=== PATIENT | female | born 1940 | race Caucasian/White ===

== ENCOUNTER → 2017-04-25 | Outpatient (CLI) | payer MEDICARE ==
[2017-04-25 10:48] LABS: Basophils # (A) 0.1 k/uL (0-0.2); Basophils % (A) 1 %; CH 30.2; CHCM 32.7; Eosinophils # (A) 0.3 k/uL (0-0.7); Eosinophils % (A) 6 %; HCT 42.4 % (34.0-46.0); HDW 2.52; HGB 13.7 gm/dL (11.4-16.0); Luc # (Auto) 0.14; Luc % (Auto) 2; Lymphocytes # (A) 1.2 k/uL (1.0-4.8); Lymphocytes % (A) 21 %; MCHC 32.4 g/dL (31.0-37.0); MCV 92.6 fL (80.0-100.0); Mean Platelet Volume 7.2; Monocytes # (A) 0.4 k/uL (0-1.0); Monocytes % (A) 6 %; Neutrophils # (A) 3.7 k/uL (1.3-7.7); Neutrophils % (A) 63 %; RBC 4.58 m/uL (3.80-5.40); RDW 13.4 % (11.5-15.5); WBC 5.8 k/uL (3.8-10.6); WBC (Perox) 6.07
[2017-04-25 10:55] LABS: ALT 26 U/L (9-52); AST 35 U/L (14-36); Alkaline Phosphatase 83 U/L (38-126); Anion Gap 11 mmol/L; Blood Urea Nitrogen 20 mg/dL (7-17); Calcium 9.8 mg/dL (8.4-10.2); Carbon Dioxide 29 mmol/L (22-30); Chloride 105 mmol/L (98-107); Cholesterol 179 mg/dL (<200); Creatine Kinase 81 U/L (30-135); Glucose 107 mg/dL (74-99); HDL Cholesterol 61 mg/dL (40-60); Non-African American GFR(MDRD) >60 (>60 ml/min/1.73 sqM); Potassium 4.7 mmol/L (3.5-5.1); Sodium 145 mmol/L (137-145); Total Bilirubin 0.9 mg/dL (0.2-1.3); Triglycerides 177 mg/dL (<150); Uric Acid 6.4 mg/dL (3.7-7.4)
[2017-04-25 11:16] LABS: Appearance,Urine Cloudy (Clear); Bacteria,Urine Many /hpf; Bilirubin,Urine Negative (Negative); Glucose,Urine (UA) Negative (Negative); Ketones,Urine Negative (Negative); Leukocyte Esterase,Urine Large (Negative); Mucus,Urine Rare /hpf; Nitrite,Urine Positive (Negative); PH, Urine 5.5 (5.0-8.0); Particle Count 66143; Protein,Urine Trace (Negative); RBC,Urine 1 /hpf (0-5); Specific Gravity,Urine 1.017 (1.001-1.035); Squamous Epithelial Cell,Urine 5 /hpf (0-4); UA Billing (MACRO vs. MICRO) MICRO; Urobilinogen,Urine <2.0 mg/dL (<2.0); WBC,Urine 20 /hpf (0-5)
[2017-04-25 11:55] LABS: Hemoglobin A1C 5.8 % (4.2-6.1)
== END | disposition home or self-care (01) ==
LOC: LABWHC1 09:41
PROVIDERS: ATTEND Internal Medicine
DX: J44.9 Chronic obstructive pulmonary disease, unspecified (principal); I10 Essential (primary) hypertension; E78.5 Hyperlipidemia, unspecified
CPT/HCPCS: 36415; 80053; 80061; 81001; 82306; 82550; 83036; 84439; 84443; 84550; 85025

== ENCOUNTER 2017-07-31 04:52 | Emergency (ER) | payer MEDICARE ==
[2017-07-31 04:58] VITALS: TEMP 97.7
[2017-07-31] MEDS ORDERED: ALBUTEROL NEBULIZED 2.5 MG/3 ML INHALATION STA (05:22)
[2017-07-31] MEDS ORDERED: NITROGLYCERIN OINT 1 INCH/GM PACKET TOPICAL STA (05:22)
[2017-07-31 05:49] LABS: Basophils # (A) 0.1 k/uL (0-0.2); Basophils % (A) 1 %; CH 31.2; CHCM 34.5; Eosinophils # (A) 0.3 k/uL (0-0.7); Eosinophils % (A) 4 %; HCT 37.2 % (34.0-46.0); HDW 2.51; HGB 12.6 gm/dL (11.4-16.0); Luc # (Auto) 0.15; Luc % (Auto) 2; Lymphocytes # (A) 1.2 k/uL (1.0-4.8); Lymphocytes % (A) 18 %; MCH 30.7 pg (25.0-35.0); MCHC 33.8 g/dL (31.0-37.0); MCV 90.9 fL (80.0-100.0); Mean Platelet Volume 7.8; Monocytes # (A) 0.5 k/uL (0-1.0); Monocytes % (A) 8 %; Neutrophils # (A) 4.5 k/uL (1.3-7.7); Neutrophils % (A) 67 %; RBC 4.09 m/uL (3.80-5.40); RDW 14.5 % (11.5-15.5); WBC 6.8 k/uL (3.8-10.6); WBC (Perox) 7.27
--- NOTE | 2017-07-31 05:51 | ED ---
SOB HPI - General Source: patient, family Mode of arrival: wheelchair Limitations: no limitations - History of Present Illness MD Complaint: shortness of breath Onset/Timin -: week(s) Severity: moderate Consistency: constant Improves With: nothing Worsens With: lying flat, exertion Known History Of: COPD, congestive heart failure Associated Symptoms: orthopnea Treatments Prior to Arrival: bronchodilator - Related Data Home Oxygen Therapy: No <Ismael Hill - Last Filed: 07/31/17 05:47> <Yannick Elizabeth - Last Filed: 08/12/17 16:06> - General Chief Complaint: Shortness of Breath Stated Complaint: ELSI Time Seen by Provider: 07/31/17 05:00 - History of Present Illness Initial Comments: This patient is a 76-year-old woman who presents to be a viral for shortness of breath that she states seems to be getting progressively worse over about one week. She states that she is also having some orthopnea. She states that she did try some albuterol but it is not helping any longer though initially it seemed to. Patient denies change in urination, bowel movements, swelling or leg pain (Ismael Hill) - Related Data Home Medications Medication Instructions Recorded Confirmed Aspirin 324 mg PO DAILY 08/02/14 07/31/17 Lisinopril [Prinivil] 10 mg PO DAILY 08/02/14 07/31/17 Ascorbic Acid [Vitamin C] 1,000 mg PO DAILY@1200 12/02/14 07/31/17 Cholecalciferol [Vitamin D3] 1,000 unit PO DAILY@1200 12/02/14 07/31/17 Cyanocobalamin [Vitamin B-12] 500 mcg PO DAILY@1200 12/02/14 07/31/17 Metoprolol Tartrate [Lopressor] 50 mg PO BID 07/31/17 07/31/17 Multivitamins, Thera [Multivitamin 1 tab PO DAILY 07/31/17 07/31/17 (formulary)] Sertraline [Zoloft] 75 mg PO DAILY 07/31/17 07/31/17 Simvastatin [Zocor] 40 mg PO HS 07/31/17 07/31/17 Allergies Allergy/AdvReac Type Severity Reaction Status Date / Time heparin AdvReac Unknown Verified 07/31/17 08:16 Review of Systems ROS Other: All systems not noted in ROS Statement are negative. Constitutional: Denies: fever, chills Respiratory: Reports: dyspnea. Denies: hemoptysis Cardiovascular: Reports: dyspnea on exertion, orthopnea. Denies: chest pain, palpitations, edema, syncope Gastrointestinal: Denies: abdominal pain, vomiting, diarrhea Genitourinary: Denies: dysuria, frequency, hematuria Musculoskeletal: Denies: back pain Skin: Denies: rash Neurological: Denies: headache, weakness, numbness <Ismael Hill - Last Filed: 07/31/17 05:47> ROS Other: All systems not noted in ROS Statement are negative. <Yannick Elizabeth Emelia - Last Filed: 08/12/17 16:06> ROS Statement: Those systems with pertinent positive or pertinent negative responses have been documented in the HPI. Past Medical History Past Medical History: COPD, Hyperlipidemia, Hypertension, Myocardial Infarction (CO), Osteoarthritis (OA) Additional Past Medical History / Comment(s): hx. rheumatic fever x 3, heart murmur severe aortic stenosis severe mitral regurgitation Last Myocardial Infarction Date:: unknown History of Any Multi-Drug Resistant Organisms: None Reported Past Surgical History: Bladder Surgery, Cholecystectomy, Heart Catheterization, Heart Catheterization With Stent, Hysterectomy Additional Past Surgical History / Comment(s): mitral and aortic valve replacement Past Anesthesia/Blood Transfusion Reactions: No Reported Reaction Date of Last Stent Placement:: 1997 Past Psychological History: No Psychological Hx Reported Smoking Status: Former smoker Past Alcohol Use History: Rare Past Drug Use History: None Reported <Ismael Hill - Last Filed: 07/31/17 05:47> General Exam Limitations: no limitations General appearance: alert, anxious, in distress (Patient is in mild respiratory distress, with mild tachypnea) Head exam: Present: atraumatic, normocephalic Neck exam: Present: normal inspection Respiratory exam: Present: respiratory distress, wheezes. Absent: rales, rhonchi, stridor, accessory muscle use, decreased breath sounds, prolonged expiratory Cardiovascular Exam: Present: regular rate, normal rhythm, systolic murmur GI/Abdominal exam: Present: soft. Absent: distended, tenderness, guarding, rebound Back exam: Present: normal inspection. Absent: CVA tenderness (R), CVA tenderness (L) Neurological exam: Present: alert Skin exam: Present: warm, dry, intact, normal color. Absent: rash <Ismael Hill - Last Filed: 07/31/17 05:47> General appearance: alert, in no apparent distress Head exam: Present: atraumatic, normocephalic, normal inspection Eye exam: Present: normal appearance, PERRL, EOMI. Absent: scleral icterus, conjunctival injection, periorbital swelling ENT exam: Present: normal exam, mucous membranes moist Neck exam: Present: normal inspection. Absent: tenderness, meningismus, lymphadenopathy Respiratory exam: Present: normal lung sounds bilaterally. Absent: respiratory distress, wheezes, rales, rhonchi, stridor Cardiovascular Exam: Present: regular rate, normal rhythm, normal heart sounds. Absent: systolic murmur, diastolic murmur, rubs, gallop, clicks GI/Abdominal exam: Present: soft, normal bowel sounds. Absent: distended, tenderness, guarding, rebound, rigid Extremities exam: Present: normal inspection, full ROM, normal capillary refill. Absent: tenderness, pedal edema, joint swelling, calf tenderness Back exam: Present: normal inspection Neurological exam: Present: alert, oriented X3, CN II-XII intact Psychiatric exam: Present: normal affect, normal mood Skin exam: Present: warm, dry, intact, normal color. Absent: rash <Yannick Elizabeth - Last Filed: 08/12/17 16:06> Medical Decision Making <Ismael Hill - Last Filed: 07/31/17 05:47> - Lab Data Result diagrams: 07/31/17 05:37 07/31/17 05:37 - Radiology Data Radiology results: report reviewed (Chest x-ray CTA chest negative for acute disease), image reviewed <Yannick Elizabeth - Last Filed: 08/12/17 16:06> - Medical Decision Making 76 she had ER for evaluation. Shortness of breath. Patient refusing to stay in the hospital revisited be admitted. Vision signed out AGAINST MEDICAL ADVICE (Yannick Elizabeth) - Lab Data Lab Results 07/31/17 07/31/17 07/31/17 Range/Units 05:37 05:37 05:37 WBC 6.8 (3.8-10.6) k/uL RBC 4.09 (3.80-5.40) m/uL Hgb 12.6 (11.4-16.0) gm/dL Hct 37.2 (34.0-46.0) % MCV 90.9 (80.0-100.0) fL MCH 30.7 (25.0-35.0) pg MCHC 33.8 (31.0-37.0) g/dL RDW 14.5 (11.5-15.5) % Plt Count 181 (150-450) k/uL Neutrophils % 67 % Lymphocytes % 18 % Monocytes % 8 % Eosinophils % 4 % Basophils % 1 % Neutrophils # 4.5 (1.3-7.7) k/uL Lymphocytes # 1.2 (1.0-4.8) k/uL Monocytes # 0.5 (0-1.0) k/uL Eosinophils # 0.3 (0-0.7) k/uL Basophils # 0.1 (0-0.2) k/uL PT (9.0-12.0) sec INR (<1.2) APTT (22.0-30.0) sec D-Dimer (<0.60) mg/L FEU Sodium 142 (137-145) mmol/L Potassium 3.9 (3.5-5.1) mmol/L Chloride 106 (98-107) mmol/L Carbon Dioxide 25 (22-30) mmol/L Anion Gap 11 mmol/L BUN 18 H (7-17) mg/dL Creatinine 0.66 (0.52-1.04) mg/dL Est GFR (MDRD) Af Amer >60 (>60 ml/min/1.73 sqM) Est GFR (MDRD) Non-Af >60 (>60 ml/min/1.73 sqM) Glucose 117 H (74-99) mg/dL Calcium 9.3 (8.4-10.2) mg/dL Total Bilirubin 0.9 (0.2-1.3) mg/dL AST 55 H (14-36) U/L ALT 56 H (9-52) U/L Alkaline Phosphatase 75 (38-126) U/L Total Creatine Kinase 131 (30-135) U/L CK-MB (CK-2) 3.4 H* (0.0-2.4) ng/mL CK-MB (CK-2) Rel Index 2.6 Troponin I 0.048 H* (0.000-0.034) ng/mL NT-Pro-B Natriuret Pep pg/mL Total Protein 7.6 (6.3-8.2) g/dL Albumin 4.5 (3.5-5.0) g/dL 07/31/17 07/31/17 Range/Units 05:37 05:37 WBC (3.8-10.6) k/uL RBC (3.80-5.40) m/uL Hgb (11.4-16.0) gm/dL Hct (34.0-46.0) % MCV (80.0-100.0) fL MCH (25.0-35.0) pg MCHC (31.0-37.0) g/dL RDW (11.5-15.5) % Plt Count (150-450) k/uL Neutrophils % % Lymphocytes % % Monocytes % % Eosinophils % % Basophils % % Neutrophils # (1.3-7.7) k/uL Lymphocytes # (1.0-4.8) k/uL Monocytes # (0-1.0) k/uL Eosinophils # (0-0.7) k/uL Basophils # (0-0.2) k/uL PT 10.8 (9.0-12.0) sec INR 1.1 (<1.2) APTT 24.7 (22.0-30.0) sec D-Dimer 1.84 H (<0.60) mg/L FEU Sodium (137-145) mmol/L Potassium (3.5-5.1) mmol/L Chloride (98-107) mmol/L Carbon Dioxide (22-30) mmol/L Anion Gap mmol/L BUN (7-17) mg/dL Creatinine (0.52-1.04) mg/dL Est GFR (MDRD) Af Amer (>60 ml/min/1.73 sqM) Est GFR (MDRD) Non-Af (>60 ml/min/1.73 sqM) Glucose (74-99) mg/dL Calcium (8.4-10.2) mg/dL Total Bilirubin (0.2-1.3) mg/dL AST (14-36) U/L ALT (9-52) U/L Alkaline Phosphatase (38-126) U/L Total Creatine Kinase (30-135) U/L CK-MB (CK-2) (0.0-2.4) ng/mL CK-MB (CK-2) Rel Index Troponin I (0.000-0.034) ng/mL NT-Pro-B Natriuret Pep 5380 pg/mL Total Protein (6.3-8.2) g/dL Albumin (3.5-5.0) g/dL Disposition <Ismael Hill - Last Filed: 07/31/17 05:47> <Yannick Elizabeth - Last Filed: 08/12/17 16:06> Clinical Impression: COPD (chronic obstructive pulmonary disease), Congestive heart failure Disposition: Left Against Medical Advice Condition: Fair Referrals: Siria Dolan MD [Primary Care Provider] - 1-2 days
[2017-07-31 05:57] LABS: ALT 56 U/L (9-52); AST 55 U/L (14-36); Alkaline Phosphatase 75 U/L (38-126); Anion Gap 11 mmol/L; Blood Urea Nitrogen 18 mg/dL (7-17); Calcium 9.3 mg/dL (8.4-10.2); Carbon Dioxide 25 mmol/L (22-30); Chloride 106 mmol/L (98-107); Glucose 117 mg/dL (74-99); Non-African American GFR(MDRD) >60 (>60 ml/min/1.73 sqM); Potassium 3.9 mmol/L (3.5-5.1); Sodium 142 mmol/L (137-145); Total Bilirubin 0.9 mg/dL (0.2-1.3); Total Protein 7.6 g/dL (6.3-8.2)
--- NOTE | 2017-07-31 06:00 | XR ---
EXAM: XR Chest, 1 View CLINICAL HISTORY: Reason: dyspnea TECHNIQUE: Frontal view of the chest. COMPARISON: 12/16/15 FINDINGS: Lungs: Small amount of diffuse interstitial opacities in both lungs. Pleural space: Unremarkable. No pneumothorax. Heart: Cardiomegaly. Aorta is calcified. Mediastinum: Sternal wires and mediastinal clips are again noted. Bones/joints: Osteopenia.. IMPRESSION: Mild CHF.
[2017-07-31 06:03] LABS: INR 1.1 (<1.2); Partial Thromboplastin Time 24.7 sec (22.0-30.0); Prothrombin Time 10.8 sec (9.0-12.0)
[2017-07-31 06:32] LABS: Creatine Kinase MB 3.4 ng/mL (0.0-2.4); Troponin I 0.048 ng/mL (0.000-0.034)
[2017-07-31 06:35] VITALS: RESP 20
[2017-07-31] MEDS ORDERED: ENOXAPARIN 80 MG/0.8 ML SYRINGE SQ STA (06:38)
[2017-07-31] MEDS ORDERED: RX INFO: IV CONTRAST WAS GIVEN 1 EACH MISC MISCELLANE PRN (06:39)
--- NOTE | 2017-07-31 08:13 | CT ---
EXAMINATION TYPE: CT chest angio for PE DATE OF EXAM: 07/31/2017 COMPARISON: NONE HISTORY: 76-year-old female shortness of breath, dyspnea TECHNIQUE: Contiguous axial scanning of the chest performed with IV Contrast, patient injected with 1 00 mL of Omnipaque 350. Coronal/sagittal MIP reconstructions performed. CT DLP: 499.17 mGycm Automated exposure control for dose reduction was used. FINDINGS: Median sternotomy wires are present. The heart is mildly enlarged without pericardial effusion. Suspe ct a prosthetic aortic valve area Ascending aorta is borderline ectatic at 3.5 cm. There is ectasia of the upper descending thoracic ao rta at 3.1 cm. Mild to moderate dystrophic calcifications throughout the aorta. Satisfactory opacification of the pulmonary arterial system without evidence for pulmonary embolus. No thoracic lymphadenopathy by CT size criteria. There are trace pleural effusions with some mild dependent groundglass in the lungs and septal lines particularly in the upper and greatest within the lower lungs. Underlying mild to moderate centrilobu lar emphysema. Some stringy areas of atelectasis are also present. There is a 5 mm pulmonary nodule in the peripheral left upper lobe which warrants follow-up. Visualized upper abdomen shows a 1.8 cm calcification in the peripheral right hepatic lobe and calcif ied granulomas in the spleen. Bones: Endplate spondylosis lower thoracic spine. IMPRESSION: 1. NO EVIDENCE FOR PULMONARY EMBOLUS. 2. CARDIOMEGALY WITH TRACE EFFUSIONS, MILD DEPENDENT GROUNDGLASS, AND SEPTAL LINES. FINDINGS SUGGEST MILD CHF. 3. A 5 MM PERIPHERAL LEFT UPPER LOBE PULMONARY NODULE. A 12 MONTH FOLLOW-UP CT IS RECOMMENDED TO REAS SESS..
[2017-07-31 08:32] VITALS: BP 166/74; PULSE 77
--- NOTE | 2017-08-05 00:43 | CDI ---
Dear Yannick CABALLERO, DO: Please do addendum Medical Decision Making, Impression, and Disposition. Thank you, Natalio Brown, Coding Compliance Manager. If you have any questions, please contact Research Assistant at [phone]. [facility]
== END 2017-07-31 08:56 | disposition left against medical advice (07) ==
LOC: EC 04:52
DX: J44.9 Chronic obstructive pulmonary disease, unspecified (principal); I50.9 Heart failure, unspecified; E78.5 Hyperlipidemia, unspecified; I11.0 Hypertensive heart disease with heart failure; M19.90 Unspecified osteoarthritis, unspecified site; I25.2 Old myocardial infarction; Z87.891 Personal history of nicotine dependence; Z79.82 Long term (current) use of aspirin; Z79.899 Other long term (current) drug therapy; Z88.8 Allergy status to other drugs, medicaments and biological substances; Z95.2 Presence of prosthetic heart valve; Z86.79 Personal history of other diseases of the circulatory system
CPT/HCPCS: 99285; 36415; 94640; 93005; 85379; 83880; 80053; 82550; 82553; 84484; 85025; 85610; 85730; 71010; 71275; Q9967

== ENCOUNTER 2017-08-14 05:48 | Day surgery (SDC) | payer MEDICARE ==
[2017-08-13 09:35] VITALS: BMI 23.6
[~2017-08-14 05:48] MED LIST: ALPRAZolam 0.25 MG TAB PO PRN; ALPRAZolam 0.5 MG TAB PO PRN; ASPIRIN 325 MG TAB PO STA; ATORVASTATIN 80 MG TAB PO STA; NITROGLYCERIN SL TABS 0.4 MG TAB SUBLINGUAL PRN; SODIUM CHLORIDE 0.9% 1,000 ML in EMPTY BAG 1 BAG IV ONE
[2017-08-14] MEDS ORDERED: ASPIRIN 325 MG TAB PO ONE (06:10)
[2017-08-14 06:48] VITALS: TEMP 97.9
[2017-08-14] MEDS ORDERED: SODIUM CHLORIDE 0.9% 1,000 ML IV ONE (06:53)
[2017-08-14] MEDS ORDERED: BENZOCAINE SPRAY 1 SPRAY CAN MUCOUS MEM ONE (07:11)
[2017-08-14] MEDS ORDERED: fentaNYL (PF) 50 MCG/ML 2 ML AMP IV ONE (07:12)
[2017-08-14] MEDS ORDERED: MIDAZOLAM 2 MG/2 ML VIAL IV ONE (07:12)
[2017-08-14] MEDS ORDERED: LIDOCAINE 2% INJ 20 MG/ML (20 ML MDV) ONE (07:15)
[2017-08-14] MEDS ORDERED: diphenhydrAMINE 50 MG/ML 1 ML VIAL ONE (07:18)
[2017-08-14] MEDS ORDERED: fentaNYL (PF) 50 MCG/ML 2 ML AMP ONE (07:19)
[2017-08-14 07:20] VITALS: PULSE 77
[2017-08-14] MEDS ORDERED: IV FLUID CONTINUATION 800 ML IV ONE (07:51)
[2017-08-14] MEDS ORDERED: LIDOCAINE 2% INJ 20 MG/ML SQ ONE (07:51)
[2017-08-14] MEDS ORDERED: IOHEXOL 350 MG/ML 125ML BOTTLE INJ ONE (08:05)
[2017-08-14] MEDS ORDERED: RX INFO: IV CONTRAST WAS GIVEN 1 EACH MISC MISCELLANE PRN (08:18)
[2017-08-14] MEDS ORDERED: SODIUM CHLORIDE 0.9% 1,000 ML IV SCH (08:30)
--- NOTE | 2017-08-14 08:31 | EST ---
EXERCISE STRESS INDICATION: Evaluation of aortic and mitral valve bioprosthesis. PROCEDURE: After explaining the procedure to the patient, it's risks and complication. Blood pressure, heart rate, O2 saturation was monitored. The throat was sprayed with Cetacaine and she received 2 mg intravenous Versed, 50 mcg intravenous fentanyl, after obtaining moderate conscious sedated state, the probe was introduced into the esophagus without difficulty. Images were obtained. Following that, the probe was removed. There was no immediate complication. FINDINGS: Left atrial size is dilated, spontaneous contrast was noted. Left atrial appendage is normal. The left ventricular systolic function is severely impaired with global hypokinesis with ejection fraction estimated at 20%. The aortic valve is a bioprosthetic valve with normal appearance. Mitral valve is a bioprosthetic valve with normal appearance and function. Tricuspid valve is normal. No pericardial effusion was noted. Descending thoracic aorta revealed moderate atherosclerotic changes. No pericardial effusion was noted. Contrast bubble study revealed no evidence of shunting across the interatrial septum with Valsalva maneuver. Doppler pulse wave and color Doppler obtained and revealed a trace mitral regurgitation with a trace perivalvular regurgitation. The aortic valve appears to be with no regurgitation. Mild tricuspid regurgitation was noted. Estimated right ventricular systolic pressure is 38 mmHg consistent with marked pulmonary hypertension. No shunting was noted across interatrial septum. IMPRESSION: 1. Severely dilated left atrium with spontaneous contrast. 2. Severely impaired left ventricular systolic function with global hypokinesis. 3. Normal appearance of bioprosthetic aortic valve with no regurgitation. 4. Normal appearance of bioprosthetic mitral valve with trace central regurgitation and trace to mild perivalvular regurgitation. 5. Mild tricuspid regurgitation and mild pulmonary hypertension. 6. Moderate atherosclerotic changes of the descending thoracic aorta. 7. No pericardial effusion. 8. No shunting across the interatrial septum. MMODL / IJN: [id number] /
[2017-08-14] MEDS ORDERED: LISINOPRIL 10 MG TAB PO SCH (09:00)
[2017-08-14] MEDS ORDERED: ASPIRIN 81 MG PO SCH (09:00)
[2017-08-14] MEDS ORDERED: SERTRALINE 50 MG TAB PO SCH (09:00)
[2017-08-14] MEDS ORDERED: METOPROLOL TARTRATE 50 MG TAB PO SCH (09:00)
[2017-08-14] MEDS ORDERED: SPIRONOLACTONE 25 MG TAB PO SCH (09:00)
[2017-08-14] MEDS ORDERED: MULTIVITAMINS, THERA 1 EACH TAB PO SCH (09:00)
--- NOTE | 2017-08-14 10:13 | CC ---
CARDIAC CATHETERIZATION REPORT Mrs. Rangel is a 76-year-old female with a known history of coronary artery disease, history of aortic and mitral valve surgery, who recently had evidence of deterioration of her left ventricular systolic function with symptoms of congestive heart failure. In view of that, recommendation made regarding cardiac catheterization. The procedures, risks and complication were discussed with the patient who is in full understanding and agreement. PROCEDURE: Patient was brought to Director Of Quantitative Research in a fasting semi-sedated state after receiving fentanyl and Benadryl and achieving moderate conscious sedated state. Using xylocaine anesthesia and Seldinger technique, a 6-Telugu sheath was introduced in the right femoral artery. Selective right lymphangiography performed using 6-Telugu 4 bend right Vladimir catheter. Multiple views of the right coronary artery including hemiaxial views were obtained. Following that, catheter and sheaths were removed. Hemostasis was obtained with compression of the right groin. There were no immediate complications. Patient is returned to her room in stable condition. FINDINGS: 1. FLUOROSCOPY: There was severe calcification involving the coronary arteries as well as the abdominal aorta and the femoral artery. 2. LEFT MAIN: This is a short-size vessel, calcified, bifurcating into the left circumflex, left anterior descending artery, left main coronary artery is without any obstructive coronary artery disease. 3. LEFT ANTERIOR DESCENDING ARTERY: This is a large-sized vessel reaching toward the apex with a wraparound apex segment giving rise to 2 diagonal branches, the second one is large in caliber. The left anterior descending artery stented segment proximally is patent with no evidence of significant restenosis was 20% to 30% plaque. There is another 30% to 40% plaque at the takeoff of the first diagonal branch. The rest of the vessel has no high-degree stenosis. 4. LEFT CIRCUMFLEX: This is a large dominant vessel bifurcating distally to PDA and PLV. This gives rise to 3 obtuse marginal branches. The first one is the largest in caliber. The left circumflex has mild intimal disease without any evidence of high-grade stenosis. 5. RIGHT CORONARY ARTERY DISEASE: This is a small nondominant vessel giving rise to a conus branch that has an 80% to 90% stenosis proximally. The rest of the vessel has no high-degree stenosis. 6. FEMORAL ANGIOGRAM: Revealed a total occlusion of the right SFA was a heavily calcified vessel. 7. LEFT VENTRICULOGRAM: The left ventriculogram was not performed. CONCLUSION: 1. Calcified coronary arteries. 2. Mild disease involving the left circumflex and the left anterior descending artery. 3. A significant stenosis in the nondominant right conus branch. 4. A totally occluded right SFA. RECOMMENDATION: In view of finding anatomy, I would recommend proceeding with evaluation for Bi V-ICD implantation. Those findings and recommendation were discussed with the patient and her family who are in full understanding and agreement. MMODL / IJN: [id number] /
--- NOTE | 2017-08-14 10:16 | LTR ---
Date: DATE OF SERVICE: 08/14/2017 RE: Kelli Rangel. Dear Dr. Dolan; I had the pleasure to perform cardiac catheterization on Mrs. Rangel at [facility] on August 14, 2017 and a full copy of the procedure note will be forwarded to you. In brief, she was found to have severely calcified coronary arteries with a mild disease in the LAD and the left circumflex and significant stenosis in a small conus branch of the nondominant right coronary artery. She was also found to have an incidental finding of a totally occluded right SFA. In view of her findings, I have recommended proceeding with evaluation for a Bi-V ICD implantation hoping to improve her left ventricular systolic function. I will keep you up to date on her progress and thank you again for allowing me to participate in this patient's care. Please feel free to call for any questions. Sincerely yours, Daljit CARNES / AL: [id number] /
[2017-08-14] MEDS ORDERED: ASCORBIC ACID 500 MG TAB PO SCH (12:00)
[2017-08-14] MEDS ORDERED: CHOLECALCIFEROL 1,000 UNIT TAB PO SCH (12:00)
[2017-08-14 13:19] VITALS: RESP 20
[2017-08-14 17:46] VITALS: BP 132/80
[2017-08-14] MEDS ORDERED: NON-FORMULARY DRUG (Simvastatin 40 MG) PO SCH (21:00)
--- NOTE | 2017-08-15 12:19 | CONS ---
CONSULTATION Referred by Dr. Mccrary for a consultation for evaluation and management of progressive cardiomyopathy despite medical and surgical intervention and worsening heart failure. This is a 76-year-old female, who has known coronary artery disease and has undergone coronary stenting in 2013. She also had valvular heart disease involving both the aortic and mitral valve and in 2014, she underwent atrial valve replacement as well as mitral valve replacement. Both of the tissue valve. She presents with increasing shortness of breath, gradually progressive despite being on appropriate medical therapy. She has known cardiomyopathy which was initially mild between 2011 and 2013 in the range of about 45%. However since then, there has been a progressive decline in her LV systolic function. Ejection fraction is now at about 25%. In 2013, ejection fraction was 50% and the following year in 2014 it was 45%. Then in the year 2016 it was at 30% and now at 25%. Her progressive LV dysfunction corresponds to her progressive heart failure symptoms to the point that she has slowed down considerably and could barely walk 1 in block at slow pace. She gets short of breath when she climbs 1 flight of stairs. She has also had CHF exacerbation and was advised hospitalization in the last few months. Her 12-lead ECG shows sinus rhythm with a first-degree AV block, and then left bundle branch block which is chronic. Her medications have included beta blockers and DOMINGO inhibitors for many years, therefore her LV dysfunction and heart failure has progressed despite being on medical treatment, despite surgical and percutaneous interventions. She denies any loss of consciousness or palpitations. ALLERGIES: HEPARIN. OTHER MEDICAL PROBLEMS: Coronary artery disease, status post coronary stenting in the past, history of aortic valve disease and mitral valve disease, status post replacement of the valves. History of paroxysmal atrial fibrillation and documented in 2013, probably postsurgery and cardiomyopathy. She also has an abdominal aortic aneurysm. REVIEW OF SYSTEMS: No fever, chills, or rigors. No cough or expectoration. No nausea, vomiting, diarrhea, hematuria or dysuria. No strokes, seizures. no skin lesions., no musculoskeletal complaints. PHYSICAL EXAMINATION: Her blood pressure is in the normal range. Heart rate is in the 70s and neck examination is normal. She does not have JVD at this time. She is able to lie flat in bed comfortably. Heart sounds S1is crisp, S2 is crisp and normal, soft systolic murmur audible. ABDOMEN: Soft, nontender. Extremities are warm. There is no hepatic jugular reflux at this time. An S3 gallop is present. IMPRESSION: 1. Progressive cardiomyopathy despite percutaneous, surgical and medical treatment, ejection fraction is 25%. 2. Congestive heart failure class 2 to 3. 3. Recent hospitalization for congestive heart failure. 4. Underlying left bundle branch block with a mildly prolonged CA interval with fine known coronary artery disease. 5. Hypertension. 6. Prostatic valve replacement and suggest in view of her symptoms and progressive heart failure, despite medical treatment and progressive declining LV function and underlying left bundle branch block, a biventricular ICD both for primary prevention of sudden cardiac as well as management of heart failure would be appropriate. This was discussed with Dr. Mccrary. I had a very detailed discussion with the patient regarding the indications for ICD implantation as well as REMITTANCE CLERK. I went over the procedure details, I went over the expectations following that as well as the indications, risks and benefits were also explained. The procedure will be scheduled within the month and is being scheduled now for September 09. MMODL / IJN: [id number] /
== END 2017-08-14 15:00 | disposition home or self-care (01) ==
LOC: CATHCVL 05:48
PROVIDERS: ATTEND Internal Medicine Interventional Cardiology
DX: I42.9 Cardiomyopathy, unspecified (principal); I11.0 Hypertensive heart disease with heart failure; I50.9 Heart failure, unspecified; I48.0 Paroxysmal atrial fibrillation; I70.0 Atherosclerosis of aorta; I70.211 Atherosclerosis of native arteries of extremities with intermittent claudication, right leg; I25.10 Atherosclerotic heart disease of native coronary artery without angina pectoris; I44.0 Atrioventricular block, first degree; I44.7 Left bundle-branch block, unspecified; E78.2 Mixed hyperlipidemia; I65.21 Occlusion and stenosis of right carotid artery; Z79.82 Long term (current) use of aspirin; Z79.899 Other long term (current) drug therapy; Z95.2 Presence of prosthetic heart valve; Z95.5 Presence of coronary angioplasty implant and graft; Z88.8 Allergy status to other drugs, medicaments and biological substances
CPT/HCPCS: 93312; 93320; 93325; 93454; C1769 ×2; C1894; J2001; J2250; J3010; Q9967

== ENCOUNTER → 2017-09-03 | Outpatient (CLI) | payer MEDICARE ==
--- NOTE | 2017-09-03 10:48 | US ---
EXAMINATION TYPE: US abdomen complete DATE OF EXAM: 09/03/2017 COMPARISON: CT abdomen dated 07/22/2013 CLINICAL HISTORY: I71.4 Abdominal Aortic Aneurysm. EXAM MEASUREMENTS: Liver Length: 11.1 cm Gallbladder Wall: Surgically absent cm CBD: 0.9 cm Spleen: 8.9 cm Right Kidney: 10.2 x 4.3 x 4.8 cm Left Kidney: 11.2 x 4.6 x 5.5 cm Pancreas: visualized portions wnl Liver: somewhat heterogeneous echotexture, calc seen lower rt lobe measures 0.9 x 0.7 x 0.7 cm Gallbladder: Surgically absent Evidence for sonographic Membreno's sign: No CBD: measures 0.9 cm , postsurgically dilated. Spleen: granulomas noted Right Kidney: No hydronephrosis or masses seen Left Kidney: No hydronephrosis or masses seen Upper IVC: wnl Abd Aorta: distal AAA measures 3.6 x 3.1 . IMPRESSION: 1. Distal abdominal aortic aneurysm measuring 3.6 x 3.1 cm. This has increased in size from the prior examination of 07/22/2013 where it measured 3.2 cm. 2. Benign splenic and hepatic granulomas.
== END ==
LOC: RADUSWWP 09:36
PROVIDERS: ATTEND Internal Medicine Interventional Cardiology
DX: I71.4 Abdominal aortic aneurysm, without rupture (principal)
CPT/HCPCS: 76700

== ENCOUNTER → 2017-09-26 | Outpatient (CLI) | payer MEDICARE ==
[2017-09-26 14:28] LABS: CH 30.4; CHCM 32.8; HGB 13.1 gm/dL (11.4-16.0); MCH 30.6 pg (25.0-35.0); MCHC 32.8 g/dL (31.0-37.0); MCV 93.3 fL (80.0-100.0); Mean Platelet Volume 7.5; RBC 4.29 m/uL (3.80-5.40); RDW 13.1 % (11.5-15.5); WBC 11.5 k/uL (3.8-10.6)
[2017-09-26 14:41] LABS: Anion Gap 11 mmol/L; Blood Urea Nitrogen 14 mg/dL (7-17); Calcium 9.9 mg/dL (8.4-10.2); Carbon Dioxide 29 mmol/L (22-30); Chloride 104 mmol/L (98-107); Glucose 119 mg/dL (74-99); Non-African American GFR(MDRD) >60 (>60 ml/min/1.73 sqM); Potassium 4.3 mmol/L (3.5-5.1); Sodium 144 mmol/L (137-145)
== END | disposition home or self-care (01) ==
LOC: LABWHC1 14:03
PROVIDERS: ATTEND Internal Medicine Clinical Cardiac Electrophysiology
DX: I42.9 Cardiomyopathy, unspecified (principal)
CPT/HCPCS: 36415; 80048; 85027

== ENCOUNTER 2017-09-30 11:52 | Day surgery (SDC) | payer MEDICARE ==
[2017-09-26 13:12] VITALS: BMI 22.2
[~2017-09-30 11:52] MED LIST changes: -ALPRAZolam 0.25 MG TAB PO PRN; -ALPRAZolam 0.5 MG TAB PO PRN; -ASPIRIN 325 MG TAB PO STA; -ATORVASTATIN 80 MG TAB PO STA; +LACTATED RINGERS 1,000 ML IV SCH; -NITROGLYCERIN SL TABS 0.4 MG TAB SUBLINGUAL PRN; -SODIUM CHLORIDE 0.9% 1,000 ML in EMPTY BAG 1 BAG IV ONE; +ceFAZolin 1,000 MG in SODIUM CHLORIDE 0.9% IRRIGATIO 250 ML IRRIGATION ONE; +ceFAZolin IN SWFI 2 GM/20 ML SYRINGE IVP ONE
[2017-09-30] MEDS: SODIUM CHLORIDE 0.9% 1,000 ML IV SCH (12:17)
[2017-09-30] MEDS ORDERED: fentaNYL (PF) 50 MCG/ML 2 ML AMP ONE (13:02)
[2017-09-30] MEDS ORDERED: MIDAZOLAM 2 MG/2 ML VIAL ONE (13:02)
[2017-09-30] MEDS ORDERED: IOHEXOL 300 MG/ML 50 ML BOTTLE INJ ONE (13:50)
[2017-09-30] MEDS ORDERED: LIDOCAINE 1% INJ 10MG/ML (20 ML MDV) SQ ONE (14:08)
[2017-09-30] MEDS ORDERED: IOHEXOL 350 MG/ML (PER ML) 100ML BTL INJ ONE (16:00)
[2017-09-30] MEDS ORDERED: HYDROcodone/APAP 5-325MG 1 EACH TAB PO PRN (16:24)
[2017-09-30] MEDS ORDERED: ACETAMINOPHEN IV (For NPO) 1,000 MG in EMPTY BAG 1 BAG IVPB ONE (16:24)
--- NOTE | 2017-09-30 16:55 | HP ---
HISTORY AND PHYSICAL CLINICAL INFORMATION: Kelli Rangel is a 76-year-old female with known coronary artery disease and valvular heart disease who has severe LV dysfunction. There has been a progressive decline in LV systolic function. Corresponding to this heart failure symptoms have progressively worsened. She has a wide QRS with left bundle branch block type and first-degree AV block of long-standing. Heart failure status has worsened to the point where she gets very short of breath even when climbing one flight of status slowly. She walks one block very slowly. PAST HISTORY: Coronary artery disease. Coronary artery stenting in 2013, aortic valve disease and mitral valve disease status post aortic valve replacement and mitral valve replacement with tissue valves, congestive heart failure with hospitalization earlier this year. MEDICATIONS: Medications she has been on appropriate medical therapy including DOMINGO inhibitors, beta blockers, and spironolactone statins and aspirin. ALLERGIES: ALLERGIES TO HEPARIN. REVIEW OF SYSTEMS: Currently no fever, chills, or rigors. No cough or expectoration. No nausea, vomiting, diarrhea, no hematuria or dysuria. No strokes or seizures or skin lesions. No musculoskeletal complaints. Past medical history also includes abdominal aortic aneurysm and PVD. SOCIAL HISTORY: No history of smoking at this time. PHYSICAL EXAMINATION: On examination, she is afebrile 97.7 degrees Fahrenheit, and pulse rate in the 80s. Blood pressure 150/65 mmHg. Head and neck examination is normal. There is no hepatic jugular reflux. HEART: Sounds S1, S2 is S1 is crisp S2 is crisp and normal. There is soft systolic murmur. She is able to lie flat in bed. Breath sounds are clear. No rhonchi and no crackles. ABDOMEN: Soft, nontender. Extremities are warm. No edema. She has an S3 gallop. Extremities are warm. No edema. IMPRESSION: 1. Severe cardiomyopathy mostly nonischemic. 2. Known underlying coronary artery disease status post coronary stenting. 3. Valvular heart disease with aortic and mitral valve replacement. 4. Chronic congestive heart failure with acute exacerbation earlier this year a few months back. 5. Progressive decline in her heart failure status. 6. Left bundle branch block with mildly prolonged HI interval and a wide QRS and abdominal aortic aneurysm. 7. She also has a history of paroxysmal atrial fibrillation. SUGGEST: Biventricular ICD implantation for management of heart failure and primary prevention of sudden cardiac . MMODL / IJN: [id number] /
--- NOTE | 2017-09-30 17:01 | PCN ---
PROCEDURE NOTE 76 -year-old female who underwent a Bi-V ICD implantation of [employer]. Patient was brought to the EP lab in a fasting state. Written informed consent was obtained prior to the procedure. The left shoulder area was prepped and draped as per protocol. 1% lidocaine was used for local anesthesia. A 4 cm incision was made parallel to the deltopectoral groove, about 1.5 cm medial to it. The incision was carried down to the level of the pectoralis muscle. A subfascial pocket was made. Hemostasis was assured. The left axillary vein was accessed at 3 separate points under fluoroscopy and via appropriately-sized introducer sheath introducer sheath 3 leads positioned. Next the atrial lead was a [employer] Consert, model #53437P, 52 cm in length and serial number [id number]. The P waves were 0.5-1 mV and pacing impedance 450 ohms, pacing threshold 0.75 V at 0.5 milliseconds. 10 V test negative. ICD leads was positioned in the RV apex. R-waves 12 mV pacing impedance 740 ohms. Pacing threshold 0.5 V at 0.5 milliseconds. 10 V test negative. The LV lead was positioned in the large atrial vein. Pacing impedance 360 ohms, pacing threshold 0.75 V at 0.5 milliseconds. All leads were secured to the underlying pectoralis fascia using 2 nonabsorbable sutures. Pocket was irrigated with antibiotic solution. Leads were connected to the generator ([employer], model number CD 3369-40 Q serial #[id number]). The leads were then placed in subfascial pocket. The wound was closed in 3 layers and dressed per protocol. DFT testing was deferred at this time. RESULTS: Successful dual chamber biventricular ICD for management of heart failure and primary prevention of sudden cardiac . The patient tolerated procedure well without any acute complications. The device was then programmed to DDDR mode, rate 50 to 135 ppm, short AV delay and programming. Multi site pacing was programmed using the LV2 followed by the LV3 and then RV leads. MMODL / IJN: [id number] /
--- NOTE | 2017-09-30 17:04 | LTR ---
DATE OF SERVICE: 09/30/[address] Dolan: I had the pleasure of seeing Kelli Rangel in electrophysiologic evaluation. Kelli underwent biventricular ICD implantation successfully without any complications. She will stay in the hospital overnight and will receive IV antibiotics and will follow up with you and Dr. Mccrary as before. Thank you for entrusting me in the care of your patient. Warm regards, Sincerely, MMALEJA / JOSELINEN: [id number] /
[2017-09-30] MEDS: METOPROLOL TARTRATE 50 MG TAB PO SCH (20:18)
[2017-09-30] MEDS: ceFAZolin IN SWFI 2 GM/20 ML SYRINGE IVP SCH (20:18)
[2017-09-30] MEDS: ALBUTEROL NEBULIZED 2.5 MG/3 ML INHALATION SCH (20:32)
[2017-09-30] MEDS ORDERED: ATORVASTATIN 20 MG TAB PO SCH (21:00)
[2017-09-30] MEDS ORDERED: SERTRALINE 50 MG TAB PO SCH (21:00)
[2017-09-30] MEDS ORDERED: ACETAMINOPHEN TAB 325 MG TAB PO PRN (23:00)
[2017-10-01] MEDS: ceFAZolin IN SWFI 2 GM/20 ML SYRINGE IVP SCH ×3 (01:53→14:17)
[2017-10-01] MEDS: SODIUM CHLORIDE 0.9% 1,000 ML IV SCH (05:35)
[2017-10-01 07:32] VITALS: RESP 16
--- NOTE | 2017-10-01 08:19 | XR ---
EXAMINATION TYPE: XR chest 2V DATE OF EXAM: 10/01/2017 COMPARISON: Prior chest x-ray 07/31/2017 HISTORY: Lead placement check TECHNIQUE: Frontal and lateral views of the chest are obtained. FINDINGS: Intracardiac defibrillator leads are present within the coronary sinus, right and left anil tricles. Generator is present in the left pectoral region. No evident pneumothorax or pleural effusio n. Some improvement in aeration restriction noted. Heart remains enlarged, patient is post median dylon rnotomy. Prominent lung volumes may be indicative of underlying COPD. Large splenic calcifications, l iver calcification noted. IMPRESSION: No evident complication status post pacemaker placement.
--- NOTE | 2017-10-01 08:23 | P.DS ---
Providers Attending physician: Jovanny Valerio Primary care physician: Siria Dolan [facility] Course: Patient is doing well. She has no hematoma no swelling minimal pain at the Bi V ICD site. Vitals are stable afebrile normal respirations. 126/65 mmHg respirations 16-18. She sitting comfortably at the age the bed eating breakfast. Heart sounds are normal breath sounds are clear. Chest x-ray report reviewed Impression Severe cardio myopathy of a progressive nature despite medical treatment Progressive heart failure symptoms Status post aortic and mitral valve replacement CAD status post coronary stenting in 2013 CHF class III Status post biventricular ICD implant and management of heart failure and primary prevention of sudden cardiac Plan Patient will be discharged home on current medications after device interrogation and completion of IV antibiotics Follow-up with Dr. Dr. Mccrary as scheduled follow-up in the device clinic in 5 days Patient Condition at Discharge: Stable Plan - Discharge Summary Discharge Rx Participant: No New Discharge Prescriptions: No Action RX: Aspirin 162 mg PO DAILY RX: Lisinopril [Prinivil] 10 mg PO DAILY Cholecalciferol [Vitamin D3] 1,000 unit PO DAILY@1200 Ascorbic Acid [Vitamin C] 1,000 mg PO DAILY@1200 Multivitamins, Thera [Multivitamin (formulary)] 1 tab PO DAILY Simvastatin [Zocor] 40 mg PO HS Sertraline [Zoloft] 50 mg PO HS Metoprolol Tartrate [Lopressor] 50 mg PO BID Spironolactone [Aldactone] 25 mg PO DAILY ALPRAZolam [Xanax] 0.5 mg PO DAILY PRN PRN Reason: Anxiety RX: Melatonin 10 mg PO HS PRN PRN Reason: Insomnia Nitrofurantoin Monohyd/M-Cryst [Macrobid] 100 mg PO Q12HR RX: Albuterol Inhaler [Ventolin Hfa Inhaler] 2 puff INHALATION BID Discharge Medication List RX: Aspirin 162 mg PO DAILY 08/02/14 [History] RX: Lisinopril [Prinivil] 10 mg PO DAILY 08/02/14 [History] Ascorbic Acid [Vitamin C] 1,000 mg PO DAILY@1200 12/02/14 [History] Cholecalciferol [Vitamin D3] 1,000 unit PO DAILY@1200 12/02/14 [History] Metoprolol Tartrate [Lopressor] 50 mg PO BID 07/31/17 [History] Multivitamins, Thera [Multivitamin (formulary)] 1 tab PO DAILY 07/31/17 [History ] Sertraline [Zoloft] 50 mg PO HS 07/31/17 [History] Simvastatin [Zocor] 40 mg PO HS 07/31/17 [History] Spironolactone [Aldactone] 25 mg PO DAILY 08/13/17 [History] ALPRAZolam [Xanax] 0.5 mg PO DAILY PRN 09/04/17 [History] RX: Melatonin 10 mg PO HS PRN 09/04/17 [History] Nitrofurantoin Monohyd/M-Cryst [Macrobid] 100 mg PO Q12HR 09/26/17 [History] RX: Albuterol Inhaler [Ventolin Hfa Inhaler] 2 puff INHALATION BID 09/26/17 [ History]
[2017-10-01] MEDS: METOPROLOL TARTRATE 50 MG TAB PO SCH (08:24)
[2017-10-01] MEDS ORDERED: SPIRONOLACTONE 25 MG TAB PO SCH (09:00)
[2017-10-01] MEDS ORDERED: LISINOPRIL 10 MG TAB PO SCH (09:00)
[2017-10-01] MEDS ORDERED: ASPIRIN 81 MG PO SCH (09:00)
[2017-10-01] MEDS: ALBUTEROL NEBULIZED 2.5 MG/3 ML INHALATION SCH (09:07)
[2017-10-01 11:31] VITALS: BP 123/48; PULSE 83; TEMP 97.6
== END 2017-10-01 14:40 | disposition home or self-care (01) ==
LOC: CATHEP 11:52 → 3SUR 15:28 → 3OBS 15:44 → CATHEP 10-01 14:40
PROVIDERS: ATTEND Internal Medicine Clinical Cardiac Electrophysiology
DX: I42.8 Other cardiomyopathies (principal); I48.0 Paroxysmal atrial fibrillation; Z00.6 Encounter for examination for normal comparison and control in clinical research program; I25.10 Atherosclerotic heart disease of native coronary artery without angina pectoris; I11.0 Hypertensive heart disease with heart failure; I50.1 Left ventricular failure, unspecified; Z95.2 Presence of prosthetic heart valve; I44.7 Left bundle-branch block, unspecified; Z95.5 Presence of coronary angioplasty implant and graft; I70.211 Atherosclerosis of native arteries of extremities with intermittent claudication, right leg; Z79.82 Long term (current) use of aspirin; I71.4 Abdominal aortic aneurysm, without rupture; Z79.51 Long term (current) use of inhaled steroids; Z79.899 Other long term (current) drug therapy; Z88.8 Allergy status to other drugs, medicaments and biological substances
CPT/HCPCS: 94640 ×2; 33225; 33249; 71020; C1769 ×3; C1892 ×2; C1730; C1898; C1777; C1900; C1882; J2250; Q9967 ×2; J0690 ×3; J2001; J3010

== ENCOUNTER 2017-11-19 10:21 | Emergency (ER) | payer MEDICARE ==
--- NOTE | 2017-11-19 11:24 | ED ---
General Adult HPI - General Source: patient, RN notes reviewed Mode of arrival: wheelchair Limitations: no limitations <Tano Reynolds - Last Filed: 11/19/17 12:53> <Harrison Ashby - Last Filed: 11/19/17 17:57> - General Chief complaint: Extremity Problem,Nontraumatic Stated complaint: Leg swelling/post surgery Time Seen by Provider: 11/19/17 10:54 - History of Present Illness Initial comments: Is a 77-year-old female who presents emergency room today status post more bypass times or days. Patient was met that she is also mild swelling beginning 2 days ago. States still seems some swelling down to the right calf and foot. States is worse when she is up standing on it. States it does improve with elevation. Patient denies any pain. She states that since surgery her pain is much improved. She states she feels much better other than the swelling. She denies any other complaints or symptoms. Patient denies any recent fever, chills , shortness of breath, chest pain, back pain, abdominal pain, nausea or vomiting , headaches or visual changes, or any other complaints. (Tano Reynolds) - Related Data Home Medications Medication Instructions Recorded Confirmed Aspirin 162 mg PO DAILY 08/02/14 11/19/17 Lisinopril [Prinivil] 10 mg PO BID 08/02/14 11/19/17 Ascorbic Acid [Vitamin C] 1,000 mg PO DAILY@1200 12/02/14 11/19/17 Cholecalciferol [Vitamin D3] 1,000 unit PO DAILY@1200 12/02/14 11/19/17 Metoprolol Tartrate [Lopressor] 50 mg PO BID 07/31/17 11/19/17 Multivitamins, Thera [Multivitamin 1 tab PO DAILY 07/31/17 11/19/17 (formulary)] Sertraline [Zoloft] 50 mg PO HS 07/31/17 11/19/17 Simvastatin [Zocor] 40 mg PO HS 07/31/17 11/19/17 Spironolactone [Aldactone] 25 mg PO DAILY 08/13/17 11/19/17 ALPRAZolam [Xanax] 0.25 mg PO DAILY PRN 09/04/17 11/19/17 Melatonin 10 mg PO HS PRN 09/04/17 11/19/17 Albuterol Inhaler [Ventolin Hfa 2 puff INHALATION RT-BID PRN 09/26/17 11/19/17 Inhaler] Acetaminophen [Tylenol Extra 1,000 mg PO Q6H PRN 10/23/17 11/19/17 Strength] Fluticasone/Salmeterol [Advair 1 puff INHALATION RT-BID PRN 11/12/17 11/19/17 250-50 Diskus] Previous Rx's Medication Instructions Recorded Clopidogrel Bisulfate [Plavix] 75 mg PO DAILY #90 tab 11/16/17 HYDROcodone/APAP 5-325MG [[place] 1 - 2 tab PO Q4-6H PRN #20 tab 11/16/17 5-325] Allergies Allergy/AdvReac Type Severity Reaction Status Date / Time heparin AdvReac BLEEDING Verified 11/19/17 11:58 R/T LEAK POST VALVE REPLACEMENT Review of Systems ROS Other: All systems not noted in ROS Statement are negative. <Tano Reynolds - Last Filed: 11/19/17 12:53> ROS Other: All systems not noted in ROS Statement are negative. <Harrison Ashby - Last Filed: 11/19/17 17:57> ROS Statement: Those systems with pertinent positive or pertinent negative responses have been documented in the HPI. Past Medical History Past Medical History: Coronary Artery Disease (CAD), Heart Failure, COPD, Hyperlipidemia, Hypertension, Myocardial Infarction (ID), Osteoarthritis (OA), Vascular Disorder Additional Past Medical History / Comment(s): See Dr Valerio's H&P hx. Rheumatic fever x 3, heart murmur. CMP. AAA. PAD, RT FEMORAL ARTERY BLOCKAGE, NT IN RT TOES OCC W/ DISCOLORATION. Last Myocardial Infarction Date:: unknown History of Any Multi-Drug Resistant Organisms: None Reported Past Surgical History: Bladder Surgery, Cholecystectomy, Heart Catheterization, Heart Catheterization With Stent, Hysterectomy Additional Past Surgical History / Comment(s): Mitral and Aortic valve replacement, PIG & COW VALVE. HEART CATH X 1. EXC CHEYANNE CATARACTS. Past Anesthesia/Blood Transfusion Reactions: No Reported Reaction Additional Past Anesthesia/Blood Transfusion Reaction / Comment(s): NO PROBLEMS WITH PRIOR BLOOD TRANSFUSIONS Date of Last Stent Placement:: 08-14-17 Past Psychological History: Anxiety Smoking Status: Former smoker Past Alcohol Use History: None Reported Past Drug Use History: None Reported - Past Family History Mother Family Medical History: No Reported History Father Family Medical History: No Reported History, Pneumonia (father of pneumonia ) Sister(s) Family Medical History: Congestive Heart Failure (CHF) (rheumatic heart disease) <RodolfoTano - Last Filed: 11/19/17 12:53> General Exam Limitations: no limitations <Tano Reynolds - Last Filed: 11/19/17 12:53> <Harrison Ashby - Last Filed: 11/19/17 17:57> - General Exam Comments Initial Comments: General: The patient is awake and alert, in no distress, and does not appear acutely ill. Eye: Pupils are equal, round and reactive to light, extra-ocular movements are intact. No nystagmus. There is normal conjunctiva bilaterally. No signs of icterus. Ears, nose, mouth and throat: There are moist mucous membranes and no oral lesions. Neck: The neck is supple, there is no tenderness or JVD. Cardiovascular: There is a regular rate and rhythm. No murmur, rub or gallop is appreciated. Respiratory: Lungs are clear to auscultation, respirations are non-labored, breath sounds are equal. No wheezes, stridor, rales, or rhonchi. Musculoskeletal: Normal ROM, no tenderness. Strength 5/5. Sensation intact. Pulses equal bilaterally 2+. Neurological: A&O x 3. CN II-XII intact, There are no obvious motor or sensory deficits. Coordination appears grossly intact. Speech is normal. Skin: Moderate Swelling to the Right Lower Extremity. No Tenderness. No Pitting. Psychiatric: Cooperative, appropriate mood & affect, normal judgment. (Tano Reynolds) Course <ReynoldsTano - Last Filed: 11/19/17 12:53> <Harrison Ashby - Last Filed: 11/19/17 17:57> Vital Signs 11/19/17 11/19/17 11/19/17 10:47 12:22 13:01 Temperature 97.4 F L 97.6 F Pulse Rate 93 91 Respiratory 18 16 Rate Blood Pressure 139/65 145/68 O2 Sat by Pulse 97 97 Oximetry - Reevaluation(s) Reevaluation #1: 11/19/17 17:56 PA supervision: Case was evaluated and imaging was reviewed and discussed. The presentation is consistent with a patent graft no evidence of any obstruction. There is obstruction of the femoral artery as previously noted. This was resulted bypass. (Harrison Ashby) Medical Decision Making <Tano Reynolds - Last Filed: 11/19/17 12:53> <Harrison Ashby - Last Filed: 11/19/17 17:57> - Medical Decision Making Patient's ultrasound has been reviewed with attending physician Dr. Ashby. Shows no evidence of an acute DVT. Does show a femoral blockage. Patient did have a femoral as just performed. Patient's pulses are equal bilaterally. Patient Will Be Discharged Home to Follow-Up with Her Vascular Surgeon. Advised Return If Any Symptoms Increase Worsen. (Tano Reynolds) Disposition Time of Disposition: 12:54 <Tano Reynolds - Last Filed: 11/19/17 12:53> <Harrison Ashby - Last Filed: 11/19/17 17:57> Clinical Impression: Leg swelling Disposition: HOME SELF-CARE Condition: Good Instructions: Leg Edema (ED) Additional Instructions: Please continue to elevate the leg as discussed and follow-up with the vascular surgeon over the nest 1-2 days. Please return to emergency room if any symptoms increase or worsen. Referrals: Siria Dolan MD [Primary Care Provider] - 1-2 days
--- NOTE | 2017-11-19 12:07 | US ---
EXAMINATION TYPE: US venous doppler duplex LE RT DATE OF EXAM: 11/19/2017 11:53 AM COMPARISON: NONE CLINICAL HISTORY: Pain. patient had femoral popiteal grafting done 4 days prior, h/o occluded right f emoral artery SIDE PERFORMED: Right TECHNIQUE: The lower extremity deep venous system is examined utilizing real time linear array sonog jazmine with graded compression, doppler sonography and color-flow sonography. VESSELS IMAGED: External Iliac Vein (EIV) Common Femoral Vein Deep Femoral Vein Greater Saphenous Vein * Femoral Vein Popliteal Vein Small Saphenous Vein * Proximal Calf Veins (* superficial vessels) Right Leg: Limited exam due to bandages covering recent incisions, but proximal calf veins up throug h proximal femoral vein appeared negative for DVT IMPRESSION: Limited exam due to above findings. No DVT as visualized. Right femoral artery appears oc cluded. Femoral graft noted incidentally.
[2017-11-20 23:01] VITALS: BP 145/68; PULSE 91; RESP 16; TEMP 97.6
== END 2017-11-19 13:02 | disposition home or self-care (01) ==
LOC: EC 10:21
DX: M79.89 Other specified soft tissue disorders (principal); I70.201 Unspecified atherosclerosis of native arteries of extremities, right leg; E78.5 Hyperlipidemia, unspecified; I11.0 Hypertensive heart disease with heart failure; I50.9 Heart failure, unspecified; I25.10 Atherosclerotic heart disease of native coronary artery without angina pectoris; F41.9 Anxiety disorder, unspecified; I25.2 Old myocardial infarction; Z87.891 Personal history of nicotine dependence; Z79.82 Long term (current) use of aspirin; Z79.899 Other long term (current) drug therapy; Z88.8 Allergy status to other drugs, medicaments and biological substances; Z98.890 Other specified postprocedural states
CPT/HCPCS: 99283

== ENCOUNTER → 2018-01-31 | Outpatient (CLI) | payer MEDICARE ==
[2018-01-31 10:39] LABS: Basophils # (A) 0.1 k/uL (0-0.2); Basophils % (A) 1 %; Eosinophils # (A) 0.3 k/uL (0-0.7); Eosinophils % (A) 4 %; HCT 42.3 % (34.0-46.0); HGB 14.3 gm/dL (11.4-16.0); Lymphocytes # (A) 1.2 k/uL (1.0-4.8); Lymphocytes % (A) 18 %; MCH 29.9 pg (25.0-35.0); MCHC 33.7 g/dL (31.0-37.0); MCV 88.6 fL (80.0-100.0); Monocytes # (A) 0.4 k/uL (0-1.0); Monocytes % (A) 6 %; Neutrophils # (A) 4.8 k/uL (1.3-7.7); Neutrophils % (A) 69 %; Platelet Count 249 k/uL (150-450); RBC 4.77 m/uL (3.80-5.40); RDW 12.8 % (11.5-15.5)
[2018-01-31 10:49] LABS: Appearance,Urine Cloudy (Clear); Bilirubin,Urine Negative (Negative); Blood,Urine Trace (Negative); Color,Urine Yellow; Glucose,Urine (UA) Negative (Negative); Ketones,Urine Negative (Negative); Leukocyte Esterase,Urine Large (Negative); Mucus,Urine Rare /hpf; Nitrite,Urine Positive (Negative); PH, Urine 5.5 (5.0-8.0); Protein,Urine Trace (Negative); RBC,Urine 4 /hpf (0-5); Specific Gravity,Urine 1.014 (1.001-1.035); Squamous Epithelial Cell,Urine 8 /hpf (0-4); Urobilinogen,Urine <2.0 mg/dL (<2.0); WBC,Urine >182 /hpf (0-5)
[2018-01-31 10:52] LABS: ALT 25 U/L (9-52); AST 34 U/L (14-36); Albumin 4.7 g/dL (3.5-5.0); Alkaline Phosphatase 88 U/L (38-126); Anion Gap 11 mmol/L; Blood Urea Nitrogen 22 mg/dL (7-17); Calcium 9.8 mg/dL (8.4-10.2); Carbon Dioxide 28 mmol/L (22-30); Chloride 105 mmol/L (98-107); Cholesterol 187 mg/dL (<200); Creatine Kinase 68 U/L (30-135); Glucose 117 mg/dL (74-99); HDL Cholesterol 58 mg/dL (40-60); LDL Cholesterol,Calculated 91 mg/dL (0-99); Magnesium 1.9 mg/dL (1.6-2.3); Potassium 4.6 mmol/L (3.5-5.1); Sodium 144 mmol/L (137-145); Total Bilirubin 0.6 mg/dL (0.2-1.3); Total Protein 8.2 g/dL (6.3-8.2); Triglycerides 189 mg/dL (<150); Uric Acid 6.2 mg/dL (3.7-7.4)
[2018-01-31 11:07] LABS: T4, Free (Free Thyroxine) 0.97 ng/dL (0.78-2.19)
== END | disposition home or self-care (01) ==
LOC: LABWHC1 10:16
PROVIDERS: ATTEND Internal Medicine
DX: I10 Essential (primary) hypertension (principal); E78.5 Hyperlipidemia, unspecified; J44.9 Chronic obstructive pulmonary disease, unspecified
CPT/HCPCS: 36415; 80053; 80061; 81001; 82550; 83036; 83735; 84439; 84443; 84550; 85025

== ENCOUNTER → 2018-02-19 | Outpatient (CLI) | payer MEDICARE ==
--- NOTE | 2018-02-19 14:14 | XR ---
EXAMINATION TYPE: XR chest 2V DATE OF EXAM: 02/19/2018 COMPARISON: 10/01/2017 TECHNIQUE: PA and lateral views submitted. HISTORY: Cough FINDINGS: The lungs are clear and there is no pneumothorax, pleural effusion, or focal pneumonia. Cardiac dev ice seen with postoperative change. Atherosclerotic change aorta and cardiomegaly seen. Hyperinflatio n suggests COPD degenerative change of the spine. IMPRESSION: 1. Correlate for COPD and cardiomegaly. Mild central venous congestion not excluded correlate clinica lly..
== END | disposition home or self-care (01) ==
LOC: RADXRMAIN 13:48
PROVIDERS: ATTEND Internal Medicine
DX: R05 Cough (principal)
CPT/HCPCS: 71046

== ENCOUNTER 2018-04-19 06:51 | Emergency (ER) | payer MEDICARE ==
[2018-04-19 06:58] VITALS: RESP 18
[2018-04-19] MEDS ORDERED: HYDROcodone/APAP 5-325MG 1 EACH TAB PO STA (07:48)
--- NOTE | 2018-04-19 08:11 | XR ---
EXAMINATION TYPE: XR chest 2V DATE OF EXAM: 04/19/2018 COMPARISON: 02/19/2018 HISTORY: Shortness of breath TECHNIQUE: Frontal and lateral views of the chest are obtained. FINDINGS: Scattered senescent parenchymal changes noted. [address] No evidence for infiltrate. No lizett dence for atelectasis. Heart size is stable. Mediastinal structures are stable and grossly unremarkable. No evidence for hilar prominence. Degenerative changes dorsal spine. IMPRESSION: 1. No evidence for acute pulmonary disease.
--- NOTE | 2018-04-19 09:16 | ED ---
General Adult HPI - General Chief complaint: ENT Stated complaint: Facial Pain Time Seen by Provider: 04/19/18 07:21 Source: patient, RN notes reviewed, old records reviewed Mode of arrival: ambulatory Limitations: no limitations - History of Present Illness Initial comments: This is this is a 77-year-old female the ER for evaluation. This comes in for evaluation of facial pain. Patient's pain facial pain before, 3 days of facial pain. No source of breath no chest pain. No fevers cough or congestion, patient denies trauma. No history of sore pain, no headache no neurological complaints - Related Data Home Medications Medication Instructions Recorded Confirmed Aspirin 162 mg PO DAILY 08/02/14 11/19/17 Lisinopril [Prinivil] 10 mg PO BID 08/02/14 11/19/17 Ascorbic Acid [Vitamin C] 1,000 mg PO DAILY@1200 12/02/14 11/19/17 Cholecalciferol [Vitamin D3] 1,000 unit PO DAILY@1200 12/02/14 11/19/17 Metoprolol Tartrate [Lopressor] 50 mg PO BID 07/31/17 11/19/17 Multivitamins, Thera [Multivitamin 1 tab PO DAILY 07/31/17 11/19/17 (formulary)] Sertraline [Zoloft] 50 mg PO HS 07/31/17 11/19/17 Simvastatin [Zocor] 40 mg PO HS 07/31/17 11/19/17 Spironolactone [Aldactone] 25 mg PO DAILY 08/13/17 11/19/17 ALPRAZolam [Xanax] 0.25 mg PO DAILY PRN 09/04/17 11/19/17 Melatonin 10 mg PO HS PRN 09/04/17 11/19/17 Albuterol Inhaler [Ventolin Hfa 2 puff INHALATION RT-BID PRN 09/26/17 11/19/17 Inhaler] Acetaminophen [Tylenol Extra 1,000 mg PO Q6H PRN 10/23/17 11/19/17 Strength] Fluticasone/Salmeterol [Advair 1 puff INHALATION RT-BID PRN 11/12/17 11/19/17 250-50 Diskus] Previous Rx's Medication Instructions Recorded Clopidogrel Bisulfate [Plavix] 75 mg PO DAILY #90 tab 11/16/17 HYDROcodone/APAP 5-325MG [[place] 1 - 2 tab PO Q4-6H PRN #20 tab 11/16/17 5-325] Naproxen [Naprosyn] 500 mg PO Q12HR PRN #30 tab 04/19/18 Allergies Allergy/AdvReac Type Severity Reaction Status Date / Time heparin AdvReac BLEEDING Verified 11/19/17 11:58 R/T LEAK POST VALVE REPLACEMENT Review of Systems ROS Statement: Those systems with pertinent positive or pertinent negative responses have been documented in the HPI. ROS Other: All systems not noted in ROS Statement are negative. Past Medical History Past Medical History: Coronary Artery Disease (CAD), Heart Failure, COPD, Hyperlipidemia, Hypertension, Myocardial Infarction (MD), Osteoarthritis (OA), Vascular Disorder Additional Past Medical History / Comment(s): See Dr Valerio's H&P hx. Rheumatic fever x 3, heart murmur. CMP. AAA. PAD, RT FEMORAL ARTERY BLOCKAGE, NT IN RT TOES OCC W/ DISCOLORATION. Last Myocardial Infarction Date:: unknown History of Any Multi-Drug Resistant Organisms: None Reported Past Surgical History: Bladder Surgery, Cholecystectomy, Heart Catheterization, Heart Catheterization With Stent, Hysterectomy, Pacemaker Additional Past Surgical History / Comment(s): Mitral and Aortic valve replacement, PIG & COW VALVE. HEART CATH X 1. EXC CHEYANNE CATARACTS. Past Anesthesia/Blood Transfusion Reactions: No Reported Reaction Additional Past Anesthesia/Blood Transfusion Reaction / Comment(s): NO PROBLEMS WITH PRIOR BLOOD TRANSFUSIONS Date of Last Stent Placement:: 08-14-17 Past Psychological History: Anxiety Smoking Status: Former smoker Past Alcohol Use History: None Reported Past Drug Use History: None Reported - Past Family History Mother Family Medical History: No Reported History Father Family Medical History: No Reported History, Pneumonia (father of pneumonia ) Sister(s) Family Medical History: Congestive Heart Failure (CHF) (rheumatic heart disease) General Exam Limitations: no limitations General appearance: alert, in no apparent distress Head exam: Present: atraumatic, normocephalic, normal inspection Eye exam: Present: normal appearance, PERRL, EOMI. Absent: scleral icterus, conjunctival injection, periorbital swelling ENT exam: Present: normal exam, mucous membranes moist Neck exam: Present: normal inspection. Absent: tenderness, meningismus, lymphadenopathy Respiratory exam: Present: normal lung sounds bilaterally. Absent: respiratory distress, wheezes, rales, rhonchi, stridor Cardiovascular Exam: Present: regular rate, normal rhythm, normal heart sounds. Absent: systolic murmur, diastolic murmur, rubs, gallop, clicks GI/Abdominal exam: Present: soft, normal bowel sounds. Absent: distended, tenderness, guarding, rebound, rigid Extremities exam: Present: normal inspection, full ROM, normal capillary refill. Absent: tenderness, pedal edema, joint swelling, calf tenderness Back exam: Present: normal inspection Neurological exam: Present: alert, oriented X3, CN II-XII intact Psychiatric exam: Present: normal affect, normal mood Skin exam: Present: warm, dry, intact, normal color. Absent: rash Course Vital Signs 04/19/18 04/19/18 06:54 09:40 Temperature 97.6 F 98.0 F Pulse Rate 74 72 Respiratory 18 18 Rate Blood Pressure 167/71 140/82 O2 Sat by Pulse 96 99 Oximetry EKG Findings - EKG Comments: EKG Findings:: EKG shows paced rhythm rate of 73, WI 174, QRS 168, QTC 539 Medical Decision Making - Medical Decision Making 68 female the ER for evaluation, facial pain, trigeminal neuralgia based on distribution. Patient discharged home - Radiology Data Radiology results: report reviewed (Chest x-rays negative), image reviewed Disposition Clinical Impression: Trigeminal neuralgia Disposition: HOME SELF-CARE Condition: Good Instructions: Trigeminal Neuralgia (ED) Prescriptions: Naproxen [Naprosyn] 500 mg PO Q12HR PRN #30 tab PRN Reason: Pain Is patient prescribed a controlled substance at d/c from ED?: No Referrals: Siria Dolan MD [Primary Care Provider] - 1-2 days
[2018-04-19 09:57] VITALS: BP 140/82; PULSE 72; TEMP 98
== END 2018-04-19 09:57 | disposition home or self-care (01) ==
LOC: EC 06:51
DX: G50.0 Trigeminal neuralgia (principal); I25.10 Atherosclerotic heart disease of native coronary artery without angina pectoris; I11.0 Hypertensive heart disease with heart failure; I50.9 Heart failure, unspecified; E78.5 Hyperlipidemia, unspecified; I25.2 Old myocardial infarction; J44.9 Chronic obstructive pulmonary disease, unspecified; F41.9 Anxiety disorder, unspecified; Z87.891 Personal history of nicotine dependence; Z90.49 Acquired absence of other specified parts of digestive tract; Z90.710 Acquired absence of both cervix and uterus; Z95.0 Presence of cardiac pacemaker; Z95.5 Presence of coronary angioplasty implant and graft; Z95.2 Presence of prosthetic heart valve; Z98.890 Other specified postprocedural states; Z79.82 Long term (current) use of aspirin; Z79.899 Other long term (current) drug therapy; Z88.8 Allergy status to other drugs, medicaments and biological substances
CPT/HCPCS: 71046; 93005; 99284

== ENCOUNTER → 2020-03-02 | Outpatient (CLI) | payer MEDICARE, OTHER ==
[2020-03-02 10:39] LABS: African American GFR (CKD) >90 (>60 ml/min/1.73 sqM); Blood Urea Nitrogen 22 mg/dL (7-17); Non-African American GFR(CKD) 83 (>60 ml/min/1.73 sqM)
--- NOTE | 2020-03-03 08:14 | CT ---
EXAMINATION TYPE: CT angio abd aorta w/Runoff DATE OF EXAM: 03/02/2020 COMPARISON: None HISTORY: Nontraumatic ischemic infarction of muscle Lt lower leg CT DLP: 1476 mGycm CONTRAST: CTA thoracic and abdominal aorta with 3-D reconstruction is performed and with IV Contrast, patient i njected with 100 mL of Isovue 370. Contrast CTA of the abdominal aorta with runoff of the lower extremity arterial system was performed from the lung bases through the ankles and feet. 3-D reconstruction imaging obtained at a separate wo rkstation. ABDOMINAL AORTA: 3.2 cm infrarenal abdominal aortic aneurysm noted. Mild mural thrombus. Atheromatous changes noted. Renal arteries, SMA, celiac artery and VISH are patent. Iliac vessels: Common iliac arteries are patent bilaterally. There is mild scattered cystic plaque fo rmation noted bilaterally of the bilateral common iliac arteries with without hemodynamically signifi cant stenosis. Femoral arteries: Right sided femoral-popliteal bypass graft identified. Graft is patent. Multifocal disease noted of the left common femoral artery and superficial femoral artery throughout its course with luminal narrowing of varying from 50% to greater than 75%. Popliteal arteries: Multifocal calcific plaque of bilateral popliteal arteries left greater than righ t. Estimated luminal narrowing on the left is up to 90% this is greatest distally and proximal to the trifurcation. On the right less than 50% stenosis. Below the knee arteries: Peroneal, anterior and posterior tibial arteries demonstrate mild to moderat e calcific disease left greater than right. Limited runoff of the ankles and feet given timing of the contrast bolus. LIVER/GB- No significant abnormality is seen. Large granuloma. PANCREAS- No significant abnormality is seen. SPLEEN- No significant abnormality is seen. Multiple granulomas seen. ADRENALS- No significant abnormality is seen. KIDNEYS/BLADDER- No significant abnormality is seen. BOWEL- No Significant abnormality GENITAL ORGANS: No gross abnormality seen. LYMPH NODES- No greater than 1cm abdominal or pelvic lymph nodes are appreciated. OSSEOUS STRUCTURES- No significant abnormality is seen. OTHER- No significant abnormality is seen. IMPRESSION- 1. Diffuse multifocal disease throughout the left common femoral artery, left superficial femoral art briseida, left popliteal artery and trifurcation with hemodynamically significant stenoses present. 2 right-sided femoropopliteal bypass graft is patent. Multifocal disease within the popliteal artery and trifurcation without hemodynamic limiting stenosis at this time.
== END | disposition home or self-care (01) ==
LOC: RADCTMAIN 09:51
PROVIDERS: ATTEND Surgery
DX: I70.292 Other atherosclerosis of native arteries of extremities, left leg (principal); Z95.828 Presence of other vascular implants and grafts
CPT/HCPCS: 82565; 84520; 75635; Q9967

== ENCOUNTER 2020-03-04 06:24 | Day surgery (SDC) | payer MEDICARE, OTHER ==
[2020-03-03 14:58] VITALS: BMI 23.2
[~2020-03-04 06:24] MED LIST changes: -LACTATED RINGERS 1,000 ML IV SCH; +SODIUM CHLORIDE 0.9% 1,000 ML in EMPTY BAG 1 BAG IV ONE; -ceFAZolin 1,000 MG in SODIUM CHLORIDE 0.9% IRRIGATIO 250 ML IRRIGATION ONE; -ceFAZolin IN SWFI 2 GM/20 ML SYRINGE IVP ONE
[2020-03-04] MEDS ORDERED: ASPIRIN 325 MG TAB PO ONE ×3 (07:00→07:41)
[2020-03-04] MEDS ORDERED: SODIUM CHLORIDE 0.9% 1,000 ML IV ONE (07:05)
[2020-03-04 07:18] VITALS: RESP 16; TEMP 98.2
[2020-03-04] MEDS: LIDOCAINE 1% INJ 10MG/ML (20 ML MDV) SQ ONE ×2 (07:30→08:17)
[2020-03-04] MEDS ORDERED: LIDOCAINE 1% INJ 10MG/ML (20 ML MDV) SQ ONE (07:30)
[2020-03-04] MEDS: fentaNYL (PF) 50 MCG/ML 2 ML AMP IV ONE ×2 (07:30→08:21)
[2020-03-04] MEDS ORDERED: IOPAMIDOL-250 100ML BTL INTRAARTER ONE ×2 (09:00)
[2020-03-04] MEDS ORDERED: PROTAMINE SULFATE 10 MG/ML 5 ML VIAL IV ONE (09:14)
--- NOTE | 2020-03-04 09:45 | IR ---
Fluoroscopy HISTORY: Peripheral vascular disease 29.9 minutes fluoroscopy time supplied to the referring clinician. 656 intraoperative C-arm images d ocument the procedure. See dictated report from vascular surgery.
[2020-03-04] MEDS ORDERED: ACETAMINOPHEN TAB 500 MG TAB PO PRN (09:47)
[2020-03-04] MEDS ORDERED: ALBUTEROL NEBULIZED 2.5 MG/3 ML INHALATION PRN (09:47)
--- NOTE | 2020-03-04 10:20 | P.OP ---
Date of Procedure: 03/04/20 Description of Procedure: Preoperative diagnosis: Left lower extremity critical limb ischemia with new left third toe ulcer [place] classification 5, left common iliac artery severe stenosis with atherosclerotic disease throughout the SFA Postop diagnosis: Same Procedure: 1. Aortogram with bilateral lower extremity runoff. 2. Bilateral common femoral artery ultrasound guided access 3. Crossing of left common iliac artery GENERAL ACCOUNTING CLERK 4. Percutaneous transluminal balloon angioplasty of bilateral common iliac arteries 5. Percutaneous transluminal kissing stents of bilateral common iliac arteries 6. Intraluminal pressure monitoring bilateral femoral arteries. Surgeon: Nadira Anesthesia: Moderate sedation times 90 minutes Estimated blood loss: 10 mL Complications: None Condition: Stable with palpable femoral pulses bilaterally and multiphasic signal DP and PT bilaterally. Good capillary refill Findings: Aorta: Patent with some calcific disease and ectasia/aneurysmal disease measuring about 3.5 cm of the distal aorta Iliacs: Right common iliac artery at the takeoff had some calcific disease with approximately 30% stenosis. Left common iliac artery is occluded for approximately 20 mm. External iliac arteries bilaterally with some calcific disease but without any significant stenosis. Internal iliac arteries are patent. Femorals: Right femoral popliteal bypass is widely patent without any significant stenosis. Left common femoral artery demonstrates 50% stenosis with calcific disease throughout. Profundus femoris bilaterally is patent. SFA on the left demonstrates patency with multiple areas of atherosclerotic disease and stenosis. Popliteal: Bilateral popliteal arteries with some calcific disease but otherwise patent without any significant stenosis. Tibials: Tibioperoneal trunk on the left is patent with three- vessel takeoff noted with some mild calcific disease throughout. Two-vessel runoff to the ankle noted. Operative narrative: After written informed consent was obtained the patient all risks benefits competitions were described the patient is brought to the [facility] and laid in a supine position. The area of the bilateral groins were prepped and draped in the usual sterile fashion. Local anesthesia with moderate sedation was performed with continuous pulse ox monitoring and EKG monitoring. Utilizing ultrasound the right femoral artery was visualized and shown to be patent without any significant plaque. Utilizing a multipurpose needle under ultrasound guidance the artery was accessed. Guidewire was placed followed by a 5-[place]ian sheath. 035 Glidewire was then placed into the aorta followed by pigtail catheter. Angiogram was then obtained of the aorta. Catheter was then placed at the bifurcation and lower extremity runoffs were obtained. There was significant occlusion of the left common iliac artery just after the takeoff and therefore we attempted to cross the lesion from an antegrade fashion without success. Multiple catheters including a rim catheter and Omni Flush catheter were attempted as well as a directional sheath which were unable to cross the lesion. At that time it was determined that we would require kissing stents if we were able to cross the lesion and therefore retrograde access was obtained of the left common femoral artery. Under ultrasound guidance the femoral artery was visualized shown to have some calcification. A multipurpose needle was utilized and access was obtained followed by a guidewire. The lesion was then crossed with an 035 Glidewire and quick cross catheter. Once in the aorta angiogram was obtained demonstrating good intraluminal crossing. The sheaths were then replaced with 7-[place] sheaths and a 6 x 40 mm balloon was utilized for balloon angioplasty of the common iliac arteries bilaterally. Once completed angiogram was obtained demonstrating brisk flow through this area with residual stenosis noted approximately 60-70%. At that time we determined to perform kissing stents with a VBX covered stents. A 7 x 39 stent was placed on the right common iliac artery just at the bifurcation and a 7 x 59 mm stent was placed at the left. These were placed in a kissing fashion. Once completed postdilatation with a 9 x 40 mm balloon was performed on the right. Finally gram was obtained demonstrating good brisk flow through both stents without any residual stenosis. Pressure tubing was then placed and hooked up to the bilateral femoral sheaths which demonstrated systolic blood pressure of 156 on the right and 146 on the left with an aortic pressure of 156. There was only 10 mmHg difference between the sides and there was good pulsatile blood flow noted therefore procedure was completed. All guidewires and catheters were then removed pressure was placed for hemostasis. Hemostasis was assured and the patient had palpable femoral pulses bilaterally with multiphasic signal at the DP and PT bilaterally at the conclusion of the procedure. She was then sent to PACU for recovery. Plan - Discharge Summary Discharge Rx Participant: No New Discharge Prescriptions: No Action RX: Lisinopril [Prinivil] 10 mg PO DAILY RX: Cholecalciferol [Vitamin D3 (25 Mcg = 1000 Iu)] 1,000 unit PO DAILY@1200 RX: Multivitamins, Thera [Multivitamin (formulary)] 1 tab PO DAILY RX: Simvastatin [Zocor] 40 mg PO HS RX: Sertraline [Zoloft] 75 mg PO HS RX: Metoprolol Tartrate [Lopressor] 50 mg PO BID RX: Spironolactone [Aldactone] 25 mg PO DAILY RX: Albuterol Inhaler (Bulk) [Ventolin Hfa Inhaler (Bulk)] 2 puff INHALATION RT-BID PRN PRN Reason: Shortness Of Breath RX: Acetaminophen [Tylenol Extra Strength] 1,000 mg PO Q6H PRN PRN Reason: Pain Augmentin (Unknown Dose) 1 tab PO BID Cyanocobalamin [Vitamin B-12] 500 mcg PO DAILY Ezetimibe [Zetia] 10 mg PO DAILY Rivaroxaban [Xarelto] 20 mg PO DAILY Discharge Medication List RX: Lisinopril [Prinivil] 10 mg PO DAILY 08/02/14 [History] RX: Cholecalciferol [Vitamin D3 (25 Mcg = 1000 Iu)] 1,000 unit PO DAILY@1200 12/02/14 [History] RX: Metoprolol Tartrate [Lopressor] 50 mg PO BID 07/31/17 [History] RX: Multivitamins, Thera [Multivitamin (formulary)] 1 tab PO DAILY 07/31/17 [History] RX: Sertraline [Zoloft] 75 mg PO HS 07/31/17 [History] RX: Simvastatin [Zocor] 40 mg PO HS 07/31/17 [History] RX: Spironolactone [Aldactone] 25 mg PO DAILY 08/13/17 [History] RX: Albuterol Inhaler (Bulk) [Ventolin Hfa Inhaler (Bulk)] 2 puff INHALATION RT- BID PRN 09/26/17 [History] RX: Acetaminophen [Tylenol Extra Strength] 1,000 mg PO Q6H PRN 10/23/17 [History] Augmentin (Unknown Dose) 1 tab PO BID 03/03/20 [History] Cyanocobalamin [Vitamin B-12] 500 mcg PO DAILY 03/03/20 [History] Ezetimibe [Zetia] 10 mg PO DAILY 03/03/20 [History] Rivaroxaban [Xarelto] 20 mg PO DAILY 03/03/20 [History] Follow up Appointment(s)/Referral(s): Ismael Waddell DO [STAFF PHYSICIAN] - 1 Week Patient Instructions/Handouts: Peripheral Vascular Disease (DC), Peripheral Vascular Angioplasty (DC), Procedural Sedation (ED) Activity/Diet/Wound Care/Special Instructions: No heavy bending/pushing/pulling/lifting greater than 5 pounds for 3 days No submersion of right and left groins in pools/hot tubs/bath tubs x3 days No driving x48 hours Encourage fluids Rest today Follow up appointment No changes with medications-additional Plavix 75mg and Aspirin 81mg added
[2020-03-04] MEDS ORDERED: CHOLECALCIFEROL 1,000 UNIT TAB PO SCH (12:00)
[2020-03-04 16:23] VITALS: BP 119/67; PULSE 78
[2020-03-04] MEDS ORDERED: ATORVASTATIN 20 MG TAB PO SCH (21:00)
[2020-03-04] MEDS ORDERED: SERTRALINE 50 MG TAB PO SCH (21:00)
[2020-03-04] MEDS ORDERED: AUGMENTIN PO SCH (21:00)
[2020-03-04] MEDS ORDERED: METOPROLOL TARTRATE 50 MG TAB PO SCH (21:00)
[2020-03-05] MEDS ORDERED: CYANOCOBALAMIN 500 MCG TAB PO SCH (09:00)
[2020-03-05] MEDS ORDERED: MULTIVITAMINS, THERA 1 EACH TAB PO SCH (09:00)
[2020-03-05] MEDS ORDERED: LISINOPRIL 10 MG TAB PO SCH (09:00)
[2020-03-05] MEDS ORDERED: ASPIRIN 81 MG PO SCH (09:00)
[2020-03-05] MEDS ORDERED: CLOPIDOGREL 75 MG TAB PO SCH (09:00)
[2020-03-05] MEDS ORDERED: EZETIMIBE 10 MG TAB PO SCH (09:00)
[2020-03-05] MEDS ORDERED: SPIRONOLACTONE 25 MG TAB PO SCH (09:00)
== END 2020-03-04 16:30 | disposition home or self-care (01) ==
LOC: CATHCVL 06:24
PROVIDERS: ATTEND Surgery
DX: I70.245 Atherosclerosis of native arteries of left leg with ulceration of other part of foot (principal); L97.529 Non-pressure chronic ulcer of other part of left foot with unspecified severity; I70.211 Atherosclerosis of native arteries of extremities with intermittent claudication, right leg; Z98.890 Other specified postprocedural states; I11.0 Hypertensive heart disease with heart failure; I50.9 Heart failure, unspecified; J44.9 Chronic obstructive pulmonary disease, unspecified; E78.00 Pure hypercholesterolemia, unspecified; M06.9 Rheumatoid arthritis, unspecified; Z95.2 Presence of prosthetic heart valve; Z90.49 Acquired absence of other specified parts of digestive tract; Z95.810 Presence of automatic (implantable) cardiac defibrillator; Z80.1 Family history of malignant neoplasm of trachea, bronchus and lung; Z79.82 Long term (current) use of aspirin; Z79.51 Long term (current) use of inhaled steroids; Z79.01 Long term (current) use of anticoagulants; Z79.899 Other long term (current) drug therapy
CPT/HCPCS: 36200; 37221; 75625; 75716; C1769 ×4; C1894 ×3; C1725 ×2; C1887; C1874; J2720; J0690; J2001; J3010; J1644; Q9966

== ENCOUNTER 2020-03-16 11:51 | Emergency (ER) | payer MEDICARE, OTHER ==
[2020-03-16] MEDS ORDERED: MORPHINE SULFATE 4 MG/ML SYRINGE IVP STA (12:52)
[2020-03-16 13:07] LABS: Basophils # (A) 0.1 k/uL (0-0.2); Basophils % (A) 1 %; Eosinophils # (A) 0.3 k/uL (0-0.7); Eosinophils % (A) 4 %; HCT 30.8 % (34.0-46.0); HGB 10.3 gm/dL (11.4-16.0); Hypochromasia Slight; Lymphocytes # (A) 0.8 k/uL (1.0-4.8); Lymphocytes % (A) 11 %; MCH 31.5 pg (25.0-35.0); MCHC 33.3 g/dL (31.0-37.0); MCV 94.5 fL (80.0-100.0); Mean Platelet Volume 7.6; Monocytes # (A) 0.5 k/uL (0-1.0); Monocytes % (A) 6 %; Neutrophils # (A) 5.9 k/uL (1.3-7.7); Neutrophils % (A) 77 %; Platelet Count 277 k/uL (150-450); RBC 3.26 m/uL (3.80-5.40); RDW 14.6 % (11.5-15.5); WBC 7.6 k/uL (3.8-10.6)
[2020-03-16 13:14] LABS: ALT 14 U/L (4-34); AST 29 U/L (14-36); African American GFR (CKD) >90 (>60 ml/min/1.73 sqM); Albumin 4.1 g/dL (3.5-5.0); Alkaline Phosphatase 72 U/L (38-126); Anion Gap 10 mmol/L; Blood Urea Nitrogen 21 mg/dL (7-17); Calcium 9.1 mg/dL (8.4-10.2); Carbon Dioxide 28 mmol/L (22-30); Chloride 104 mmol/L (98-107); Glucose 127 mg/dL (74-99); Non-African American GFR(CKD) 85 (>60 ml/min/1.73 sqM); Potassium 3.4 mmol/L (3.5-5.1); Sodium 142 mmol/L (137-145); Total Bilirubin 0.4 mg/dL (0.2-1.3)
--- NOTE | 2020-03-16 13:21 | ED ---
Extremity Problem HPI - General Chief complaint: Extremity Problem,Nontraumatic Stated complaint: left foot Time Seen by Provider: 03/16/20 12:15 Source: patient Mode of arrival: ambulatory Limitations: no limitations, physical limitation - History of Present Illness Initial comments: 79-year-old female presents today for chief complaint of left foot pain x2 weeks. Patient states that since her re-vascularization surgery on 03/07/2020 for PAD of the iliac arteries. Patient states that she hurt her foot a week ago but tripping curling her toes under. Patient states she has had bruising since injury. Patient admit to a black part of digit #3 that has been present since before re-vascularization. She states that she had that removed by her podiatris t today. Patient states her foot has been red since the re-vascularization surgery and was told this was normal due to reperfusion of the foot by surgeon. Patient denies fever, chills, leg swelling, abdominal pain. She states she has no pain at the site of the authorization. Patient states she wants to go home she doesn't really want to be in the ER. Upon history taking patient surgeon Dr. Becerra is present. Hernan was doing beside dopplers, which were present DP, PT - Related Data Home Medications Medication Instructions Recorded Confirmed Lisinopril [Prinivil] 10 mg PO DAILY 08/02/14 03/04/20 Cholecalciferol [Vitamin D3 (25 1,000 unit PO DAILY@1200 12/02/14 03/04/20 Mcg = 1000 Iu)] Metoprolol Tartrate [Lopressor] 50 mg PO BID 07/31/17 03/04/20 Multivitamins, Thera [Multivitamin 1 tab PO DAILY 07/31/17 03/04/20 (formulary)] Sertraline [Zoloft] 75 mg PO HS 07/31/17 03/04/20 Simvastatin [Zocor] 40 mg PO HS 07/31/17 03/04/20 Spironolactone [Aldactone] 25 mg PO DAILY 08/13/17 03/04/20 Albuterol Inhaler (Mhu) [Ventolin 2 puff INHALATION RT-BID PRN 09/26/17 03/04/20 Hfa Inhaler (Mhu)] Acetaminophen [Tylenol Extra 1,000 mg PO Q6H PRN 10/23/17 03/04/20 Strength] Cyanocobalamin [Vitamin B-12] 500 mcg PO DAILY 03/03/20 03/04/20 Ezetimibe [Zetia] 10 mg PO DAILY 03/03/20 03/04/20 Rivaroxaban [Xarelto] 20 mg PO DAILY 03/03/20 03/03/20 Previous Rx's Medication Instructions Recorded Aspirin 81 mg PO DAILY #90 chewable 03/04/20 Clopidogrel [Plavix] 75 mg PO DAILY #90 tablet 03/04/20 Allergies Allergy/AdvReac Type Severity Reaction Status Date / Time heparin AdvReac BLEEDING Verified 03/16/20 12:13 R/T LEAK POST VALVE REPLACEMENT Review of Systems ROS Statement: Those systems with pertinent positive or pertinent negative responses have been documented in the HPI. ROS Other: All systems not noted in ROS Statement are negative. Past Medical History Past Medical History: Coronary Artery Disease (CAD), Heart Failure, COPD, Hyperlipidemia, Hypertension, Myocardial Infarction (RI), Osteoarthritis (OA), Skin Disorder, Vascular Disorder Additional Past Medical History / Comment(s): Rheumatic fever x 3, heart murmur. CMP. Has Bi-V ICD ([employer]). AAA. PAD. LLE circulation prob, wound foot, w/Discoloration. Last Myocardial Infarction Date:: unknown History of Any Multi-Drug Resistant Organisms: None Reported Past Surgical History: AICD, Bladder Surgery, Cholecystectomy, Heart Catheterization, Heart Catheterization With Stent, Hysterectomy, Pacemaker Additional Past Surgical History / Comment(s): Mitral and Aortic valve replacement, PIG & COW VALVE. EXC [employer]NE CAT[employer]ACTS. Bi-V ICD ([employer]). Rt leg bypass Past Anesthesia/Blood Transfusion Reactions: No Reported Reaction Additional Past Anesthesia/Blood Transfusion Reaction / Comment(s): NO PROBLEMS WITH PRIOR BLOOD TRANSFUSIONS Date of Last Stent Placement:: 08-14-17 Type of Cardiac Device: AICD Device Placement Date:: 09/30/17 Past Psychological History: Anxiety, Depression Smoking Status: Former smoker Past Alcohol Use History: None Reported Past Drug Use History: None Reported - Past Family History Mother Family Medical History: No Reported History Father Family Medical History: No Reported History, Pneumonia Sister(s) Family Medical History: Congestive Heart Failure (CHF) General Exam - General Exam Comments Initial Comments: General: The patient is awake and alert, in no distress Eye: +3 mm pupils are equal, round and reactive to light, extra-ocular movements are intact. No nystagmus. There is normal conjunctiva bilaterally. No signs of icterus. Ears, nose, mouth and throat: There are moist mucous membranes and no oral lesions. Neck: The neck is supple, there is no tenderness or JVD. Cardiovascular: There is a regular rate and rhythm. No murmur, rub or gallop is appreciated. Respiratory: Lungs are clear to auscultation, respirations are non-labored, breath sounds are equal. No wheezes, stridor, rales, or rhonchi. Gastrointestinal: [Soft, non-distended, non-tender abdomen without masses or organomegaly noted. There is no rebound or guarding present. Musculoskeletal: Warm red left foot, patient has a bruising between digits 2-3. Digits 2-3 are bruising, painful to touch, no open lacerations. Painful to touch foot. Normal ROM at the ankle, knees. Strength 5/5. Sensation intact. femoral, popliteal, DP and PT present to doppler. Below popliteal biphasic. Neurological: A&O x 3. CN II-XII intact, There are no obvious motor or sensory deficits. Coordination appears grossly intact. Speech is normal. Skin: Skin is warm and dry and no rashes Psychiatric: Cooperative, appropriate mood & affect, normal judgment. Limitations: no limitations, physical limitation Course Vital Signs 03/16/20 03/16/20 03/16/20 12:03 13:18 13:19 Temperature 98.4 F Pulse Rate 64 76 Respiratory 18 18 Rate Blood Pressure 123/55 108/54 O2 Sat by Pulse 96 96 96 Oximetry 03/16/20 03/16/20 03/16/20 14:00 15:00 16:44 Temperature 98.2 F Pulse Rate 74 73 72 Respiratory 18 16 16 Rate Blood Pressure 115/70 112/48 116/78 O2 Sat by Pulse 96 96 98 Oximetry Medical Decision Making - Medical Decision Making 79-year-old female presenting for left foot pain. Recent injury. Bruising. No signs of open fracture. Patient's redness is thought to be from reperfusion her surgeon who is bedside. Patient denies any changes or increased since surgery or spread up the leg. Patient denies any fever or chills no leukocytosis. Patient has pulses CTA reveals perfusion to the foot this was reviewed with surgeon Dr. Becerra over the phone as he reviewed the CT personally. He feels the old blood on CT (read as maternal peritoneal hemorrhage is from the catheterization no acute bleeding). Pt has no complaints of abdominal/ groin pain. HgB stable. Patient does have point localized tenderness over the second digit consistent with suspected fracture. Patient refused any splinting stating she'll be unable to walk given patient's age I feel it this would be a fall risk patient is to follow-up with orthopedic surgery as well as surgeon on Saturday. Patient discharged appearing well agreeable to f/u with PCP, podiatry, orthopedic surgery and vascular surgery as discussed. Discussed case with Dr. Ashby who is agreeable to this care plan - Lab Data Result diagrams: 03/16/20 12:53 03/16/20 12:53 Lab Results 03/16/20 03/16/20 03/16/20 Range/Units 12:53 12:53 12:53 WBC 7.6 (3.8-10.6) k/uL RBC 3.26 L (3.80-5.40) m/uL Hgb 10.3 L (11.4-16.0) gm/dL Hct 30.8 L (34.0-46.0) % MCV 94.5 (80.0-100.0) fL MCH 31.5 (25.0-35.0) pg MCHC 33.3 (31.0-37.0) g/dL RDW 14.6 (11.5-15.5) % Plt Count 277 (150-450) k/uL Neutrophils % 77 % Lymphocytes % 11 % Monocytes % 6 % Eosinophils % 4 % Basophils % 1 % Neutrophils # 5.9 (1.3-7.7) k/uL Lymphocytes # 0.8 L (1.0-4.8) k/uL Monocytes # 0.5 (0-1.0) k/uL Eosinophils # 0.3 (0-0.7) k/uL Basophils # 0.1 (0-0.2) k/uL Hypochromasia Slight Sodium 142 (137-145) mmol/L Potassium 3.4 L (3.5-5.1) mmol/L Chloride 104 (98-107) mmol/L Carbon Dioxide 28 (22-30) mmol/L Anion Gap 10 mmol/L BUN 21 H (7-17) mg/dL Creatinine 0.62 (0.52-1.04) mg/dL Est GFR (CKD-EPI)AfAm >90 (>60 ml/min/1.73 sqM) Est GFR (CKD-EPI)NonAf 85 (>60 ml/min/1.73 sqM) Glucose 127 H (74-99) mg/dL Plasma Lactic Acid Jian 0.8 (0.7-2.0) mmol/L Calcium 9.1 (8.4-10.2) mg/dL Total Bilirubin 0.4 (0.2-1.3) mg/dL AST 29 (14-36) U/L ALT 14 (4-34) U/L Alkaline Phosphatase 72 (38-126) U/L Total Protein 7.0 (6.3-8.2) g/dL Albumin 4.1 (3.5-5.0) g/dL Coronavirus (PCR) (Not Detectd) 03/16/20 Range/Units 12:53 WBC (3.8-10.6) k/uL RBC (3.80-5.40) m/uL Hgb (11.4-16.0) gm/dL Hct (34.0-46.0) % MCV (80.0-100.0) fL MCH (25.0-35.0) pg MCHC (31.0-37.0) g/dL RDW (11.5-15.5) % Plt Count (150-450) k/uL Neutrophils % % Lymphocytes % % Monocytes % % Eosinophils % % Basophils % % Neutrophils # (1.3-7.7) k/uL Lymphocytes # (1.0-4.8) k/uL Monocytes # (0-1.0) k/uL Eosinophils # (0-0.7) k/uL Basophils # (0-0.2) k/uL Hypochromasia Sodium (137-145) mmol/L Potassium (3.5-5.1) mmol/L Chloride (98-107) mmol/L Carbon Dioxide (22-30) mmol/L Anion Gap mmol/L BUN (7-17) mg/dL Creatinine (0.52-1.04) mg/dL Est GFR (CKD-EPI)AfAm (>60 ml/min/1.73 sqM) Est GFR (CKD-EPI)NonAf (>60 ml/min/1.73 sqM) Glucose (74-99) mg/dL Plasma Lactic Acid Jian (0.7-2.0) mmol/L Calcium (8.4-10.2) mg/dL Total Bilirubin (0.2-1.3) mg/dL AST (14-36) U/L ALT (4-34) U/L Alkaline Phosphatase (38-126) U/L Total Protein (6.3-8.2) g/dL Albumin (3.5-5.0) g/dL Coronavirus (PCR) Not Detected (Not Detectd) Disposition Clinical Impression: Toe fracture, left, PAD (peripheral artery disease), Left foot pain Disposition: HOME SELF-CARE Condition: Good Instructions (If sedation given, give patient instructions): Toe Fracture (ED) Additional Instructions: Please use medication as discussed. Please follow-up with family doctor in the next 2 days, Dr. Becerra on Saturday, call orthoe Please return to emergency room if the symptoms increase or worsen or for any other concerns. Is patient prescribed a controlled substance at d/c from ED?: No Referrals: Siria Dolan MD [Primary Care Provider] - 1-2 days Krystian Sellers DO [Doctor of Osteopathic Medicine] - 1-2 days Time of Disposition: 16:04
--- NOTE | 2020-03-16 14:38 | CT ---
EXAMINATION TYPE: CT angio abd aorta w/Runoff DATE OF EXAM: 03/16/2020 COMPARISON: 03/02/2020 HISTORY: 79-year-old female Ischemic Lt foot TECHNIQUE: Contiguous axial scanning of the abdomen, pelvis, and bilateral lower extremity runoff per formed without and with IV Contrast, patient injected with 100 mL of Isovue 370. Coronal/sagittal rec onstructions performed. 3-D reconstructions generated on a dedicated independent workstation. CT DLP: 2120.1 mGycm Automated exposure control for dose reduction was used. FINDINGS: AICD leads. Heart enlarged without pericardial effusion. Lung bases show no pleural effusion. Stable dystrophic calcification or foreign liver lobe, status post cholecystectomy, and prominent maciel e duct at 1.2 cm along with the 2.9 cm diverticulum of the third portion of the duodenum projecting i nto the pancreatic head region. Adrenal glands and mildly atrophic pancreas show no gross abnormality. Kidneys show cortical thinning suggesting chronic kidney disease. Multiple calcified granulomas in the spleen. No dilated small bowel, free fluid, or free air. No significant stool burden. Sigmoid diverticulosis without pericolonic inflammatory change. No mesenteric or retroperitoneal lymphadenopathy. Bladder urine distended. Uterus surgically absent. No adnexal abnormality. No pelvic lymphadenopathy. VASCULATURE: New heterogeneous density spanning 15.0 cm overlying distal aspect of the right external iliac vessel s tracking proximally to overlie the iliac is in the retroperitoneum also measuring 5.0 cm wide and u p to 3.0 cm AP. Moderate atherosclerotic calcifications throughout the abdominal aorta and moderate to severe within the iliac arteries. Stable 3.1 cm infrarenal AAA. Stable focal severe stenoses at the origin of the celiac axis and splenic artery directly from the ao rta and severe focal stenosis of the proximal SMA. At least moderate stenoses at the origin of the bilateral renal arteries. RIGHT: Moderate to severe segmental atherosclerotic narrowing proximal right common iliac artery. Additional scattered moderate segmental narrowing throughout the remainder of the right iliac vessels . Of note, there is focal enhancement of the upper right external iliac vein. A small fistulous communi cation with the adjacent internal iliac artery is difficult to exclude, refer to axial series [id number]. This finding seems new from the prior exam. Redemonstrated right-sided femoral to popliteal artery bypass graft which remains patent. The profund a femoral artery is patent. Unchanged soft tissue thickening at the proximal anastomosis, probable sc arring. Scattered mild to moderate atherosclerotic narrowing throughout the remaining popliteal artery. Anterior tibial artery is patent. Scattered mild to moderate atherosclerotic narrowing throughout the trifurcation vessels. The vessels become diminutive at the mid leg level and peroneal arteries seen to the level of the ankle. Two-ves france runoff into the foot. LEFT: Focal severe atherosclerotic narrowing proximal left common iliac artery. Moderate atherosclerotic narrowing distal left common femoral artery. Profunda femoral arteries patent. Short segments of severe focal atherosclerotic narrowing proximal superficial femoral artery and mode rate narrowing throughout the remainder of the vessel. Segments of moderate atherosclerotic narrowing throughout the popliteal artery. Trifurcation vessels are patent but becomes diminutive at the midline level with runoff into the foot . Asymmetrically greater degree of soft tissue swelling of the left foot. BONES: Moderate to advanced degenerative disc disease and facet arthropathy throughout the lumbar spine. Gra de 1 anterolisthesis at L3-L4 and L4-L5. IMPRESSION: 1. STABLE 3.1 CM INFRARENAL AAA. SEVERE FOCAL ATHEROSCLEROTIC NARROWING AT THE ORIGIN OF THE CELIAC A XIS, SPLENIC ARTERY, AND SMA. 2. NEW HETEROGENEOUS DENSITY ALONG THE RIGHT RETROPERITONEUM SPANNING 15 CM EXTENDING UP FROM THE DIS JAMISON ASPECT OF THE EXTERNAL ILIAC VESSELS. CORRELATE FOR ANY NEW CATHETER PROCEDURE COMPARED TO 02/16. SOME RETROPERITONEAL HEMORRHAGE IS SUSPECTED. FOLLOW-UP CLINICALLY INDICATED. RIGHT: 3. SOME NEW LOCALIZED ENHANCEMENT WITHIN THE UPPER RIGHT EXTERNAL ILIAC VEIN ON THIS ARTERIAL STUDY. A SMALL AVF WITH THE ADJACENT INTERNAL ILIAC ARTERY IS DIFFICULT TO EXCLUDE. 4. PATENT RIGHT [id number] ARTERY BYPASS. 5. SCATTERED MILD TO MODERATE ATHEROSCLEROTIC NARROWING WITHIN THE POPLITEAL ARTERY AND TRIFURCATION VESSELS. THE VESSELS BECOME DIMINUTIVE AT THE MID LEG BUT SHOW RUNOFF INTO THE FOOT. LEFT: 6. 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 7. SEGMENTS OF MODERATE ATHEROSCLEROTIC NARROWING THROUGHOUT THE POPLITEAL ARTERY. 8. THE TRIFURCATION VESSELS ARE PATENT. The vessels become DIMINUTIVE AT THE MID LEG BUT SHOW RUNOFF INTO THE FOOT.
--- NOTE | 2020-03-16 14:51 | XR ---
EXAMINATION TYPE: XR foot complete LT DATE OF EXAM: 03/16/2020 COMPARISON: NONE HISTORY: 79-year-old female with injury and pain, rule out fracture TECHNIQUE: 3 views FINDINGS: Mild degenerative change first MTP joint. Subtle cortical lucency along the lateral plantar shaft of the second proximal phalanx on the oblique view. The lateral postsurgical posttraumatic deformity of the head of the fifth proximal phalanx. Mild bunion formation. Small plantar calcaneal spur. No sublu xation or dislocation. IMPRESSION: Subtle cortical lucency along the plantar lateral aspect of the second proximal phalangeal shaft on t he oblique view could be projectional. Correlate for any point tenderness here for subtle nondisplace d cortical fracture.
[2020-03-16 15:53] VITALS: RESP 16
[2020-03-16 16:45] VITALS: BP 116/78; PULSE 72; TEMP 98.2
== END 2020-03-16 16:44 | disposition home or self-care (01) ==
LOC: EC 11:51
DX: Z03.818 Encounter for observation for suspected exposure to other biological agents ruled out (principal); S92.912A Unspecified fracture of left toe(s), initial encounter for closed fracture; S90.32XA Contusion of left foot, initial encounter; I73.9 Peripheral vascular disease, unspecified; I25.10 Atherosclerotic heart disease of native coronary artery without angina pectoris; I11.0 Hypertensive heart disease with heart failure; I50.9 Heart failure, unspecified; J44.9 Chronic obstructive pulmonary disease, unspecified; E78.5 Hyperlipidemia, unspecified; I25.2 Old myocardial infarction; F41.9 Anxiety disorder, unspecified; F32.9 Major depressive disorder, single episode, unspecified; Z79.01 Long term (current) use of anticoagulants; Z79.899 Other long term (current) drug therapy; Z79.51 Long term (current) use of inhaled steroids; Z53.29 Procedure and treatment not carried out because of patient's decision for other reasons; Z95.810 Presence of automatic (implantable) cardiac defibrillator; Z95.5 Presence of coronary angioplasty implant and graft; Z87.891 Personal history of nicotine dependence; Z88.8 Allergy status to other drugs, medicaments and biological substances; Z95.4 Presence of other heart-valve replacement; X58.XXXA Exposure to other specified factors, initial encounter
CPT/HCPCS: 36415; 80053; 83605; 85025; 87040; 87635; 73630; 75635; 96374; 99284; J2270; Q9967

== ENCOUNTER 2020-03-17 22:08 | Observation (INO) | payer MEDICARE, OTHER ==
[2020-03-17] MEDS ORDERED: ACETAMINOPHEN TAB 500 MG TAB PO STA (22:35)
--- NOTE | 2020-03-17 22:39 | ED ---
General Adult HPI - General Stated complaint: Fever, SOB Time Seen by Provider: 03/17/20 22:15 Source: patient, RN notes reviewed Limitations: no limitations - History of Present Illness Initial comments: Patient is a pleasant 79-year-old female presenting to the emergency Department with fever. Onset of symptoms was today. Patient has complaints of left foot infection. Patient was seen here yesterday for this and started on Augmentin. Patient states she accidentally cut the skin to low on her left third toe. Patient has had redness and increased pain since that time. Patient does feel slightly short of breath. Patient did have muscle spasms earlier. No back discomfort at this time. - Related Data Home Medications Medication Instructions Recorded Confirmed Lisinopril [Prinivil] 10 mg PO DAILY 08/02/14 03/17/20 Cholecalciferol [Vitamin D3 (25 1,000 unit PO DAILY@1200 12/02/14 03/17/20 Mcg = 1000 Iu)] Metoprolol Tartrate [Lopressor] 50 mg PO BID 07/31/17 03/17/20 Multivitamins, Thera [Multivitamin 1 tab PO DAILY 07/31/17 03/17/20 (formulary)] Sertraline [Zoloft] 75 mg PO HS 07/31/17 03/17/20 Simvastatin [Zocor] 40 mg PO HS 07/31/17 03/17/20 Spironolactone [Aldactone] 25 mg PO DAILY 08/13/17 03/17/20 Acetaminophen [Tylenol Extra 1,000 mg PO Q6H PRN 10/23/17 03/17/20 Strength] Cyanocobalamin [Vitamin B-12] 500 mcg PO DAILY 03/03/20 03/17/20 Ezetimibe [Zetia] 10 mg PO DAILY 03/03/20 03/17/20 Rivaroxaban [Xarelto] 20 mg PO DAILY 03/03/20 03/18/20 Albuterol Sulfate [Ventolin HFA] 2 puff INHALATION RT-BID PRN 03/17/20 03/17/20 Gabapentin [Neurontin] 100 mg PO BID@0900,2100 03/17/20 03/17/20 Gabapentin [Neurontin] 200 mg PO DAILY@1200 03/17/20 03/17/20 Previous Rx's Medication Instructions Recorded Aspirin 81 mg PO DAILY #90 chewable 03/04/20 Cephalexin [Keflex] 500 mg PO Q8HR 10 Days #30 cap 03/19/20 Allergies Allergy/AdvReac Type Severity Reaction Status Date / Time heparin AdvReac BLEEDING Verified 03/18/20 11:45 R/T LEAK POST VALVE REPLACEMENT Review of Systems ROS Statement: Those systems with pertinent positive or pertinent negative responses have been documented in the HPI. ROS Other: All systems not noted in ROS Statement are negative. Constitutional: Reports: fever, chills Eyes: Denies: eye pain ENT: Denies: ear pain Respiratory: Reports: dyspnea. Denies: cough Cardiovascular: Denies: chest pain Endocrine: Reports: fatigue Gastrointestinal: Denies: abdominal pain Genitourinary: Denies: dysuria Musculoskeletal: Denies: back pain Skin: Reports: as per HPI, rash Neurological: Reports: weakness Past Medical History Past Medical History: Coronary Artery Disease (CAD), Heart Failure, COPD, Hyperlipidemia, Hypertension, Myocardial Infarction ([place]), Osteoarthritis (OA), Skin Disorder, Vascular Disorder Additional Past Medical History / Comment(s): Rheumatic fever x 3, heart murmur. CMP. Has Bi-V ICD ([employer]). AAA. PAD. LLE circulation prob, wound foot, w/Discoloration. Last Myocardial Infarction Date:: unknown History of Any Multi-Drug Resistant Organisms: None Reported Past Surgical History: AICD, Bladder Surgery, Cholecystectomy, Heart Catheterization, Heart Catheterization With Stent, Hysterectomy, Pacemaker Additional Past Surgical History / Comment(s): Mitral and Aortic valve replacement, PIG & COW VALVE. EXC CHEYANNE CAT[employer]ACTS. Bi-V ICD ([employer]). Rt leg bypass Past Anesthesia/Blood Transfusion Reactions: No Reported Reaction Additional Past Anesthesia/Blood Transfusion Reaction / Comment(s): NO PROBLEMS WITH PRIOR BLOOD TRANSFUSIONS Date of Last Stent Placement:: 08-14-17 Type of Cardiac Device: AICD Device Placement Date:: 09/30/17 Past Psychological History: Anxiety, Depression Smoking Status: Former smoker Past Alcohol Use History: None Reported Past Drug Use History: None Reported - Past Family History Mother Family Medical History: No Reported History Father Family Medical History: No Reported History, Pneumonia Sister(s) Family Medical History: Congestive Heart Failure (CHF) Daughter(s) Family Medical History: No Reported History (Patient has 2 daughters no majoe m edical issues.) Son(s) Family Medical History: No Reported History (Patient has one son no major medical issues.) General Exam Limitations: no limitations General appearance: alert, in no apparent distress Head exam: Present: normocephalic Eye exam: Present: normal appearance Neck exam: Present: normal inspection Respiratory exam: Present: normal lung sounds bilaterally Cardiovascular Exam: Present: regular rate, normal rhythm GI/Abdominal exam: Present: soft. Absent: tenderness Extremities exam: Present: normal capillary refill, other (Left third toe with stage II/3 ulcer. There is erythema extending up past the ankle. There is tenderness. ) Back exam: Present: normal inspection, full ROM. Absent: tenderness Neurological exam: Present: alert Psychiatric exam: Present: normal affect, normal mood Skin exam: Present: erythema (Left foot) Course Vital Signs 03/17/20 03/18/20 03/18/20 22:33 00:00 02:36 Temperature 101.1 F H 98.7 F 98.2 F Pulse Rate 74 78 77 Respiratory 20 16 18 Rate Blood Pressure 134/53 123/52 135/51 O2 Sat by Pulse 100 96 96 Oximetry EKG Findings - EKG Comments: EKG Findings:: Paced rhythm with a rate of 85. VA 1:30. QRS 170. QT 472. QTC 561. Left axis. Wide-complex QRS. Nonspecific ST-T. Medical Decision Making - Lab Data Result diagrams: 03/19/20 06:55 03/19/20 06:55 Lab Results 03/17/20 03/17/20 03/17/20 Range/Units 22:25 22:25 22:25 WBC 10.4 (3.8-10.6) k/uL RBC 3.27 L (3.80-5.40) m/uL Hgb 10.3 L (11.4-16.0) gm/dL Hct 31.7 L (34.0-46.0) % MCV 97.2 (80.0-100.0) fL MCH 31.5 (25.0-35.0) pg MCHC 32.4 (31.0-37.0) g/dL RDW 14.6 (11.5-15.5) % Plt Count 246 (150-450) k/uL Neutrophils % 92 % Lymphocytes % 4 % Monocytes % 1 % Eosinophils % 2 % Basophils % 0 % Neutrophils # 9.5 H (1.3-7.7) k/uL Lymphocytes # 0.5 L (1.0-4.8) k/uL Monocytes # 0.1 (0-1.0) k/uL Eosinophils # 0.2 (0-0.7) k/uL Basophils # 0.0 (0-0.2) k/uL Hypochromasia Slight PT 14.7 H (9.0-12.0) sec INR 1.5 H (<1.2) APTT 28.6 (22.0-30.0) sec D-Dimer 4.87 H (<0.60) mg/L FEU Sodium 139 (137-145) mmol/L Potassium 4.0 (3.5-5.1) mmol/L Chloride 102 (98-107) mmol/L Carbon Dioxide 32 H (22-30) mmol/L Anion Gap 5 mmol/L BUN 19 H (7-17) mg/dL Creatinine 0.66 (0.52-1.04) mg/dL Est GFR (CKD-EPI)AfAm >90 (>60 ml/min/1.73 sqM) Est GFR (CKD-EPI)NonAf 83 (>60 ml/min/1.73 sqM) Glucose 146 H (74-99) mg/dL Plasma Lactic Acid Jian (0.7-2.0) mmol/L Calcium 9.0 (8.4-10.2) mg/dL Magnesium 1.6 (1.6-2.3) mg/dL Ferritin 40.2 (10.0-291.0) ng/mL Total Bilirubin 0.4 (0.2-1.3) mg/dL AST 32 (14-36) U/L ALT 15 (4-34) U/L Alkaline Phosphatase 85 (38-126) U/L Lactate Dehydrogenase 855 H (313-618) U/L C-Reactive Protein 15.8 H (<10.0) mg/L Total Protein 7.0 (6.3-8.2) g/dL Albumin 4.1 (3.5-5.0) g/dL Procalcitonin (0.02-0.09) ng/mL Urine Color Urine Appearance (Clear) Urine pH (5.0-8.0) Ur Specific [place] (1.001-1.035) Urine Protein (Negative) Urine Glucose (UA) (Negative) Urine Ketones (Negative) Urine Blood (Negative) Urine Nitrite (Negative) Urine Bilirubin (Negative) Urine Urobilinogen (<2.0) mg/dL Ur Leukocyte Esterase (Negative) Urine RBC (0-5) /hpf Urine WBC (0-5) /hpf Ur Squamous Epith Cells (0-4) /hpf Urine Bacteria (None) /hpf Urine Mucus (None) /hpf Urine Yeast (Budding) (None) /hpf Coronavirus (PCR) (Not Detectd) 03/17/20 03/17/20 03/17/20 Range/Units 22:25 22:25 22:25 WBC (3.8-10.6) k/uL RBC (3.80-5.40) m/uL Hgb (11.4-16.0) gm/dL Hct (34.0-46.0) % MCV (80.0-100.0) fL MCH (25.0-35.0) pg MCHC (31.0-37.0) g/dL RDW (11.5-15.5) % Plt Count (150-450) k/uL Neutrophils % % Lymphocytes % % Monocytes % % Eosinophils % % Basophils % % Neutrophils # (1.3-7.7) k/uL Lymphocytes # (1.0-4.8) k/uL Monocytes # (0-1.0) k/uL Eosinophils # (0-0.7) k/uL Basophils # (0-0.2) k/uL Hypochromasia PT (9.0-12.0) sec INR (<1.2) APTT (22.0-30.0) sec D-Dimer (<0.60) mg/L FEU Sodium (137-145) mmol/L Potassium (3.5-5.1) mmol/L Chloride (98-107) mmol/L Carbon Dioxide (22-30) mmol/L Anion Gap mmol/L BUN (7-17) mg/dL Creatinine (0.52-1.04) mg/dL Est GFR (CKD-EPI)AfAm (>60 ml/min/1.73 sqM) Est GFR (CKD-EPI)NonAf (>60 ml/min/1.73 sqM) Glucose (74-99) mg/dL Plasma Lactic Acid Jian 1.4 (0.7-2.0) mmol/L Calcium (8.4-10.2) mg/dL Magnesium (1.6-2.3) mg/dL Ferritin (10.0-291.0) ng/mL Total Bilirubin (0.2-1.3) mg/dL AST (14-36) U/L ALT (4-34) U/L Alkaline Phosphatase (38-126) U/L Lactate Dehydrogenase (313-618) U/L C-Reactive Protein (<10.0) mg/L Total Protein (6.3-8.2) g/dL Albumin (3.5-5.0) g/dL Procalcitonin 0.04 (0.02-0.09) ng/mL Urine Color Urine Appearance (Clear) Urine pH (5.0-8.0) Ur Specific [place] (1.001-1.035) Urine Protein (Negative) Urine Glucose (UA) (Negative) Urine Ketones (Negative) Urine Blood (Negative) Urine Nitrite (Negative) Urine Bilirubin (Negative) Urine Urobilinogen (<2.0) mg/dL Ur Leukocyte Esterase (Negative) Urine RBC (0-5) /hpf Urine WBC (0-5) /hpf Ur Squamous Epith Cells (0-4) /hpf Urine Bacteria (None) /hpf Urine Mucus (None) /hpf Urine Yeast (Budding) (None) /hpf Coronavirus (PCR) Not Detected (Not Detectd) 03/18/20 Range/Units 00:50 WBC (3.8-10.6) k/uL RBC (3.80-5.40) m/uL Hgb (11.4-16.0) gm/dL Hct (34.0-46.0) % MCV (80.0-100.0) fL MCH (25.0-35.0) pg MCHC (31.0-37.0) g/dL RDW (11.5-15.5) % Plt Count (150-450) k/uL Neutrophils % % Lymphocytes % % Monocytes % % Eosinophils % % Basophils % % Neutrophils # (1.3-7.7) k/uL Lymphocytes # (1.0-4.8) k/uL Monocytes # (0-1.0) k/uL Eosinophils # (0-0.7) k/uL Basophils # (0-0.2) k/uL Hypochromasia PT (9.0-12.0) sec INR (<1.2) APTT (22.0-30.0) sec D-Dimer (<0.60) mg/L FEU Sodium (137-145) mmol/L Potassium (3.5-5.1) mmol/L Chloride (98-107) mmol/L Carbon Dioxide (22-30) mmol/L Anion Gap mmol/L BUN (7-17) mg/dL Creatinine (0.52-1.04) mg/dL Est GFR (CKD-EPI)AfAm (>60 ml/min/1.73 sqM) Est GFR (CKD-EPI)NonAf (>60 ml/min/1.73 sqM) Glucose (74-99) mg/dL Plasma Lactic Acid Jian (0.7-2.0) mmol/L Calcium (8.4-10.2) mg/dL Magnesium (1.6-2.3) mg/dL Ferritin (10.0-291.0) ng/mL Total Bilirubin (0.2-1.3) mg/dL AST (14-36) U/L ALT (4-34) U/L Alkaline Phosphatase (38-126) U/L Lactate Dehydrogenase (313-618) U/L C-Reactive Protein (<10.0) mg/L Total Protein (6.3-8.2) g/dL Albumin (3.5-5.0) g/dL Procalcitonin (0.02-0.09) ng/mL Urine Color Yellow Urine Appearance Cloudy H (Clear) Urine pH 6.0 (5.0-8.0) Ur Specific [place] 1.024 (1.001-1.035) Urine Protein Trace H (Negative) Urine Glucose (UA) Negative (Negative) Urine Ketones Negative (Negative) Urine Blood Moderate H (Negative) Urine Nitrite Negative (Negative) Urine Bilirubin Negative (Negative) Urine Urobilinogen 2.0 (<2.0) mg/dL Ur Leukocyte Esterase Large H (Negative) Urine RBC 150 H (0-5) /hpf Urine WBC >182 H (0-5) /hpf Ur Squamous Epith Cells 8 H (0-4) /hpf Urine Bacteria Occasional H (None) /hpf Urine Mucus Occasional H (None) /hpf Urine Yeast (Budding) Many H (None) /hpf Coronavirus (PCR) (Not Detectd) Disposition Clinical Impression: Cellulitis, Urinary tract infection Disposition: ADMITTED IP TO THIS HOSP Condition: Fair Is patient prescribed a controlled substance at d/c from ED?: No
--- NOTE | 2020-03-17 23:15 | XR ---
EXAMINATION TYPE: XR foot complete LT DATE OF EXAM: 03/17/2020 COMPARISON: 03/16/2020 HISTORY: Injury and pain Infection TECHNIQUE: 3 views FINDINGS: Metatarsals appear intact. There is nondisplaced fracture of the proximal phalanx of the se cond toe. The third toe appears intact. IMPRESSION: Second toe fracture as above without change in position compared to exam yesterday. Third toe appears intact. No sign of osteomyelitis.
--- NOTE | 2020-03-17 23:16 | XR ---
EXAMINATION TYPE: XR chest 1V portable DATE OF EXAM: 03/17/2020 COMPARISON: 04/19/2018 HISTORY: Facial pain TECHNIQUE: FINDINGS: Heart is enlarged. There is no heart failure. There is a left axillary pacemaker. There are sternal wires. Costophrenic angles are clear. Bony thorax is intact. IMPRESSION: Cardiomegaly. No active cardiopulmonary disease. No change.
[2020-03-17 23:17] LABS: Basophils % (A) 0 %; Eosinophils # (A) 0.2 k/uL (0-0.7); Eosinophils % (A) 2 %; HCT 31.7 % (34.0-46.0); HGB 10.3 gm/dL (11.4-16.0); Hypochromasia Slight; Lymphocytes # (A) 0.5 k/uL (1.0-4.8); Lymphocytes % (A) 4 %; MCH 31.5 pg (25.0-35.0); MCHC 32.4 g/dL (31.0-37.0); MCV 97.2 fL (80.0-100.0); Mean Platelet Volume 7.7; Monocytes # (A) 0.1 k/uL (0-1.0); Monocytes % (A) 1 %; Neutrophils # (A) 9.5 k/uL (1.3-7.7); Neutrophils % (A) 92 %; Platelet Count 246 k/uL (150-450); RBC 3.27 m/uL (3.80-5.40); RDW 14.6 % (11.5-15.5); WBC 10.4 k/uL (3.8-10.6)
[2020-03-17 23:23] LABS: ALT 15 U/L (4-34); AST 32 U/L (14-36); African American GFR (CKD) >90 (>60 ml/min/1.73 sqM); Albumin 4.1 g/dL (3.5-5.0); Alkaline Phosphatase 85 U/L (38-126); Anion Gap 5 mmol/L; Blood Urea Nitrogen 19 mg/dL (7-17); C Reactive Protein 15.8 mg/L (<10.0); Carbon Dioxide 32 mmol/L (22-30); Chloride 102 mmol/L (98-107); Glucose 146 mg/dL (74-99); LDH 855 U/L (313-618); Magnesium 1.6 mg/dL (1.6-2.3); Non-African American GFR(CKD) 83 (>60 ml/min/1.73 sqM); Sodium 139 mmol/L (137-145); Total Bilirubin 0.4 mg/dL (0.2-1.3)
[2020-03-17 23:29] LABS: INR 1.5 (<1.2); Partial Thromboplastin Time 28.6 sec (22.0-30.0); Prothrombin Time 14.7 sec (9.0-12.0)
[2020-03-17 23:32] LABS: D-Dimer 4.87 mg/L FEU (<0.60)
[2020-03-18] MEDS ORDERED: VANCOMYCIN IV PER PHARMACY 1 EACH MISC MISCELLANE PRN (01:05)
[2020-03-18 01:11] LABS: Appearance,Urine Cloudy (Clear); Bacteria,Urine Occasional /hpf; Bilirubin,Urine Negative (Negative); Blood,Urine Moderate (Negative); Budding Yeast,Urine Many /hpf; Color,Urine Yellow; Glucose,Urine (UA) Negative (Negative); Ketones,Urine Negative (Negative); Leukocyte Esterase,Urine Large (Negative); Mucus,Urine Occasional /hpf; Nitrite,Urine Negative (Negative); Protein,Urine Trace (Negative); RBC,Urine 150 /hpf (0-5); Specific Gravity,Urine 1.024 (1.001-1.035); Squamous Epithelial Cell,Urine 8 /hpf (0-4); WBC,Urine >182 /hpf (0-5)
[2020-03-18] MEDS ORDERED: NALOXONE 0.4 MG/ML 1 ML VIAL IV PRN (01:51)
[2020-03-18] MEDS ORDERED: MORPHINE SULFATE 4 MG/ML SYRINGE IV PRN (01:51)
[2020-03-18] MEDS ORDERED: HYDROcodone/APAP 5-325MG 1 EACH TAB PO PRN (01:51)
[2020-03-18] MEDS ORDERED: ALBUTEROL NEBULIZED 2.5 MG/3 ML INHALATION PRN (01:57)
[2020-03-18] MEDS ORDERED: VANCOMYCIN 1,000 MG in SODIUM CHLORIDE 0.9% 250 ML IVPB ONE (02:00)
--- NOTE | 2020-03-18 02:50 | CT ---
EXAMINATION TYPE: CT chest angio for PE DATE OF EXAM: 03/18/2020 COMPARISON: 07/31/2017 HISTORY: SOB CT DLP: 303.7 mGycm Automated exposure control for dose reduction was used. CONTRAST: Performed with IV Contrast, patient injected with 70 mL of Isovue 370. There are 3-D post processed images. There is diffuse pulmonary emphysema. There is mild reticular interstitial density in the upper lobes consistent with scarring. Heart is enlarged. There is no pericardial effusion. There are no hilar ma sses. There is no mediastinal adenopathy. Thoracic aorta is atheromatous. There is dense coronary artery calcification. There is normal contrast opacification of the pulmonary arteries. There are no filling defects. Thoracic aorta shows no sign of aneurysm or dissection. Ther e is spurring in the thoracic spine. There is no compression fracture. There is 2 cm dense calcification in the lateral right lobe of the liver consistent with a granuloma. There are numerous calcified splenic granulomata. IMPRESSION: No evidence of pulmonary embolism. Mild emphysema and interstitial fibrotic changes. There is clearin g of the pulmonary interstitial edema compared to old exam. Heart appears smaller than old exam.
[2020-03-18] MEDS: SODIUM CHLORIDE 0.9% 1,000 ML IV SCH ×2 (04:15→23:03)
--- NOTE | 2020-03-18 06:22 | P.GSCN ---
<Ismael Waddell - Last Filed: 03/18/20 06:14> History of Present Illness Consult date: 03/18/20 Reason for Consult: left foot pain History of present illness: 79 year old female who is well known to me with recent visit to the ER secondary to left foot pain located at the top of her foot adjacent to her second toe. She states having increased redness and pain since bumping her foot several days ago. She did recently undergo left iliac artery stenting for a [employer]. Since that time she states her foot has felt better until recently. Her previous pain at her 3rd toe ulcer has improved since her surgery but her 2nd toe had been hurting and a bruise formed with pain on the dorsum of her foot. She had a CTA which demonstrated patent stent and flow to her foot but diagnosed with a toe fracture. She was stable from a vascular standpoint and instructed to follow up in the office for JENNY's. She presents back to the ER yesterday with complaints of fevers and foot pain. Review of Systems All systems: negative (what is mentioned in the HPI or PMH) Past Medical History Past Medical History: Coronary Artery Disease (CAD), Heart Failure, COPD, Hyperlipidemia, Hypertension, Myocardial Infarction (OH), Osteoarthritis (OA), Skin Disorder, Vascular Disorder Additional Past Medical History / Comment(s): Rheumatic fever x 3, heart murmur. CMP. Has Bi-V ICD ([employer]). AAA. PAD. LLE circulation prob, wound foot, w/Discoloration. Last Myocardial Infarction Date:: unknown History of Any Multi-Drug Resistant Organisms: None Reported Past Surgical History: AICD, Bladder Surgery, Cholecystectomy, Heart Catheterization, Heart Catheterization With Stent, Hysterectomy, Pacemaker Additional Past Surgical History / Comment(s): Mitral and Aortic valve repla cement, PIG & COW VALVE. EXC CHEYANNE CATARACTS. Bi-V ICD ([employer] [facility]). Rt leg bypass Past Anesthesia/Blood Transfusion Reactions: No Reported Reaction Additional Past Anesthesia/Blood Transfusion Reaction / Comm: NO PROBLEMS WITH PRIOR BLOOD TRANSFUSIONS Date of Last Stent Placement:: 08-14-17 Type of Cardiac Device: AICD Device Placement Date:: 09/30/17 Past Psychological History: Anxiety, Depression Smoking Status: Former smoker Past Alcohol Use History: None Reported Additional Past Alcohol Use History / Comment(s): Started smoking age 16, off/on, 1 pack/3 days until 2012 Past Drug Use History: None Reported - Past Family History Mother Family Medical History: No Reported History Father Family Medical History: No Reported History, Pneumonia Sister(s) Family Medical History: Congestive Heart Failure (CHF) Medications and Allergies Home Medications Medication Instructions Recorded Confirmed Type Lisinopril [Prinivil] 10 mg PO DAILY 08/02/14 03/17/20 History Cholecalciferol [Vitamin D3 (25 1,000 unit PO DAILY@1200 12/02/14 03/17/20 History Mcg = 1000 Iu)] Metoprolol Tartrate [Lopressor] 50 mg PO BID 07/31/17 03/17/20 History Multivitamins, Thera [Multivitamin 1 tab PO DAILY 07/31/17 03/17/20 History (formulary)] Sertraline [Zoloft] 75 mg PO HS 07/31/17 03/17/20 History Simvastatin [Zocor] 40 mg PO HS 07/31/17 03/17/20 History Spironolactone [Aldactone] 25 mg PO DAILY 08/13/17 03/17/20 History Acetaminophen [Tylenol Extra 1,000 mg PO Q6H PRN 10/23/17 03/17/20 History Strength] Cyanocobalamin [Vitamin B-12] 500 mcg PO DAILY 03/03/20 03/17/20 History Ezetimibe [Zetia] 10 mg PO DAILY 03/03/20 03/17/20 History Rivaroxaban [Xarelto] 20 mg PO DAILY 03/03/20 03/17/20 History Aspirin 81 mg PO DAILY #90 chewable 03/04/20 03/17/20 Rx Albuterol Sulfate [Ventolin HFA] 2 puff INHALATION RT-BID PRN 03/17/20 03/17/20 History Gabapentin [Neurontin] 100 mg PO BID@0900,2100 03/17/20 03/17/20 History Gabapentin [Neurontin] 200 mg PO DAILY@1200 03/17/20 03/17/20 History Allergies Allergy/AdvReac Type Severity Reaction Status Date / Time heparin AdvReac BLEEDING Verified 03/17/20 22:38 R/T LEAK POST VALVE REPLACEMENT Surgical - Exam Vital Signs Temp Pulse Resp BP Pulse Ox 101.1 F H 74 20 134/53 100 03/17/20 22:33 03/17/20 22:33 03/17/20 22:33 03/17/20 22:33 03/17/20 22:33 left foot with echymosis around the dorsum of the foot and 2nd toe. Tenderness to palpation at the 2nd toe and adjacent areas. +edema, with some dependent rubor. 3rd toe ulcer with eschar removed, good granulation tissue. +DP and PT multiphasic signal bilaterally. Palpable femoral pulses bilaterally. Some echmosis noted in bilateral groin area without evidence of hematoma. +Popliteal artery doppler signal bilaterally. - General well developed, well nourished, no distress - Eyes PERRL, normal ocular movement - ENT normal pinna - Neck no masses - Respiratory normal expansion, normal respiratory effort - Cardiovascular Rhythm: regular - Abdomen Abdomen: soft, non tender - Integumentary no growths - Neurologic no normal sensation - Psychiatric oriented to time, oriented to person, oriented to place, speech is normal Results - Labs 03/17/20 22:25 03/17/20 22:25 Abnormal Lab Results - Last 24 Hours (Table) 03/17/20 03/17/20 03/17/20 Range/Units 22:25 22:25 22:25 RBC 3.27 L (3.80-5.40) m/uL Hgb 10.3 L (11.4-16.0) gm/dL Hct 31.7 L (34.0-46.0) % Neutrophils # 9.5 H (1.3-7.7) k/uL Lymphocytes # 0.5 L (1.0-4.8) k/uL PT 14.7 H (9.0-12.0) sec INR 1.5 H (<1.2) D-Dimer 4.87 H (<0.60) mg/L FEU Carbon Dioxide 32 H (22-30) mmol/L BUN 19 H (7-17) mg/dL Glucose 146 H (74-99) mg/dL Lactate Dehydrogenase 855 H (313-618) U/L C-Reactive Protein 15.8 H (<10.0) mg/L Urine Appearance (Clear) Urine Protein (Negative) Urine Blood (Negative) Ur Leukocyte Esterase (Negative) Urine RBC (0-5) /hpf Urine WBC (0-5) /hpf Ur Squamous Epith Cells (0-4) /hpf Urine Bacteria (None) /hpf Urine Mucus (None) /hpf Urine Yeast (Budding) (None) /hpf 03/18/20 Range/Units 00:50 RBC (3.80-5.40) m/uL Hgb (11.4-16.0) gm/dL Hct (34.0-46.0) % Neutrophils # (1.3-7.7) k/uL Lymphocytes # (1.0-4.8) k/uL PT (9.0-12.0) sec INR (<1.2) D-Dimer (<0.60) mg/L FEU Carbon Dioxide (22-30) mmol/L BUN (7-17) mg/dL Glucose (74-99) mg/dL Lactate Dehydrogenase (313-618) U/L C-Reactive Protein (<10.0) mg/L Urine Appearance Cloudy H (Clear) Urine Protein Trace H (Negative) Urine Blood Moderate H (Negative) Ur Leukocyte Esterase Large H (Negative) Urine RBC 150 H (0-5) /hpf Urine WBC >182 H (0-5) /hpf Ur Squamous Epith Cells 8 H (0-4) /hpf Urine Bacteria Occasional H (None) /hpf Urine Mucus Occasional H (None) /hpf Urine Yeast (Budding) Many H (None) /hpf Diabetes panel 03/17/20 Range/Units 22:25 Sodium 139 (137-145) mmol/L Potassium 4.0 (3.5-5.1) mmol/L Chloride 102 (98-107) mmol/L Carbon Dioxide 32 H (22-30) mmol/L BUN 19 H (7-17) mg/dL Creatinine 0.66 (0.52-1.04) mg/dL Glucose 146 H (74-99) mg/dL Calcium 9.0 (8.4-10.2) mg/dL AST 32 (14-36) U/L ALT 15 (4-34) U/L Alkaline Phosphatase 85 (38-126) U/L Total Protein 7.0 (6.3-8.2) g/dL Albumin 4.1 (3.5-5.0) g/dL Calcium panel 03/17/20 Range/Units 22:25 Calcium 9.0 (8.4-10.2) mg/dL Albumin 4.1 (3.5-5.0) g/dL Pituitary panel 03/17/20 Range/Units 22:25 Sodium 139 (137-145) mmol/L Potassium 4.0 (3.5-5.1) mmol/L Chloride 102 (98-107) mmol/L Carbon Dioxide 32 H (22-30) mmol/L BUN 19 H (7-17) mg/dL Creatinine 0.66 (0.52-1.04) mg/dL Glucose 146 H (74-99) mg/dL Calcium 9.0 (8.4-10.2) mg/dL Adrenal panel 03/17/20 Range/Units 22:25 Sodium 139 (137-145) mmol/L Potassium 4.0 (3.5-5.1) mmol/L Chloride 102 (98-107) mmol/L Carbon Dioxide 32 H (22-30) mmol/L BUN 19 H (7-17) mg/dL Creatinine 0.66 (0.52-1.04) mg/dL Glucose 146 H (74-99) mg/dL Calcium 9.0 (8.4-10.2) mg/dL Total Bilirubin 0.4 (0.2-1.3) mg/dL AST 32 (14-36) U/L ALT 15 (4-34) U/L Alkaline Phosphatase 85 (38-126) U/L Total Protein 7.0 (6.3-8.2) g/dL Albumin 4.1 (3.5-5.0) g/dL Assessment and Plan Assessment: 1. Acute left foot and toe pain with 2nd toe fracture 2. Left lower extremity chronic toe ulcer with recent history of left lower extremity revascularization 3. Recent left iliac artery stenting 4. Severe PAD Grabiel 5 - toe ulcer <Kristen Clay - Last Filed: 03/18/20 09:21> History of Present Illness History of present illness: Patient was seen and examined again by myself today. After further discussion and evaluation she did injure her left foot walking without her protective shoe. She states overall her whole leg feels better than previously. She states she has had fevers and feeling weak, this along with the foot pain caused her to come in to the hospital. She denies any fevers, chills, nausea or vomiting at this time Surgical - Exam Vital Signs Temp Pulse Resp BP Pulse Ox 101.1 F H 74 20 134/53 100 03/17/20 22:33 03/17/20 22:33 03/17/20 22:33 03/17/20 22:33 03/17/20 22:33 Exam is the same, decreased edema. Third toe ulceration improved from previously. DP and PT mono to biphasic signals, palpable femoral pulses bilaterally. Results - Labs 03/17/20 22:25 03/17/20 22:25 Abnormal Lab Results - Last 24 Hours (Table) 03/17/20 03/17/20 03/17/20 Range/Units 22:25 22:25 22:25 RBC 3.27 L (3.80-5.40) m/uL Hgb 10.3 L (11.4-16.0) gm/dL Hct 31.7 L (34.0-46.0) % Neutrophils # 9.5 H (1.3-7.7) k/uL Lymphocytes # 0.5 L (1.0-4.8) k/uL PT 14.7 H (9.0-12.0) sec INR 1.5 H (<1.2) D-Dimer 4.87 H (<0.60) mg/L FEU Carbon Dioxide 32 H (22-30) mmol/L BUN 19 H (7-17) mg/dL Glucose 146 H (74-99) mg/dL Lactate Dehydrogenase 855 H (313-618) U/L C-Reactive Protein 15.8 H (<10.0) mg/L Urine Appearance (Clear) Urine Protein (Negative) Urine Blood (Negative) Ur Leukocyte Esterase (Negative) Urine RBC (0-5) /hpf Urine WBC (0-5) /hpf Ur Squamous Epith Cells (0-4) /hpf Urine Bacteria (None) /hpf Urine Mucus (None) /hpf Urine Yeast (Budding) (None) /hpf 03/18/20 Range/Units 00:50 RBC (3.80-5.40) m/uL Hgb (11.4-16.0) gm/dL Hct (34.0-46.0) % Neutrophils # (1.3-7.7) k/uL Lymphocytes # (1.0-4.8) k/uL PT (9.0-12.0) sec INR (<1.2) D-Dimer (<0.60) mg/L FEU Carbon Dioxide (22-30) mmol/L BUN (7-17) mg/dL Glucose (74-99) mg/dL Lactate Dehydrogenase (313-618) U/L C-Reactive Protein (<10.0) mg/L Urine Appearance Cloudy H (Clear) Urine Protein Trace H (Negative) Urine Blood Moderate H (Negative) Ur Leukocyte Esterase Large H (Negative) Urine RBC 150 H (0-5) /hpf Urine WBC >182 H (0-5) /hpf Ur Squamous Epith Cells 8 H (0-4) /hpf Urine Bacteria Occasional H (None) /hpf Urine Mucus Occasional H (None) /hpf Urine Yeast (Budding) Many H (None) /hpf Diabetes panel 03/17/20 Range/Units 22:25 Sodium 139 (137-145) mmol/L Potassium 4.0 (3.5-5.1) mmol/L Chloride 102 (98-107) mmol/L Carbon Dioxide 32 H (22-30) mmol/L BUN 19 H (7-17) mg/dL Creatinine 0.66 (0.52-1.04) mg/dL Glucose 146 H (74-99) mg/dL Calcium 9.0 (8.4-10.2) mg/dL AST 32 (14-36) U/L ALT 15 (4-34) U/L Alkaline Phosphatase 85 (38-126) U/L Total Protein 7.0 (6.3-8.2) g/dL Albumin 4.1 (3.5-5.0) g/dL Calcium panel 03/17/20 Range/Units 22:25 Calcium 9.0 (8.4-10.2) mg/dL Albumin 4.1 (3.5-5.0) g/dL Pituitary panel 03/17/20 Range/Units 22:25 Sodium 139 (137-145) mmol/L Potassium 4.0 (3.5-5.1) mmol/L Chloride 102 (98-107) mmol/L Carbon Dioxide 32 H (22-30) mmol/L BUN 19 H (7-17) mg/dL Creatinine 0.66 (0.52-1.04) mg/dL Glucose 146 H (74-99) mg/dL Calcium 9.0 (8.4-10.2) mg/dL Adrenal panel 04/30/20 Range/Units 22:25 Sodium 139 (137-145) mmol/L Potassium 4.0 (3.5-5.1) mmol/L Chloride 102 (98-107) mmol/L Carbon Dioxide 32 H (22-30) mmol/L BUN 19 H (7-17) mg/dL Creatinine 0.66 (0.52-1.04) mg/dL Glucose 146 H (74-99) mg/dL Calcium 9.0 (8.4-10.2) mg/dL Total Bilirubin 0.4 (0.2-1.3) mg/dL AST 32 (14-36) U/L ALT 15 (4-34) U/L Alkaline Phosphatase 85 (38-126) U/L Total Protein 7.0 (6.3-8.2) g/dL Albumin 4.1 (3.5-5.0) g/dL Assessment and Plan Assessment: Significant urinary tract infection Plan: At this point I do not believe there is an overwhelming infection of the foot, it is more likely due to traumatic injury and hematoma. I believe her fatigue and malaise is more likely a cause of the urinary tract infection. Continue offloading and hard bottom shoe for ambulation. Continue previous home medications as ordered. Given there is an open wound on the foot, would be okay with clindamycin orally on discharge, but again I do believe the majority of the erythema is from traumatic injury. We will plan on further intervention and revascularization as an outpatient. No planned surgical intervention at this time. May be discharge from vascular surgery standpoint when stable per medicine
[2020-03-18] MEDS: ASPIRIN 81 MG PO SCH (07:43)
[2020-03-18] MEDS: PIPERACILLIN-TAZOBACTAM 3.375 GM in SODIUM CHLORIDE 0.9% 100 ML IVPB SCH ×3 (07:43→23:03)
[2020-03-18] MEDS: EZETIMIBE 10 MG TAB PO SCH (07:44)
[2020-03-18] MEDS: LISINOPRIL 10 MG TAB PO SCH (07:44)
[2020-03-18] MEDS: METOPROLOL TARTRATE 50 MG TAB PO SCH ×2 (07:44→21:17)
[2020-03-18] MEDS: RIVAROXABAN 20 MG TAB PO SCH (07:44)
[2020-03-18] MEDS: FAMOTIDINE 20 MG TAB PO SCH ×2 (07:44→21:17)
[2020-03-18] MEDS: GABAPENTIN 100 MG CAP PO SCH ×3 (07:44→21:17)
[2020-03-18] MEDS: CYANOCOBALAMIN 500 MCG TAB PO SCH (07:44)
[2020-03-18] MEDS: SPIRONOLACTONE 25 MG TAB PO SCH (07:44)
[2020-03-18] MEDS: MULTIVITAMINS, THERA 1 EACH TAB PO SCH (07:44)
[2020-03-18] MEDS: CHOLECALCIFEROL 1,000 UNIT TAB PO SCH (07:44)
--- NOTE | 2020-03-18 09:19 | US ---
EXAMINATION TYPE: US venous doppler duplex LE DATE OF EXAM: 03/18/2020 7:47 AM COMPARISON: US 11/19/2017 CLINICAL HISTORY: R/O DVT. Foot pain, bilateral greater saph stripped SIDE PERFORMED: Bilateral TECHNIQUE: The lower extremity deep venous system is examined utilizing real time linear array sonog jazmine with graded compression, doppler sonography and color-flow sonography. VESSELS IMAGED: External Iliac Vein (EIV) Common Femoral Vein Deep Femoral Vein Greater Saphenous Vein * Femoral Vein Popliteal Vein Small Saphenous Vein * Proximal Calf Veins (* superficial vessels) Grayscale, color doppler, spectral doppler imaging performed of the deep veins of the lower extremiti es. There is normal flow, compressibility, vascular waveforms. Right Leg: Negative for DVT Left Leg: Negative for DVT IMPRESSION: No sonographic evidence of deep venous thrombosis within either the bilateral visualized lower extremities.
--- NOTE | 2020-03-18 11:21 | P.HPIM ---
History of Present Illness H&P Date: 03/18/20 Chief Complaint: Left foot pain This is an 79-year-old female one of my patient with a previous medical history significant for CAD post-PCI in 2013, history of severe aortic valve stenosis and mitral regurgitation post the porcine mitral valve replacement and the bovine trifecta aortic valve replacement back in 2013 that was done by Dr. Herrera here at [facility], history of progressive cardiomyopathy requiring AICD implantation that was done back [place] [address] Valerio, hypertension and hypertensive cardiovascular disease, hyperlipidemia, COPD, osteoarthritis, significant PAD history was recently seen by Dr. 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 on 03/04/2020, patient presented to the emergency department at [facility] on March 16 2020 for pain in the left foot on the left second toe after she stubbed her foot several days ago at that point she was complaining of ulcer in the left third toe that gotten better since she has the angioplasty, she developed to have an eschar on the left third toe, patient underwent a CT angiography that showed patent stenting but she was found to have a broken left second toe patient was discharged home was supposed to follow-up with vascular surgery as an outpatient in the office however patient presented to the emergency department yesterday because initially of left foot pain and left second and third toe pain, patient was seen in consultation by vascular surgery she was also was found to have significant swelling to the left foot with erythema suggestive of possible cellulitis, but likely PAD Rubor, she was admitted to the hospital for evaluation by vascular surgery she was started on IV anabiotic as well patient also was complaining of increased shortness of breath without evidence of any acute infectious etiology, she was admitted to the hospital for further evaluation and treatment. Review of Systems Constitutional: Reports chronic pain, Denies anorexia, Denies fatigue, Denies lethargy, Denies weakness Eyes: denies blurred vision, denies bulging eye, denies decreased vision, denies diplopia Ears: deny: decreased hearing Ears, nose, mouth and throat: Denies dysphagia, Denies neck lump, Denies sore throat Cardiovascular: Reports decreased exercise tolerance, Reports dyspnea on exertion, Reports shortness of breath, Denies chest pain, Denies lightheadedness, Denies rapid heart beat, Denies syncope Respiratory: Reports dyspnea, Denies congestion, Denies cough with sputum, Denies home oxygen, Denies sleep apnea, Denies snoring, Denies wheezing Gastrointestinal: Denies belching, Denies heartburn, Denies melena, Denies nausea, Denies vomiting Genitourinary: Denies dysuria, Denies nocturia Menstruation: Reports postmenopausal Musculoskeletal: Reports fractures, Reports gait dysfunction Musculoskeletal: left: foot pain, foot swelling, absent: ankle pain, ankle stiffness, ankle swelling, elbow pain, elbow stiffness, elbow swelling, foot stiffness, hand pain, hand stiffness, hand swelling, hip pain, hip stiffness, hip swelling, knee pain, knee stiffness, knee swelling, shoulder pain, shoulder stiffness, shoulder swelling, wrist pain, wrist stiffness, wrist swelling Integumentary: Denies pruritus, Denies rash Neurological: Denies numbness, Denies weakness Psychiatric: Reports anxiety, Reports depression, Denies sadness/tearfulness, Denies sleep disturbances, Denies suicidal ideation Endocrine: Denies fatigue, Denies weight change Past Medical History Past Medical History: Atrial Fibrillation, Coronary Artery Disease (CAD), Heart Failure, COPD, Hyperlipidemia, Hypertension, Myocardial Infarction ([place]), Osteoarthritis (OA), Skin Disorder, Vascular Disorder Additional Past Medical History / Comment(s): Rheumatic fever x 3, heart murmur. CMP. Has Bi-V ICD ([employer]). AAA. PAD. LLE circulation prob, wound foot, w/Discoloration. Last Myocardial Infarction Date:: unknown History of Any Multi-Drug Resistant Organisms: None Reported Past Surgical History: AICD, Bladder Surgery, Cholecystectomy, Heart Catheterization, Heart Catheterization With Stent, Hysterectomy, Pacemaker Additional Past Surgical History / Comment(s): Mitral and Aortic valve replacement, PIG & COW VALVE. EXC CHEYANNE CAT[employer]S. Bi-V ICD ([employer]). Rt leg bypass Past Anesthesia/Blood Transfusion Reactions: No Reported Reaction Additional Past Anesthesia/Blood Transfusion Reaction / Comment(s): NO PROBLEMS WITH PRIOR BLOOD TRANSFUSIONS Date of Last Stent Placement:: 08-14-17 Type of Cardiac Device: AICD Device Placement Date:: 09/30/17 Past Psychological History: Anxiety, Depression Smoking Status: Former smoker (used to moke 1/2 a pack a day and she quit 2103.) Past Alcohol Use History: None Reported Additional Past Alcohol Use History / Comment(s): Started smoking age 16, off/on, 1 pack/3 days until 2012 Past Drug Use History: None Reported - Past Family History Mother Family Medical History: No Reported History (Mother at rg age of 49 from MVA.) Father Family Medical History: No Reported History, Pneumonia (Father at the age of 83 from pneumonia.) Sister(s) Family Medical History: Cancer (Patient had 4 sisters, one fromMVA, one from Esophageal cancer and one has CHF.), Congestive Heart Failure (CHF) Daughter(s) Family Medical History: No Reported History (Patient has 2 daughters no majoe medical issues.) Son(s) Family Medical History: No Reported History (Patient has one son no major medical issues.) Medications and Allergies Home Medications Medication Instructions Recorded Confirmed Type Lisinopril [Prinivil] 10 mg PO DAILY 08/02/14 03/17/20 History Cholecalciferol [Vitamin D3 (25 1,000 unit PO DAILY@1200 12/02/14 03/17/20 History Mcg = 1000 Iu)] Metoprolol Tartrate [Lopressor] 50 mg PO BID 07/31/17 03/17/20 History Multivitamins, Thera [Multivitamin 1 tab PO DAILY 07/31/17 03/17/20 History (formulary)] Sertraline [Zoloft] 75 mg PO HS 07/31/17 03/17/20 History Simvastatin [Zocor] 40 mg PO HS 07/31/17 03/17/20 History Spironolactone [Aldactone] 25 mg PO DAILY 08/13/17 03/17/20 History Acetaminophen [Tylenol Extra 1,000 mg PO Q6H PRN 10/23/17 03/17/20 History Strength] Cyanocobalamin [Vitamin B-12] 500 mcg PO DAILY 03/03/20 03/17/20 History Ezetimibe [Zetia] 10 mg PO DAILY 03/03/20 03/17/20 History Rivaroxaban [Xarelto] 20 mg PO DAILY 03/03/20 03/17/20 History Aspirin 81 mg PO DAILY #90 chewable 03/04/20 03/17/20 Rx Albuterol Sulfate [Ventolin HFA] 2 puff INHALATION RT-BID PRN 03/17/20 03/17/20 History Gabapentin [Neurontin] 100 mg PO BID@0900,2100 03/17/20 03/17/20 History Gabapentin [Neurontin] 200 mg PO DAILY@1200 03/17/20 03/17/20 History Allergies Allergy/AdvReac Type Severity Reaction Status Date / Time heparin AdvReac BLEEDING Verified 03/17/20 22:38 R/T LEAK POST VALVE REPLACEMENT Physical Exam Vitals: Vital Signs Temp Pulse Pulse Resp BP BP Pulse Ox 03/18/20 07:00 97.9 F 79 19 167/64 99 03/18/20 03:54 98 03/18/20 03:50 92 L 03/18/20 03:41 98.2 F 74 18 129/57 100 03/18/20 02:36 98.2 F 77 18 135/51 96 03/18/20 00:00 98.7 F 78 16 123/52 96 03/17/20 22:33 101.1 F H 74 20 134/53 100 Intake and Output 03/17/20 03/18/20 03/18/20 22:59 06:59 14:59 Intake Total 10 260 Balance 10 260 Intake: IV 10 10 Invasive Line 1 10 10 Intake, IV Titration 250 Amount Vancomycin 1,000 mg In 250 Sodium Chloride 0.9% 250 ml @ 125 mls/hr IVPB ONCE ONE Rx#:[id number] Other: # Voids 0 Weight 66.678 kg 66.678 kg HEENT: Head is atraumatic, normocephalic, pupils were equal round reactive to light and accommodations, extraocular muscle movement were intact. Neck: Supple, no JVP, no lymphadenopathy. Chest: Decreased breath sound at the bases, few rhonchi, no expiratory wheezes, no chest wall tenderness, no intercostal retractions . Heart: First heart sound is depressed, second heart sound is normal, there is systolic ejection murmur 2/6 located in the left sternal border, there is an AICD in place. Abdomen: Soft, nontender, nondistended, positive bowel sounds . Extremities: Left foot with bruising to the left second toe and an eschar that was removed to the left third toe dorsalis pedis were +1 bilaterally. Neurologic exoneration: Patient is awake alert and oriented 3, cranial nerves III-12 appear grossly intact, muscle power 4 out of 5 in upper and lower extremity is bilaterally. Results CBC & Chem 7: 03/17/20 22:25 03/17/20 22:25 Labs: Abnormal Lab Results - Last 24 Hours (Table) 03/17/20 03/17/20 03/17/20 Range/Units 22:25 22:25 22:25 RBC 3.27 L (3.80-5.40) m/uL Hgb 10.3 L (11.4-16.0) gm/dL Hct 31.7 L (34.0-46.0) % Neutrophils # 9.5 H (1.3-7.7) k/uL Lymphocytes # 0.5 L (1.0-4.8) k/uL PT 14.7 H (9.0-12.0) sec INR 1.5 H (<1.2) D-Dimer 4.87 H (<0.60) mg/L FEU Carbon Dioxide 32 H (22-30) mmol/L BUN 19 H (7-17) mg/dL Glucose 146 H (74-99) mg/dL Lactate Dehydrogenase 855 H (313-618) U/L C-Reactive Protein 15.8 H (<10.0) mg/L Urine Appearance (Clear) Urine Protein (Negative) Urine Blood (Negative) Ur Leukocyte Esterase (Negative) Urine RBC (0-5) /hpf Urine WBC (0-5) /hpf Ur Squamous Epith Cells (0-4) /hpf Urine Bacteria (None) /hpf Urine Mucus (None) /hpf Urine Yeast (Budding) (None) /hpf 03/18/20 Range/Units 00:50 RBC (3.80-5.40) m/uL Hgb (11.4-16.0) gm/dL Hct (34.0-46.0) % Neutrophils # (1.3-7.7) k/uL Lymphocytes # (1.0-4.8) k/uL PT (9.0-12.0) sec INR (<1.2) D-Dimer (<0.60) mg/L FEU Carbon Dioxide (22-30) mmol/L BUN (7-17) mg/dL Glucose (74-99) mg/dL Lactate Dehydrogenase (313-618) U/L C-Reactive Protein (<10.0) mg/L Urine Appearance Cloudy H (Clear) Urine Protein Trace H (Negative) Urine Blood Moderate H (Negative) Ur Leukocyte Esterase Large H (Negative) Urine RBC 150 H (0-5) /hpf Urine WBC >182 H (0-5) /hpf Ur Squamous Epith Cells 8 H (0-4) /hpf Urine Bacteria Occasional H (None) /hpf Urine Mucus Occasional H (None) /hpf Urine Yeast (Budding) Many H (None) /hpf Thrombosis Risk Factor Assmnt - DVT/VTE Prophylaxis DVT/VTE Prophylaxis: Pharmacologic Prophylaxis ordered, Mechanical Prophylaxis ordered - Choose All That Apply Any of the Below Risk Factors Present?: Yes Other Risk Factors: Yes Each Risk Factor Represents 3 Points: Age 75 years or older Thrombosis Risk Factor Assessment Total Risk Factor Score: 3 Thrombosis Risk Factor Assessment Level: Moderate Risk Assessment and Plan Assessment: Assessment and plan: 1. Left foot and left second toe pain secondary to fracture of the left second toe. Continue patient on current pain management. 2. Left foot cellulitis. Continue patient on IV antibiotic in the form of vancomycin and Zosyn, blood cultures were obtained, we'll monitor the patient very closely. 3. 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 Vascular surgery consultation appreciated, patient was seen and evaluated the patient did have a recent CTA of the lower extremity that showed patent stenting without evidence of any acute blockages. 4. History of the nonischemic cardiopathy post AICD importation. Continue p atient on metoprolol 50 mg orally twice every day, lisinopril 10 mg orally once every day, continue spironolactone 12.5 mg orally once every day. 5. Hypertension and hypertensive cardiovascular disease. Continue patient on lisinopril 10 mg orally once every day and metoprolol 50 mg orally twice every day. 6. Hyperlipidemia. Continue patient on simvastatin 40 mg at bedtime along with Zetia 10 mg orally once every day. 7. History of aortic valve stenosis with regurgitation and mitral regurgitation post mitral valve repair with porcine valve and aortic valve repair with bovine trifecta valve back in 2013. 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 Please avoid heparin products. 9. Paroxysmal atrial fibrillation. Continue metoprolol 50 g orally twice every day and Xarelto at 20 mg orally once every day. 10. History of CAD post-PCI in 2013. Continue aspirin 81 mg once every day, metoprolol 50 mg orally twice every day, simvastatin 40 mg at bedtime. 11. Osteoarthritis. Continue patient on Tylenol as needed. 12. Depression. Continue Zoloft 75 minute gram of bedtime. 13. DVT prophylaxis. Continue with the Xarelto 20 mg orally once every day. 14. GI prophylaxis. Pepcid 20 mg orally once every day. 15. Anemia. Monitor the patient hemoglobin. 16. Admit to inpatient. Estimate a length of stay 2 midnights. 17. Patient is full code.
[2020-03-18 11:45] LABS: Ferritin 40.2 ng/mL (10.0-291.0)
[2020-03-18] MEDS: VANCOMYCIN 1,250 MG in SODIUM CHLORIDE 0.9% 250 ML IVPB SCH (17:13)
[2020-03-18] MEDS ORDERED: VANCOMYCIN 1,000 MG in SODIUM CHLORIDE 0.9% 250 ML IVPB SCH (18:00)
[2020-03-18] MEDS ORDERED: ATORVASTATIN 20 MG TAB PO SCH (21:00)
[2020-03-18] MEDS ORDERED: SERTRALINE 25 MG TAB PO SCH (21:00)
[2020-03-19 07:14] VITALS: BP 131/60; PULSE 76; RESP 16; TEMP 98.4
[2020-03-19 07:16] LABS: Basophils # (A) 0.1 k/uL (0-0.2); Basophils % (A) 1 %; Eosinophils # (A) 0.7 k/uL (0-0.7); Eosinophils % (A) 10 %; HCT 30.6 % (34.0-46.0); HGB 9.5 gm/dL (11.4-16.0); Hypochromasia Moderate; Lymphocytes # (A) 0.8 k/uL (1.0-4.8); Lymphocytes % (A) 12 %; MCH 30.6 pg (25.0-35.0); MCHC 31.2 g/dL (31.0-37.0); MCV 98.2 fL (80.0-100.0); Mean Platelet Volume 8.7; Monocytes # (A) 0.5 k/uL (0-1.0); Monocytes % (A) 7 %; Neutrophils # (A) 4.5 k/uL (1.3-7.7); Neutrophils % (A) 67 %; Platelet Count 211 k/uL (150-450); RBC 3.11 m/uL (3.80-5.40); RDW 14.7 % (11.5-15.5); WBC 6.7 k/uL (3.8-10.6)
[2020-03-19 07:29] LABS: Albumin 3.4 g/dL (3.5-5.0); Glucose 108 mg/dL (74-99); Total Protein 6.2 g/dL (6.3-8.2)
[2020-03-19 07:30] LABS: ALT 13 U/L (4-34); AST 27 U/L (14-36); African American GFR (CKD) >90 (>60 ml/min/1.73 sqM); Alkaline Phosphatase 64 U/L (38-126); Blood Urea Nitrogen 14 mg/dL (7-17); Calcium 8.7 mg/dL (8.4-10.2); Carbon Dioxide 31 mmol/L (22-30); Non-African American GFR(CKD) 86 (>60 ml/min/1.73 sqM); Sodium 141 mmol/L (137-145); Total Bilirubin 0.5 mg/dL (0.2-1.3)
[2020-03-19] MEDS: PIPERACILLIN-TAZOBACTAM 3.375 GM in SODIUM CHLORIDE 0.9% 100 ML IVPB SCH (07:49)
[2020-03-19] MEDS: EZETIMIBE 10 MG TAB PO SCH (07:50)
[2020-03-19] MEDS: SPIRONOLACTONE 25 MG TAB PO SCH (07:50)
[2020-03-19] MEDS: METOPROLOL TARTRATE 50 MG TAB PO SCH (07:51)
[2020-03-19] MEDS: ASPIRIN 81 MG PO SCH (07:51)
[2020-03-19] MEDS: GABAPENTIN 100 MG CAP PO SCH ×2 (07:51→11:27)
[2020-03-19] MEDS: FAMOTIDINE 20 MG TAB PO SCH (07:51)
[2020-03-19] MEDS: MULTIVITAMINS, THERA 1 EACH TAB PO SCH (07:51)
[2020-03-19] MEDS: CYANOCOBALAMIN 500 MCG TAB PO SCH (07:51)
[2020-03-19] MEDS: LISINOPRIL 10 MG TAB PO SCH (07:51)
[2020-03-19] MEDS: RIVAROXABAN 20 MG TAB PO SCH (07:51)
[2020-03-19 07:52] LABS: Anion Gap 5 mmol/L; Chloride 105 mmol/L (98-107)
[2020-03-19] MEDS: VANCOMYCIN 1,250 MG in SODIUM CHLORIDE 0.9% 250 ML IVPB SCH (10:39)
--- NOTE | 2020-03-19 10:57 | P.DS ---
Providers Date of admission: 03/18/20 01:52 Expected date of discharge: 03/19/20 Attending physician: Siria Dolan Consults: 03/18/20 01:56 Consult Physician Routine Consulting Provider: Ismael Waddell Consult Reason/Comments: your patient Do you want consulting provider notified?: Yes Primary care physician: Siria Dolan [facility] Course: This is an 79-year-old female one of my patient with a previous medical history significant for CAD post-PCI in 2013, history of severe aortic valve stenosis and mitral regurgitation post the porcine mitral valve replacement and the bovine trifecta aortic valve replacement back in 2013 that was done by Dr. Herrera here at [facility], history of progressive cardiomyopathy requiring AICD implantation that was done back [place] [address] Valerio, hypertension and hypertensive cardiovascular disease, hyperlipidemia, COPD, osteoarthritis, significant PAD history was recently seen by Dr. 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 03/04/2020, patient presented to the emergency department at [facility] on March 16 2020 for pain in the left foot on the left second toe after she stubbed her foot several days ago at that point she was complaining of ulcer in the left third toe that gotten better since she has the angioplasty, she developed to have an eschar on the left third toe, patient underwent a CT angiography that showed patent stenting but she was found to have a broken left second toe patient was discharged home was supposed to follow-up with vascular surgery as an outpatient in the office however patient presented to the emergency department yesterday because initially of left foot pain and left second and third toe pain, patient was seen in consultation by vascular surgery she was also was found to have significant swelling to the left foot with erythema suggestive of possible cellulitis, but likely PAD Rubor, she was admitted to the hospital for evaluation by vascular surgery she was started on IV anabiotic as well patient also was complaining of increased shortness of breath without evidence of any acute infectious etiology, she was admitted to the hospital for further evaluation and treatment. discharge diagnoses: 1. Left foot and left second toe pain secondary to fracture of the left second toe. 2. Left foot cellulitis. 3. 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 4. History of the nonischemic cardiomyopathy post AICD implantation. . 5. Hypertension and hypertensive cardiovascular disease. 6. Hyperlipidemia. 7. History of aortic valve stenosis with regurgitation and mitral regurgitation post AVR and MVR. 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 9. Paroxysmal atrial fibrillation. 10. History of CAD post-PCI in 2013. 11. Osteoarthritis. 12. Depression. 13. Chronic pain. Patient Condition at Discharge: Fair Plan - Discharge Summary Discharge Rx Participant: Yes New Discharge Prescriptions: New Cephalexin [Keflex] 500 mg PO Q8HR 10 Days #30 cap Continue Lisinopril [Prinivil] 10 mg PO DAILY Cholecalciferol [Vitamin D3 (25 Mcg = 1000 Iu)] 1,000 unit PO DAILY@1200 Multivitamins, Thera [Multivitamin (formulary)] 1 tab PO DAILY Simvastatin [Zocor] 40 mg PO HS Sertraline [Zoloft] 75 mg PO HS Metoprolol Tartrate [Lopressor] 50 mg PO BID Spironolactone [Aldactone] 25 mg PO DAILY Acetaminophen [Tylenol Extra Strength] 1,000 mg PO Q6H PRN PRN Reason: Pain Cyanocobalamin [Vitamin B-12] 500 mcg PO DAILY Ezetimibe [Zetia] 10 mg PO DAILY Rivaroxaban [Xarelto] 20 mg PO DAILY Aspirin 81 mg PO DAILY #90 chewable Albuterol Sulfate [Ventolin HFA] 2 puff INHALATION RT-BID PRN PRN Reason: Shortness Of Breath Gabapentin [Neurontin] 200 mg PO DAILY@1200 Gabapentin [Neurontin] 100 mg PO BID@0900,2100 Discharge Medication List Lisinopril [Prinivil] 10 mg PO DAILY 08/02/14 [History] Cholecalciferol [Vitamin D3 (25 Mcg = 1000 Iu)] 1,000 unit PO DAILY@1200 12/02/14 [History] Metoprolol Tartrate [Lopressor] 50 mg PO BID 07/31/17 [History] Multivitamins, Thera [Multivitamin (formulary)] 1 tab PO DAILY 07/31/17 [History] Sertraline [Zoloft] 75 mg PO HS 07/31/17 [History] Simvastatin [Zocor] 40 mg PO HS 07/31/17 [History] Spironolactone [Aldactone] 25 mg PO DAILY 08/13/17 [History] Acetaminophen [Tylenol Extra Strength] 1,000 mg PO Q6H PRN 10/23/17 [History] Cyanocobalamin [Vitamin B-12] 500 mcg PO DAILY 03/03/20 [History] Ezetimibe [Zetia] 10 mg PO DAILY 03/03/20 [History] Rivaroxaban [Xarelto] 20 mg PO DAILY 03/03/20 [History] Aspirin 81 mg PO DAILY #90 chewable 03/04/20 [Rx] Albuterol Sulfate [Ventolin HFA] 2 puff INHALATION RT-BID PRN 03/17/20 [History] Gabapentin [Neurontin] 100 mg PO BID@0900,2100 03/17/20 [History] Gabapentin [Neurontin] 200 mg PO DAILY@1200 03/17/20 [History] Cephalexin [Keflex] 500 mg PO Q8HR 10 Days #30 cap 03/19/20 [Rx] Follow up Appointment(s)/Referral(s): Siria Dolan MD [Primary Care Provider] - 1 Week Patient Instructions/Handouts: Cellulitis (DC) Discharge Disposition: HOME SELF-CARE
[2020-03-19] MEDS: CHOLECALCIFEROL 1,000 UNIT TAB PO SCH (11:27)
== END 2020-03-19 13:13 | disposition home or self-care (01) ==
LOC: EC 22:08 → 4SSUR 03-18 01:52
PROVIDERS: ADMIT Internal Medicine; ATTEND Internal Medicine
DX: S92.502A Displaced unspecified fracture of left lesser toe(s), initial encounter for closed fracture (principal); L03.116 Cellulitis of left lower limb; L97.509 Non-pressure chronic ulcer of other part of unspecified foot with unspecified severity; I73.9 Peripheral vascular disease, unspecified; Z95.828 Presence of other vascular implants and grafts; Z20.828 Contact with and (suspected) exposure to other viral communicable diseases; I42.8 Other cardiomyopathies; I11.0 Hypertensive heart disease with heart failure; I50.9 Heart failure, unspecified; I48.0 Paroxysmal atrial fibrillation; J44.9 Chronic obstructive pulmonary disease, unspecified; I25.10 Atherosclerotic heart disease of native coronary artery without angina pectoris; M19.90 Unspecified osteoarthritis, unspecified site; G89.29 Other chronic pain; F32.9 Major depressive disorder, single episode, unspecified; D64.9 Anemia, unspecified; E78.5 Hyperlipidemia, unspecified; F41.9 Anxiety disorder, unspecified; N39.0 Urinary tract infection, site not specified; M47.9 Spondylosis, unspecified; R53.1 Weakness; M62.838 Other muscle spasm; Z79.899 Other long term (current) drug therapy; Z79.01 Long term (current) use of anticoagulants; Z79.82 Long term (current) use of aspirin; Z88.8 Allergy status to other drugs, medicaments and biological substances; Z95.3 Presence of xenogenic heart valve; Z95.810 Presence of automatic (implantable) cardiac defibrillator; Z95.5 Presence of coronary angioplasty implant and graft; I25.2 Old myocardial infarction; Z90.49 Acquired absence of other specified parts of digestive tract; Z90.710 Acquired absence of both cervix and uterus; Z98.42 Cataract extraction status, left eye; Z98.41 Cataract extraction status, right eye; Z86.2 Personal history of diseases of the blood and blood-forming organs and certain disorders involving the immune mechanism; Z87.891 Personal history of nicotine dependence; Z82.49 Family history of ischemic heart disease and other diseases of the circulatory system; Z82.5 Family history of asthma and other chronic lower respiratory diseases; Z80.0 Family history of malignant neoplasm of digestive organs
CPT/HCPCS: 99285 ×2; 96365; 96366 ×2; 96368; 96375; 36415; 93005; 97161; 97165; 85379; 80053 ×2; 82728; 83605; 83615; 83735; 85025 ×2; 85610; 85730; 86140; 81001; 87040; 87086; 87077; 87186; 84145; 87635; 73630; 71045; 93970; 71275; G0378 ×2; J2543 ×2; J3370; J2270; Q9967

== ENCOUNTER → 2020-09-08 | Outpatient (CLI) | payer MEDICARE, OTHER ==
--- NOTE | 2020-09-08 13:31 | US ---
EXAMINATION TYPE: US kidneys/renal and bladder DATE OF EXAM: 09/08/2020 COMPARISON: CTA aorta March 16, 2020. CLINICAL HISTORY: R31.9 Hematuria. Frequent UTI. Hematuria. No pain at this time EXAM MEASUREMENTS: Right Kidney: 10.6 X 4.9 X 4.4 cm Left Kidney: 10.2 x 4.6 x 4.8 cm Right Kidney: Medial anechoic lesion at hilum, dilated renal pelvis vs mild hydronephrosis. Left Kidney: Medial upper pole echogenic focus with shadow- 0.4 x 0.8 cm Bladder: distended, anechoic Bilateral Jets seen Incidental findings: Echogenic focus in right lobe of liver with shadow= 0.8 cm. Multiple echogen ic foci with shadow seen in spleen. New mild right-sided hydronephrosis suspected. Distal right ureter jet however is seen. Scattered calcifications throughout the liver and spleen consistent with product of old granulomatous disease. Linear calcification upper pole left kidney corresponds to recent CT. Increased in size fr om older studies. No left-sided hydronephrosis. IMPRESSION: Elongated 8 x 2 mm obstructing calculus upper pole left kidney. Mild right-sided hydronep hrosis present, distal right ureter jet noted. Consider vesicoureteral reflux.
== END | disposition home or self-care (01) ==
LOC: RADUSWWP 12:51
PROVIDERS: ATTEND Family Medicine
DX: N13.2 Hydronephrosis with renal and ureteral calculous obstruction (principal)
CPT/HCPCS: 76770

== ENCOUNTER 2020-09-20 07:59 | Day surgery (SDC) | payer MEDICARE, OTHER ==
[2020-09-16 13:05] VITALS: BMI 22.2
[~2020-09-20 07:59] MED LIST changes: +LACTATED RINGERS 1,000 ML IV SCH; -SODIUM CHLORIDE 0.9% 1,000 ML in EMPTY BAG 1 BAG IV ONE
[2020-09-20 08:37] VITALS: TEMP 974.4
[2020-09-20] MEDS ORDERED: LIDOCAINE 1% INJ 10MG/ML (20 ML MDV) ONE (08:37)
[2020-09-20] MEDS ORDERED: PROPOFOL 10 MG/ML 20 ML VIAL IV ONE (08:37)
--- NOTE | 2020-09-20 08:56 | P.PCN ---
Date of Procedure: 09/20/20 Description of Procedure: BRIEF HISTORY: Patient is a 79-year-old female presenting for outpatient EGD for evaluation of epigastric pain. The patient reports symptoms of diarrhea and epigastric pain over the past few weeks. Diarrhea has resolved but she continues to have mild epigastric pain which she also feels is improving.. PROCEDURE PERFORMED: Esophagogastroduodenoscopy with biopsy. PREOPERATIVE DIAGNOSIS: Epigastric abdominal pain. ESTIMATED BLOOD LOSS: Minimal. IV sedation per anesthesia. PROCEDURE: After informed consent was obtained, the patient was brought into the endoscopy unit. IV sedation was administered by Anesthesia under continuous monitoring. In itially the Olympus GIF-190 video endoscope was inserted into the mouth. Esophagus intubated without any difficulty. It was gradually advanced into the stomach and duodenum and carefully examined. The bulb and the second part of the duodenum appeared normal, with biopsies taken to rule out celiac sprue. The scope at this time was withdrawn to the stomach, adequately insufflated with air, and upon careful examination, mucosa of the antrum, body, cardia and the fundus appeared normal except for moderate scattered erythema and superficial erosions in antrum and body suggestive of moderate gastritis. There was also appeared to be fistula formation from the antrum into the duodenal bulb likely from prior peptic ulcer disease . The scope was then withdrawn into the esophagus. The GE junction was located at 39 cm from the incisors And biopsied . The esophagus appeared normal. There were no erosions or ulcerations seen and the patient tolerated the procedure well. IMPRESSION: 1. Moderate gastritis. 2. Healed gastroduodenal fistula. 3. Biopsies taken of the antrum and body, duodenum and GE junction. RECOMMENDATIONS: The findings of this examination were discussed with the patient okay to resume diet. Okay to resume medications. Await pathology from biopsies. Patient will be given a 8 week treatment of omeprazole daily for treatment of gastritis.
[2020-09-20 09:13] VITALS: BP 124/84; RESP 20
[2020-09-20 09:42] VITALS: PULSE 68
== END 2020-09-20 09:50 | disposition home or self-care (01) ==
LOC: ORWHC2ENDO 07:59
PROVIDERS: ATTEND Internal Medicine
DX: K20.90 Esophagitis, unspecified without bleeding (principal); K29.50 Unspecified chronic gastritis without bleeding; I25.2 Old myocardial infarction; I25.10 Atherosclerotic heart disease of native coronary artery without angina pectoris; I11.0 Hypertensive heart disease with heart failure; I50.9 Heart failure, unspecified; I49.9 Cardiac arrhythmia, unspecified; E78.5 Hyperlipidemia, unspecified; J44.9 Chronic obstructive pulmonary disease, unspecified; Z87.19 Personal history of other diseases of the digestive system; Z87.891 Personal history of nicotine dependence; Z79.899 Other long term (current) drug therapy; Z79.01 Long term (current) use of anticoagulants; Z95.810 Presence of automatic (implantable) cardiac defibrillator; Z90.49 Acquired absence of other specified parts of digestive tract; Z98.890 Other specified postprocedural states; Z90.710 Acquired absence of both cervix and uterus; Z98.41 Cataract extraction status, right eye; Z98.42 Cataract extraction status, left eye; Z95.2 Presence of prosthetic heart valve; Z97.2 Presence of dental prosthetic device (complete) (partial); Z95.9 Presence of cardiac and vascular implant and graft, unspecified
CPT/HCPCS: 88305; 43239; J2001; J2704

== ENCOUNTER → 2020-10-12 | Outpatient (CLI) | payer MEDICARE, OTHER ==
--- NOTE | 2020-10-12 18:04 | XR ---
EXAMINATION TYPE: XR KUB DATE OF EXAM: 10/12/2020 4:06 PM CLINICAL HISTORY: Flank pain and hematuria. History of kidney stone. TECHNIQUE: Supine images of the abdomen and pelvis were obtained COMPARISON: KUB 12/02/2014. CTA abdominal aorta with runoff 03/16/2020. FINDINGS: Hepatic and splenic calcified granulomas redemonstrated. Right upper quadrant surgical clip s. Calcified vascular atherosclerotic disease and by iliac stent graft. Linear calcification overlyin g the left renal upper pole measuring 4 mm likely represents one of the renal calculi seen on 03/16/20 CTA comparison. Pelvic phleboliths. Nonspecific bowel gas pattern. Lung bases are clear. Cardiomeg mich. Degenerative changes of the spine. IMPRESSION: 1. 4 mm calcification over the left kidney likely represents renal calculus. 2. Calcified hepatic and splenic granulomas redemonstrated. 3. Nonspecific bowel gas pattern.
== END | disposition home or self-care (01) ==
LOC: RAD 15:46
PROVIDERS: ATTEND Urology
DX: N28.89 Other specified disorders of kidney and ureter (principal); K76.89 Other specified diseases of liver; D73.89 Other diseases of spleen
CPT/HCPCS: 74018

== ENCOUNTER → 2020-10-20 | Outpatient (CLI) | payer MEDICARE, OTHER ==
--- NOTE | 2020-10-21 08:38 | CT ---
EXAMINATION TYPE: CT abdomen pelvis wo con DATE OF EXAM: 10/20/2020 COMPARISON: 03/16/2020 INDICATION: Flank pain and hematuria. DLP: 267.2 mGycm, Automated exposure control for dose reduction was used. CONTRAST: 0 mL of Isovue 300. Study performed without Oral Contrast TECHNIQUE: Axial images were obtained from above the diaphragm to the pubic rami in the axial plane a t 5 mm thick sections. Reconstructed images are reviewed on the computer in the coronal plane. FINDINGS: Limited CT sections are obtained the lung bases. There is a 0.4 cm nodule within the posterior later al right lung base. The 0.4 cm nodules in the posterior lateral left lung base. Moderate-sized hiatal hernia is present. CT ABDOMEN: Liver: There is a calcified granuloma within the right lobe liver. Spleen: Multiple calcified granuloma are present within the spleen Pancreas: Normal Adrenal glands: The adrenal glands are normal. Gallbladder: Surgically absent Kidneys: No masses are evident. No hydronephrosis is present. No cysts are present. There is a shabbir ear renal calcification measuring 0.3 cm transverse within the upper pole left kidney. Aorta: Vascular calcification is within the aorta. There is fusiform prominence mid abdominal aorta measuring 3.2 cm in AP dimension. Inferior vena cava: Normal. CT PELVIS: Postsurgical vascular changes are within the inguinal regions. Loops of bowel within the abdomen and pelvis are normal. This study is without oral contrast limi ting bowel evaluation. Diverticular changes are within the sigmoid colon. Appendix: Not identified. No dilated tubular structure inflammatory changes evident. Urinary bladder: Normal. Genitourinary structures: Uterus and ovaries are not identified. Osseous structures: No suspicious lytic or sclerotic lesions. Sacroiliac degenerative changes are pre sent. Facet degenerative changes are within the lumbar spine. IMPRESSIONS: 1. Left renal calcification without obstruction 2. Multiple calcified granuloma. 3. Cardiomegaly. 4. Hiatal hernia. 5. Diverticulosis without acute diverticulitis. #6 fusiform prominence mid abdominal aorta present pr eviously.
== END | disposition home or self-care (01) ==
LOC: RADCTMAIN 17:11
PROVIDERS: ATTEND Urology
DX: K57.30 Diverticulosis of large intestine without perforation or abscess without bleeding (principal); D73.89 Other diseases of spleen
CPT/HCPCS: 74176

== ENCOUNTER 2021-02-26 01:06 | Inpatient (IN) | payer MEDICARE, OTHER ==
--- NOTE | 2021-02-26 02:46 | ED ---
SOB HPI - General Chief Complaint: Shortness of Breath Stated Complaint: ELSI Time Seen by Provider: 02/26/21 02:40 Source: patient, family Mode of arrival: wheelchair Limitations: no limitations - History of Present Illness Initial Comments: This patient is an 80-year-old woman with history of COPD who states that starting in the afternoon felt like her COPD was flaring up. She tried breathing treatment at home but was not having significant improvement. She had not noted fever or chills. She has some cough and had not noted a change. No sputum. No chest pain. No leg pain or swelling. No change in urination or bowel movements Complaint: shortness of breath -: hour(s) Improves With: nothing Worsens With: nothing Known History Of: COPD Associated Symptoms: denies other symptoms Treatments Prior to Arrival: none - Related Data Home Oxygen Therapy: No Home Medications Medication Instructions Recorded Confirmed Lisinopril [Prinivil] 10 mg PO QAM 08/02/14 09/20/20 Cholecalciferol [Vitamin D3 (25 1,000 unit PO DAILY@1200 12/02/14 09/20/20 Mcg = 1000 Iu)] Metoprolol Tartrate [Lopressor] 50 mg PO BID 07/31/17 09/20/20 Sertraline [Zoloft] 75 mg PO HS 07/31/17 09/20/20 Simvastatin [Zocor] 40 mg PO HS 07/31/17 09/20/20 Spironolactone [Aldactone] 25 mg PO DAILY 08/13/17 09/20/20 Acetaminophen [Tylenol Extra 1,000 mg PO Q6H PRN 10/23/17 09/20/20 Strength] Cyanocobalamin [Vitamin B-12] 500 mcg PO DAILY 03/03/20 09/20/20 Rivaroxaban [Xarelto] 20 mg PO DAILY 03/03/20 09/20/20 Albuterol Sulfate [Ventolin HFA] 2 puff INHALATION RT-BID PRN 03/17/20 09/20/20 Gabapentin [Neurontin] 200 mg PO DAILY 03/17/20 09/20/20 Allergies Allergy/AdvReac Type Severity Reaction Status Date / Time No Known Allergies Allergy Verified 02/26/21 01:47 Review of Systems ROS Statement: Those systems with pertinent positive or pertinent negative responses have been documented in the HPI. ROS Other: All systems not noted in ROS Statement are negative. Constitutional: Denies: fever, chills Respiratory: Reports: cough, dyspnea. Denies: wheezes, hemoptysis Cardiovascular: Denies: chest pain, palpitations, orthopnea, edema Gastrointestinal: Denies: abdominal pain, nausea, vomiting Genitourinary: Denies: dysuria, hematuria Musculoskeletal: Denies: back pain Skin: Denies: rash Neurological: Denies: headache, weakness, numbness Past Medical History Past Medical History: Coronary Artery Disease (CAD), Heart Failure, COPD, Hyperlipidemia, Hypertension, Myocardial Infarction ([place]), Osteoarthritis (OA), Skin Disorder, Vascular Disorder Additional Past Medical History / Comment(s): Rheumatic fever X3, heart murmur, AAA, PAD. Last Myocardial Infarction Date:: unknown History of Any Multi-Drug Resistant Organisms: None Reported Past Surgical History: AICD, Bladder Surgery, Cholecystectomy, Heart Catheterization, Heart Catheterization With Stent, Hysterectomy, Pacemaker Additional Past Surgical History / Comment(s): Mitral and Aortic valve replacement, PIG & COW VALVE, BILATERAL CATARACTS, Bi-Ventricular ICD (ST NEENA), bilateral leg femoral bypass. Past Anesthesia/Blood Transfusion Reactions: No Reported Reaction Additional Past Anesthesia/Blood Transfusion Reaction / Comment(s): NO PROBLEMS WITH PRIOR BLOOD TRANSFUSIONS. Date of Last Stent Placement:: 08-14-17 Type of Cardiac Device: AICD Device Placement Date:: 09/30/17 Past Psychological History: Anxiety, Depression Smoking Status: Former smoker Past Alcohol Use History: None Reported Past Drug Use History: None Reported - Past Family History Mother Family Medical History: No Reported History Father Family Medical History: No Reported History, Pneumonia Sister(s) Family Medical History: Congestive Heart Failure (CHF) Daughter(s) Family Medical History: No Reported History Son(s) Family Medical History: No Reported History General Exam Limitations: no limitations General appearance: alert, in no apparent distress Head exam: Present: atraumatic, normocephalic Eye exam: Present: normal appearance. Absent: scleral icterus, conjunctival in jection Neck exam: Present: normal inspection Respiratory exam: Present: wheezes, rales (Left base). Absent: respiratory distress, rhonchi, stridor, accessory muscle use, decreased breath sounds Cardiovascular Exam: Present: regular rate, normal rhythm, systolic murmur (Grade 3/6 systolic ejection murmur). Absent: diastolic murmur, rubs, gallop GI/Abdominal exam: Present: soft. Absent: distended, tenderness, guarding, rebound, rigid, mass Extremities exam: Present: normal inspection, normal capillary refill. Absent: pedal edema, calf tenderness Back exam: Present: normal inspection. Absent: CVA tenderness (R), CVA tenderness (L) Neurological exam: Present: alert Skin exam: Present: warm, dry, intact, normal color. Absent: rash Course Vital Signs 02/26/21 02/26/21 02/26/21 01:44 02:05 05:17 Temperature 98.8 F Pulse Rate 60 73 Respiratory 22 22 18 Rate Blood Pressure 128/58 156/61 O2 Sat by Pulse 94 L 98 Oximetry Medical Decision Making - Lab Data Result diagrams: 02/26/21 03:07 02/26/21 03:07 Lab Results 02/26/21 02/26/21 02/26/21 Range/Units 03:07 03:07 03:07 WBC 6.9 (3.8-10.6) k/uL RBC 3.23 L (3.80-5.40) m/uL Hgb 7.4 L (11.4-16.0) gm/dL Hct 25.3 L (34.0-46.0) % MCV 78.5 L (80.0-100.0) fL MCH 23.0 L (25.0-35.0) pg MCHC 29.3 L (31.0-37.0) g/dL RDW 17.3 H (11.5-15.5) % Plt Count 181 (150-450) k/uL MPV 8.3 Neutrophils % 72 % Lymphocytes % 15 % Monocytes % 9 % Eosinophils % 2 % Basophils % 1 % Neutrophils # 5.0 (1.3-7.7) k/uL Lymphocytes # 1.0 (1.0-4.8) k/uL Monocytes # 0.6 (0-1.0) k/uL Eosinophils # 0.1 (0-0.7) k/uL Basophils # 0.1 (0-0.2) k/uL Hypochromasia Marked Poikilocytosis Moderate Anisocytosis Slight Microcytosis Slight PT 18.3 H (9.0-12.0) sec INR 1.9 H (<1.2) APTT 31.6 H (22.0-30.0) sec D-Dimer 1.81 H (<0.60) mg/L FEU Sodium 136 L (137-145) mmol/L Potassium 4.4 (3.5-5.1) mmol/L Chloride 102 (98-107) mmol/L Carbon Dioxide 26 (22-30) mmol/L Anion Gap 8 mmol/L BUN 24 H (7-17) mg/dL Creatinine 0.71 (0.52-1.04) mg/dL Est GFR (CKD-EPI)AfAm >90 (>60 ml/min/1.73 sqM) Est GFR (CKD-EPI)NonAf 80 (>60 ml/min/1.73 sqM) Glucose 110 H (74-99) mg/dL Plasma Lactic Acid Jian (0.7-2.0) mmol/L Calcium 9.3 (8.4-10.2) mg/dL Total Bilirubin 0.6 (0.2-1.3) mg/dL AST 89 H (14-36) U/L ALT 47 H (4-34) U/L Alkaline Phosphatase 69 (38-126) U/L Troponin I (0.000-0.034) ng/mL NT-Pro-B Natriuret Pep pg/mL Total Protein 6.7 (6.3-8.2) g/dL Albumin 4.0 (3.5-5.0) g/dL Coronavirus (PCR) (Not Detectd) 02/26/21 02/26/21 02/26/21 Range/Units 03:07 03:07 03:07 WBC (3.8-10.6) k/uL RBC (3.80-5.40) m/uL Hgb (11.4-16.0) gm/dL Hct (34.0-46.0) % MCV (80.0-100.0) fL MCH (25.0-35.0) pg MCHC (31.0-37.0) g/dL RDW (11.5-15.5) % Plt Count (150-450) k/uL MPV Neutrophils % % Lymphocytes % % Monocytes % % Eosinophils % % Basophils % % Neutrophils # (1.3-7.7) k/uL Lymphocytes # (1.0-4.8) k/uL Monocytes # (0-1.0) k/uL Eosinophils # (0-0.7) k/uL Basophils # (0-0.2) k/uL Hypochromasia Poikilocytosis Anisocytosis Microcytosis PT (9.0-12.0) sec INR (<1.2) APTT (22.0-30.0) sec D-Dimer (<0.60) mg/L FEU Sodium (137-145) mmol/L Potassium (3.5-5.1) mmol/L Chloride (98-107) mmol/L Carbon Dioxide (22-30) mmol/L Anion Gap mmol/L BUN (7-17) mg/dL Creatinine (0.52-1.04) mg/dL Est GFR (CKD-EPI)AfAm (>60 ml/min/1.73 sqM) Est GFR (CKD-EPI)NonAf (>60 ml/min/1.73 sqM) Glucose (74-99) mg/dL Plasma Lactic Acid Jian 0.8 (0.7-2.0) mmol/L Calcium (8.4-10.2) mg/dL Total Bilirubin (0.2-1.3) mg/dL AST (14-36) U/L ALT (4-34) U/L Alkaline Phosphatase (38-126) U/L Troponin I 0.019 (0.000-0.034) ng/mL NT-Pro-B Natriuret Pep 2750 pg/mL Total Protein (6.3-8.2) g/dL Albumin (3.5-5.0) g/dL Coronavirus (PCR) (Not Detectd) 02/26/21 Range/Units 03:09 WBC (3.8-10.6) k/uL RBC (3.80-5.40) m/uL Hgb (11.4-16.0) gm/dL Hct (34.0-46.0) % MCV (80.0-100.0) fL MCH (25.0-35.0) pg MCHC (31.0-37.0) g/dL RDW (11.5-15.5) % Plt Count (150-450) k/uL MPV Neutrophils % % Lymphocytes % % Monocytes % % Eosinophils % % Basophils % % Neutrophils # (1.3-7.7) k/uL Lymphocytes # (1.0-4.8) k/uL Monocytes # (0-1.0) k/uL Eosinophils # (0-0.7) k/uL Basophils # (0-0.2) k/uL Hypochromasia Poikilocytosis Anisocytosis Microcytosis PT (9.0-12.0) sec INR (<1.2) APTT (22.0-30.0) sec D-Dimer (<0.60) mg/L FEU Sodium (137-145) mmol/L Potassium (3.5-5.1) mmol/L Chloride (98-107) mmol/L Carbon Dioxide (22-30) mmol/L Anion Gap mmol/L BUN (7-17) mg/dL Creatinine (0.52-1.04) mg/dL Est GFR (CKD-EPI)AfAm (>60 ml/min/1.73 sqM) Est GFR (CKD-EPI)NonAf (>60 ml/min/1.73 sqM) Glucose (74-99) mg/dL Plasma Lactic Acid Jian (0.7-2.0) mmol/L Calcium (8.4-10.2) mg/dL Total Bilirubin (0.2-1.3) mg/dL AST (14-36) U/L ALT (4-34) U/L Alkaline Phosphatase (38-126) U/L Troponin I (0.000-0.034) ng/mL NT-Pro-B Natriuret Pep pg/mL Total Protein (6.3-8.2) g/dL Albumin (3.5-5.0) g/dL Coronavirus (PCR) Not Detected (Not Detectd) Disposition Clinical Impression: Dyspnea, CHF (congestive heart failure), COPD (chronic obstructive pulmonary disease), Anemia Disposition: ADMITTED IP TO THIS HOSP Condition: Fair Referrals: Roxie Shaw MD [Primary Care Provider] - 1-2 days
--- NOTE | 2021-02-26 03:16 | XR ---
EXAM: XR Chest, 2 Views CLINICAL HISTORY: difficulty breathing TECHNIQUE: Frontal and lateral views of the chest. COMPARISON: March 17, 2020. FINDINGS: Lungs: Mild pulmonary edema and interstitial edema in the lung bases. Pleural space: Small left pleural effusion. Heart: Cardiomegaly. Mediastinum: Unremarkable. Bones/joints: Previous sternotomy. Tubes, lines and devices: Implanted cardiac pacer. IMPRESSION: Evidence of mild CHF.
[2021-02-26 03:26] LABS: Anisocytosis Slight; Basophils # (A) 0.1 k/uL (0-0.2); Basophils % (A) 1 %; Eosinophils # (A) 0.1 k/uL (0-0.7); Eosinophils % (A) 2 %; HCT 25.3 % (34.0-46.0); HGB 7.4 gm/dL (11.4-16.0); Hypochromasia Marked; Lymphocytes % (A) 15 %; MCHC 29.3 g/dL (31.0-37.0); MCV 78.5 fL (80.0-100.0); Mean Platelet Volume 8.3; Microcytosis Slight; Monocytes # (A) 0.6 k/uL (0-1.0); Monocytes % (A) 9 %; Neutrophils % (A) 72 %; Platelet Count 181 k/uL (150-450); Poikilocytosis Moderate; RBC 3.23 m/uL (3.80-5.40); RDW 17.3 % (11.5-15.5); WBC 6.9 k/uL (3.8-10.6)
[2021-02-26 03:39] LABS: ALT 47 U/L (4-34); AST 89 U/L (14-36); African American GFR (CKD) >90 (>60 ml/min/1.73 sqM); Alkaline Phosphatase 69 U/L (38-126); Anion Gap 8 mmol/L; Blood Urea Nitrogen 24 mg/dL (7-17); Calcium 9.3 mg/dL (8.4-10.2); Carbon Dioxide 26 mmol/L (22-30); Chloride 102 mmol/L (98-107); Glucose 110 mg/dL (74-99); Non-African American GFR(CKD) 80 (>60 ml/min/1.73 sqM); Potassium 4.4 mmol/L (3.5-5.1); Sodium 136 mmol/L (137-145); Total Bilirubin 0.6 mg/dL (0.2-1.3); Total Protein 6.7 g/dL (6.3-8.2)
[2021-02-26 03:51] LABS: INR 1.9 (<1.2); Partial Thromboplastin Time 31.6 sec (22.0-30.0); Prothrombin Time 18.3 sec (9.0-12.0)
[2021-02-26 03:59] LABS: D-Dimer 1.81 mg/L FEU (<0.60)
--- NOTE | 2021-02-26 04:45 | CT ---
EXAM: CT Angiography Chest With Intravenous Contrast CLINICAL HISTORY: ITS.REASON CT Reason: possible PE TECHNIQUE: Axial computed tomographic angiography images of the chest with intravenous contrast. CTDI is 14.47 mGy and DLP is 272.6 mGy-cm. This CT exam was performed using one or more of the following dose reduction techniques: automated exposure control, adjustment of the mA and/or kV according to patient size, and/or use of iterative reconstruction technique. MIP reconstructed images were created and reviewed. COMPARISON: Chest x-ray to 02/26/2021. 03/18/2020. FINDINGS: Pulmonary arteries: No central pulmonary embolism is detected. No peripheral pulmonary emboli, although the evaluation of the peripheral branch of the pulmonary arteries is somewhat limited. Aorta: Atherosclerotic disease of the thoracic aorta. No thoracic aortic aneurysm. Lungs: COPD. No mass. Pleural space: Small to moderate bilateral pleural effusions per No pneumothorax. Heart: Cardiomegaly. Clinical correlation is advised to assess for congestive heart failure. No significant pericardial effusion. No evidence of RV dysfunction. Thyroid: 1 cm coarsely calcified nodule within the left lobe of the thyroid gland. Bones/joints: Moderate to severe degenerative disc disease of the thoracic spine and kyphoscoliosis. No acute fracture. No dislocation. Soft tissues: Unremarkable. Lymph nodes: Unremarkable. No enlarged lymph nodes. Liver: Fatty infiltration of the liver. Tubes, lines and devices: Pacemaker overlies left upper chest. IMPRESSION: 1. No central or peripheral pulmonary emboli. 2. Cardiomegaly and bilateral pleural effusions raising concern for possible congestive heart failure. 3. COPD. 4. Atherosclerotic disease of the thoracic aorta. 5. Fatty infiltration of the liver.
[2021-02-26] MEDS ORDERED: NITROGLYCERIN OINT 1 INCH/GM PACKET TOPICAL STA (06:09)
[2021-02-26] MEDS ORDERED: FUROSEMIDE 10 MG/ML 4 ML VIAL IV STA (06:09)
[2021-02-26] MEDS ORDERED: ALBUTEROL HFA INHALER INHALATION PRN (11:08)
[2021-02-26] MEDS: ACETAMINOPHEN TAB 325 MG TAB PO PRN (11:45)
[2021-02-26] MEDS: ALPRAZolam 0.25 MG TAB PO PRN (11:45)
--- NOTE | 2021-02-26 14:02 | P.HPIM ---
History of Present Illness This is a pleasant 80 years old female with past medical history of coronary artery disease, and valvular heart disease status post aortic and mitral valve replacement in 2015, atrial fibrillation on Xarelto and follow-up with Dr. Melany vizcaino., Peripheral vascular disease status post bilateral femoral bypass surgery as one was [address] marquez. And chronic UTI and follow-up with Dr. Menon. Hypertension, hyperlipidemia, history of arthritis Presents with progressive dyspnea over 2 weeks, worse over the last 2 days asha ecially with exertion with no chest pain or coughing. She has some diarrhea and black stool, her diarrhea stopped yesterday, no abdominal pain or vomiting. No fever. No overt urinary symptoms Blood pressure 109/63, rest of vital signs stable and patient is afebrile CBC showing low hemoglobin of 7.4, it was 11.6 on 08/2020. INR is 1.9, d-dimer is elevated at 1.8 CTA of the chest showing no PE, bilateral pleural effusion concerning for congestive heart failure BMP and creatinine are unremarkable. Liver enzymes slightly elevated, bilirubin is normal. Troponin 0.019 is negative. ProBNP is 2750, coronavirus not detected EKG paced rhythm at 66 with QTC 538 And emergency room she got 1 dose of Lasix and 1 unit of blood transfusion is ordered Review of Systems CONSTITUTIONAL: No fever, no malaise, no fatigue. HEENT: No recent visual problems or hearing problems. Denied any sore throat. CARDIOVASCULAR: no palpitations, no syncope. PULMONARY: No chest wall tenderness, no hemoptysis. GASTROINTESTINAL: No diarrhea, no nausea, no vomiting, no abdominal pain. Normoactive bowel sounds. NEUROLOGICAL: No headaches, no weakness, no numbness. HEMATOLOGICAL: Denies any bleeding or petechiae. GENITOURINARY: Denies any burning micturition, frequency, or urgency. MUSCULOSKELETAL/RHEUMATOLOGICAL: Denies any joint pain, swelling, or any muscle pain. ENDOCRINE: Denies any polyuria or polydipsia. Past Medical History Past Medical History: Coronary Artery Disease (CAD), Heart Failure, COPD, Hyperlipidemia, Hypertension, Myocardial Infarction ([place]), Osteoarthritis (OA), Skin Disorder, Vascular Disorder Additional Past Medical History / Comment(s): Rheumatic fever X3, heart murmur, AAA, PAD. Last Myocardial Infarction Date:: unknown History of Any Multi-Drug Resistant Organisms: None Reported Past Surgical History: AICD, Bladder Surgery, Cholecystectomy, Heart Catheterization, Heart Catheterization With Stent, Hysterectomy, Pacemaker Additional Past Surgical History / Comment(s): Mitral and Aortic valve replacement, PIG & COW VALVE, BILATERAL CATARACTS, Bi-Ventricular ICD (ST NEENA), bilateral leg femoral bypass. Past Anesthesia/Blood Transfusion Reactions: No Reported Reaction Additional Past Anesthesia/Blood Transfusion Reaction / Comment(s): NO PROBLEMS WITH PRIOR BLOOD TRANSFUSIONS. Date of Last Stent Placement:: 08-14-17 Type of Cardiac Device: AICD Device Placement Date:: 09/30/17 Past Psychological History: Anxiety, Depression Smoking Status: Former smoker Past Alcohol Use History: None Reported Additional Past Alcohol Use History / Comment(s): Started smoking age 16, off/on, 1 pack/3 days until 2012. Past Drug Use History: None Reported - Past Family History Mother Family Medical History: No Reported History Father Family Medical History: No Reported History, Pneumonia Sister(s) Family Medical History: Congestive Heart Failure (CHF) Daughter(s) Family Medical History: No Reported History Son(s) Family Medical History: No Reported History Medications and Allergies Home Medications Medication Instructions Recorded Confirmed Type Lisinopril [Prinivil] 10 mg PO DAILY 08/02/14 02/26/21 History Metoprolol Tartrate [Lopressor] 50 mg PO BID 07/31/17 02/26/21 History Sertraline [Zoloft] 75 mg PO HS 07/31/17 02/26/21 History Simvastatin [Zocor] 40 mg PO HS 07/31/17 02/26/21 History Spironolactone [Aldactone] 25 mg PO DAILY 08/13/17 02/26/21 History Cyanocobalamin [Vitamin B-12] 500 mcg PO DAILY 03/03/20 02/26/21 History Albuterol Sulfate [Ventolin HFA] 2 puff INHALATION RT-QID PRN 03/17/20 02/26/21 History Gabapentin [Neurontin] 100 mg PO BID 03/17/20 02/26/21 History ALPRAZolam [Xanax] 0.25 mg PO DAILY PRN 02/26/21 02/26/21 History Albuterol Nebulized [Ventolin 2.5 mg INHALATION RT-Q6H PRN 02/26/21 02/26/21 History Nebulized] Amoxicillin 500 mg PO Q8H 02/26/21 02/26/21 History Ascorbic Acid [Vitamin C] 1,000 mg PO DAILY 02/26/21 02/26/21 History Cranberry Fruit Extract [Cranberry] 500 mg PO DAILY 02/26/21 02/26/21 History Ezetimibe [Zetia] 10 mg PO HS 02/26/21 02/26/21 History Fluticasone Propion/Salmeterol 1 puff INHALATION RT-BID 02/26/21 02/26/21 History [Wixela 250-50 Inhub] Megared 500mg 500 mg PO DAILY 02/26/21 02/26/21 History Methenamine Hippurate [Hiprex] 1 gm PO DIRECTED 02/26/21 02/26/21 History Multivitamins, Thera [Multivitamin 1 tab PO DAILY 02/26/21 02/26/21 History (formulary)] Omeprazole [PriLOSEC] 20 mg PO DAILY 02/26/21 02/26/21 History Prevagen 1 cap PO DAILY 02/26/21 02/26/21 History Rivaroxaban [Xarelto] 15 mg PO HS 02/26/21 02/26/21 History Allergies Allergy/AdvReac Type Severity Reaction Status Date / Time No Known Allergies Allergy Verified 02/26/21 08:35 Physical Exam Vitals: Vital Signs Temp Pulse Pulse Resp BP BP Pulse Ox 02/26/21 12:47 97.9 F 64 17 146/57 97 02/26/21 08:43 98.3 F 79 16 109/63 98 02/26/21 07:21 70 17 154/67 97 02/26/21 05:17 73 18 156/61 98 02/26/21 02:05 22 02/26/21 01:44 98.8 F 60 22 128/58 94 L Intake and Output 02/25/21 02/26/21 02/26/21 22:59 06:59 14:59 Other: Voiding Method Toilet Weight 63.957 kg 62.9 kg GENERAL: The patient is alert and oriented x3, not in any acute distress. Well developed, well nourished. HEENT: Pupils are round and equally reacting to light. EOMI. No scleral icterus. No conjunctival pallor. Normocephalic, atraumatic. No pharyngeal erythema. No thyromegaly. CARDIOVASCULAR: S1 and S2 present. No murmurs, rubs, or gallops. PULMONARY: Chest is clear to auscultation, no wheezing or crackles. ABDOMEN: Soft, nontender, nondistended, normoactive bowel sounds. No palpable organomegaly. MUSCULOSKELETAL: No joint swelling or deformity. EXTREMITIES: No cyanosis, clubbing, or pedal edema. NEUROLOGICAL: Gross neurological examination did not reveal any focal deficits. SKIN: No rashes. No petechiae Results CBC & Chem 7: 02/26/21 03:07 02/26/21 03:07 Labs: Abnormal Lab Results - Last 24 Hours (Table) 02/26/21 02/26/21 02/26/21 Range/Units 03:07 03:07 03:07 RBC 3.23 L (3.80-5.40) m/uL Hgb 7.4 L (11.4-16.0) gm/dL Hct 25.3 L (34.0-46.0) % MCV 78.5 L (80.0-100.0) fL MCH 23.0 L (25.0-35.0) pg MCHC 29.3 L (31.0-37.0) g/dL RDW 17.3 H (11.5-15.5) % PT 18.3 H (9.0-12.0) sec INR 1.9 H (<1.2) APTT 31.6 H (22.0-30.0) sec D-Dimer 1.81 H (<0.60) mg/L FEU Sodium 136 L (137-145) mmol/L BUN 24 H (7-17) mg/dL Glucose 110 H (74-99) mg/dL AST 89 H (14-36) U/L ALT 47 H (4-34) U/L Crossmatch 02/26/21 Range/Units 10:24 RBC (3.80-5.40) m/uL Hgb (11.4-16.0) gm/dL Hct (34.0-46.0) % MCV (80.0-100.0) fL MCH (25.0-35.0) pg MCHC (31.0-37.0) g/dL RDW (11.5-15.5) % PT (9.0-12.0) sec INR (<1.2) APTT (22.0-30.0) sec D-Dimer (<0.60) mg/L FEU Sodium (137-145) mmol/L BUN (7-17) mg/dL Glucose (74-99) mg/dL AST (14-36) U/L ALT (4-34) U/L Crossmatch See Detail Thrombosis Risk Factor Assmnt - Choose All That Apply Each Factor Represents 1 point: Abnormal pulmonary function (COPD), Heart failure (<1month), Medical pt on bed rest Each Risk Factor Represents 2 Points: Patient confined to bed Each Risk Factor Represents 3 Points: Age 75 years or older Other congenital or acquired thrombophilia - If yes, enter type in comment: No Thrombosis Risk Factor Assessment Total Risk Factor Score: 8 Thrombosis Risk Factor Assessment Level: High Risk Assessment and Plan Assessment: Possible acute CHF with bilateral pleural effusion., unknown ejection fraction Black tarry stool, rule out acute GI bleed Elevated d-dimer with no evidence of pulmonary embolism history of coronary artery disease, and valvular heart disease status post aortic and mitral valve replacement in 2014 atrial fibrillation on Xarelto, which is on hold now History of Peripheral vascular disease status post bilateral femoral bypass surgery as one was [address] marquez. chronic UTI and follow-up with Dr. Menon Hypertension hyperlipidemia Osteoarthritis Plan: This is a pleasant 80 years old female who presents more CHF and possible acute GI bleed. Continue with Lasix, check echocardiogram. Cardiology consult. Check occult blood in the stool, GI consult. Monitor blood transfusion is already ordered we might need for 1 extra dose of Lasix Hold Xarelto, continue with Protonix twice a day also check Doppler of the lower extremities in view of elevated d-dimer Labs and medication were reviewed.. Continue same treatment. Continue with symptomatic treatment. Resume home medication. Monitor lytes and vitals. DVT and GI prophylaxis. Further recommendations depends on the clinical course of the patient DVT prophylaxino anticoagulation in the view of GI bleed GI Prophylaxis: Ppi PT/OT: Pending Prognosis is guarded
[2021-02-26] MEDS: PANTOPRAZOLE 40 MG/10 ML VIAL IVP SCH ×2 (15:21→20:34)
[2021-02-26] MEDS: GABAPENTIN 100 MG CAP PO SCH ×2 (15:27→22:41)
[2021-02-26] MEDS: FUROSEMIDE 10 MG/ML 4 ML VIAL IV SCH (16:06)
[2021-02-26 17:01] LABS: Appearance,Urine Cloudy (Clear); Bacteria,Urine Rare /hpf; Bilirubin,Urine Negative (Negative); Blood,Urine Negative (Negative); Color,Urine Light Yellow; Glucose,Urine (UA) Negative (Negative); Ketones,Urine Negative (Negative); Leukocyte Esterase,Urine Large (Negative); Mucus,Urine Rare /hpf; Nitrite,Urine Negative (Negative); PH, Urine 5.5 (5.0-8.0); Protein,Urine Negative (Negative); RBC,Urine 2 /hpf (0-5); Specific Gravity,Urine 1.017 (1.001-1.035); Squamous Epithelial Cell,Urine 7 /hpf (0-4); Urobilinogen,Urine <2.0 mg/dL (<2.0); WBC,Urine 7 /hpf (0-5)
[2021-02-26] MEDS ORDERED: FUROSEMIDE 10 MG/ML 4 ML VIAL IV ONE (18:00)
--- NOTE | 2021-02-26 19:22 | US ---
EXAMINATION TYPE: US venous doppler duplex LE DATE OF EXAM: 02/26/2021 2:34 PM COMPARISON: US dated 03/18/2020. CT 10/20/2020. CLINICAL HISTORY: Rule out DVT. SIDE PERFORMED: Bilateral TECHNIQUE: The lower extremity deep venous system is examined utilizing real time linear array sonog jazmine with graded compression, doppler sonography and color-flow sonography. VESSELS IMAGED: Common Femoral Vein Deep Femoral Vein Greater Saphenous Vein * Femoral Vein Popliteal Vein Small Saphenous Vein * Proximal Calf Veins (* superficial vessels) In the left groin there is an anechoic structure that does not compress and measures 2.9 x 1.4 x 1.9 cm, correlates to CT finding and appears stable. Patient has extensive vascular history with right fe moral bypass graft. Patient is on Xeralto. Right Leg: Positive for DVT Left Leg: Negative for DVT IMPRESSION: No evidence of bilateral lower extremity DVT. Stable incidental cystlike structure in the left inguinal canal, may represent postsurgical change.
[2021-02-26] MEDS: SERTRALINE 50 MG TAB PO SCH (20:34)
[2021-02-26] MEDS: EZETIMIBE 10 MG TAB PO SCH (20:35)
[2021-02-26] MEDS ORDERED: FUROSEMIDE 10 MG/ML 4 ML VIAL IV SCH (21:00)
[2021-02-26] MEDS ORDERED: GABAPENTIN 100 MG CAP PO SCH (21:00)
[2021-02-27] MEDS: PANTOPRAZOLE 40 MG/10 ML VIAL IVP SCH ×2 (07:49→23:15)
[2021-02-27] MEDS: FUROSEMIDE 10 MG/ML 4 ML VIAL IV SCH ×2 (07:49→16:44)
[2021-02-27] MEDS: CYANOCOBALAMIN 500 MCG TAB PO SCH (07:49)
[2021-02-27] MEDS: GABAPENTIN 100 MG CAP PO SCH ×2 (07:49→23:15)
[2021-02-27] MEDS: ASCORBIC ACID 500 MG TAB PO SCH (07:55)
[2021-02-27] MEDS: ACETAMINOPHEN TAB 325 MG TAB PO PRN (07:57)
[2021-02-27 09:12] LABS: Anisocytosis Slight; HCT 31.6 % (34.0-46.0); Hypochromasia Marked; MCH 23.9 pg (25.0-35.0); MCHC 29.7 g/dL (31.0-37.0); MCV 80.6 fL (80.0-100.0); Mean Platelet Volume 7.3; Microcytosis Slight; Platelet Count 212 k/uL (150-450); Poikilocytosis Moderate; RBC 3.92 m/uL (3.80-5.40); RDW 17.5 % (11.5-15.5); Reticulocyte % 2.8 % (0.5-2.0); WBC 8.3 k/uL (3.8-10.6)
--- NOTE | 2021-02-27 10:03 | CONS ---
CONSULTATION CHIEF COMPLAINT: Shortness of breath. Kelli is an 80-year-old lady with history of COPD, valvular heart disease, status post mitral and aortic valve replacement, coronary artery disease, status post angioplasty, cardiomyopathy status post biventricular BiV AICD, and peripheral arterial disease, comes to hospital complaining of shortness of breath. She states that she has mild to moderate intensity shortness of breath that comes on with very minimal activity and is relieved with rest. She is admitted to hospital with a diagnosis of acute exacerbation of chronic systolic heart failure. She also has COPD exacerbation. Cardiology has been consulted for the same. At the time of my evaluation this morning, she appears comfortable at rest. She states that her shortness of breath had improved. She is being treated with nebulizers and diuretics. An EKG shows paced rhythm. Venous Doppler study shows was negative for DVT. The chest x-ray showed mild congestive heart failure. CT scan of the chest was negative for pulmonary embolism showed cardiomegaly with bilateral small pleural effusions. Her INR is 1.9. BNP is elevated at 2750. She is anemic and coronavirus test is negative. PAST MEDICAL HISTORY: Significant for cardiomyopathy with congestive heart failure, coronary artery disease status post angioplasty, multivalvular heart disease, COPD. ALLERGIES: There are no known drug allergies. MEDICATIONS: Medications at home include Xanax, nebulizers, Zetia, Zocor, Zoloft, Xarelto, Lopressor, Neurontin, Aldactone, Prinivil, multivitamins, and vitamin C. ALLERGIES: There are no known drug allergies. FAMILY HISTORY: Negative for premature coronary artery disease. SOCIAL HISTORY: Negative for smoking, EtOH abuse, or drug abuse. REVIEW OF SYSTEMS: HEENT is unremarkable. CARDIAC: As described above. RESPIRATORY: As described above. GI: Negative. GENITOURINARY: Negative. ALLERGY/IMMUNOLOGY: Negative. SKIN: Negative. MUSCULOSKELETAL: Significant for arthritis. PSYCHOSOCIAL: Negative. ENDOCRINE: Negative. DERM: Negative. CONSTITUTIONAL: Negative. ONCOLOGICAL: Negative. WET ROOM SUPERVISOR: Negative. Rest of the system review is not relevant. PHYSICAL EXAMINATION: Patient is comfortable at rest. Afebrile. Heart rate is 64 beats per minute. Blood pressure is 146/80. Respiratory rate is 16. O2 saturation is 97% on 2 L. There is jugular venous distention. Chest exam reveals diminished air entry without significant crackles or rhonchi. Heart exam reveals first and second heart sounds. Systolic murmur at the apex. Abdomen is soft. Examination of extremities reveals mild bilateral ankle edema. LABS: Labs show that the INR is 1.9, potassium is 4.4 creatinine is 0.7. BNP is elevated. Troponin is negative. ASSESSMENT: 1. Acute exacerbation of chronic systolic heart failure. 2. History of mitral and aortic valve replacement. 3. Chronic obstructive pulmonary disease exacerbation. PLAN: I will treat the patient with intravenous diuretics, beta blockers, DOMINGO inhibitors, obtain a 2D echo to document her LV function and to assess the valves. Continue the nebulizers and decide on further course of action based on how she responds to therapy. MMODL / IJN: [id number] /
[2021-02-27 10:31] LABS: INR 1.1 (<1.2); Prothrombin Time 11.6 sec (9.0-12.0)
[2021-02-27 11:32] LABS: HGB 9.4 gm/dL (11.4-16.0)
[2021-02-27] MEDS: ALBUTEROL NEBULIZED 2.5 MG/3 ML INHALATION PRN ×2 (11:37→19:13)
--- NOTE | 2021-02-27 12:55 | ECHOF ---
Referral Reason:chf exacerbation MEASUREMENTS -------- HEIGHT: 168.9 cm WEIGHT: 62.6 kg BP: 146/80 RVIDd: 3.5 cm (< 3.3) IVSd: 1.4 cm (0.6 - 1.1) LVIDd: 4.8 cm (3.9 - 5.3) LVPWd: 1.4 cm (0.6 - 1.1) IVSs: 1.8 cm LVIDs: 3.9 cm LVPWs: 1.9 cm LA Diam: 5.8 cm (2.7 - 3.8) LAESV Index (A-L): 58.11 ml/m Ao Diam: 3.3 cm (2.0 - 3.7) AV maxP.60 mmHg AV meanP.64 mmHg RAP: 5.00 mmHg RVSP: 40.30 mmHg FINDINGS -------- Atrial fibrillation. This was a technically adequate study. The left ventricular size is normal. There is moderate concentric left ventricular hypertrophy. O verall left ventricular systolic function is severely impaired with, an EF between 25 - 30 %. Basal inferior LV wall motion is hypokinetic. Basal inferoseptal LV wall motion is dyskinetic. Mid in ferior LV wall motion is hypokinetic. Mid inferoseptal LV wall motion is dyskinetic. Apical infe rior LV wall motion is hypokinetic. Apical septum LV wall motion is hypokinetic. The right ventricle is mildly enlarged. LA is severely dilated >40 ml/m2 The right atrium is normal in size. Interatrial and interventricular septum intact. Peak/mean gradient across the Aortic Valve is 24.60mmHg / 11.64mmHg. Normally functioning bioprosth etic valve. The mitral valve leaflets are mildly thickened. Mild mitral annular calcification present. Mild m itral regurgitation is present. The peak and mean MV gradients are 15.04mmHg 4.72mmHg as measured by doppler. There is mild regurgitation of the bioprosthetic mitral valve. Mild tricuspid regurgitation present. There is mild pulmonary hypertension. The right ventricular systolic pressure, as measured by Doppler, is 40.30mmHg. Trace/mild (physiologic) pulmonic regurgitation. The aortic root size is normal. Normal inferior vena cava with normal inspiratory collapse consistent with estimated right atrial pre ssure of 5 mmHg. There is no pericardial effusion. CONCLUSIONS -------- 1. The left ventricular size is normal. 2. There is moderate concentric left ventricular hypertrophy. 3. Overall left ventricular systolic function is severely impaired with, an EF between 25 - 30 %. 4. Basal inferior LV wall motion is hypokinetic. 5. Basal inferoseptal LV wall motion is dyskinetic. 6. Mid inferior LV wall motion is hypokinetic. 7. Mid inferoseptal LV wall motion is dyskinetic. 8. Apical inferior LV wall motion is hypokinetic. 9. Apical septum LV wall motion is hypokinetic. 10. The right ventricle is mildly enlarged. 11. LA is severely dilated >40 ml/m2 12. Peak/mean gradient across the Aortic Valve is 24.60mmHg / 11.64mmHg. 13. Normally functioning bioprosthetic valve. 14. The mitral valve leaflets are mildly thickened. 15. Mild mitral annular calcification present. 16. Mild mitral regurgitation is present. 17. The peak and mean MV gradients are 15.04mmHg 4.72mmHg as measured by doppler. 18. There is mild regurgitation of the bioprosthetic mitral valve. 19. Mild tricuspid regurgitation present. 20. There is mild pulmonary hypertension. 21. The right ventricular systolic pressure, as measured by Doppler, is 40.30mmHg. 22. Trace/mild (physiologic) pulmonic regurgitation. 23. Normal inferior vena cava with normal inspiratory collapse consistent with estimated right atrial pressure of 5 mmHg. 24. There is no pericardial effusion. CALL CENTER REPRESENTATIVE: Hoda Cardona RDCS
[2021-02-27 13:36] LABS: ALT 88 U/L (4-34); AST 132 U/L (14-36); African American GFR (CKD) 77 (>60 ml/min/1.73 sqM); Albumin 4.4 g/dL (3.5-5.0); Albumin/Globulin Ratio 1.5; Alkaline Phosphatase 81 U/L (38-126); Anion Gap 8 mmol/L; Blood Urea Nitrogen 23 mg/dL (7-17); Calcium 9.5 mg/dL (8.4-10.2); Carbon Dioxide 36 mmol/L (22-30); Chloride 94 mmol/L (98-107); Glucose 168 mg/dL (74-99); Non-African American GFR(CKD) 67 (>60 ml/min/1.73 sqM); Potassium 3.4 mmol/L (3.5-5.1); Sodium 138 mmol/L (137-145); Total Bilirubin 0.9 mg/dL (0.2-1.3); Total Protein 7.4 g/dL (6.3-8.2)
[2021-02-27 14:11] VITALS: BMI 21.5
[2021-02-27 15:45] LABS: % Iron Saturation 4.57 (12.00-45.00); Ferritin 6.5 ng/mL (10.0-291.0); Folate, Serum >24.0 ng/mL; Iron 21 ug/dL (50-170); Total Iron Binding Capacity 460 ug/dL (228-460)
--- NOTE | 2021-02-27 15:52 | P.CONS ---
History of Present Illness - Reason for Consult Consult date: 02/27/21 Anemia Requesting physician: Maxime E Sheet - Chief Complaint Shortness of breath - History of Present Illness This is a pleasant 80-year-old white female with past medical history of hypertension, hyperlipidemia, chronic UTI, coronary artery disease with heart valve replacement, atrial fibrillation on Xarelto, congestive heart failure, and peripheral vascular disease presented to the hospital with progressive shortness of breath and dyspnea over the last several days. The patient also reports she had 2 episodes of black stool. She denies any nausea, vomiting, or abdominal pain. As part of her workup in the emergency department she had a CT a of the chest showing no pulmonary embolism, however she was found to have bilateral pleural effusion concerning for congestive heart failure and evidence of fatty liver. She had venous ultrasound of bilateral lower extremities, which was positive for DVT of the right lower extremity. The patient has a history of an upper endoscopy in September 2020 that showed moderate gastritis, with a healed gastrodudenal fistula, and reported colonoscopy greater than 5 years ago which she states was normal. On presentation her hemoglobin was 7.4, and is status post 1 unit of PRBC. Today's hemoglobin was 9.4. She's had mild elevation of her transaminases, total bilirubin 0.9, AST 132, ALT 88, alkaline phosphatase 81. Review of Systems Constitutional: Denies poor appetite Ears, nose, mouth and throat: Denies headache, Denies sore throat Cardiovascular: Reports dyspnea on exertion, Reports shortness of breath Respiratory: Reports dyspnea Gastrointestinal: Denies abdominal pain, Denies BRBPR, Denies change in bowel habits, Denies coffee ground emesis, Denies hematemesis, Denies hematochezia, Denies loss of appetite, Denies nausea, Denies vomiting Genitourinary: Denies dysuria, Denies hematuria Musculoskeletal: Denies myalgias Integumentary: Denies pruritus, Denies rash Neurological: Denies numbness, Denies weakness Psychiatric: Denies anxiety, Denies depression Endocrine: Denies fatigue, Denies weight change Past Medical History Past Medical History: Coronary Artery Disease (CAD), Heart Failure, COPD, Hyperlipidemia, Hypertension, Myocardial Infarction (DE), Osteoarthritis (OA), Skin Disorder, Vascular Disorder Additional Past Medical History / Comment(s): Rheumatic fever X3, heart murmur, AAA, PAD. Last Myocardial Infarction Date:: unknown History of Any Multi-Drug Resistant Organisms: None Reported Past Surgical History: AICD, Bladder Surgery, Cholecystectomy, Heart Ca theterization, Heart Catheterization With Stent, Hysterectomy, Pacemaker Additional Past Surgical History / Comment(s): Mitral and Aortic valve replacement, PIG & COW VALVE, BILATERAL CATARACTS, Bi-Ventricular ICD (ST NEENA), bilateral leg femoral bypass. Past Anesthesia/Blood Transfusion Reactions: No Reported Reaction Additional Past Anesthesia/Blood Transfusion Reaction / Comm: NO PROBLEMS WITH PRIOR BLOOD TRANSFUSIONS. Date of Last Stent Placement:: 08-14-17 Type of Cardiac Device: AICD Device Placement Date:: 09/30/17 Past Psychological History: Anxiety, Depression Smoking Status: Former smoker Past Alcohol Use History: None Reported Additional Past Alcohol Use History / Comment(s): Started smoking age 16, off/on, 1 pack/3 days until 2012. Past Drug Use History: None Reported - Past Family History Mother Family Medical History: No Reported History Father Family Medical History: No Reported History, Pneumonia Sister(s) Family Medical History: Congestive Heart Failure (CHF) Daughter(s) Family Medical History: No Reported History Son(s) Family Medical History: No Reported History Medications and Allergies Home Medications Medication Instructions Recorded Confirmed Type Lisinopril [Prinivil] 10 mg PO DAILY 08/02/14 02/26/21 History Metoprolol Tartrate [Lopressor] 50 mg PO BID 07/31/17 02/26/21 History Sertraline [Zoloft] 75 mg PO HS 07/31/17 02/26/21 History Simvastatin [Zocor] 40 mg PO HS 07/31/17 02/26/21 History Spironolactone [Aldactone] 25 mg PO DAILY 08/13/17 02/26/21 History Cyanocobalamin [Vitamin B-12] 500 mcg PO DAILY 03/03/20 02/26/21 History Albuterol Sulfate [Ventolin HFA] 2 puff INHALATION RT-QID PRN 03/17/20 02/26/21 History Gabapentin [Neurontin] 100 mg PO BID 03/17/20 02/26/21 History ALPRAZolam [Xanax] 0.25 mg PO DAILY PRN 02/26/21 02/26/21 History Albuterol Nebulized [Ventolin 2.5 mg INHALATION RT-Q6H PRN 02/26/21 02/26/21 Hi story Nebulized] Amoxicillin 500 mg PO Q8H 02/26/21 02/26/21 History Ascorbic Acid [Vitamin C] 1,000 mg PO DAILY 02/26/21 02/26/21 History Cranberry Fruit Extract [Cranberry] 500 mg PO DAILY 02/26/21 02/26/21 History Ezetimibe [Zetia] 10 mg PO HS 02/26/21 02/26/21 History Fluticasone Propion/Salmeterol 1 puff INHALATION RT-BID 02/26/21 02/26/21 History [Wixela 250-50 Inhub] Megared 500mg 500 mg PO DAILY 02/26/21 02/26/21 History Methenamine Hippurate [Hiprex] 1 gm PO DIRECTED 02/26/21 02/26/21 History Multivitamins, Thera [Multivitamin 1 tab PO DAILY 02/26/21 02/26/21 History (formulary)] Omeprazole [PriLOSEC] 20 mg PO DAILY 02/26/21 02/26/21 History Prevagen 1 cap PO DAILY 02/26/21 02/26/21 History Rivaroxaban [Xarelto] 20 mg PO HS 02/27/21 02/27/21 History Allergies Allergy/AdvReac Type Severity Reaction Status Date / Time No Known Allergies Allergy Verified 02/26/21 08:35 Physical Exam Vitals: Vital Signs Temp Pulse Pulse Resp BP BP Pulse Ox 02/27/21 12:16 97.8 F 113 H 15 105/55 92 L 02/27/21 11:50 88 02/27/21 11:39 86 02/27/21 07:22 96 02/27/21 05:00 98.0 F 64 16 146/80 97 02/26/21 21:00 98.3 F 62 16 168/56 95 02/26/21 16:04 98.2 F 56 L 20 153/87 98 02/26/21 16:03 98.2 F 56 L 20 153/87 98 Intake and Output 02/27/21 02/27/21 02/27/21 06:59 14:59 22:59 Other: Voiding Method Toilet Weight 61.4 kg General appearance: The patient is alert, oriented, appears in no acute distress. HET: Head is normocephalic and atraumatic. Sclera anicteric. Neck: Supple without lymphadenopathy. Trachea midline. Heart: S1 S2. Systolic murmur. Regular rate and rhythm. Lungs: No crackles or wheezes are heard. Abdomen: Soft, nontender, nondistended with bowel sounds. No guarding or rigidity. Extremities: Normal skin color and turgor. Pedal edema. Neurological: No focal deficits. Strength and sensation are grossly intact. Results CBC & Chem 7: 02/27/21 08:37 02/27/21 12:55 Labs: Abnormal Lab Results - Last 24 Hours (Table) 02/26/21 02/26/21 02/27/21 Range/Units 10:24 Unknown 08:37 Hgb 9.4 L D (11.4-16.0) gm/dL Hct 31.6 L (34.0-46.0) % MCH 23.9 L (25.0-35.0) pg MCHC 29.7 L (31.0-37.0) g/dL RDW 17.5 H (11.5-15.5) % Retic Count 2.8 H (0.5-2.0) % Potassium (3.5-5.1) mmol/L Chloride (98-107) mmol/L Carbon Dioxide (22-30) mmol/L BUN (7-17) mg/dL Glucose (74-99) mg/dL AST (14-36) U/L ALT (4-34) U/L Urine Appearance Cloudy H (Clear) Ur Leukocyte Esterase Large H (Negative) Urine WBC 7 H (0-5) /hpf Ur Squamous Epith Cells 7 H (0-4) /hpf Urine Bacteria Rare H (None) /hpf Urine Mucus Rare H (None) /hpf Crossmatch See Detail 02/27/21 Range/Units 12:55 Hgb (11.4-16.0) gm/dL Hct (34.0-46.0) % MCH (25.0-35.0) pg MCHC (31.0-37.0) g/dL RDW (11.5-15.5) % Retic Count (0.5-2.0) % Potassium 3.4 L (3.5-5.1) mmol/L Chloride 94 L (98-107) mmol/L Carbon Dioxide 36 H (22-30) mmol/L BUN 23 H (7-17) mg/dL Glucose 168 H (74-99) mg/dL AST 132 H (14-36) U/L ALT 88 H (4-34) U/L Urine Appearance (Clear) Ur Leukocyte Esterase (Negative) Urine WBC (0-5) /hpf Ur Squamous Epith Cells (0-4) /hpf Urine Bacteria (None) /hpf Urine Mucus (None) /hpf Crossmatch CT scan - chest: report reviewed (No central or peripheral pulmonary emboli. Cardiomegaly and bilateral pleural effusions raising concern for possible congestive heart failure. COPD. Arthrosclerotic disease of the thoracic aorta. Fatty infiltration of the liver) Venous US: report reviewed (Right leg positive for DVT.) Assessment and Plan (1) GI bleed Narrative/Plan: This is a pleasant 80-year-old white female with past medical history of hypertension, hyperlipidemia, chronic UTI, coronary artery disease with heart valve replacement, atrial fibrillation on Xarelto, congestive heart failure, and peripheral vascular disease presented to the hospital with progressive shortness of breath and dyspnea over the last several days. The patient also reports she had 2 episodes of black stool. She denies any nausea, vomiting, or abdominal pain. As part of her workup in the emergency department she had a CT a of the chest showing no pulmonary embolism, however does have bilateral pleural effusion concerning for congestive heart failure and evidence of fatty liver disease. She had venous ultrasound of bilateral lower extremities, which was positive for DVT of the right lower extremity. The patient has a history of an upper endoscopy in September 2020 that showed moderate gastritis, with a healed gastrodudenal fistula, and reported colonoscopy greater than 5 years ago which she states was normal. On presentation her hemoglobin was 7.4, and is status post 1 unit of PRBC. Today's hemoglobin was 9.4. She's had mild elevation of her transaminases, total bilirubin 0.9, AST 132, ALT 88, alkaline phosphatase 81. With drop in hemoglobin need to rule out source of GI bleed, will proceed with an upper and lower endoscopy tomorrow. Patient is agreeable to plan of care. Current Visit: No Status: Acute Code(s): K92.2 - GASTROINTESTINAL HEMORRHAGE, UNSPECIFIED SNOMED Code(s): 75064785 (2) Anemia Current Visit: Yes Status: Acute Code(s): D64.9 - ANEMIA, UNSPECIFIED SNOMED Code(s): 781085228 (3) Afib Narrative/Plan: On Xarelto currently on hold, cardiology following Current Visit: No Status: Acute Code(s): I48.91 - UNSPECIFIED ATRIAL FIBRILLATION SNOMED Code(s): 98199413 Plan: 1. Continue symptomatic and supportive care 2. Clear liquid diet, nothing by mouth after midnight 3. Bowel prep this evening 4. CBC, CMP in morning 5. Patient scheduled for upper and lower endoscopy tomorrow, procedure including risks discussed with patient. Patient willing to proceed. 6. Continue to hold anticoagulation for now Thank you for this consultation, we will continue to follow. Dr. Silva Barnett I agree with the dictator's note, documented as a scribe by Park Pat.
[2021-02-27] MEDS ORDERED: PEG 3350-NA SULF,BICARB,CL/KCL 4,000 ML BOTTLE PO ONE (17:00)
--- NOTE | 2021-02-27 19:01 | P.CONS ---
History of Present Illness - Reason for Consult Consult date: 02/27/21 DVT, Anemia Requesting physician: Maxime E Angela - Chief Complaint Profound weakness, black stool - History of Present Illness Pt has extensive cardiac Hx, on xarelto s/p procedures and AICD. She had diarrhea late last week, followed by at least 3 black stool. She was pr ogressively getting weaker, noted SOB at rest. She was brought to the ER, Hgb 7.4-baseline 10 range. She received a unit of blood, xarelto held, GI and Cardiology consulted. As part of work up for presenting symptoms she had CTA-no PE, doppler of BLE was done-report reviewed, no DVT. Pt is in chair, no acute c/o on a 10 point ROS, feels better then on admit. Review of Systems 10 point review of systems is negative except as stated in HPI Past Medical History Past Medical History: Coronary Artery Disease (CAD), Heart Failure, COPD, Hyperlipidemia, Hypertension, Myocardial Infarction (MD), Osteoarthritis (OA), Skin Disorder, Vascular Disorder Additional Past Medical History / Comment(s): Rheumatic fever X3, heart murmur, AAA, PAD. Last Myocardial Infarction Date:: unknown History of Any Multi-Drug Resistant Organisms: None Reported Past Surgical History: AICD, Bladder Surgery, Cholecystectomy, Heart Catheterization, Heart Catheterization With Stent, Hysterectomy, Pacemaker Additional Past Surgical History / Comment(s): Mitral and Aortic valve replacement, PIG & COW VALVE, BILATERAL CATARACTS, Bi-Ventricular ICD ([facility]), bilateral leg femoral bypass. Past Anesthesia/Blood Transfusion Reactions: No Reported Reaction Additional Past Anesthesia/Blood Transfusion Reaction / Comm: NO PROBLEMS WITH PRIOR BLOOD TRANSFUSIONS. Date of Last Stent Placement:: 08-14-17 Type of Cardiac Device: AICD Device Placement Date:: 09/30/17 Past Psychological History: Anxiety, Depression Smoking Status: Former smoker Past Alcohol Use History: None Reported Additional Past Alcohol Use History / Comment(s): Started smoking age 16, off/on, 1 pack/3 days until 2012. Past Drug Use History: None Reported - Past Family History Mother Family Medical History: No Reported History Father Family Medical History: No Reported History, Pneumonia Sister(s) Family Medical History: Congestive Heart Failure (CHF) Daughter(s) Family Medical History: No Reported History Son(s) Family Medical History: No Reported History Medications and Allergies Home Medications Medication Instructions Recorded Confirmed Type Lisinopril [Prinivil] 10 mg PO DAILY 08/02/14 02/26/21 History Metoprolol Tartrate [Lopressor] 50 mg PO BID 07/31/17 02/26/21 History Sertraline [Zoloft] 75 mg PO HS 07/31/17 02/26/21 History Simvastatin [Zocor] 40 mg PO HS 07/31/17 02/26/21 History Spironolactone [Aldactone] 25 mg PO DAILY 08/13/17 02/26/21 History Cyanocobalamin [Vitamin B-12] 500 mcg PO DAILY 03/03/20 02/26/21 History Albuterol Sulfate [Ventolin HFA] 2 puff INHALATION RT-QID PRN 03/17/20 02/26/21 History Gabapentin [Neurontin] 100 mg PO BID 03/17/20 02/26/21 History ALPRAZolam [Xanax] 0.25 mg PO DAILY PRN 02/26/21 02/26/21 History Albuterol Nebulized [Ventolin 2.5 mg INHALATION RT-Q6H PRN 02/26/21 02/26/21 History Nebulized] Amoxicillin 500 mg PO Q8H 02/26/21 02/26/21 History Ascorbic Acid [Vitamin C] 1,000 mg PO DAILY 02/26/21 02/26/21 History Cranberry Fruit Extract [Cranberry] 500 mg PO DAILY 02/26/21 02/26/21 History Ezetimibe [Zetia] 10 mg PO HS 02/26/21 02/26/21 History Fluticasone Propion/Salmeterol 1 puff INHALATION RT-BID 02/26/21 02/26/21 History [Wixela 250-50 Inhub] Megared 500mg 500 mg PO DAILY 02/26/21 02/26/21 History Methenamine Hippurate [Hiprex] 1 gm PO DIRECTED 02/26/21 02/26/21 History Multivitamins, Thera [Multivitamin 1 tab PO DAILY 02/26/21 02/26/21 History (formulary)] Omeprazole [PriLOSEC] 20 mg PO DAILY 02/26/21 02/26/21 History Prevagen 1 cap PO DAILY 02/26/21 02/26/21 History Rivaroxaban [Xarelto] 20 mg PO HS 02/27/21 02/27/21 History Allergies Allergy/AdvReac Type Severity Reaction Status Date / Time No Known Allergies Allergy Verified 02/26/21 08:35 Physical Exam Vitals: Vital Signs Temp Pulse Pulse Resp BP BP Pulse Ox 02/27/21 11:39 86 02/27/21 07:22 96 02/27/21 05:00 98.0 F 64 16 146/80 97 02/26/21 21:00 98.3 F 62 16 168/56 95 02/26/21 16:04 98.2 F 56 L 20 153/87 98 02/26/21 16:03 98.2 F 56 L 20 153/87 98 02/26/21 14:40 98.2 F 61 20 129/77 98 02/26/21 14:30 98.5 F 50 L 20 134/77 98 02/26/21 14:10 98.2 F 62 20 129/58 97 02/26/21 14:00 98.5 F 49 L 20 122/47 02/26/21 12:47 97.9 F 64 17 146/57 97 Intake and Output 02/26/21 02/27/21 02/27/21 22:59 06:59 14:59 Intake Total 1325 Balance 1325 Intake: Oral 700 Blood Product 625 Rc As-1 Unit 310 [id number] Other: Voiding Method Toilet Toilet # Voids 7 Weight 61.4 kg - Constitutional General appearance: cooperative, no acute distress, thin - EENT Eyes: anicteric sclerae, EOMI ENT: hearing grossly normal, normal oropharynx - Neck Neck: no lymphadenopathy - Respiratory Respiratory: bilateral: diminished - Cardiovascular Rhythm: irregularly irregular Heart sounds: normal: S1, S2 Abnormal Heart Sounds: systolic murmur leg Peripheral Edema: bilateral: Trace - Gastrointestinal General gastrointestinal: no absent bowel sounds, no decreased bowel sounds, no distended, no hepatomegaly, no hyperactive bowel sounds, normal bowel sounds, no organomegaly, no rigid, no scaphoid, soft, no splenomegaly, no tenderness, no umbilical hernia, no ventral hernia - Integumentary Integumentary: pale - Neurologic Neurologic: CNII-XII intact - Musculoskeletal Musculoskeletal: generalized weakness, strength equal bilaterally - Psychiatric Psychiatric: A&O x's 3, appropriate affect, intact judgment & insight Results CBC & Chem 7: 02/27/21 08:37 02/27/21 12:55 Labs: Abnormal Lab Results - Last 24 Hours (Table) 02/26/21 02/26/21 02/27/21 Range/Units 10:24 Unknown 08:37 Hgb 9.4 L D (11.4-16.0) gm/dL Hct 31.6 L (34.0-46.0) % MCH 23.9 L (25.0-35.0) pg MCHC 29.7 L (31.0-37.0) g/dL RDW 17.5 H (11.5-15.5) % Retic Count 2.8 H (0.5-2.0) % Urine Appearance Cloudy H (Clear) Ur Leukocyte Esterase Large H (Negative) Urine WBC 7 H (0-5) /hpf Ur Squamous Epith Cells 7 H (0-4) /hpf Urine Bacteria Rare H (None) /hpf Urine Mucus Rare H (None) /hpf Crossmatch See Detail CT scan - chest: report reviewed Venous US: report reviewed Assessment and Plan (1) Anemia Narrative/Plan: Suspect 2/2 GI blood loss, exacerbated by anticoagulation based on history. GI consulted for evaluation, anticoagulation held Iron studies ordered Transfuse to keep Hgb>7 unless pt is symptomatic Current Visit: Yes Status: Acute Priority: High Code(s): D64.9 - ANEMIA, UNSPECIFIED SNOMED Code(s): 407607694 (2) Afib Current Visit: No Status: Acute Code(s): I48.91 - UNSPECIFIED ATRIAL FIBRILLATION SNOMED Code(s): 05251092 (3) GI bleed Current Visit: No Status: Acute Code(s): K92.2 - GASTROINTESTINAL HEMORRHAGE, UNSPECIFIED SNOMED Code(s): 89328588 (4) Urinary tract infection Narrative/Plan: D/W IM [employer]. Pt was on amoxicillin TID coming into the hospital and her urine is still showing signs of infection. They will address and get pt back on abx. Current Visit: Yes Status: Chronic Priority: High Code(s): N39.0 - URINARY TRACT INFECTION, SITE NOT SPECIFIED SNOMED Code(s): 23789194 Plan: Doctor attests: I performed a history and physical examination of this patient, developed impression and plan of care. Discussed with dictator. I agree with dictators note, documented as a scribe.
[2021-02-27] MEDS: SERTRALINE 50 MG TAB PO SCH (23:13)
[2021-02-27] MEDS: METOPROLOL TARTRATE 50 MG TAB PO SCH (23:14)
[2021-02-27] MEDS: EZETIMIBE 10 MG TAB PO SCH (23:14)
[2021-02-27] MEDS: ATORVASTATIN 20 MG TAB PO SCH (23:15)
--- NOTE | 2021-02-28 00:21 | P.PN ---
Subjective 02/27/2021 Patient feels much better today and her dyspnea is significantly improved, she can walk to the restroom with less difficulty and minimal exertional dyspnea. She denies chest pain, no overt UTI symptoms but she has feeling some pressure with her urine and she fell and it on and off for 2 weeks. Urinalysis is suspicious for UTI and patient was started on ceftriaxone empirically pending urine culture. Patient denies any leg pain, there was suspicion for DVT in the legs but report was wrong from radiologist She is saturating 92% on room air and afebrile Labs from today showing improved hemoglobin to 9.4 after 1 unit of blood transf usion, INR is back to 1.1 today. Potassium 3.4, creatinine is normal. Liver enzymes only mildly elevated. Iron studies are suspicious for iron deficiency anemia. Her vitamin B12 and folate are normal. Echocardiogram showing ejection fraction of 25-30% with moderate LVH and wall hypokinesia. Patient Access Coordinator diagnosed her with acute systolic CHF GI team are planning for EGD/colonoscopy tomorrow. Initial report for lower extremity Doppler was positive for DVT however the report states between right and left legs so on contacted the radiologist again checked resolved patient had no DVT in any leg. Hematology team were already consulted and they agreed to see the patient anyway Postoperative still remains on hold, she is on Lasix 40 mg twice daily, ceftriaxone for UTI and Protonix twice a day Objective - Vital Signs Vital signs: Vital Signs Temp 97.8 F 02/27/21 12:16 Pulse 113 H 02/27/21 12:16 Resp 15 02/27/21 12:16 BP 105/55 02/27/21 12:16 Pulse Ox 92 L 02/27/21 12:16 Intake & Output 02/26/21 02/27/21 02/27/21 18:59 06:59 18:59 Intake Total 1325 Balance 1325 Weight 62.9 kg 61.4 kg Intake: Oral 700 Blood Product 625 Rc As-1 Unit 310 [id number] Other: Voiding Method Toilet Toilet Toilet # Voids 7 - Exam GENERAL: The patient is alert and oriented x3, not in any acute distress. Well developed, well nourished. HEENT: Pupils are round and equally reacting to light. EOMI. No scleral icterus. No conjunctival pallor. Normocephalic, atraumatic. No pharyngeal erythema. No thyromegaly. CARDIOVASCULAR: S1 and S2 present. No murmurs, rubs, or gallops. PULMONARY: Chest is clear to auscultation, no wheezing or crackles. ABDOMEN: Soft, nontender, nondistended, normoactive bowel sounds. No palpable organomegaly. MUSCULOSKELETAL: No joint swelling or deformity. EXTREMITIES: No cyanosis, clubbing, or pedal edema. NEUROLOGICAL: Gross neurological examination did not reveal any focal deficits. SKIN: No rashes. no petechiae. - Labs CBC & Chem 7: 02/27/21 08:37 02/27/21 12:55 Labs: Abnormal Lab Results - Last 24 Hours (Table) 02/26/21 02/26/21 02/27/21 Range/Units 10:24 Unknown 08:37 Hgb 9.4 L D (11.4-16.0) gm/dL Hct 31.6 L (34.0-46.0) % MCH 23.9 L (25.0-35.0) pg MCHC 29.7 L (31.0-37.0) g/dL RDW 17.5 H (11.5-15.5) % Retic Count 2.8 H (0.5-2.0) % Potassium (3.5-5.1) mmol/L Chloride (98-107) mmol/L Carbon Dioxide (22-30) mmol/L BUN (7-17) mg/dL Glucose (74-99) mg/dL AST (14-36) U/L ALT (4-34) U/L Urine Appearance Cloudy H (Clear) Ur Leukocyte Esterase Large H (Negative) Urine WBC 7 H (0-5) /hpf Ur Squamous Epith Cells 7 H (0-4) /hpf Urine Bacteria Rare H (None) /hpf Urine Mucus Rare H (None) /hpf Crossmatch See Detail 02/27/21 Range/Units 12:55 Hgb (11.4-16.0) gm/dL Hct (34.0-46.0) % MCH (25.0-35.0) pg MCHC (31.0-37.0) g/dL RDW (11.5-15.5) % Retic Count (0.5-2.0) % Potassium 3.4 L (3.5-5.1) mmol/L Chloride 94 L (98-107) mmol/L Carbon Dioxide 36 H (22-30) mmol/L BUN 23 H (7-17) mg/dL Glucose 168 H (74-99) mg/dL AST 132 H (14-36) U/L ALT 88 H (4-34) U/L Urine Appearance (Clear) Ur Leukocyte Esterase (Negative) Urine WBC (0-5) /hpf Ur Squamous Epith Cells (0-4) /hpf Urine Bacteria (None) /hpf Urine Mucus (None) /hpf Crossmatch Assessment and Plan Assessment: acute on chronic systolic CHF with bilateral pleural effusion., ejection fraction 25-30% Black tarry stool, rule out acute GI bleed with EGD/colonoscopy is scheduled during this hospital stay Elevated d-dimer with no evidence of pulmonary embolism or DVT. Acute urinary tract infection history of coronary artery disease, and valvular heart disease status post aortic and mitral valve replacement in 2014 atrial fibrillation on Xarelto, which is on hold now History of Peripheral vascular disease status post bilateral femoral bypass surgery as one was [address] marquez. chronic UTI and follow-up with Dr. Menon Hypertension hyperlipidemia Osteoarthritis Plan: This is a pleasant 80 years old female who presents more CHF and possible acute GI bleed. Continue with IV Lasix, continue with metoprolol, lisinopril and Aldactone Cardiology consult. GI team are planning for EGD/colonoscopy tomorrow Hold Xarelto, continue with Protonix twice a day . Labs and medication were reviewed.. Continue same treatment. Continue with symptomatic treatment. Resume home medication. Monitor lytes and vitals. DVT and GI prophylaxis. Further recommendations depends on the clinical course of the patient DVT prophylaxino anticoagulation in the view of GI bleed GI Prophylaxis: Ppi PT/OT: Pending Prognosis is guarded
[2021-02-28 06:52] LABS: Anisocytosis Slight; Basophils # (A) 0.1 k/uL (0-0.2); Basophils % (A) 1 %; Eosinophils # (A) 0.5 k/uL (0-0.7); Eosinophils % (A) 5 %; HCT 30.9 % (34.0-46.0); Hypochromasia Marked; Lymphocytes # (A) 1.2 k/uL (1.0-4.8); Lymphocytes % (A) 12 %; MCH 25.3 pg (25.0-35.0); MCHC 32.4 g/dL (31.0-37.0); MCV 78.1 fL (80.0-100.0); Mean Platelet Volume 8.4; Microcytosis Slight; Monocytes # (A) 0.7 k/uL (0-1.0); Monocytes % (A) 7 %; Neutrophils # (A) 7.4 k/uL (1.3-7.7); Neutrophils % (A) 74 %; Platelet Count 198 k/uL (150-450); Poikilocytosis Moderate; RBC 3.96 m/uL (3.80-5.40); RDW 17.7 % (11.5-15.5); WBC 9.9 k/uL (3.8-10.6)
[2021-02-28] MEDS: GABAPENTIN 100 MG CAP PO SCH ×2 (08:20→20:18)
[2021-02-28] MEDS: METOPROLOL TARTRATE 50 MG TAB PO SCH ×2 (08:20→20:18)
[2021-02-28] MEDS: PANTOPRAZOLE 40 MG/10 ML VIAL IVP SCH ×2 (08:20→21:38)
[2021-02-28] MEDS: SPIRONOLACTONE 25 MG TAB PO SCH (08:20)
[2021-02-28] MEDS: lisinopriL 10 MG TAB PO SCH (08:20)
[2021-02-28] MEDS: FUROSEMIDE 10 MG/ML 4 ML VIAL IV SCH (08:20)
[2021-02-28] MEDS: CYANOCOBALAMIN 500 MCG TAB PO SCH (08:26)
[2021-02-28] MEDS: ASCORBIC ACID 500 MG TAB PO SCH (08:26)
[2021-02-28 09:43] LABS: Prothrombin Time 10.9 sec (9.9-11.9)
[2021-02-28] MEDS ORDERED: Potassium Replacement Protocol 1 EACH MISC MISCELLANE PRN (09:46)
[2021-02-28] MEDS: POTASSIUM CHLORIDE 10 MEQ in WATER FOR INJECTION 1 100ML.BAG IVPB SCH ×3 (09:57→11:33)
[2021-02-28] MEDS: POTASSIUM CHLORIDE ER 20 MEQ TAB.ER PO SCH ×2 (11:35→14:06)
--- NOTE | 2021-02-28 11:58 | P.PN ---
Subjective This is a pleasant 80-year-old female past medical history significant for valvular heart disease status post mitral and aortic valve replacement, coronary artery disease, COPD, ischemic cardiomyopathy status post by G AICD and peripheral vascular disease. She follows in the office with Dr. Mccrary. She is seen and examined sitting up in bed in no acute distress. She states her breathing has improved since admission. She is status post transfusion of packed red blood cells. She denies symptoms of chest pain, dizziness or palpita tions. She is scheduled to undergo an EGD colonoscopy today. Xarelto continues to be on hold. Blood pressure 136/56 heart rate 54 afebrile maintaining oxygen saturation on nasal cannula. Laboratory data reviewed, WBC 9.9, hemoglobin 10 and platelets 198. CMP is pending. GENERAL: Well-appearing, well-nourished and in no acute distress. NECK: Supple without JVD or thyromegaly. LUNGS: Breath sounds clear to auscultation bilaterally. Respiration equal and unlabored. No wheezes, rales or rhonchi. Diminished bilaterally. HEART: Regular rate and rhythm with systolic ejection murmur at the base, no rubs or gallops. S1 and S2 heard. EXTREMITIES: Normal range of motion, no edema. No clubbing or cyanosis. Peripheral pulses intact. ASSESSMENT Acute on chronic systolic heart failure Valvular heart disease s/p mitral and aortic valve replacement COPD Dyslipidemia Hypertension Ischemic cardiomyopathy s/p AICD Paroxysmal atrial fibrillation on xarelto PLAN Transition to oral diuretics. Proceed with EGD/colonoscopy and hold xarelto pending their findings. Nurse Practitioner note has been reviewed, I agree with a documented findings and plan of care. Patient was seen and examined. Objective - Vital Signs Vital signs: Vital Signs Temp 97.4 F L 02/28/21 04:35 Pulse 54 L 02/28/21 04:35 Resp 16 02/28/21 04:35 BP 136/56 02/28/21 04:35 Pulse Ox 97 02/28/21 04:35 Intake & Output 02/27/21 02/28/21 02/28/21 18:59 06:59 18:59 Weight 61.4 kg Other: Voiding Method Toilet Toilet Toilet # Voids 2 # Bowel Movements 1 - Labs CBC & Chem 7: 02/28/21 06:16 02/27/21 12:55 Labs: Abnormal Lab Results - Last 24 Hours (Table) 02/27/21 02/27/21 02/27/21 Range/Units 08:37 08:37 12:55 Hgb 9.4 L D (11.4-16.0) gm/dL Hct 31.6 L (34.0-46.0) % MCV (80.0-100.0) fL MCH 23.9 L (25.0-35.0) pg MCHC 29.7 L (31.0-37.0) g/dL RDW 17.5 H (11.5-15.5) % Retic Count 2.8 H (0.5-2.0) % Potassium 3.4 L (3.5-5.1) mmol/L Chloride 94 L (98-107) mmol/L Carbon Dioxide 36 H (22-30) mmol/L BUN 23 H (7-17) mg/dL Glucose 168 H (74-99) mg/dL Iron 21 L (50-170) ug/dL % Saturation 4.57 L (12.00-45.00) Ferritin 6.5 L (10.0-291.0) ng/mL AST 132 H (14-36) U/L ALT 88 H (4-34) U/L 02/28/21 Range/Units 06:16 Hgb 10.0 L (11.4-16.0) gm/dL Hct 30.9 L (34.0-46.0) % MCV 78.1 L (80.0-100.0) fL MCH (25.0-35.0) pg MCHC (31.0-37.0) g/dL RDW 17.7 H (11.5-15.5) % Retic Count (0.5-2.0) % Potassium (3.5-5.1) mmol/L Chloride (98-107) mmol/L Carbon Dioxide (22-30) mmol/L BUN (7-17) mg/dL Glucose (74-99) mg/dL Iron (50-170) ug/dL % Saturation (12.00-45.00) Ferritin (10.0-291.0) ng/mL AST (14-36) U/L ALT (4-34) U/L Microbiology - Last 24 Hours (Table) 02/27/21 17:35 Urine Culture - Preliminary Urine,Voided
[2021-02-28] MEDS ORDERED: PROPOFOL 10 MG/ML 20 ML VIAL IV ONE (12:39)
[2021-02-28] MEDS ORDERED: IV FLUID CONTINUATION 350 ML IV ONE (12:39)
[2021-02-28] MEDS ORDERED: LIDOCAINE 1% INJ 10MG/ML (20 ML MDV) ONE (12:39)
--- NOTE | 2021-02-28 13:07 | P.PCN ---
Date of Procedure: 02/28/21 Procedure(s) Performed: Brief history: Patient is a pleasant 81-year-old white female admitted hospital with severe manic anemia and hemoglobin of 7.2 and iron indices consistent with iron deficiency anemia. She scheduled for an upper endoscopy as well as colonoscopy to evaluate further.. She has history of A. fib and is on Xarelto and the last dose was 2 days ago Procedure performed: Esophagogastroduodenoscopy with biopsy Colonoscopy with snare polypectomy Preoperative diagnosis: iron deficiency anemia. Anesthesia: MAC Procedure: After informed consent was obtained from the patient was brought into the endoscopy unit and IV sedation was administered by anesthesia under continuous monitoring. Initially upper endoscopy was done. The Olympus GF 160 video endoscope was inserted inserted into the mouth and esophagus intubated without any difficulty and was gradually advanced into the stomach and duodenum and carefully examined. The bulb and second part of the duodenum appeared normal. The scope was then withdrawn into the stomach adequately insufflated with air and upon careful examination the antrum and body, cardia and fundus appeared normal. The scope was then withdrawn into the esophagus. The GE junction was located at 40 cm to the incisors. It appeared regular with no erythema erosions or ulcerations. Rest of the esophagus appeared normal. Patient tolerated the procedure well. At this time the patient continued to remain sedation. Initial digital rectal examination was normal. Olympus CF 160 video colonoscope was then inserted into the rectum and gradually advanced to the cecum without any difficulty. Careful examination was performed as the scope was gradually being withdrawn. The prep was excellent. The cecum, appeared normal. Ascending colon there was a 5 limited polyp that was removed by snare polypectomy. In the descending colon there were 2 polyps measuring 1 cm in size both of which were removed by snare polypectomy. Scattered left-sided diverticulosis seen. The rectosigmoid colon there was a 1 cm polyp removed by snare polypectomy. The rectum appeared normal. Retroflexion was performed in the rectum and no lesions were noted. Patient tolerated the procedure well. Impression: 1.Upper endoscopy revealed antral erosive gastritis 2.[Colonoscopy revealed: a) 5 mm ascending colon polyp status post polypectomy b) 1 cm Descending Colon Polyp Status Post Polypectomy c) 1 cm rectosigmoid polyp status post polypectomy d) scattered sigmoid diverticulosis Recommendations: Findings of this examination were discussed with the patient. She was advised to follow with the biopsy results. She will continue with Protonix 40 mg daily. Anticoagulation can be resumed tomorrow..
--- NOTE | 2021-02-28 13:54 | P.PN ---
Subjective Progress Note Date: 02/28/21 Principal diagnosis: iron deficient anemia In follow-up today patient is awaiting endoscopy procedures. Receiving potassium supplementation that is causing a lot of pain through the peripheral IV. Her hemoglobin is stable today, her breathing is stable, improved from admit. She is not in any other pain otherwise. Objective - Vital Signs Vital signs: Vital Signs Temp 98.2 F 02/28/21 13:26 Pulse 63 02/28/21 13:26 Resp 18 02/28/21 13:26 BP 126/59 02/28/21 13:26 Pulse Ox 96 02/28/21 13:26 Intake & Output 02/27/21 02/28/21 02/28/21 18:59 06:59 18:59 Intake Total 300 Balance 300 Weight 61.4 kg Intake: IV 300 Other: Voiding Method Toilet Toilet Toilet # Voids 2 # Bowel Movements 1 - Constitutional General appearance: Present: cooperative, no acute distress, thin - EENT Eyes: Present: anicteric sclerae, EOMI ENT: Present: hearing grossly normal - Respiratory Respiratory: bilateral: CTA, diminished - Cardiovascular Heart sounds: normal: S1, S2 - Peripheral edema leg Peripheral Edema: bilateral: None - Gastrointestinal General gastrointestinal: Present: soft - Neurologic Neurologic: Present: CNII-XII intact - Musculoskeletal Musculoskeletal: Present: strength equal bilaterally - Psychiatric Psychiatric: Present: A&O x's 3, appropriate affect, intact judgment & insight - Labs CBC & Chem 7: 02/28/21 06:16 02/27/21 12:55 Labs: Abnormal Lab Results - Last 24 Hours (Table) 02/27/21 02/28/21 Range/Units 08:37 06:16 Hgb 10.0 L (11.4-16.0) gm/dL Hct 30.9 L (34.0-46.0) % MCV 78.1 L (80.0-100.0) fL RDW 17.7 H (11.5-15.5) % Iron 21 L (50-170) ug/dL % Saturation 4.57 L (12.00-45.00) Ferritin 6.5 L (10.0-291.0) ng/mL Microbiology - Last 24 Hours (Table) 02/27/21 17:35 Urine Culture - Preliminary Urine,Voided Assessment and Plan (1) Anemia Narrative/Plan: Suspect 2/2 GI blood loss, exacerbated by anticoagulation based on history. GI consulted for evaluation of iron deficient anemia. Anticoagulation held for suspicions for bleeding. Cardiology consulted Iron studies positive for iron deficiency Transfuse to keep Hgb>7 unless pt is symptomatic Current Visit: Yes Status: Acute Priority: High Code(s): D64.9 - ANEMIA, UNSPECIFIED SNOMED Code(s): 665863250 (2) Afib Narrative/Plan: Exacerbated by anemia. Cardiology consulted. Patient is on anticoagulation for the same as well as cardiac device. We will await their anticoagulation recommendations based on EGD/colonoscopy findings Current Visit: Yes Status: Acute Priority: High Code(s): I48.91 - UNSPECIFIED ATRIAL FIBRILLATION SNOMED Code(s): 37698490 (3) GI bleed Narrative/Plan: Scheduled for EGD and colonoscopy today, pending findings Current Visit: Yes Status: Acute Priority: High Code(s): K92.2 - GASTROINTESTINAL HEMORRHAGE, UNSPECIFIED SNOMED Code(s): 87934925 (4) Urinary tract infection Narrative/Plan: has patient on antibiotics. Current Visit: Yes Status: Chronic Priority: High Code(s): N39.0 - URINARY TRACT INFECTION, SITE NOT SPECIFIED SNOMED Code(s): 05066352
[2021-02-28 14:00] LABS: Albumin 4.9 g/dL (3.80-4.90); Albumin/Globulin Ratio 1.88 (1.60-3.17); Anion Gap 12.7 mmol/L (4.00-12.00); BUN/Creat Ratio 25.56 Ratio (12.00-20.00); Carbon Dioxide 33.3 mmol/L (21.6-31.8); Globulin 2.6 g/dL (1.6-3.3); Non-African American GFR(CKD) 59.5 (60.0-200.0); Potassium 3.7 mmol/L (3.5-5.5); Total Bilirubin 0.9 mg/dL (0.3-1.2); Total Protein 7.5 g/dL (6.2-8.2)
[2021-02-28] MEDS ORDERED: POTASSIUM CHLORIDE ER 20 MEQ TAB.ER PO SCH (17:00)
[2021-02-28] MEDS: EZETIMIBE 10 MG TAB PO SCH (20:18)
[2021-02-28] MEDS: SERTRALINE 50 MG TAB PO SCH (20:18)
[2021-02-28] MEDS: ATORVASTATIN 20 MG TAB PO SCH (20:18)
[2021-03-01 07:11] LABS: Anisocytosis Slight; Basophils # (A) 0.1 k/uL (0-0.2); Basophils % (A) 1 %; Eosinophils # (A) 0.5 k/uL (0-0.7); Eosinophils % (A) 7 %; HCT 28.5 % (34.0-46.0); Hypochromasia Marked; Lymphocytes # (A) 0.9 k/uL (1.0-4.8); Lymphocytes % (A) 12 %; MCH 24.8 pg (25.0-35.0); MCHC 31.6 g/dL (31.0-37.0); MCV 78.5 fL (80.0-100.0); Microcytosis Slight; Monocytes # (A) 0.5 k/uL (0-1.0); Monocytes % (A) 7 %; Neutrophils # (A) 5.5 k/uL (1.3-7.7); Neutrophils % (A) 71 %; Platelet Count 175 k/uL (150-450); Poikilocytosis Moderate; RBC 3.63 m/uL (3.80-5.40); RDW 17.8 % (11.5-15.5); WBC 7.7 k/uL (3.8-10.6)
[2021-03-01] MEDS: PANTOPRAZOLE 40 MG/10 ML VIAL IVP SCH ×2 (08:16→20:53)
[2021-03-01] MEDS: SPIRONOLACTONE 25 MG TAB PO SCH (08:17)
[2021-03-01] MEDS: CYANOCOBALAMIN 500 MCG TAB PO SCH (08:17)
[2021-03-01] MEDS: ASCORBIC ACID 500 MG TAB PO SCH (08:17)
[2021-03-01] MEDS: FUROSEMIDE 40 MG TAB PO SCH (08:17)
[2021-03-01] MEDS: GABAPENTIN 100 MG CAP PO SCH ×2 (08:18→20:18)
[2021-03-01] MEDS: METOPROLOL TARTRATE 50 MG TAB PO SCH ×2 (08:19→20:18)
[2021-03-01] MEDS: ALBUTEROL NEBULIZED 2.5 MG/3 ML INHALATION PRN ×2 (11:51→20:06)
--- NOTE | 2021-03-01 12:01 | P.PN ---
Subjective Progress Note Date: 03/01/21 HISTORY OF PRESENT ILLNESS: This is a pleasant 80-year-old female past medical history significant for valvular heart disease status post mitral and aortic valve replacement, coronary artery disease, COPD, ischemic cardiomyopathy status post AICD and peripheral vascular disease. She follows in the office with Dr. Mccrary. Patient underwent EGD and colonoscopy yesterday revealing gastritis, colon polyps, and sigmoid diverticulosis. Per Dr. Thomas procedure note, patient can be resumed on anticoagulation today. The patient currently denies shortness of breath. She denies chest pain or pressure. PHYSICAL EXAM: VITAL SIGNS: Reviewed. GENERAL: Well-developed in no acute distress. NECK: Supple. No JVD or thyromegaly LUNGS: Respirations even and unlabored. Lungs essentially clear to auscultation bilaterally. HEART: Regular rate and rhythm. S1 and S2 heard. Systolic murmur noted. EXTREMITIES: Normal range of motion. No clubbing or cyanosis. Peripheral pulses intact. No lower extremity edema ASSESSMENT: Acute on chronic systolic heart failure Valvular heart disease s/p mitral and aortic valve replacement COPD Dyslipidemia Hypertension Ischemic cardiomyopathy s/p AICD Paroxysmal atrial fibrillation on xarelto PLAN: Continue current cardiac medications Resume Xarelto this evening Patient is stable from a cardiac perspective We will sign off Please reconsult consult if needed. Nurse practitioner note has been reviewed by physician. Signing provider agrees with the documented findings, assessment, and plan of care. Objective - Vital Signs Vital signs: Vital Signs Temp 98.6 F 03/01/21 05:05 Pulse 64 03/01/21 11:52 Resp 16 03/01/21 05:05 BP 109/61 03/01/21 05:05 Pulse Ox 96 03/01/21 11:52 Intake & Output 02/28/21 03/01/21 03/01/21 18:59 06:59 18:59 Intake Total 300 Balance 300 Weight 62 kg Intake: IV 300 Other: Voiding Method Toilet Toilet # Voids 2 3 - Labs CBC & Chem 7: 03/01/21 06:44 02/28/21 15:29 Labs: Abnormal Lab Results - Last 24 Hours (Table) 02/28/21 03/01/21 Range/Units 06:16 06:44 RBC 3.63 L (3.80-5.40) m/uL Hgb 9.0 L (11.4-16.0) gm/dL Hct 28.5 L (34.0-46.0) % MCV 78.5 L (80.0-100.0) fL MCH 24.8 L (25.0-35.0) pg RDW 17.8 H (11.5-15.5) % Lymphocytes # 0.9 L (1.0-4.8) k/uL Carbon Dioxide 33.3 H (21.6-31.8) mmol/L Anion Gap 12.70 H (4.00-12.00) mmol/L Est GFR (CKD-EPI)NonAf 59.5 L (60.0-200.0) BUN/Creatinine Ratio 25.56 H (12.00-20.00) Ratio Glucose 125 H (70-110) mg/dL AST 85 H (13-35) U/L ALT 79 H (8-44) U/L Microbiology - Last 24 Hours (Table) 02/27/21 17:35 Urine Culture - Final Urine,Voided
[2021-03-01 12:33] LABS: Anion Gap 6.4 mmol/L (4.00-12.00); BUN/Creat Ratio 26.67 Ratio (12.00-20.00); Calcium 9.5 mg/dL (8.7-10.3); Carbon Dioxide 34.6 mmol/L (21.6-31.8); Non-African American GFR(CKD) 59.5 (60.0-200.0); Potassium 4.6 mmol/L (3.5-5.5)
--- NOTE | 2021-03-01 14:12 | P.PN ---
Subjective Progress Note Date: 03/01/21 Principal diagnosis: Anemia This is a pleasant 80-year-old white female with a history of coronary artery disease and atrial fibrillation who was currently on Xarelto. Who presented to the hospital with progressive shortness of breath and dyspnea over the last several days. While in the hospital she had a CT of the chest showing no pulmonary embolism, however did find bilateral pleural effusion and evidence of fatty liver. She had a recent upper endoscopy in September 2020 that showed moderate gastritis with a healed gastroduodenal abdominal fistula and reported colonoscopy greater than 5 years ago. On presentation she had a hemoglobin of 7.4 and is status post 1 unit PRBC transfusion. Yesterday she underwent an upper and lower endoscopy. Upper endoscopy revealed antral erosive gastritis, colonoscopy revealed 3 polyps status post polypectomy and scattered sigmoid diverticulosis. No active bleeding was noted. Today the patient states she had a bowel movement which was brown in color, no abdominal pain, nausea, or vomiting. Objective - Vital Signs Vital signs: Vital Signs Temp 97.8 F 03/01/21 12:02 Pulse 64 03/01/21 12:04 Resp 17 03/01/21 12:02 BP 130/58 03/01/21 12:02 Pulse Ox 100 03/01/21 12:02 Intake & Output 02/28/21 03/01/21 03/01/21 18:59 06:59 18:59 Intake Total 300 Balance 300 Weight 62 kg Intake: IV 300 Other: Voiding Method Toilet Toilet # Voids 2 3 - Exam General appearance: The patient is alert, oriented, appears in no acute distress. HET: Head is normocephalic and atraumatic. Conjunctiva pink. Sclera anicteric. Neck: Supple without lymphadenopathy. Abdomen: Soft, nontender, nondistended with bowel sounds. No guarding or rigidity. Extremities: Normal skin color and turgor. No pedal edema Skin: No rashes, no jaundice Neurological: No focal deficits. Alert and oriented 3. - Labs CBC & Chem 7: 03/01/21 06:44 03/01/21 06:44 Labs: Abnormal Lab Results - Last 24 Hours (Table) 02/28/21 03/01/21 Range/Units 06:16 06:44 RBC 3.63 L (3.80-5.40) m/uL Hgb 9.0 L (11.4-16.0) gm/dL Hct 28.5 L (34.0-46.0) % MCV 78.5 L (80.0-100.0) fL MCH 24.8 L (25.0-35.0) pg RDW 17.8 H (11.5-15.5) % Lymphocytes # 0.9 L (1.0-4.8) k/uL Carbon Dioxide 33.3 H (21.6-31.8) mmol/L Anion Gap 12.70 H (4.00-12.00) mmol/L Est GFR (CKD-EPI)NonAf 59.5 L (60.0-200.0) BUN/Creatinine Ratio 25.56 H (12.00-20.00) Ratio Glucose 125 H (70-110) mg/dL AST 85 H (13-35) U/L ALT 79 H (8-44) U/L Microbiology - Last 24 Hours (Table) 02/27/21 17:35 Urine Culture - Final Urine,Voided Assessment and Plan (1) GI bleed Narrative/Plan: This is a pleasant 80-year-old white female with past medical history of hypert ension, hyperlipidemia, chronic UTI, coronary artery disease with heart valve replacement, atrial fibrillation on Xarelto, congestive heart failure, and peripheral vascular disease presented to the hospital with progressive shortness of breath and dyspnea over the last several days. The patient also reports she had 2 episodes of black stool. She denies any nausea, vomiting, or abdominal pain. As part of her workup in the emergency department she had a CT a of the chest showing no pulmonary embolism, however does have bilateral pleural effusion concerning for congestive heart failure and evidence of fatty liver disease. She had venous ultrasound of bilateral lower extremities, which was p ositive for DVT of the right lower extremity. The patient has a history of an upper endoscopy in September 2020 that showed moderate gastritis, with a healed gastrodudenal fistula, and reported colonoscopy greater than 5 years ago which she states was normal. On presentation her hemoglobin was 7.4, and is status post 1 unit of PRBC. She is status post upper endoscopy and colonoscopy. Upper endoscopy revealed antral erosive gastritis, colonoscopy revealed 3 polyps status post polypectomy and scattered sigmoid diverticulosis. Current Visit: Yes Status: Acute Priority: High Code(s): K92.2 - GASTROINTESTINAL HEMORRHAGE, UNSPECIFIED SNOMED Code(s): 46735163 (2) Anemia Current Visit: Yes Status: Acute Priority: High Code(s): D64.9 - ANEMIA, UNSPECIFIED SNOMED Code(s): 053844597 (3) Afib Narrative/Plan: She may resume her Xarelto Current Visit: Yes Status: Acute Priority: High Code(s): I48.91 - UNSPECIFIED ATRIAL FIBRILLATION SNOMED Code(s): 62173741 Plan: 1. Continue symptomatic and supportive care 2. Diet as tolerated 3. Repeat CBC 4. Continue Protonix 40 mg daily 5. Patient instructed to follow-up for biopsy results 6. May resume Xarelto Thank you for this consultation, the patient may be discharged from a gastroenterology standpoint Dr. Silva Barnett I agree with the dictator's note, documented as a scribe by [employer].
[2021-03-01] MEDS: lisinopriL 10 MG TAB PO SCH (15:21)
--- NOTE | 2021-03-01 15:58 | P.PN ---
Subjective Progress Note Date: 03/01/21 Principal diagnosis: iron deficient anemia In follow-up today patient is able to ambulate independently, she states that her breathing is much more comfortable, she is currently denying any recent bleeding, no pain to report. Objective - Vital Signs Vital signs: Vital Signs Temp 98.3 F 03/01/21 14:55 Pulse 72 03/01/21 15:00 Resp 20 03/01/21 15:00 BP 118/54 03/01/21 14:55 Pulse Ox 94 L 03/01/21 14:55 Intake & Output 02/28/21 03/01/21 03/01/21 18:59 06:59 18:59 Intake Total 300 Balance 300 Weight 62 kg Intake: IV 300 Other: Voiding Method Toilet Toilet # Voids 2 3 - Constitutional General appearance: Present: cooperative, no acute distress, thin - EENT Eyes: Present: anicteric sclerae, EOMI ENT: Present: normal oropharynx - Respiratory Respiratory: bilateral: diminished - Cardiovascular Heart sounds: normal: S1, S2 - Peripheral edema leg Peripheral Edema: bilateral: None - Gastrointestinal General gastrointestinal: Present: normal bowel sounds, soft - Neurologic Neurologic: Present: CNII-XII intact - Musculoskeletal Musculoskeletal: Present: strength equal bilaterally - Psychiatric Psychiatric: Present: A&O x's 3, appropriate affect, intact judgment & insight - Labs CBC & Chem 7: 03/01/21 06:44 03/01/21 06:44 Labs: Abnormal Lab Results - Last 24 Hours (Table) 03/01/21 03/01/21 Range/Units 06:44 06:44 RBC 3.63 L (3.80-5.40) m/uL Hgb 9.0 L (11.4-16.0) gm/dL Hct 28.5 L (34.0-46.0) % MCV 78.5 L (80.0-100.0) fL MCH 24.8 L (25.0-35.0) pg RDW 17.8 H (11.5-15.5) % Lymphocytes # 0.9 L (1.0-4.8) k/uL Carbon Dioxide 34.6 H (21.6-31.8) mmol/L Est GFR (CKD-EPI)NonAf 59.5 L (60.0-200.0) BUN/Creatinine Ratio 26.67 H (12.00-20.00) Ratio Glucose 124 H (70-110) mg/dL Microbiology - Last 24 Hours (Table) 02/27/21 17:35 Urine Culture - Final Urine,Voided Assessment and Plan (1) Anemia Narrative/Plan: Suspect 2/2 GI blood loss, exacerbated by anticoagulation based on history. Upper and lower GI performed. Gastroenterologists having patient resume anticoagulation tonight. Biopsy reports returned late today, negative for any malignancy, mostly hyperplastic polyps. Patient's hemoglobin is stable after one unit of transfused blood for hemoglobin of 7.4. She will resume her xarelto tonight. CBC in the a.m. and if stable, okay from a hematology standpoint to be discharged. Patient will follow-up in the health services director office for CBC at least weekly for the next few weeks. Also, she has iron deficiency, we will provide her with parenteral iron. Current Visit: Yes Status: Acute Priority: High Code(s): D64.9 - ANEMIA, UNSPECIFIED SNOMED Code(s): 894123167 (2) Afib Narrative/Plan: Exacerbated by anemia. Cardiology has seen pt. Pt on anticoagulation for the same as well as cardiac device. Based on EGD/colonoscopy findings GI ok with pt resuming anticoagulation for now with close monitoring. Cardiology will follow patient closely as well Current Visit: Yes Status: Acute Priority: High Code(s): I48.91 - UNSPECIFIED ATRIAL FIBRILLATION SNOMED Code(s): 07221215 (3) GI bleed Current Visit: Yes Status: Acute Priority: High Code(s): K92.2 - GAS TROINTESTINAL HEMORRHAGE, UNSPECIFIED SNOMED Code(s): 78554360 (4) Urinary tract infection Narrative/Plan: IM has patient on antibiotics. Patient has had prolonged UTI. Would anticipate a course of antibiotics on discharge. Current Visit: Yes Status: Chronic Priority: High Code(s): N39.0 - URINARY TRACT INFECTION, SITE NOT SPECIFIED SNOMED Code(s): 07504333
[2021-03-01] MEDS ORDERED: RIVAROXABAN 20 MG TAB PO SCH (17:30)
[2021-03-01] MEDS: SERTRALINE 50 MG TAB PO SCH (20:19)
[2021-03-01] MEDS: ATORVASTATIN 20 MG TAB PO SCH (20:19)
[2021-03-01] MEDS: EZETIMIBE 10 MG TAB PO SCH (20:45)
--- NOTE | 2021-03-01 23:04 | P.PN ---
Subjective Progress Note Date: 02/28/21 This is a pleasant 80-year-old female past medical history significant for valvular heart disease status post mitral and aortic valve replacement, coronary artery disease, COPD, ischemic cardiomyopathy status post by G AICD and peripheral vascular disease Admitted due to worsening shortness of breath anemia 7.2 hemoglobin.. 02/27/2021 Patient feels much better today and her dyspnea is significantly improved, she can walk to the restroom with less difficulty and minimal exertional dyspnea. She denies chest pain, no overt UTI symptoms but she has feeling some pressure with her urine and she fell and it on and off for 2 weeks. Urinalysis is suspicious for UTI and patient was started on ceftriaxone empirically pending urine culture. Patient denies any leg pain, there was suspicion for DVT in the legs but report was wrong from radiologist She is saturating 92% on room air and afebrile Labs from today showing improved hemoglobin to 9.4 after 1 unit of blood transfusion, INR is back to 1.1 today. Potassium 3.4, creatinine is normal. Liver enzymes only mildly elevated. Iron studies are suspicious for iron deficiency anemia. Her vitamin B12 and folate are normal. Echocardiogram showing ejection fraction of 25-30% with moderate LVH and wall hypokinesia. 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 Initial report for lower extremity Doppler was positive for DVT however the report states between right and left legs so on contacted the radiologist again checked resolved patient had no DVT in any leg. Hematology team were already consulted and they agreed to see the patient anyway Postoperative still remains on hold, she is on Lasix 40 mg twice daily, ceftriaxone for UTI and Protonix twice a day 02/28/2021 Patient is sitting on the bed comfortably. Shortness of breath is much improved. IV Lasix has been changed to by mouth. Patient is status post blood transfusion and denied any further episodes of dark stools. Continued on Protonix. No complaints of chest pain or shortness of breath. No dizziness or lightheadedness. Patient is being scheduled for EGD today. Xarelto is on hold. Laboratory data showed WBC 9.9 hemoglobin 10.0 and platelets 198 BUN 23 and creatinine 0.9 AST and ALT trending down to 85 and 79 Cardiology and GI is on board. Current medications reviewed. Objective - Vital Signs Vital signs: Vital Signs Temp 98.2 F 02/28/21 13:26 Pulse 63 02/28/21 15:39 Resp 18 02/28/21 15:39 BP 135/63 02/28/21 15:07 Pulse Ox 98 02/28/21 15:07 Intake & Output 02/27/21 02/28/21 02/28/21 18:59 06:59 18:59 Intake Total 300 Balance 300 Weight 61.4 kg Intake: IV 300 Other: Voiding Method Toilet Toilet Toilet # Voids 2 # Bowel Movements 1 - Exam - Exam GENERAL: The patient is alert and oriented x3, not in any acute distress. Well developed, well nourished. HEENT: Pupils are round and equally reacting to light. EOMI. No scleral icterus. No conjunctival pallor. Normocephalic, atraumatic. No pharyngeal erythema. No thyromegaly. CARDIOVASCULAR: S1 and S2 present. No murmurs, rubs, or gallops. PULMONARY: Chest is clear to auscultation, no wheezing or crackles. ABDOMEN: Soft, nontender, nondistended, normoactive bowel sounds. No palpable organomegaly. MUSCULOSKELETAL: No joint swelling or deformity. EXTREMITIES: No cyanosis, clubbing, or pedal edema. NEUROLOGICAL: Gross neurological examination did not reveal any focal deficits. SKIN: No rashes. no petechiae. - Labs CBC & Chem 7: 03/01/21 06:44 03/01/21 06:44 Labs: Abnormal Lab Results - Last 24 Hours (Table) 02/28/21 02/28/21 Range/Units 06:16 06:16 Hgb 10.0 L (11.4-16.0) gm/dL Hct 30.9 L (34.0-46.0) % MCV 78.1 L (80.0-100.0) fL RDW 17.7 H (11.5-15.5) % Carbon Dioxide 33.3 H (21.6-31.8) mmol/L Anion Gap 12.70 H (4.00-12.00) mmol/L Est GFR (CKD-EPI)NonAf 59.5 L (60.0-200.0) BUN/Creatinine Ratio 25.56 H (12.00-20.00) Ratio Glucose 125 H (70-110) mg/dL AST 85 H (13-35) U/L ALT 79 H (8-44) U/L Microbiology - Last 24 Hours (Table) 02/27/21 17:35 Urine Culture - Preliminary Urine,Voided Assessment and Plan Assessment: acute on chronic systolic CHF with bilateral pleural effusion., ejection fraction 25-30% Black tarry stool, rule out acute GI bleed with EGD/colonoscopy is scheduled today Elevated d-dimer with no evidence of pulmonary embolism or DVT. Acute urinary tract infection history of coronary artery disease, and valvular heart disease status post aortic and mitral valve replacement in 2014 atrial fibrillation on Xarelto, which is on hold now History of Peripheral vascular disease status post bilateral femoral bypass surgery as one was [address] marquez. chronic UTI and follow-up with Dr. Menon Hypertension hyperlipidemia Osteoarthritis Plan: This is a pleasant 80 years old female who presents more CHF and possible acute GI bleed. Continue with IV Lasix, continue with metoprolol, lisinopril and Aldactone Cardiology consult. GI team are planning for EGD/colonoscopy today. Hold Xarelto, continue with Protonix twice a day . Labs and medication were reviewed.. Continue same treatment. Continue with symptomatic treatment. Resume home medication. Monitor lytes and vitals. DVT and GI prophylaxis. Further recommendations depends on the clinical course of the patient DVT prophylaxino anticoagulation in the view of GI bleed GI Prophylaxis: Ppi PT/OT: Pending Prognosis is guarded Time with Patient: Greater than 30
--- NOTE | 2021-03-01 23:09 | P.PN ---
Subjective Progress Note Date: 03/01/21 Principal diagnosis: Acute CHF exacerbation Acute GI bleed This is a pleasant 80-year-old female past medical history significant for valvular heart disease status post mitral and aortic valve replacement, coronary artery disease, COPD, ischemic cardiomyopathy status post by G AICD and peripheral vascular disease Admitted due to worsening shortness of breath anemia 7.2 hemoglobin.. 02/27/2021 Patient feels much better today and her dyspnea is significantly improved, she can walk to the restroom with less difficulty and minimal exertional dyspnea. She denies chest pain, no overt UTI symptoms but she has feeling some pressure with her urine and she fell and it on and off for 2 weeks. Urinalysis is suspicious for UTI and patient was started on ceftriaxone empirically pending urine culture. Patient denies any leg pain, there was suspicion for DVT in the legs but report was wrong from radiologist She is saturating 92% on room air and afebrile Labs from today showing improved hemoglobin to 9.4 after 1 unit of blood transfusion, INR is back to 1.1 today. Potassium 3.4, creatinine is normal. Liver enzymes only mildly elevated. Iron studies are suspicious for iron deficiency anemia. Her vitamin B12 and folate are normal. Echocardiogram showing ejection fraction of 25-30% with moderate LVH and wall hypokinesia. 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 Initial report for lower extremity Doppler was positive for DVT however the report states between right and left legs so on contacted the radiologist again checked resolved patient had no DVT in any leg. Hematology team were already c onsulted and they agreed to see the patient anyway Postoperative still remains on hold, she is on Lasix 40 mg twice daily, ceftriaxone for UTI and Protonix twice a day 02/28/2021 Patient is sitting on the bed comfortably. Shortness of breath is much improved. IV Lasix has been changed to by mouth. Patient is status post blood transfusion and denied any further episodes of dark stools. Continued on Protonix. No complaints of chest pain or shortness of breath. No dizziness or lightheadedness. Patient is being scheduled for EGD today. Xarelto is on hold. Laboratory data showed WBC 9.9 hemoglobin 10.0 and platelets 198 BUN 23 and creatinine 0.9 AST and ALT trending down to 85 and 79 Cardiology and GI is on board. 03/01/2021 Patient is currently able to ambulate without much shortness of breath. Hemoglobin is 9.0 today. Patient underwent EGD and colonoscopy yesterday showed antral erosion gastritis, 5 mm ascending colon polyp status post polypectomy, 1 cm descending colon polyp and 1 cm rectosigmoid polyp status post polypectomy and scattered sigmoid diverticulosis. Patient will be continued on Protonix 40 mg daily Otherwise patient breathing status is improving. Continued on oral Lasix now. Patient was also started back on Xarelto today and follow-up hemoglobin tomorrow. Cardiology and GI is on board. Anticipate discharge in the next 24 hours. Current medications reviewed. Objective - Vital Signs Vital signs: Vital Signs Temp 98.8 F 03/01/21 19:58 Pulse 71 03/01/21 20:10 Resp 18 03/01/21 19:58 BP 146/45 03/01/21 19:58 Pulse Ox 93 L 03/01/21 19:58 Intake & Output 03/01/21 03/01/21 03/02/21 06:59 18:59 06:59 Intake Total 50 Balance 50 Weight 62 kg Intake: Intake, IV Titration 50 Amount cefTRIAXone 1 gm In 50 Sodium Chloride 0.9% 50 ml @ 100 mls/hr IVPB Q24HR [facility] Rx#:[id number] Other: Voiding Method Toilet Toilet # Voids 3 - Exam - Exam GENERAL: The patient is alert and oriented x3, not in any acute distress. Well developed, well nourished. HEENT: Pupils are round and equally reacting to light. EOMI. No scleral icterus. No conjunctival pallor. Normocephalic, atraumatic. No pharyngeal erythema. No th yromegaly. CARDIOVASCULAR: S1 and S2 present. No murmurs, rubs, or gallops. PULMONARY: Chest is clear to auscultation, no wheezing or crackles. ABDOMEN: Soft, nontender, nondistended, normoactive bowel sounds. No palpable organomegaly. MUSCULOSKELETAL: No joint swelling or deformity. EXTREMITIES: No cyanosis, clubbing, or pedal edema. NEUROLOGICAL: Gross neurological examination did not reveal any focal deficits. SKIN: No rashes. no petechiae. - Labs CBC & Chem 7: 03/01/21 06:44 03/01/21 06:44 Labs: Abnormal Lab Results - Last 24 Hours (Table) 03/01/21 03/01/21 Range/Units 06:44 06:44 RBC 3.63 L (3.80-5.40) m/uL Hgb 9.0 L (11.4-16.0) gm/dL Hct 28.5 L (34.0-46.0) % MCV 78.5 L (80.0-100.0) fL MCH 24.8 L (25.0-35.0) pg RDW 17.8 H (11.5-15.5) % Lymphocytes # 0.9 L (1.0-4.8) k/uL Carbon Dioxide 34.6 H (21.6-31.8) mmol/L Est GFR (CKD-EPI)NonAf 59.5 L (60.0-200.0) BUN/Creatinine Ratio 26.67 H (12.00-20.00) Ratio Glucose 124 H (70-110) mg/dL Microbiology - Last 24 Hours (Table) 02/27/21 17:35 Urine Culture - Final Urine,Voided Assessment and Plan Assessment: acute on chronic systolic CHF with bilateral pleural effusion., ejection fraction 25-30% acute GI bleed with black tarry stolls. Acute blood loss anemia. sp EGD/colonoscopy on 02/28/21 Elevated d-dimer with no evidence of pulmonary embolism or DVT. Acute urinary tract infection history of coronary artery disease, and valvular heart disease status post aortic and mitral valve replacement in 2014 atrial fibrillation on Xarelto, which is on hold now History of Peripheral vascular disease status post bilateral femoral bypass surgery as one was [address] marquez. chronic UTI and follow-up with Dr. Menon Hypertension hyperlipidemia Osteoarthritis Plan: This is a pleasant 80 years old female who presents more CHF and possible acute GI bleed. Continue with IV Lasix, continue with metoprolol, lisinopril and Aldactone Cardiology consult. s/p EGD/colonoscopy. report above. strated back on Xarelto, continue with Protonix daily . Continue with ceftriaxone for urinary tract infection. Urine culture showed no growth. Labs and medication were reviewed. Continue with symptomatic treatment. Resume home medication. Monitor lytes and vitals. DVT and GI prophylaxis. Further recommendations depends on the clinical course of the patient DVT prophylaxino anticoagulation GI Prophylaxis: Ppi PT/OT: Pending Prognosis is guarded Time with Patient: Greater than 30
[2021-03-02] MEDS: ACETAMINOPHEN TAB 325 MG TAB PO PRN (01:06)
[2021-03-02] MEDS: ALPRAZolam 0.25 MG TAB PO PRN (01:08)
[2021-03-02 06:53] LABS: Anisocytosis Slight; Basophils # (A) 0.1 k/uL (0-0.2); Basophils % (A) 1 %; Eosinophils # (A) 0.5 k/uL (0-0.7); Eosinophils % (A) 5 %; HCT 27.5 % (34.0-46.0); Hypochromasia Marked; Lymphocytes # (A) 1.4 k/uL (1.0-4.8); Lymphocytes % (A) 14 %; MCHC 32.8 g/dL (31.0-37.0); MCV 79.3 fL (80.0-100.0); Mean Platelet Volume 7.8; Microcytosis Slight; Monocytes % (A) 11 %; Neutrophils # (A) 6.6 k/uL (1.3-7.7); Neutrophils % (A) 66 %; Platelet Count 181 k/uL (150-450); Poikilocytosis Moderate; RBC 3.47 m/uL (3.80-5.40); WBC 9.9 k/uL (3.8-10.6)
[2021-03-02] MEDS ORDERED: PANTOPRAZOLE 40 MG TABLET PO SCH (07:30)
[2021-03-02] MEDS: FUROSEMIDE 40 MG TAB PO SCH (08:28)
[2021-03-02] MEDS: GABAPENTIN 100 MG CAP PO SCH (08:28)
[2021-03-02] MEDS: lisinopriL 10 MG TAB PO SCH (08:28)
[2021-03-02] MEDS: ASCORBIC ACID 500 MG TAB PO SCH (08:28)
[2021-03-02] MEDS: CYANOCOBALAMIN 500 MCG TAB PO SCH (08:28)
[2021-03-02] MEDS: METOPROLOL TARTRATE 50 MG TAB PO SCH (08:28)
[2021-03-02] MEDS: SPIRONOLACTONE 25 MG TAB PO SCH (08:29)
[2021-03-02 10:01] LABS: Albumin 4.3 g/dL (3.80-4.90); Albumin/Globulin Ratio 2.15 (1.60-3.17); Anion Gap 8.4 mmol/L (4.00-12.00); BUN/Creat Ratio 27.78 Ratio (12.00-20.00); Calcium 9.3 mg/dL (8.7-10.3); Carbon Dioxide 33.6 mmol/L (21.6-31.8); Non-African American GFR(CKD) 59.5 (60.0-200.0); Potassium 4.2 mmol/L (3.5-5.5); Total Bilirubin 0.4 mg/dL (0.2-1.2); Total Protein 6.3 g/dL (6.2-8.2)
--- NOTE | 2021-03-02 11:43 | P.PN ---
Subjective Progress Note Date: 03/02/21 Principal diagnosis: iron deficient anemia In follow-up today patient is doing well, she resumes Xarelto last night, hemoglobin is stable today. She does not report any bleeding. Her breathing is comfortable, she is no longer on oxygen. Objective - Vital Signs Vital signs: Vital Signs Temp 98.0 F 03/02/21 04:47 Pulse 66 03/02/21 04:47 Resp 16 03/02/21 04:47 BP 157/67 03/02/21 04:47 Pulse Ox 96 03/02/21 09:06 Intake & Output 03/01/21 03/02/21 03/02/21 18:59 06:59 18:59 Intake Total 50 Balance 50 Weight 63 kg Intake: Intake, IV Titration 50 Amount cefTRIAXone 1 gm In 50 Sodium Chloride 0.9% 50 ml @ 100 mls/hr IVPB Q24HR [facility] Rx#:[id number] Other: Voiding Method Toilet # Voids 1 - Constitutional General appearance: Present: cooperative, no acute distress, thin - EENT Eyes: Present: anicteric sclerae, EOMI ENT: Present: hearing grossly normal - Integumentary Integumentary: Present: pale - Neurologic Neurologic: Present: CNII-XII intact - Musculoskeletal Musculoskeletal: Present: strength equal bilaterally - Psychiatric Psychiatric: Present: A&O x's 3, appropriate affect, intact judgment & insight - Labs CBC & Chem 7: 03/02/21 06:01 03/02/21 06:01 Labs: Abnormal Lab Results - Last 24 Hours (Table) 03/01/21 03/02/21 03/02/21 Range/Units 06:44 06:01 06:01 RBC 3.47 L (3.80-5.40) m/uL Hgb 9.0 L (11.4-16.0) gm/dL Hct 27.5 L (34.0-46.0) % MCV 79.3 L (80.0-100.0) fL RDW 18.0 H (11.5-15.5) % Carbon Dioxide 34.6 H 33.6 H (21.6-31.8) mmol/L Est GFR (CKD-EPI)NonAf 59.5 L 59.5 L (60.0-200.0) BUN/Creatinine Ratio 26.67 H 27.78 H (12.00-20.00) Ratio Glucose 124 H 112 H (70-110) mg/dL AST 37 H (13-35) U/L Assessment and Plan (1) Anemia Narrative/Plan: Suspect 2/2 GI blood loss, exacerbated by anticoagulation based on history. Upper and lower GI performed. Pathology negative for any malignancy. Patient's hemoglobin is stable after one unit of transfused blood for hemoglobin of 7.4. She resumed her Xarelto last night. CBC stable at 9. Okay from a Hematology standpoint to be discharged. Patient has follow-up scheduled for CBC and parenteral iron. Current Visit: Yes Status: Acute Priority: High Code(s): D64.9 - ANEMIA, UNSPECIFIED SNOMED Code(s): 249170963 (2) Afib Narrative/Plan: Exacerbated by anemia. Cardiology has seen pt. Pt on anticoagulation for the same as well as cardiac device. Based on EGD/colonoscopy findings GI ok with pt resuming anticoagulation for now with close monitoring. Cardiology will follow patient closely as well Current Visit: Yes Status: Acute Priority: High Code(s): I48.91 - UNSPECIFIED ATRIAL FIBRILLATION SNOMED Code(s): 90317758 (3) GI bleed Narrative/Plan: Close monitoring of Hgb and education of what to watch for Current Visit: Yes Status: Acute Priority: High Code(s): K92.2 - GASTROINTESTINAL HEMORRHAGE, UNSPECIFIED SNOMED Code(s): 50332937 (4) Urinary tract infection Narrative/Plan: IM has patient on antibiotics. Patient has had prolonged UTI. Anticipate a course of antibiotics on discharge. Current Visit: Yes Status: Chronic Priority: High Code(s): N39.0 - URINARY TRACT INFECTION, SITE NOT SPECIFIED SNOMED Code(s): 21463243 Plan: Doctor attests: I performed a history and physical examination of this patient, developed impression and plan of care. Discussed with dictator. I agree with dictators note, documented as a scribe.
[2021-03-02 11:46] VITALS: BP 124/54; PULSE 67; RESP 18; TEMP 98.1
--- NOTE | 2021-03-02 14:49 | P.DS ---
Providers Date of admission: 02/26/21 06:52 Expected date of discharge: 03/02/21 Attending physician: Maxime Miller MD Consults: 02/26/21 13:32 Consult Physician Urgent Consulting Provider: Sulema Barnett Consult Reason/Comments: possible bi bleed Do you want consulting provider notified?: Yes 02/27/21 08:44 Consult Physician Urgent Consulting Provider: Abhijit Rosas Consult Reason/Comments: right DVT Do you want consulting provider notified?: Yes Primary care physician: Roxie Shaw Hospital Course: Final diagnosis acute on chronic systolic CHF with bilateral pleural effusion., ejection fraction 25-30% acute GI bleed with black tarry stools. Acute blood loss anemia. sp EGD/colonoscopy on 02/28/21 Elevated d-dimer with no evidence of pulmonary embolism or DVT. Acute urinary tract infection history of coronary artery disease, and valvular heart disease status post aortic and mitral valve replacement in 2014 atrial fibrillation on Xarelto History of Peripheral vascular disease status post bilateral femoral bypass surgery as one was [address] marquez. chronic UTI and follow-up with Dr. Jensen Hypertension hyperlipidemia Osteoarthritis Discharge disposition Patient is being discharged in a stable condition with guarded prognosis to home. Patient will follow-up with Dr. Roxie Shaw in the outpatient setting upon discharge. Patient also to follow-up with GI Dr. Barnett along with Dr. Mccrary cardiology as discussed and scheduled. A will continue on daily Protonix and was resumed on her Xarelto. Patient will also continue with a short course of oral antibiotics in the form of Ceftin 500 mg twice daily for the next 4 days to complete the course. Total time taken is greater than 35 minutes. Hospital course Acute CHF exacerbation Acute GI bleed This is a pleasant 80-year-old female past medical history significant for valvular heart disease status post mitral and aortic valve replacement, coronary artery disease, COPD, ischemic cardiomyopathy status post by G AICD and peripheral vascular disease Admitted due to worsening shortness of breath anemia 7.2 hemoglobin.. 02/27/2021 Patient feels much better today and her dyspnea is significantly improved, she can walk to the restroom with less difficulty and minimal exertional dyspnea. She denies chest pain, no overt UTI symptoms but she has feeling some pressure w ith her urine and she fell and it on and off for 2 weeks. Urinalysis is suspicious for UTI and patient was started on ceftriaxone empirically pending urine culture. Patient denies any leg pain, there was suspicion for DVT in the legs but report was wrong from radiologist She is saturating 92% on room air and afebrile Labs from today showing improved hemoglobin to 9.4 after 1 unit of blood transfu marce, INR is back to 1.1 today. Potassium 3.4, creatinine is normal. Liver enzymes only mildly elevated. Iron studies are suspicious for iron deficiency anemia. Her vitamin B12 and folate are normal. Echocardiogram showing ejection fraction of 25-30% with moderate LVH and wall hypokinesia. Popcorn Attendant diagnosed her with acute systolic CHF GI team are planning for EGD/colonoscopy tomorrow. Initial report for lower extremity Doppler was positive for DVT however the report states between right and left legs so on contacted the radiologist again checked resolved patient had no DVT in any leg. Hematology team were already consulted and they agreed to see the patient anyway Postoperative still remains on hold, she is on Lasix 40 mg twice daily, ceftriaxone for UTI and Protonix twice a day 02/28/2021 Patient is sitting on the bed comfortably. Shortness of breath is much improved. IV Lasix has been changed to by mouth. Patient is status post blood transfusion and denied any further episodes of dark stools. Continued on Protonix. No complaints of chest pain or shortness of breath. No dizziness or lightheadedness. Patient is being scheduled for EGD today. Xarelto is on hold. Laboratory data showed WBC 9.9 hemoglobin 10.0 and platelets 198 BUN 23 and creatinine 0.9 AST and ALT trending down to 85 and 79 Cardiology and GI is on board. 03/01/2021 Patient is currently able to ambulate without much shortness of breath. Hemoglobin is 9.0 today. Patient underwent EGD and colonoscopy yesterday showed antral erosion gastritis, 5 mm ascending colon polyp status post polypectomy, 1 cm descending colon polyp and 1 cm rectosigmoid polyp status post polypectomy and scattered sigmoid diverticulosis. Patient will be continued on Protonix 40 mg daily Otherwise patient breathing status is improving. Continued on oral Lasix now. Patient was also started back on Xarelto today and follow-up hemoglobin tomorrow. Cardiology and GI is on board. Anticipate discharge in the next 24 hours. 03/02/2021 Patient is seen and evaluated in follow-up this morning no acute overnight issues. No active bleeding noted. Hemoglobin is stable at 9.0 again today. Patient was being followed by GI along with cardiology and will be following up in the outpatient setting for biopsy results. Was resumed on Xarelto and will be following up with hematology/oncology in the outpatient setting as well. Repeat labs in a few days to monitor hemoglobin. Patient states she feels well is tolerating diet and is anticipating going home. Currently no reports of chest pain, shortness of breath, or palpitations. Patient is afebrile. No reports of nausea or vomiting and patient is tolerating diet. Patient will be discharged home today. On exam vital signs are stable. Temp is 98.1F, pulse is 67, respirations are 18, blood pressure is 124/54, oxygen saturation is 96% on room air. Cardio S1, S2 are muffled. Respiratory system shows diminished breath sounds at the bases with no wheezing or rhonchi noted. Abdomen is soft and nontender. Nervous system shows no focal deficits. Please refer to medication reconciliation sheet for a list of medications. Patient Condition at Discharge: Fair Plan - Discharge Summary Discharge Rx Participant: No New Discharge Prescriptions: New Furosemide [Lasix] 40 mg PO DAILY 30 Days #30 tab Pantoprazole [Protonix] 40 mg PO AC-BRKFST 30 Days #30 tablet. Cefuroxime Axetil [Ceftin] 500 mg PO BID 4 Days #8 tab Acetaminophen Tab [Tylenol] 650 mg PO Q6HR PRN tab PRN Reason: Fever And/ Or Pain Continue Lisinopril [Prinivil] 10 mg PO DAILY Simvastatin [Zocor] 40 mg PO HS Sertraline [Zoloft] 75 mg PO HS Metoprolol Tartrate [Lopressor] 50 mg PO BID Spironolactone [Aldactone] 25 mg PO DAILY Cyanocobalamin [Vitamin B-12] 500 mcg PO DAILY Albuterol Sulfate [Ventolin HFA] 2 puff INHALATION RT-QID PRN PRN Reason: Shortness Of Breath Gabapentin [Neurontin] 100 mg PO BID Fluticasone Propion/Salmeterol [Wixela 250-50 Inhub] 1 puff INHALATION RT-BID Prevagen 1 cap PO DAILY Ezetimibe [Zetia] 10 mg PO HS Multivitamins, Thera [Multivitamin (formulary)] 1 tab PO DAILY Cranberry Fruit Extract [Cranberry] 500 mg PO DAILY Ascorbic Acid [Vitamin C] 1,000 mg PO DAILY Methenamine Hippurate [Hiprex] 1 gm PO DIRECTED Albuterol Nebulized [Ventolin Nebulized] 2.5 mg INHALATION RT-Q6H PRN PRN Reason: Shortness Of Breath ALPRAZolam [Xanax] 0.25 mg PO DAILY PRN PRN Reason: Anxiety Megared 500mg 500 mg PO DAILY Rivaroxaban [Xarelto] 20 mg PO HS Discontinued Omeprazole [PriLOSEC] 20 mg PO DAILY Amoxicillin 500 mg PO Q8H Discharge Medication List Lisinopril [Prinivil] 10 mg PO DAILY 08/02/14 [History] Metoprolol Tartrate [Lopressor] 50 mg PO BID 07/31/17 [History] Sertraline [Zoloft] 75 mg PO HS 07/31/17 [History] Simvastatin [Zocor] 40 mg PO HS 07/31/17 [History] Spironolactone [Aldactone] 25 mg PO DAILY 08/13/17 [History] Cyanocobalamin [Vitamin B-12] 500 mcg PO DAILY 03/03/20 [History] Albuterol Sulfate [Ventolin HFA] 2 puff INHALATION RT-QID PRN 03/17/20 [History] Gabapentin [Neurontin] 100 mg PO BID 03/17/20 [History] ALPRAZolam [Xanax] 0.25 mg PO DAILY PRN 02/26/21 [History] Albuterol Nebulized [Ventolin Nebulized] 2.5 mg INHALATION RT-Q6H PRN 02/26/21 [History] Ascorbic Acid [Vitamin C] 1,000 mg PO DAILY 02/26/21 [History] Cranberry Fruit Extract [Cranberry] 500 mg PO DAILY 02/26/21 [History] Ezetimibe [Zetia] 10 mg PO HS 02/26/21 [History] Fluticasone Propion/Salmeterol [Wixela 250-50 Inhub] 1 puff INHALATION RT-BID 02/26/21 [History] Megared 500mg 500 mg PO DAILY 02/26/21 [History] Methenamine Hippurate [Hiprex] 1 gm PO DIRECTED 02/26/21 [History] Multivitamins, Thera [Multivitamin (formulary)] 1 tab PO DAILY 02/26/21 [History] Prevagen 1 cap PO DAILY 02/26/21 [History] Rivaroxaban [Xarelto] 20 mg PO HS 02/27/21 [History] Acetaminophen Tab [Tylenol] 650 mg PO Q6HR PRN tab 03/02/21 [Rx] Cefuroxime Axetil [Ceftin] 500 mg PO BID 4 Days #8 tab 03/02/21 [Rx] Furosemide [Lasix] 40 mg PO DAILY 30 Days #30 tab 03/02/21 [Rx] Pantoprazole [Protonix] 40 mg PO AC-BRKFST 30 Days #30 tablet. 03/02/21 [Rx] Follow up Appointment(s)/Referral(s): Daljit Mccrary MD [STAFF PHYSICIAN] - 03/13/21 3:45 pm Roxie Shaw MD [Primary Care Provider] - 03/07/21 2:00 pm Sulema Barnett MD [STAFF PHYSICIAN] - 03/09/21 8:30 am Patient Instructions/Handouts: Cefuroxime (By mouth), Furosemide (By mouth), Pantoprazole (By mouth) Activity/Diet/Wound Care/Special Instructions: Activity Limited until follow-up Follow-up with GI in the outpatient setting for biopsy results Continue with Protonix daily Continue with antibiotics for the next 4 days to complete the course Follow-up with hematology outpatient as discussed and scheduled Follow-up cardiology outpatient Repeat labs as discussed with hematology Discharge Disposition: HOME SELF-CARE
== END 2021-03-02 13:30 | disposition home or self-care (01) | DRG 291 ==
LOC: EC 01:06 → 5NMEDONC 06:52
PROVIDERS: ADMIT Internal Medicine; ATTEND Internal Medicine
PROC: 30233N1 Transfusion of Nonautologous Red Blood Cells into Peripheral Vein, Percutaneous Approach (ICD-10-PCS; 2021-02-26)
PROC: 0DB98ZX Excision of Duodenum, Via Natural or Artificial Opening Endoscopic, Diagnostic (ICD-10-PCS; principal; 2021-02-28 08:40)
PROC: 0DB78ZX Excision of Stomach, Pylorus, Via Natural or Artificial Opening Endoscopic, Diagnostic (ICD-10-PCS; principal; 2021-02-28 08:40)
PROC: 0DJ08ZZ Inspection of Upper Intestinal Tract, Via Natural or Artificial Opening Endoscopic (ICD-10-PCS; principal; 2021-02-28 08:40)
PROC: 0DBN8ZZ Excision of Sigmoid Colon, Via Natural or Artificial Opening Endoscopic (ICD-10-PCS; principal; 2021-02-28 08:40)
PROC: 0DBM8ZZ Excision of Descending Colon, Via Natural or Artificial Opening Endoscopic (ICD-10-PCS; principal; 2021-02-28 08:40)
PROC: 0DBK8ZZ Excision of Ascending Colon, Via Natural or Artificial Opening Endoscopic (ICD-10-PCS; principal; 2021-02-28 08:40)
DX: I50.23 Acute on chronic systolic (congestive) heart failure (principal); K29.61 Other gastritis with bleeding; K57.31 Diverticulosis of large intestine without perforation or abscess with bleeding; J44.1 Chronic obstructive pulmonary disease with (acute) exacerbation; D62 Acute posthemorrhagic anemia; K92.2 Gastrointestinal hemorrhage, unspecified; N39.0 Urinary tract infection, site not specified; D68.32 Hemorrhagic disorder due to extrinsic circulating anticoagulants; I11.0 Hypertensive heart disease with heart failure; Z20.822 Contact with and (suspected) exposure to COVID-19; M19.90 Unspecified osteoarthritis, unspecified site; I73.9 Peripheral vascular disease, unspecified; F41.9 Anxiety disorder, unspecified; F32.9 Major depressive disorder, single episode, unspecified; I48.0 Paroxysmal atrial fibrillation; K63.5 Polyp of colon; K62.1 Rectal polyp; K76.0 Fatty (change of) liver, not elsewhere classified; I25.5 Ischemic cardiomyopathy; T45.515A Adverse effect of anticoagulants, initial encounter; I25.10 Atherosclerotic heart disease of native coronary artery without angina pectoris; E78.5 Hyperlipidemia, unspecified; I25.2 Old myocardial infarction; Z95.810 Presence of automatic (implantable) cardiac defibrillator; Z90.49 Acquired absence of other specified parts of digestive tract; Z95.5 Presence of coronary angioplasty implant and graft; Z98.42 Cataract extraction status, left eye; Z98.41 Cataract extraction status, right eye; Z95.820 Peripheral vascular angioplasty status with implants and grafts; Z90.710 Acquired absence of both cervix and uterus; Z95.2 Presence of prosthetic heart valve; Z87.891 Personal history of nicotine dependence; Z98.890 Other specified postprocedural states; Z86.79 Personal history of other diseases of the circulatory system; Z79.01 Long term (current) use of anticoagulants; Z79.899 Other long term (current) drug therapy; Z82.49 Family history of ischemic heart disease and other diseases of the circulatory system; Z83.6 Family history of other diseases of the respiratory system; Z79.51 Long term (current) use of inhaled steroids; Z86.718 Personal history of other venous thrombosis and embolism; Z87.440 Personal history of urinary (tract) infections
CPT/HCPCS: 36415; 43239; 45385; 71046; 71275; 80048; 80053; 81001; 82607; 82728; 82746; 83540; 83550; 83605; 83880; 84132; 84484; 85025; 85027; 85045; 85379; 85610; 85730; 86850; 86900; 86901; 86920; 87086; 87635; 88305; 93005; 93306; 93970; 94640; 94760; 99285

== ENCOUNTER 2021-03-19 11:58 | Emergency (ER) | payer MEDICARE, OTHER ==
[2021-03-19] MEDS ORDERED: MORPHINE SULFATE 4 MG/ML SYRINGE IVP STA (12:28)
[2021-03-19] MEDS ORDERED: SODIUM CHLORIDE 0.9% 1,000 ML IV STA (12:29)
--- NOTE | 2021-03-19 12:32 | ED ---
General Adult HPI - General Chief complaint: Extremity Injury, Upper Stated complaint: Fall, Shoulder Injury Source: patient, RN notes reviewed Mode of arrival: wheelchair Limitations: no limitations - History of Present Illness Initial comments: Patient is an 80-year-old female that presents to the emergency department complaining of right shoulder right ribs and right hip pain with some minimal right elbow pain. She notes that she fell on Saturday after twisting her ankle an d falling on her right side patient also pain is a 9 out of 10 currently. She notes that she is having difficulty moving her right arm secondary to pain that she has a lift with her left arm. She was in no apparent distress or pain while sitting in bed during the exam and interview. She denied any numbness tingling chest pendulous breath headache nausea vomiting diarrhea constipation confusion. - Related Data Home Medications Medication Instructions Recorded Confirmed Lisinopril [Prinivil] 10 mg PO DAILY 08/02/14 02/26/21 Metoprolol Tartrate [Lopressor] 50 mg PO BID 07/31/17 02/26/21 Sertraline [Zoloft] 75 mg PO HS 07/31/17 02/26/21 Simvastatin [Zocor] 40 mg PO HS 07/31/17 02/26/21 Spironolactone [Aldactone] 25 mg PO DAILY 08/13/17 02/26/21 Cyanocobalamin [Vitamin B-12] 500 mcg PO DAILY 03/03/20 02/26/21 Albuterol Sulfate [Ventolin HFA] 2 puff INHALATION RT-QID PRN 03/17/20 02/26/21 Gabapentin [Neurontin] 100 mg PO BID 03/17/20 02/26/21 ALPRAZolam [Xanax] 0.25 mg PO DAILY PRN 02/26/21 02/26/21 Albuterol Nebulized [Ventolin 2.5 mg INHALATION RT-Q6H PRN 02/26/21 02/26/21 Nebulized] Ascorbic Acid [Vitamin C] 1,000 mg PO DAILY 02/26/21 02/26/21 Cranberry Fruit Extract [Cranberry] 500 mg PO DAILY 02/26/21 02/26/21 Ezetimibe [Zetia] 10 mg PO HS 02/26/21 02/26/21 Fluticasone Propion/Salmeterol 1 puff INHALATION RT-BID 02/26/21 02/26/21 [Wixela 250-50 Inhub] Megared 500mg 500 mg PO DAILY 02/26/21 02/26/21 Methenamine Hippurate [Hiprex] 1 gm PO DIRECTED 02/26/21 02/26/21 Multivitamins, Thera [Multivitamin 1 tab PO DAILY 02/26/21 02/26/21 (formulary)] Prevagen 1 cap PO DAILY 02/26/21 02/26/21 Rivaroxaban [Xarelto] 20 mg PO HS 02/27/21 02/27/21 Previous Rx's Medication Instructions Recorded Acetaminophen Tab [Tylenol] 650 mg PO Q6HR PRN tab 03/02/21 Cefuroxime Axetil [Ceftin] 500 mg PO BID 4 Days #8 tab 03/02/21 Furosemide [Lasix] 40 mg PO DAILY 30 Days #30 tab 03/02/21 Pantoprazole [Protonix] 40 mg PO AC-BRKFST 30 Days #30 03/02/21 tablet. Allergies Allergy/AdvReac Type Severity Reaction Status Date / Time No Known Allergies Allergy Verified 03/19/21 12:10 Review of Systems ROS Statement: Those systems with pertinent positive or pertinent negative responses have been documented in the HPI. ROS Other: All systems not noted in ROS Statement are negative. Past Medical History Past Medical History: Coronary Artery Disease (CAD), Heart Failure, COPD, Hyperlipidemia, Hypertension, Myocardial Infarction (IN), Osteoarthritis (OA), Skin Disorder, Vascular Disorder Additional Past Medical History / Comment(s): Rheumatic fever X3, heart murmur, AAA, PAD. Last Myocardial Infarction Date:: unknown History of Any Multi-Drug Resistant Organisms: None Reported Past Surgical History: AICD, Bladder Surgery, Cholecystectomy, Heart Catheterization, Heart Catheterization With Stent, Hysterectomy, Pacemaker Additional Past Surgical History / Comment(s): Mitral and Aortic valve replacement, PIG & COW VALVE, BILATERAL CATARACTS, Bi-Ventricular ICD (ST NEENA), bilateral leg femoral bypass. Past Anesthesia/Blood Transfusion Reactions: No Reported Reaction Additional Past Anesthesia/Blood Transfusion Reaction / Comment(s): NO PROBLEMS WITH PRIOR BLOOD TRANSFUSIONS. Date of Last Stent Placement:: 08-14-17 Type of Cardiac Device: AICD Device Placement Date:: 09/30/17 Past Psychological History: Anxiety, Depression Smoking Status: Former smoker Past Alcohol Use History: None Reported Past Drug Use History: None Reported - Past Family History Mother Family Medical History: No Reported History Father Family Medical History: No Reported History, Pneumonia Sister(s) Family Medical History: Congestive Heart Failure (CHF) Daughter(s) Family Medical History: No Reported History Son(s) Family Medical History: No Reported History General Exam Limitations: no limitations General appearance: alert, in no apparent distress Head exam: Present: atraumatic, normocephalic, normal inspection Eye exam: Present: normal appearance, PERRL, EOMI. Absent: scleral icterus, conjunctival injection, periorbital swelling Neck exam: Present: normal inspection. Absent: tenderness, meningismus, lymphadenopathy Respiratory exam: Present: normal lung sounds bilaterally. Absent: respiratory distress, wheezes, rales, rhonchi, stridor Cardiovascular Exam: Present: regular rate, normal rhythm, normal heart sounds. Absent: systolic murmur, diastolic murmur, rubs, gallop, clicks GI/Abdominal exam: Present: soft, normal bowel sounds. Absent: distended, tenderness, guarding, rebound, rigid Extremities exam: Present: normal inspection, normal capillary refill. Absent: full ROM (Decreased range of motion right arm secondary to pain.), tenderness, pedal edema, joint swelling, calf tenderness Neurological exam: Present: alert, oriented X3, CN II-XII intact Psychiatric exam: Present: normal affect, normal mood Skin exam: Present: warm, dry, intact, normal color. Absent: rash Course Vital Signs 03/19/21 03/19/21 12:08 13:20 Temperature 99.1 F Pulse Rate 53 L 72 Respiratory 18 20 Rate Blood Pressure 161/70 134/79 O2 Sat by Pulse 95 99 Oximetry Medical Decision Making - Medical Decision Making 80-year-old female status post fall on Saturday complaining of right shoulder elbow rib and hip pain. Per patient's request basic labs were ordered. 1 L normal saline, 4 mg of morphine, x-rays of the right shoulder elbow ribs and hip ordered. X-rays show possible hairline fracture of posterior seventh right rib, rest of x-rays negative for acute fractures or dislocations. Case discussed with Dr. Montoya, patient can discharge home with follow-up to primary care. - Lab Data Result diagrams: 03/19/21 12:40 03/19/21 12:40 Lab Results 03/19/21 03/19/21 Range/Units 12:40 12:40 WBC 10.0 (3.8-10.6) k/uL RBC 3.85 (3.80-5.40) m/uL Hgb 10.1 L (11.4-16.0) gm/dL Hct 31.0 L (34.0-46.0) % MCV 80.5 (80.0-100.0) fL MCH 26.3 (25.0-35.0) pg MCHC 32.6 (31.0-37.0) g/dL RDW 22.5 H (11.5-15.5) % Plt Count 174 (150-450) k/uL MPV 7.7 Neutrophils % 81 % Lymphocytes % 8 % Monocytes % 7 % Eosinophils % 3 % Basophils % 0 % Neutrophils # 8.1 H (1.3-7.7) k/uL Lymphocytes # 0.8 L (1.0-4.8) k/uL Monocytes # 0.7 (0-1.0) k/uL Eosinophils # 0.3 (0-0.7) k/uL Basophils # 0.0 (0-0.2) k/uL Hypochromasia Moderate Poikilocytosis Slight Anisocytosis Moderate Microcytosis Slight Sodium 138 (137-145) mmol/L Potassium 3.4 L (3.5-5.1) mmol/L Chloride 100 (98-107) mmol/L Carbon Dioxide 28 (22-30) mmol/L Anion Gap 10 mmol/L BUN 21 H (7-17) mg/dL Creatinine 0.67 (0.52-1.04) mg/dL Est GFR (CKD-EPI)AfAm >90 (>60 ml/min/1.73 sqM) Est GFR (CKD-EPI)NonAf 82 (>60 ml/min/1.73 sqM) Glucose 168 H (74-99) mg/dL Calcium 9.4 (8.4-10.2) mg/dL Total Bilirubin 0.7 (0.2-1.3) mg/dL AST 37 H (14-36) U/L ALT 16 (4-34) U/L Alkaline Phosphatase 64 (38-126) U/L Total Protein 7.3 (6.3-8.2) g/dL Albumin 4.3 (3.5-5.0) g/dL - Radiology Data Radiology results: report reviewed, image reviewed X-ray of the right ribs: Correlate for point tenderness for hairline fracture posterior lateral right seventh rib. Multiple upper quadrant calcifications could be on the basis a granuloma or possibly granuloma [place] with renal stone pr evious cholecystectomy changes noted. Right shoulder x-ray: No acute process. Right hip x-ray: No evidence of acute fracture or dislocation. Right elbow x-ray: No acute fracture dislocation. If symptoms persist follow-up study in 7-10 days could be obtained. Disposition Clinical Impression: Right rib fracture Disposition: HOME SELF-CARE Condition: Stable Instructions (If sedation given, give patient instructions): Rib Fracture (ED) Additional Instructions: Please return to the Emergency Department if symptoms worsen or any other concerns. Follow-up with primary care in 3-5 days. If symptoms persist for 7-10 days please return for follow-up x-rays. Can take [id number] pain medication for symptom control. Is patient prescribed a controlled substance at d/c from ED?: No Referrals: Roxie Shaw MD [Primary Care Provider] - 1-2 days Time of Disposition: 13:26
[2021-03-19 12:50] LABS: Anisocytosis Moderate; Basophils % (A) 0 %; Eosinophils # (A) 0.3 k/uL (0-0.7); Eosinophils % (A) 3 %; HGB 10.1 gm/dL (11.4-16.0); Hypochromasia Moderate; Lymphocytes # (A) 0.8 k/uL (1.0-4.8); Lymphocytes % (A) 8 %; MCH 26.3 pg (25.0-35.0); MCHC 32.6 g/dL (31.0-37.0); MCV 80.5 fL (80.0-100.0); Mean Platelet Volume 7.7; Microcytosis Slight; Monocytes # (A) 0.7 k/uL (0-1.0); Monocytes % (A) 7 %; Neutrophils # (A) 8.1 k/uL (1.3-7.7); Neutrophils % (A) 81 %; Platelet Count 174 k/uL (150-450); Poikilocytosis Slight; RBC 3.85 m/uL (3.80-5.40); RDW 22.5 % (11.5-15.5)
[2021-03-19 13:09] LABS: ALT 16 U/L (4-34); AST 37 U/L (14-36); African American GFR (CKD) >90 (>60 ml/min/1.73 sqM); Albumin 4.3 g/dL (3.5-5.0); Alkaline Phosphatase 64 U/L (38-126); Blood Urea Nitrogen 21 mg/dL (7-17); Calcium 9.4 mg/dL (8.4-10.2); Carbon Dioxide 28 mmol/L (22-30); Glucose 168 mg/dL (74-99); Non-African American GFR(CKD) 82 (>60 ml/min/1.73 sqM); Potassium 3.4 mmol/L (3.5-5.1); Sodium 138 mmol/L (137-145); Total Bilirubin 0.7 mg/dL (0.2-1.3); Total Protein 7.3 g/dL (6.3-8.2)
--- NOTE | 2021-03-19 13:18 | XR ---
EXAMINATION TYPE: XR elbow limited RT DATE OF EXAM: 03/19/2021 COMPARISON: NONE HISTORY: Pain FINDINGS: Two views of the elbow demonstrate no pathologic joint effusion. The osseous structures are intact. There is no acute fracture or dislocation. IMPRESSION: 1. No acute fracture or dislocation. If symptoms persist follow-up study in 7 to 10 days could be ob tained.
--- NOTE | 2021-03-19 13:19 | XR ---
EXAMINATION TYPE: XR Hip Complete RT DATE OF EXAM: 03/19/2021 COMPARISON: NONE HISTORY: Pain TECHNIQUE: 2 views submitted FINDINGS: There is no evidence of erosive change or acute fracture. Vascular calcification noted. IMPRESSION: 1. No evidence of acute fracture or dislocation.
--- NOTE | 2021-03-19 13:20 | XR ---
EXAMINATION TYPE: XR shoulder limited RT DATE OF EXAM: 03/19/2021 COMPARISON: NONE HISTORY: Pain TECHNIQUE: Two views are submitted. FINDINGS: The osseous structures are intact. There is no acute fracture or dislocation. AC joint arthropathy n oted.. Diffuse osteopenia. IMPRESSION: 1. No acute process.
[2021-03-19 13:21] LABS: Anion Gap 10 mmol/L; Chloride 100 mmol/L (98-107)
--- NOTE | 2021-03-19 13:22 | XR ---
EXAMINATION TYPE: XR ribs RT DATE OF EXAM: 03/19/2021 COMPARISON: NONE HISTORY: Pain TECHNIQUE: 4 views submitted FINDINGS: Cardiac device and postsurgical changes are noted. Largest calcification right upper quadra nt may be related to granuloma. Hypertrophic and degenerative changes of the spine. Diffuse osteopeni a noted and there is arthropathy of the shoulder. There is a slight deformity of the posterior latera l right seventh rib. Remaining osseous structures appear to be intact. IMPRESSION: 1. Correlate for point tenderness for hairline fracture posterior lateral right seventh rib. 2. Multiple upper quadrant calcifications could be on the basis of granuloma or possibly granuloma wi th renal stone. Previous cholecystectomy changes noted.
[2021-03-19 14:18] VITALS: BP 124/62; PULSE 68; RESP 16; TEMP 98
== END 2021-03-19 13:45 | disposition home or self-care (01) ==
LOC: EC 11:58
DX: S22.31XA Fracture of one rib, right side, initial encounter for closed fracture (principal); E78.5 Hyperlipidemia, unspecified; I25.10 Atherosclerotic heart disease of native coronary artery without angina pectoris; I25.2 Old myocardial infarction; I11.0 Hypertensive heart disease with heart failure; J44.9 Chronic obstructive pulmonary disease, unspecified; M19.90 Unspecified osteoarthritis, unspecified site; F41.9 Anxiety disorder, unspecified; F32.9 Major depressive disorder, single episode, unspecified; Z95.0 Presence of cardiac pacemaker; Z87.891 Personal history of nicotine dependence; Z95.2 Presence of prosthetic heart valve; X50.1XXA Overexertion from prolonged static or awkward postures, initial encounter; W19.XXXA Unspecified fall, initial encounter
CPT/HCPCS: 80053; 85025; 73502; 71100; 73020; 73070; 99284; 96374; 96361; J2270

== ENCOUNTER 2021-03-30 08:14 | Inpatient (IN) | payer MEDICARE, OTHER ==
--- NOTE | 2021-03-30 08:54 | ED ---
General Adult HPI - General Source: patient, family, RN notes reviewed Mode of arrival: ambulatory Limitations: no limitations <Krystian Sorensen - Last Filed: 03/30/21 10:16> <Mariana Chen - Last Filed: 04/08/21 17:18> - General Chief complaint: Shortness of Breath Stated complaint: SOB Time Seen by Provider: 03/30/21 08:29 - History of Present Illness Initial comments: This an 80-year-old female presents emergency Department chief complaint of shortness of breath. Patient's been having increasing shortness breath recently. Patient does have underlying COPD, CHF and anemia. Patient's had recent hospitalization secondary to anemia she did receive blood transfusion, iron transfusion had a hemoglobin is high as 10 but last hemoglobin drop back down. Patient denies any rectal bleeding, hematuria. She states on her hospitalization she had colonoscopy no signs of bleeding. Patient denies any major complaints of cough or cold like symptoms. Patient does have a history of clots in which she takes Xarelto for. She has not missed any doses. Patient's been battling chronic urinary tract infection, fungal infection which she is on ampicillin, Diflucan. (Krystian Sorensen) - Related Data Home Medications Medication Instructions Recorded Confirmed Lisinopril [Prinivil] 10 mg PO DAILY 08/02/14 03/30/21 Metoprolol Tartrate [Lopressor] 50 mg PO BID 07/31/17 03/30/21 Sertraline [Zoloft] 75 mg PO HS 07/31/17 03/30/21 Simvastatin [Zocor] 40 mg PO HS 07/31/17 03/30/21 Spironolactone [Aldactone] 25 mg PO DAILY 08/13/17 03/30/21 Cyanocobalamin [Vitamin B-12] 500 mcg PO DAILY 03/03/20 03/30/21 Albuterol Sulfate [Ventolin HFA] 2 puff INHALATION RT-QID PRN 03/17/20 03/30/21 Gabapentin [Neurontin] 100 mg PO BID 03/17/20 03/30/21 ALPRAZolam [Xanax] 0.25 mg PO DAILY PRN 02/26/21 03/30/21 Albuterol Nebulized [Ventolin 2.5 mg INHALATION RT-Q6H PRN 02/26/21 03/30/21 Nebulized] Ascorbic Acid [Vitamin C] 1,000 mg PO DAILY 02/26/21 03/30/21 Cranberry Fruit Extract [Cranberry] 500 mg PO DAILY 02/26/21 03/30/21 Ezetimibe [Zetia] 10 mg PO HS 02/26/21 03/30/21 Fluticasone Propion/Salmeterol 1 puff INHALATION RT-BID 02/26/21 03/30/21 [Wixela 250-50 Inhub] Megared 500mg 500 mg PO DAILY 02/26/21 03/30/21 Methenamine Hippurate [Hiprex] 1 gm PO BID 02/26/21 03/30/21 Multivitamins, Thera [Multivitamin 1 tab PO DAILY 02/26/21 03/30/21 (formulary)] Prevagen 1 cap PO DAILY 02/26/21 03/30/21 Rivaroxaban [Xarelto] 20 mg PO HS 02/27/21 03/30/21 Ampicillin Trihydrate 500 mg PO QID 03/30/21 03/30/21 Fluconazole [Diflucan] 150 mg PO DAILY 03/30/21 03/30/21 Previous Rx's Medication Instructions Recorded Acetaminophen Tab [Tylenol] 650 mg PO Q6HR PRN tab 03/02/21 Pantoprazole [Protonix] 40 mg PO AC-[id number] 30 Days #30 03/02/21 tablet. Furosemide [Lasix] 40 mg PO DAILY 30 Days #30 tab 03/31/21 Allergies Allergy/AdvReac Type Severity Reaction Status Date / Time No Known Allergies Allergy Verified 03/30/21 10:35 Review of Systems ROS Other: All systems not noted in ROS Statement are negative. <Krystian Sorensen - Last Filed: 03/30/21 10:16> ROS Other: All systems not noted in ROS Statement are negative. <Mariana Chen - Last Filed: 04/08/21 17:18> ROS Statement: Those systems with pertinent positive or pertinent negative responses have been documented in the HPI. Past Medical History Past Medical History: Coronary Artery Disease (CAD), Heart Failure, COPD, Hyperlipidemia, Hypertension, Myocardial Infarction ([place]), Osteoarthritis (OA), Skin Disorder, Vascular Disorder Additional Past Medical History / Comment(s): Rheumatic fever X3, heart murmur, AAA, PAD. Last Myocardial Infarction Date:: unknown History of Any Multi-Drug Resistant Organisms: None Reported Past Surgical History: AICD, Bladder Surgery, Cholecystectomy, Heart Catheterization, Heart Catheterization With Stent, Hysterectomy, Pacemaker Additional Past Surgical History / Comment(s): Mitral and Aortic valve replacement, PIG & COW VALVE, BILATERAL CATARACTS, Bi-Ventricular ICD (ST [facility]), bilateral leg femoral bypass. Past Anesthesia/Blood Transfusion Reactions: No Reported Reaction Additional Past Anesthesia/Blood Transfusion Reaction / Comment(s): NO PROBLEMS WITH PRIOR BLOOD TRANSFUSIONS. Date of Last Stent Placement:: 08-14-17 Type of Cardiac Device: AICD Device Placement Date:: 09/30/17 Past Psychological History: Anxiety, Depression Smoking Status: Former smoker Past Alcohol Use History: None Reported Past Drug Use History: None Reported - Past Family History Mother Family Medical History: No Reported History Father Family Medical History: No Reported History, Pneumonia Sister(s) Family Medical History: Congestive Heart Failure (CHF) Daughter(s) Family Medical History: No Reported History Son(s) Family Medical History: No Reported History <Krystian Sorensen M - Last Filed: 03/30/21 10:16> General Exam Limitations: no limitations General appearance: alert, in no apparent distress Head exam: Present: atraumatic, normocephalic, normal inspection Neck exam: Present: normal inspection, full ROM. Absent: tenderness, meningismus, lymphadenopathy Respiratory exam: Present: normal lung sounds bilaterally. Absent: respiratory distress, wheezes, rales, rhonchi, stridor Cardiovascular Exam: Present: regular rate, normal rhythm, normal heart sounds. Absent: systolic murmur, diastolic murmur, rubs, gallop, clicks GI/Abdominal exam: Present: soft, normal bowel sounds. Absent: distended, tenderness, guarding, rebound, rigid Back exam: Absent: CVA tenderness (R), CVA tenderness (L) Neurological exam: Present: alert Skin exam: Present: warm, dry, intact, normal color. Absent: rash <Krystian Sorensen M - Last Filed: 03/30/21 10:16> Course Vital Signs 03/30/21 03/30/21 03/30/21 08:20 10:00 12:28 Temperature 97.8 F 98.0 F Pulse Rate 77 72 81 Respiratory 18 18 18 Rate Blood Pressure 164/84 173/79 O2 Sat by Pulse 96 96 96 Oximetry Medical Decision Making - Lab Data Result diagrams: 03/30/21 08:50 03/30/21 08:50 <Krystian Sorensen - Last Filed: 03/30/21 10:16> - Lab Data Result diagrams: 04/01/21 07:46 04/01/21 07:46 <Mariana Chen - Last Filed: 04/08/21 17:18> - Medical Decision Making 80-year-old female presented for shortness of breath. Patient found have elevated BNP, chest x-ray shows pleural effusion patient has mild CHF exacerbation, troponin is minimally elevated no complaints of chest pain currently. Patient case discussed with admitting physician. Patient will be given diuresis, patient is currently anticoagulated with cardiology evaluation (Krystian Sorensen) I was available for consultation in the emergency department. The history and physical exam were done by the midlevel provider. I was consulted for this patients care. I reviewed the case with the midlevel provider and based on their presentation of the patient, I agree with the assessment, medical decision making and plan of care as documented. Chart was dictated using [employer] dictation software. Attempts were made to correct any dictation errors however some typographical errors may persist. Patient was seen during a national state of emergency due to the Covid-19 pandemic. (Mariana Chen) - Lab Data Lab Results 03/30/21 03/30/21 03/30/21 Range/Units 08:50 08:50 08:50 WBC 14.4 H (3.8-10.6) k/uL RBC 4.03 (3.80-5.40) m/uL Hgb 10.5 L (11.4-16.0) gm/dL Hct 34.0 (34.0-46.0) % MCV 84.3 (80.0-100.0) fL MCH 26.2 (25.0-35.0) pg MCHC 31.0 (31.0-37.0) g/dL RDW 24.4 H (11.5-15.5) % Plt Count 292 (150-450) k/uL MPV 7.1 Neutrophils % 91 % Lymphocytes % 4 % Monocytes % 4 % Eosinophils % 0 % Basophils % 0 % Neutrophils # 13.1 H (1.3-7.7) k/uL Lymphocytes # 0.6 L (1.0-4.8) k/uL Monocytes # 0.6 (0-1.0) k/uL Eosinophils # 0.0 (0-0.7) k/uL Basophils # 0.0 (0-0.2) k/uL Hypochromasia Moderate Poikilocytosis Slight Anisocytosis Marked Microcytosis Slight PT 11.0 (9.0-12.0) sec INR 1.0 (<1.2) APTT 23.9 (22.0-30.0) sec Sodium 141 (137-145) mmol/L Potassium 3.7 (3.5-5.1) mmol/L Chloride 104 (98-107) mmol/L Carbon Dioxide 27 (22-30) mmol/L Anion Gap 10 mmol/L BUN 31 H (7-17) mg/dL Creatinine 0.68 (0.52-1.04) mg/dL Est GFR (CKD-EPI)AfAm >90 (>60 ml/min/1.73 sqM) Est GFR (CKD-EPI)NonAf 82 (>60 ml/min/1.73 sqM) Glucose 134 H (74-99) mg/dL Plasma Lactic Acid Jian (0.7-2.0) mmol/L Calcium 9.5 (8.4-10.2) mg/dL Magnesium 1.9 (1.6-2.3) mg/dL Total Bilirubin 0.6 (0.2-1.3) mg/dL AST 37 H (14-36) U/L ALT 23 (4-34) U/L Alkaline Phosphatase 64 (38-126) U/L Troponin I (0.000-0.034) ng/mL NT-Pro-B Natriuret Pep pg/mL Total Protein 7.7 (6.3-8.2) g/dL Albumin 4.5 (3.5-5.0) g/dL Coronavirus (PCR) (Not Detectd) 03/30/21 03/30/21 03/30/21 Range/Units 08:50 08:50 08:50 WBC (3.8-10.6) k/uL RBC (3.80-5.40) m/uL Hgb (11.4-16.0) gm/dL Hct (34.0-46.0) % MCV (80.0-100.0) fL MCH (25.0-35.0) pg MCHC (31.0-37.0) g/dL RDW (11.5-15.5) % Plt Count (150-450) k/uL MPV Neutrophils % % Lymphocytes % % Monocytes % % Eosinophils % % Basophils % % Neutrophils # (1.3-7.7) k/uL Lymphocytes # (1.0-4.8) k/uL Monocytes # (0-1.0) k/uL Eosinophils # (0-0.7) k/uL Basophils # (0-0.2) k/uL Hypochromasia Poikilocytosis Anisocytosis Microcytosis PT (9.0-12.0) sec INR (<1.2) APTT (22.0-30.0) sec Sodium (137-145) mmol/L Potassium (3.5-5.1) mmol/L Chloride (98-107) mmol/L Carbon Dioxide (22-30) mmol/L Anion Gap mmol/L BUN (7-17) mg/dL Creatinine (0.52-1.04) mg/dL Est GFR (CKD-EPI)AfAm (>60 ml/min/1.73 sqM) Est GFR (CKD-EPI)NonAf (>60 ml/min/1.73 sqM) Glucose (74-99) mg/dL Plasma Lactic Acid Jian 1.2 (0.7-2.0) mmol/L Calcium (8.4-10.2) mg/dL Magnesium (1.6-2.3) mg/dL Total Bilirubin (0.2-1.3) mg/dL AST (14-36) U/L ALT (4-34) U/L Alkaline Phosphatase (38-126) U/L Troponin I 0.064 H* (0.000-0.034) ng/mL NT-Pro-B Natriuret Pep 4610 pg/mL Total Protein (6.3-8.2) g/dL Albumin (3.5-5.0) g/dL Coronavirus (PCR) (Not Detectd) 03/30/21 Range/Units 10:43 WBC (3.8-10.6) k/uL RBC (3.80-5.40) m/uL Hgb (11.4-16.0) gm/dL Hct (34.0-46.0) % MCV (80.0-100.0) fL MCH (25.0-35.0) pg MCHC (31.0-37.0) g/dL RDW (11.5-15.5) % Plt Count (150-450) k/uL MPV Neutrophils % % Lymphocytes % % Monocytes % % Eosinophils % % Basophils % % Neutrophils # (1.3-7.7) k/uL Lymphocytes # (1.0-4.8) k/uL Monocytes # (0-1.0) k/uL Eosinophils # (0-0.7) k/uL Basophils # (0-0.2) k/uL Hypochromasia Poikilocytosis Anisocytosis Microcytosis PT (9.0-12.0) sec INR (<1.2) APTT (22.0-30.0) sec Sodium (137-145) mmol/L Potassium (3.5-5.1) mmol/L Chloride (98-107) mmol/L Carbon Dioxide (22-30) mmol/L Anion Gap mmol/L BUN (7-17) mg/dL Creatinine (0.52-1.04) mg/dL Est GFR (CKD-EPI)AfAm (>60 ml/min/1.73 sqM) Est GFR (CKD-EPI)NonAf (>60 ml/min/1.73 sqM) Glucose (74-99) mg/dL Plasma Lactic Acid Jian (0.7-2.0) mmol/L Calcium (8.4-10.2) mg/dL Magnesium (1.6-2.3) mg/dL Total Bilirubin (0.2-1.3) mg/dL AST (14-36) U/L ALT (4-34) U/L Alkaline Phosphatase (38-126) U/L Troponin I (0.000-0.034) ng/mL NT-Pro-B Natriuret Pep pg/mL Total Protein (6.3-8.2) g/dL Albumin (3.5-5.0) g/dL Coronavirus (PCR) Not Detected (Not Detectd) Critical Care Time Critical Care Time: Yes Total Critical Care Time: 35 <Krystian Sorensen - Last Filed: 03/30/21 10:16> Disposition <Krystian Sorensen - Last Filed: 03/30/21 10:16> <Mariana Chen - Last Filed: 04/08/21 17:18> Clinical Impression: CHF exacerbation, Atrial flutter, Pleural effusion, Elevated troponin Disposition: ADMITTED IP TO THIS HOSP Condition: Fair
[2021-03-30 09:08] LABS: Anisocytosis Marked; Basophils % (A) 0 %; Eosinophils % (A) 0 %; HGB 10.5 gm/dL (11.4-16.0); Hypochromasia Moderate; Lymphocytes # (A) 0.6 k/uL (1.0-4.8); Lymphocytes % (A) 4 %; MCH 26.2 pg (25.0-35.0); MCV 84.3 fL (80.0-100.0); Mean Platelet Volume 7.1; Microcytosis Slight; Monocytes # (A) 0.6 k/uL (0-1.0); Monocytes % (A) 4 %; Neutrophils # (A) 13.1 k/uL (1.3-7.7); Neutrophils % (A) 91 %; Platelet Count 292 k/uL (150-450); Poikilocytosis Slight; RBC 4.03 m/uL (3.80-5.40); RDW 24.4 % (11.5-15.5); WBC 14.4 k/uL (3.8-10.6)
[2021-03-30 09:16] LABS: ALT 23 U/L (4-34); AST 37 U/L (14-36); African American GFR (CKD) >90 (>60 ml/min/1.73 sqM); Albumin 4.5 g/dL (3.5-5.0); Alkaline Phosphatase 64 U/L (38-126); Anion Gap 10 mmol/L; Blood Urea Nitrogen 31 mg/dL (7-17); Calcium 9.5 mg/dL (8.4-10.2); Carbon Dioxide 27 mmol/L (22-30); Chloride 104 mmol/L (98-107); Glucose 134 mg/dL (74-99); Magnesium 1.9 mg/dL (1.6-2.3); Non-African American GFR(CKD) 82 (>60 ml/min/1.73 sqM); Potassium 3.7 mmol/L (3.5-5.1); Sodium 141 mmol/L (137-145); Total Bilirubin 0.6 mg/dL (0.2-1.3); Total Protein 7.7 g/dL (6.3-8.2)
--- NOTE | 2021-03-30 09:27 | XR ---
EXAMINATION TYPE: XR chest 2V DATE OF EXAM: 03/30/2021 COMPARISON: 02/26/2021 HISTORY: Shortness of breath TECHNIQUE: Frontal and lateral views of the chest are obtained. FINDINGS: Scattered senescent parenchymal changes noted. Hyperinflation compatible with COPD. Continued cardiomegaly with pulmonary venous congestion and interstitial Rigo B line scattered smal l effusions noted. Heart size is stable. Mediastinal structures are stable and grossly unremarkable. No evidence for hilar prominence. Degenerative changes dorsal spine. IMPRESSION: 1. Continued cardiomegaly with pulmonary venous congestion and interstitial Rigo B line scattered s mall effusions noted.
[2021-03-30 09:35] LABS: Partial Thromboplastin Time 23.9 sec (22.0-30.0)
[2021-03-30] MEDS ORDERED: FUROSEMIDE 10 MG/ML 4 ML VIAL IV STA (10:20)
[2021-03-30 14:39] VITALS: BMI 22.4
--- NOTE | 2021-03-30 15:08 | HP ---
HISTORY AND PHYSICAL DATE OF SERVICE: 03/30/2021 CHIEF COMPLAINT: Shortness of breath. HISTORY OF PRESENT ILLNESS: This 80-year-old woman with a past medical history of multiple medical problems including CAD, CHF, COPD, hypertension, hyperlipidemia, myocardial infarction, being followed by Dr. Sahw in the outpatient setting has complaint of shortness of breath for the past several days. The patient getting shortness of breath even walking about a few steps according to her. The patient had recent hospitalizations secondary to anemia and had blood transfusion and the patient had colonoscopy and there was no evidence of bleeding during the recent hospitalization. The patient ejection fraction about 20 to 30%. There is no history of fever, rigors, chills at this time. PAST MEDICAL HISTORY: History of CAD, CHF, COPD, hypertension, hyperlipidemia. MEDICATIONS: Medications prior to admission include home medications are: Lasix,Tylenol Xanax, Zoloft, Zetia, Ventolin, Aldactone, Zocor, Xarelto, Protonix, multivitamins, Lopressor, [place] red, Prinivil, Neurontin, Diflucan, vitamin B12, cranberry, vitamin C, ampicillin. ALLERGIES: None. FAMILY HISTORY: No history of heart disease or strokes in the family. SOCIAL HISTORY: Previous history of smoking. No history of current smoking or alcohol. REVIEW OF SYSTEMS: ENT: Diminished vision. Diminished hearing. CARDIOVASCULAR as mentioned earlier. RESPIRATORY: As mentioned earlier. GI: As mentioned earlier. : No dysuria. NERVOUS SYSTEM: No numbness, weakness. ALLERGY/IMMUNOLOGY: No asthma or hayfever. MUSCULOSKELETAL as mentioned earlier. HEMATOLOGY/ONCOLOGY: As mentioned earlier. ENDOCRINE: As mentioned earlier. CONSTITUTIONAL: As mentioned earlier. DERMATOLOGY negative. RHEUMATOLOGY: Negative. PSYCHIATRY as mentioned earlier. PHYSICAL EXAMINATION: Alert and oriented times three. Pulse 81. Blood pressure 173/79. Respiration 18. Temperature normal. Pulse ox 97% on room air. HEENT: Conjunctivae pale. Oral mucosa moist. NECK is jugular venous distention at the root of the neck about 10 cm. CARDIOVASCULAR system: S1, S2, ejection systolic murmur. RESPIRATIONS: Breath sounds diminished in the bases. A few scattered rhonchi and crackles. ABDOMEN: Soft, nontender. No mass palpable. LEGS: No edema. No swelling. NERVOUS SYSTEM: Higher functions as mentioned earlier. Moves all four limbs. No focal motor or sensory deficits. LYMPHATICS: No lymph nodes palpable in the neck, axillae or groin. SKIN: No ulcer, no rash and no bleeding. JOINTS: No active deforming arthropathy. LABS: WBC 14.1, hemoglobin 10.5, glucose 134. Troponin 0.064 and 0.068. COVID-19 is negative. The previous hemoglobin during hospitalization about 10.1. Chest x- ray, PA view, personally reviewed by me showed evidence of CHF and pacemaker. ASSESSMENT: 1. Congestive heart failure, acute exacerbation acute on chronic systolic dysfunction, ejection fraction 20-25%. 2. History of recent gastrointestinal bleed and chronic blood-loss anemia. 3. History of coronary artery disease/stent. 4. History of chronic obstructive pulmonary disease. 5. Troponin 0 point was 0.064 for indeterminate significance. 6. Hypertension. 7. Hyperlipidemia. 8. Myocardial infarction. 9. History of degenerative joint disease. 10.History of rheumatic fever x3. 11.History of abdominal aortic aneurysm. 12.History of peripheral vascular disease. 13.History of automated implantable cardioverter defibrillator. 14.History of cholecystectomy. 15.History of hysterectomy. 16.History of mitral and aortic valve replacement with pig and cow valve. 17.Bilateral cataracts. 18.Anxiety, depression. 19.History of nicotine dependence. 20.FULL CODE. RECOMMENDATIONS AND DISCUSSION: This 80-year-old woman who presented with multiple complex medical issues, we will monitor the patient closely, continue the current medications, management and symptomatic treatment. We will initiate Lasix IV 40 mg twice daily. Continue the rest of medications. Resume the home medications. Monitor hemoglobin closely. I would also recommend Cardiology consultation. We will continue to monitor. See orders for details. Medication reconciliation will be done. Prognosis guarded because of multiple complex medical issues. The exact etiology of the recent GI bleed is unknown at this time. The patient's shortness of breath is possibly multifactorial. A copy of dictation being forward to Dr. Shaw, who is the primary physician. MMODL / IJN: [id number] / ANITA
[2021-03-30] MEDS: GABAPENTIN 100 MG CAP PO SCH (20:18)
[2021-03-30] MEDS: RIVAROXABAN 20 MG TAB PO SCH (20:18)
[2021-03-30] MEDS: ATORVASTATIN 20 MG TAB PO SCH (20:18)
[2021-03-30] MEDS: METOPROLOL TARTRATE 50 MG TAB PO SCH (20:18)
[2021-03-30] MEDS: FUROSEMIDE 10 MG/ML 4 ML VIAL IV SCH (20:18)
[2021-03-31] MEDS: FUROSEMIDE 10 MG/ML 4 ML VIAL IV SCH (08:06)
[2021-03-31] MEDS: GABAPENTIN 100 MG CAP PO SCH ×2 (08:07→20:34)
[2021-03-31] MEDS: lisinopriL 10 MG TAB PO SCH (08:07)
[2021-03-31] MEDS: METOPROLOL TARTRATE 50 MG TAB PO SCH ×2 (08:07→20:34)
[2021-03-31] MEDS: SPIRONOLACTONE 25 MG TAB PO SCH (11:04)
--- NOTE | 2021-03-31 11:48 | P.CRDCN ---
History of Present Illness History of present illness: HISTORY OF PRESENTING ILLNESS This is a pleasant 80-year-old female past medical history significant for paroxysmal atrial fibrillation (on Xarelto), COPD, valvular heart disease status post mitral and aortic valve replacement in 2013, dyslipidemia, hypertension, coronary artery disease status post angioplasty, non-ischemic cardiomyopathy status post biventricular BiV AICD, and peripheral artery disease. She follows in the office with Dr. Mccrary. We have been asked to see in consultation for congestive heart failure. Patient presents to the emergency department with complaints of worsening dyspnea on exertion and symptoms of orthopnea. Requiring her to sleep in the chair. Her symptoms started Saturday and continued to worsen. On arrival to emergency department. Patient received 2 doses of 40mg IV Lasix. Patient seen and examined at bedside. She feels much better this morning , breathing has improved, her orthopnea symptoms have improved. Current home cardiac medications include Lasix 20mg daily, Zetia 10mg nightly, spironolactone 25mg daily, simvastatin 40mg nightly, Xarelto 20mg nightly, metoprolol tartrate 50mg BID, lisinopril 10mg daily Patient was recently admitted on 02/26/2021, with anemia and worsening shortness of breath. Hgb was 7.4, Patient received 1 unit PRBC transfusion. Her Xarelto was held. She underwent upper and lower endoscopy with GI, which revealed antral erosive gastritis, colonoscopy revealed 3 polyps status post polypectomy and scattered sigmoid diverticulosis. No active bleeding noted. Her Xarelto was restarted. She was also diagnosed with acute congestive heart failure with EF 25-30%. She was diuresied with IV lasix, transitioned to PO Lasix. Patient was stabilized and discharged home. She also presented to the hospital on 03/19/21 s/p mechanical fall x-rays revealed possible hairline fracture of the posterior seventh rib, other xrays negative. Patient was discharged home to follow up with primary care. DIAGNOSTICS Most Recent Echocardiogram 02/27/2021- EF 25-30%, global hypokinesis, LA is severely enlarged, peak/mean gradient across the AV is 24.6mmH/11.6mmH, normal functioning biosprosethetic valve, mild mitral regurgitation present, peak/mean gradient 15mmHg/4.72mmHg, mild tricuspid regurgitation, mild pulmonary hypertension. Most recent cardiac catheterization 2017- mild disease in LAD and LCX, significant stenosis in the nondomoinant right conus branch, occluded right SFA EKG reveals atrial fibrillation HR 72 Telemetry tracings indicate atrial fibrillation heart rate 70s to 80s Chest xray Hyperinflation compatible with COPD, cardiomegaly with pulmonary venous congestion and scattered small effusions noted. Laboratory reviewed, troponin 0.063, BNP 4610 (previous 2,750 in 02/2021), Covid-19 negative WBC 14.4, hemoglobin 12.5, platelets 292, sodium 141, po tassium 3.7, serum creatinine 0.68, BUN 31, magnesium 1.9 serum creatinine REVIEW OF SYSTEMS At the time of my exam: CONSTITUTIONAL: Denies fever or chills. CARDIOVASCULAR: +shortness of breath, +orthopnea. Denies chest pain or palpitations. RESPIRATORY: Denies cough. GASTROINTESTINAL: Denies abdominal pain, diarrhea, constipation, nausea or vomiting. MUSCULOSKELETAL: Denies myalgias. NEUROLOGIC: Denies numbness, tingling, headacbe or weakness. ENDOCRINE: Denies fatigue, weight change, polydipsia or polyurina. GENITOURINARY: Denies burning, hematuria or urgency with micturation. HEMATOLOGIC: Denies history of anemia or bleeding. PHYSICAL EXAMINATION Blood pressure 139/79 heart rate 82 afebrile and maintaining oxygen saturation 95% on room air CONSTITUTIONAL: No apparent distress. HEENT: Head is normocephalic. Pupils are equal, round. Sclerae anicteric. Mucous membranes of the mouth are moist. No JVD. No carotid bruit. CHEST EXAMINATION: Lungs are clear/ diminished bases bilaterally to auscultation. No chest wall tenderness is noted on palpation or with deep breathing. HEART EXAMINATION: Irregular rate and rhythm. S1, S2 heard. S3 gallop noted. No murmurs ABDOMEN: Soft, nontender. Positive bowel sounds. EXTREMITIES: 2+ peripheral pulses, no lower extremity edema and no calf tenderness. NEUROLOGIC EXAMINATION: Patient is awake, alert and oriented x3. ASSESSMENT Acute on chronic systolic heart failure with reduced EF Paroxysmal atrial fibrillation (on Xarelto) -[id number] score 6 COPD Valvular heart disease status post mitral aortic valve replacement in 2013 Dyslipidemia Hypertension Coronary artery disease status post previous angioplasty Non-ischemic cardiomyopathy status post biventricular BiV AICD PLAN -Patient symptoms significantly improved after 2 doses of 40mg IV Lasix. -We will give her a total of 40mg IV Lasix today, next dose scheduled for 1500. -If patient's symptoms continue to improve. Ok to discharge from cardiology perspective, and patient can be discharged home with follow up with Dr. Mccrary -Increase patient's home Lasix dose to 40mg Daily, prescription was sent to [facility] per patient request. -Continue home cardiac medications Nurse Practitioner note has been reviewed, I agree with a documented findings and plan of care. Patient was seen and examined. Past Medical History Past Medical History: Coronary Artery Disease (CAD), Heart Failure, COPD, Hyperlipidemia, Hypertension, Myocardial Infarction (SC), Osteoarthritis (OA), Skin Disorder, Vascular Disorder Additional Past Medical History / Comment(s): Rheumatic fever X3, heart murmur, AAA, PAD. Last Myocardial Infarction Date:: unknown History of Any Multi-Drug Resistant Organisms: None Reported Past Surgical History: AICD, Bladder Surgery, Cholecystectomy, Heart Catheterization, Heart Catheterization With Stent, Hysterectomy, Pacemaker Additional Past Surgical History / Comment(s): Mitral and Aortic valve replacement, PIG & COW VALVE, BILATERAL CATARACTS, Bi-Ventricular ICD ([facility]), bilateral leg femoral bypass. Past Anesthesia/Blood Transfusion Reactions: No Reported Reaction Additional Past Anesthesia/Blood Transfusion Reaction / Comment(s): NO PROBLEMS WITH PRIOR BLOOD TRANSFUSIONS. Date of Last Stent Placement:: 08-14-17 Type of Cardiac Device: AICD Device Placement Date:: 09/30/17 Smoking Status: Former smoker - Past Family History Mother Family Medical History: No Reported History Father Family Medical History: No Reported History, Pneumonia Sister(s) Family Medical History: Congestive Heart Failure (CHF) Daughter(s) Family Medical History: No Reported History Son(s) Family Medical History: No Reported History Medications and Allergies Home Medications Medication Instructions Recorded Confirmed Type Lisinopril [Prinivil] 10 mg PO DAILY 08/02/14 03/30/21 History Metoprolol Tartrate [Lopressor] 50 mg PO BID 07/31/17 03/30/21 History Sertraline [Zoloft] 75 mg PO HS 07/31/17 03/30/21 History Simvastatin [Zocor] 40 mg PO HS 07/31/17 03/30/21 History Spironolactone [Aldactone] 25 mg PO DAILY 08/13/17 03/30/21 History Cyanocobalamin [Vitamin B-12] 500 mcg PO DAILY 03/03/20 03/30/21 History Albuterol Sulfate [Ventolin HFA] 2 puff INHALATION RT-QID PRN 03/17/20 03/30/21 History Gabapentin [Neurontin] 100 mg PO BID 03/17/20 03/30/21 History ALPRAZolam [Xanax] 0.25 mg PO DAILY PRN 02/26/21 03/30/21 History Albuterol Nebulized [Ventolin 2.5 mg INHALATION RT-Q6H PRN 02/26/21 03/30/21 History Nebulized] Ascorbic Acid [Vitamin C] 1,000 mg PO DAILY 02/26/21 03/30/21 History Cranberry Fruit Extract [Cranberry] 500 mg PO DAILY 02/26/21 03/30/21 History Ezetimibe [Zetia] 10 mg PO HS 02/26/21 03/30/21 History Fluticasone Propion/Salmeterol 1 puff INHALATION RT-BID 02/26/21 03/30/21 History [Wixela 250-50 Inhub] Megared 500mg 500 mg PO DAILY 02/26/21 03/30/21 History Methenamine Hippurate [Hiprex] 1 gm PO BID 02/26/21 03/30/21 History Multivitamins, Thera [Multivitamin 1 tab PO DAILY 02/26/21 03/30/21 History (formulary)] Prevagen 1 cap PO DAILY 02/26/21 03/30/21 History Rivaroxaban [Xarelto] 20 mg PO HS 02/27/21 03/30/21 History Acetaminophen Tab [Tylenol] 650 mg PO Q6HR PRN tab 03/02/21 03/30/21 Rx Pantoprazole [Protonix] 40 mg PO AC-[id number] 30 Days #30 03/02/21 03/30/21 Rx tablet. Ampicillin Trihydrate 500 mg PO QID 03/30/21 03/30/21 History Fluconazole [Diflucan] 150 mg PO DAILY 03/30/21 03/30/21 History Furosemide [Lasix] 40 mg PO DAILY 30 Days #30 tab 03/31/21 Rx Allergies Allergy/AdvReac Type Severity Reaction Status Date / Time No Known Allergies Allergy Verified 03/30/21 10:35 Physical Exam Vitals: Vital Signs Temp Pulse Pulse Resp BP BP Pulse Ox 03/30/21 13:38 70 16 03/30/21 13:04 70 16 175/71 95 03/30/21 12:28 98.0 F 81 18 96 03/30/21 10:00 72 18 173/79 96 03/30/21 08:20 97.8 F 77 18 164/84 96 Intake and Output 03/29/21 03/30/21 03/30/21 22:59 06:59 14:59 Intake Total 240 Balance 240 Intake: Oral 240 Other: Voiding Method Toilet Weight 63.049 kg Results 03/30/21 08:50 03/30/21 08:50 Cardiac Enzymes 03/30/21 03/30/21 03/30/21 Range/Units 08:50 08:50 12:01 AST 37 H (14-36) U/L Troponin I 0.064 H* 0.068 H* (0.000-0.034) ng/mL Coagulation 03/30/21 Range/Units 08:50 PT 11.0 (9.0-12.0) sec APTT 23.9 (22.0-30.0) sec CBC 03/30/21 Range/Units 08:50 WBC 14.4 H (3.8-10.6) k/uL RBC 4.03 (3.80-5.40) m/uL Hgb 10.5 L (11.4-16.0) gm/dL Hct 34.0 (34.0-46.0) % Plt Count 292 (150-450) k/uL Comprehensive Metabolic Panel 03/30/21 Range/Units 08:50 Sodium 141 (137-145) mmol/L Potassium 3.7 (3.5-5.1) mmol/L Chloride 104 (98-107) mmol/L Carbon Dioxide 27 (22-30) mmol/L BUN 31 H (7-17) mg/dL Creatinine 0.68 (0.52-1.04) mg/dL Glucose 134 H (74-99) mg/dL Calcium 9.5 (8.4-10.2) mg/dL AST 37 H (14-36) U/L ALT 23 (4-34) U/L Alkaline Phosphatase 64 (38-126) U/L Total Protein 7.7 (6.3-8.2) g/dL Albumin 4.5 (3.5-5.0) g/dL Current Medications Generic Name Dose Route Start Last Admin Trade Name Freq PRN Reason Stop Dose Admin Atorvastatin Calcium 20 mg 03/30/21 21:00 Atorvastatin 20 Mg Tab PO HS ROBERT Furosemide 40 mg 03/30/21 21:00 Furosemide 10 Mg/Ml 4 Ml Vial IV Q12H ROBERT Gabapentin 100 mg 03/30/21 21:00 Gabapentin 100 Mg Cap PO BID ROBERT Lisinopril 10 mg 03/31/21 09:00 Lisinopril 10 Mg Tab PO DAILY ROBERT Metoprolol Tartrate 50 mg 03/30/21 21:00 Metoprolol Tartrate 50 Mg Tab PO BID [facility] Rivaroxaban 20 mg 03/30/21 21:00 Rivaroxaban 20 Mg Tab PO HS [facility] Intake and Output 03/29/21 03/30/21 03/30/21 22:59 06:59 14:59 Intake Total 240 Balance 240 Intake: Oral 240 Other: Voiding Method Toilet Weight 63.049 kg Patient Weight 03/31/21 06:59 Weight 63.049 kg 03/30/21 08:50 03/30/21 08:50
[2021-03-31 12:28] LABS: Calcium 10.2 mg/dL (8.4-10.2); Potassium 3.7 mmol/L (3.5-5.1)
[2021-03-31 12:37] LABS: Anisocytosis Moderate; Basophils % (A) 0 %; Eosinophils # (A) 0.1 k/uL (0-0.7); Eosinophils % (A) 1 %; HCT 38.5 % (34.0-46.0); HGB 12.1 gm/dL (11.4-16.0); Hypochromasia Moderate; Lymphocytes # (A) 0.8 k/uL (1.0-4.8); Lymphocytes % (A) 7 %; MCH 26.6 pg (25.0-35.0); MCHC 31.4 g/dL (31.0-37.0); MCV 84.8 fL (80.0-100.0); Mean Platelet Volume 6.8; Microcytosis Slight; Monocytes # (A) 0.7 k/uL (0-1.0); Monocytes % (A) 7 %; Neutrophils # (A) 9.3 k/uL (1.3-7.7); Neutrophils % (A) 84 %; Platelet Count 349 k/uL (150-450); Poikilocytosis Slight; RBC 4.55 m/uL (3.80-5.40); RDW 23.9 % (11.5-15.5); WBC 11.1 k/uL (3.8-10.6)
[2021-03-31] MEDS ORDERED: FUROSEMIDE 10 MG/ML 4 ML VIAL IV ONE (15:00)
[2021-03-31] MEDS ORDERED: ALPRAZolam 0.25 MG TAB PO PRN (17:57)
--- NOTE | 2021-03-31 18:40 | XR ---
EXAMINATION TYPE: XR chest 1V portable DATE OF EXAM: 03/31/2021 COMPARISON: 03/30/2021 HISTORY: Short of breath TECHNIQUE: FINDINGS: Heart is enlarged. There is left axillary pacemaker. There is no gross heart failure. There are sternal wires. There are chest leads. There is slight blunting of the right costophrenic angle. IMPRESSION: Small right pleural effusion. Congestive heart failure is mostly cleared compared to exam earlier today.
[2021-03-31] MEDS ORDERED: ACETAMINOPHEN TAB 325 MG TAB PO PRN (20:30)
[2021-03-31] MEDS: ATORVASTATIN 20 MG TAB PO SCH (20:34)
[2021-03-31] MEDS: RIVAROXABAN 20 MG TAB PO SCH (20:34)
--- NOTE | 2021-03-31 20:43 | PN ---
PROGRESS NOTE DATE OF SERVICE: 03/31/2021 This 80-year-old woman with a past medical history of multiple medical problems was admitted with CHF, acute exacerbation, ejection fraction about 20% to 25%. The patient is on IV diuretics. Patient is feeling slightly better at this time. The patient is being closely monitored. Multiple consultants are following the patient closely. Troponins are indeterminate. COVID-19 is negative. Past medical history reviewed. REVIEW OF SYSTEMS: CARDIOVASCULAR SYSTEM: No angina, palpitations. RESPIRATORY SYSTEM: As mentioned earlier. GI: As mentioned earlier. : No dysuria or retention. NERVOUS SYSTEM: No numbness, weakness. CURRENT MEDICATIONS: Reviewed. They include Lipitor, Zetia, Lasix 40, Neurontin, Zestril, Lopressor, Xarelto, aldactone. PHYSICAL EXAMINATION: Patient is alert, oriented x3. Pulse 74, blood pressure 140/60, respirations 16, temperature 98 degrees, pulse ox 96% on room air. HEENT: Conjunctivae normal. NECK: No jugular venous distention. CARDIOVASCULAR SYSTEM: S1, S2 muffled. RESPIRATORY SYSTEM: Breath sounds diminished at the bases. A few scattered rhonchi. ABDOMEN: Soft, non-tender. LEGS: No edema. No swelling. NERVOUS SYSTEM: No focal deficit. LABS: WBC 11.1, hemoglobin 12.1. Other labs are noted. ASSESSMENT: 1. Congestive heart failure, acute exacerbation, with acute on chronic systolic dysfunction, ejection fraction 20% to 25%. 2. History of recent gastrointestinal bleed and chronic blood-loss anemia. 3. History of coronary artery disease, stent. 4. History of chronic obstructive pulmonary disease. 5. Troponin 0.064, of indeterminate significance. 6. Hypertension. 7. Hyperlipidemia. 8. History of myocardial infarction. 9. History of degenerative joint disease. 10.History of rheumatic fever x3. 11.History of abdominal aortic aneurysm. 12.History of peripheral vascular disease. 13.History of automated implantable cardioverter defibrillator. 14.History of cholecystectomy. 15.History of hysterectomy. 16.History of mitral and aortic valve replacement with pig and cow valves. 17.History of bilateral cataracts. 18.History of anxiety, depression. 19.History of nicotine dependence. 20.FULL CODE. RECOMMENDATIONS AND DISCUSSION: I recommend to continue current medications, continue with the monitoring, symptomatic treatment. Continue with the Lasix. Continue the rest of the medication. I would recommend UA with micro as well as repeat hemoglobin. Continue with the Lasix. Repeat chest x-ray. Guarded prognosis because of multiple complex medical issues. Further recommendations to follow. MMODL / IJN: [id number] /
[2021-03-31] MEDS ORDERED: EZETIMIBE 10 MG TAB PO SCH (21:00)
[2021-03-31 21:25] VITALS: RESP 18
[2021-03-31 21:26] LABS: Appearance,Urine Clear (Clear); Bilirubin,Urine Negative (Negative); Blood,Urine Negative (Negative); Color,Urine Light Yellow; Glucose,Urine (UA) Negative (Negative); Hyaline Casts,Urine 4 /lpf (0-2); Ketones,Urine Negative (Negative); Leukocyte Esterase,Urine Trace (Negative); Mucus,Urine Rare /hpf; Nitrite,Urine Negative (Negative); PH, Urine 5.5 (5.0-8.0); Protein,Urine Negative (Negative); RBC,Urine 1 /hpf (0-5); Squamous Epithelial Cell,Urine <1 /hpf (0-4); Urobilinogen,Urine <2.0 mg/dL (<2.0); WBC,Urine 2 /hpf (0-5)
[2021-04-01 08:02] LABS: Anisocytosis Moderate; Basophils % (A) 1 %; Eosinophils # (A) 0.3 k/uL (0-0.7); Eosinophils % (A) 4 %; HCT 40.8 % (34.0-46.0); HGB 12.5 gm/dL (11.4-16.0); Hypochromasia Moderate; Lymphocytes % (A) 12 %; MCH 26.3 pg (25.0-35.0); MCHC 30.6 g/dL (31.0-37.0); MCV 85.8 fL (80.0-100.0); Mean Platelet Volume 7.2; Microcytosis Slight; Monocytes # (A) 0.6 k/uL (0-1.0); Monocytes % (A) 8 %; Neutrophils # (A) 6.4 k/uL (1.3-7.7); Neutrophils % (A) 76 %; Platelet Count 323 k/uL (150-450); Poikilocytosis Slight; RBC 4.76 m/uL (3.80-5.40); RDW 23.5 % (11.5-15.5); WBC 8.5 k/uL (3.8-10.6)
[2021-04-01 08:13] LABS: Calcium 9.7 mg/dL (8.4-10.2); Potassium 3.7 mmol/L (3.5-5.1)
[2021-04-01] MEDS ORDERED: FUROSEMIDE 40 MG TAB PO SCH (09:00)
[2021-04-01] MEDS: METOPROLOL TARTRATE 50 MG TAB PO SCH (09:14)
[2021-04-01] MEDS: GABAPENTIN 100 MG CAP PO SCH (09:14)
[2021-04-01] MEDS: SPIRONOLACTONE 25 MG TAB PO SCH (09:15)
[2021-04-01] MEDS: lisinopriL 10 MG TAB PO SCH (09:15)
--- NOTE | 2021-04-01 11:28 | P.PN ---
Subjective HISTORY OF PRESENTING ILLNESS This is a pleasant 80-year-old female past medical history significant for paroxysmal atrial fibrillation (on Xarelto), COPD, valvular heart disease status post mitral and aortic valve replacement in 2013, dyslipidemia, hypertension, coronary artery disease status post angioplasty, non-ischemic cardiomyopathy status post biventricular BiV AICD, and peripheral artery disease. She follows in the office with Dr. Mccrary. We have been asked to see in consultation for congestive heart failure. Patient presents to the emergency department with complaints of worsening dyspnea on exertion and symptoms of orthopnea. Requiring her to sleep in the chair. Her symptoms started Saturday and continued to worsen. On arrival to emergency department. Patient received 2 doses of 40mg IV Lasix. Patient seen and examined at bedside. She feels much better this morning , breathing has improved, her orthopnea symptoms have improved. 04/01 Patient states she feels much better and close the back to normal. She has been walking the halls without any further dyspnea. She denies any chest pain or pressure. She was transitioned over to oral diuretics. At the time of my exam: CONSTITUTIONAL: Denies fever or chills. CARDIOVASCULAR: +shortness of breath, +orthopnea. Denies chest pain or palpitations. RESPIRATORY: Denies cough. GASTROINTESTINAL: Denies abdominal pain, diarrhea, constipation, nausea or vomiting. MUSCULOSKELETAL: Denies myalgias. NEUROLOGIC: Denies numbness, tingling, headacbe or weakness. ENDOCRINE: Denies fatigue, weight change, polydipsia or polyurina. GENITOURINARY: Denies burning, hematuria or urgency with micturation. HEMATOLOGIC: Denies history of anemia or bleeding. PHYSICAL EXAMINATION Vital signs reviewed CONSTITUTIONAL: No apparent distress. HEENT: Head is normocephalic. Pupils are equal, round. Sclerae anicteric. Mucous membranes of the mouth are moist. No JVD. No carotid bruit. CHEST EXAMINATION: Lungs are clear/ diminished bases bilaterally to auscultation. No chest wall tenderness is noted on palpation or with deep breathing. HEART EXAMINATION: Irregular rate and rhythm. S1, S2 heard. S3 gallop noted. No murmurs ABDOMEN: Soft, nontender. Positive bowel sounds. EXTREMITIES: 2+ peripheral pulses, no lower extremity edema and no calf tenderness. NEUROLOGIC EXAMINATION: Patient is awake, alert and oriented x3. ASSESSMENT Acute on chronic systolic heart failure with reduced EF Paroxysmal atrial fibrillation (on Xarelto) -[id number] score 6 COPD Valvular heart disease status post mitral aortic valve replacement in 2014 Dyslipidemia Hypertension Coronary artery disease status post previous angioplasty Non-ischemic cardiomyopathy status post biventricular BiV AICD PLAN Patient appears euvolemic currently and back to baseline. Continue with heart failure regimen as prescribed. Increase home Lasix dose to 40 mg oral daily. Patient stable for discharge home from a cardiology standpoint. F/u in 1 week. Objective - Vital Signs Vital signs: Vital Signs Temp 98.1 F 04/01/21 08:10 Pulse 69 04/01/21 08:10 Resp 18 04/01/21 08:10 BP 146/67 04/01/21 08:10 Pulse Ox 97 04/01/21 08:10 Intake & Output 03/31/21 04/01/21 04/01/21 18:59 06:59 18:59 Intake Total 240 240 240 Balance 240 240 240 Weight 61.3 kg Intake: Oral 240 240 240 Other: Voiding Method Toilet Toilet # Voids 2 2 # Bowel Movements 0 - Labs CBC & Chem 7: 04/01/21 07:46 04/01/21 07:46 Labs: Abnormal Lab Results - Last 24 Hours (Table) 03/31/21 03/31/21 03/31/21 Range/Units 11:53 11:53 20:41 WBC 11.1 H (3.8-10.6) k/uL MCHC (31.0-37.0) g/dL RDW 23.9 H (11.5-15.5) % Neutrophils # 9.3 H (1.3-7.7) k/uL Lymphocytes # 0.8 L (1.0-4.8) k/uL Chloride 93 L (98-107) mmol/L Carbon Dioxide 40 H (22-30) mmol/L BUN 32 H (7-17) mg/dL Glucose 137 H (74-99) mg/dL Ur Leukocyte Esterase Trace H (Negative) Hyaline Casts 4 H (0-2) /lpf Urine Mucus Rare H (None) /hpf 04/01/21 04/01/21 Range/Units 07:46 07:46 WBC (3.8-10.6) k/uL MCHC 30.6 L (31.0-37.0) g/dL RDW 23.5 H (11.5-15.5) % Neutrophils # (1.3-7.7) k/uL Lymphocytes # (1.0-4.8) k/uL Chloride 95 L (98-107) mmol/L Carbon Dioxide 40 H (22-30) mmol/L BUN 35 H (7-17) mg/dL Glucose 124 H (74-99) mg/dL Ur Leukocyte Esterase (Negative) Hyaline Casts (0-2) /lpf Urine Mucus (None) /hpf
[2021-04-01 12:19] VITALS: BP 117/89; PULSE 73; TEMP 98.3
--- NOTE | 2021-04-02 08:23 | DS ---
DISCHARGE SUMMARY FINAL DIAGNOSES: 1. Congestive heart failure exacerbation acute on chronic systolic dysfunction, ejection fraction 20-25%. 2. History of recent GI bleed and chronic blood-loss anemia. 3. History of coronary artery disease/stent. 4. History of chronic obstructive pulmonary disease. 5. Troponin 0.06, indeterminate significance. 6. Hypertension. 7. Hyperlipidemia. 8. History of myocardial infarction. 9. History of degenerative joint disease. 10.History or rheumatic fever x3. 11.History of abdominal aortic aneurysm. 12.History of peripheral vascular disease. 13.History of AICD. 14.History of cholecystectomy. 15.History of hysterectomy. 16.History of mitral aortic replacement with pig and cow bovine valves. 17.History of bilateral cataracts. 18.History of anxiety, depression. 19.History of nicotine dependence. 20.FULL CODE. DISCHARGE DISPOSITION: The patient discharged in stable condition with guarded prognosis. HISTORY OF PRESENT ILLNESS: This 80-year-old woman with a past medical history of multiple medical problems being followed by Dr. Shaw in the outpatient setting was admitted with shortness of breath. Patient treated with IV Lasix. Patient improved significantly. Cardiology saw the patient and recommended to increase the dose of baseline Lasix. I also recommend the patient cut down the salt intake and also limit the fluid intake as well. On exam, vitals are stable. Cardiovascular system normal. Abdomen soft. Nervous system: No focal deficits. DISCHARGE INSTRUCTIONS: Discharge diet is cardiac. Activity limited until follow up. Fluid restriction 1200 mL for 24 hours. No added salt. Medications are as follows: 1. Aldactone 25 mg p.o. daily. 2. Ampicillin as before. 3. Cranberry as before. 4. Diflucan 150 mg daily. 5. Methenamine 1 g b.i.d. 6. Lopressor 50 mg b.i.d. 7. [place] red 500 mg daily 5th. 8. Neurontin 100 mg p.o. b.i.d. 9. Prevagen one capsule p.o. daily. 10.Prinivil 10 mg daily. 11.Albuterol p.r.n. 12.Ventolin two puffs q.6 p.r.n. 13.Vitamin B12 500 mcg p.o. 14.Vitamin C 1000 daily. 15.Fluticasone as before. 16.Xarelto 20 mg q.h.s. 17.Zetia 10 mg q.h.s. 18.Zocor 40 mg q.h.s. 19.Zoloft 75 mg p.o. daily. 20.Lasix 40 mg p.o. daily. 21.Protonix 40 mg daily. 22.Tylenol p.r.n. Follow up with Dr. Mccrary as recommended. MMODL / IJN: [id number] /
--- NOTE | 2021-04-26 06:55 | CDI ---
Documentation Clarification Form Date: 04/26/21 From: Laureen Chapa Admit Date: 03/30/2021 10:49:00 AM Patient Name: Kelli Rangel Visit Number: [id number] Discharge Date: 04/01/2021 01:40:00 PM ATTENTION: The Clinical Documentation Specialists (CDI) and [facility] Coding Staff appreciate your assistance in clarifying documentation. Please respond to the clarification below the line at the bottom and electronically sign. The CDI & [facility] Coding staff will review the response and follow-up if needed. Please note: Queries are made part of the Legal Health Record. If you have any questions, please contact the author of this message via ITS. Dr. Bradford Bhatia, Your patient has troponin level(s) of: 0.064, 0.068, 0.069 ON 03/30. Please clarify if there is an additional diagnosis and/or clinical significance related to this value. Patient history/risk factors: HTN w acute on chronic systolic CHF, history of [place], non-ischemic cardiomyopathy, chronic UTI, COPD Clinical indicators: She presents with SOB no chest pain. Treatment: EKG, IV Lasix, Is there an additional diagnosis and/or clinical significance related to the above lab result/information? [ ] NSTEMI type 1 [ ] STEMI type 1 [ ] Type 2 [place] due to (specify cause ____) [ ] Troponemia, not clinically significant [ ] Other, please specify [ ] Unable to determine Unable to determine MTDD
== END 2021-04-01 13:40 | disposition home or self-care (01) | DRG 292 ==
LOC: EC 08:14 → 3SCARD 10:49
PROVIDERS: ADMIT Internal Medicine; ATTEND Internal Medicine
DX: I11.0 Hypertensive heart disease with heart failure (principal); N39.0 Urinary tract infection, site not specified; I50.23 Acute on chronic systolic (congestive) heart failure; I42.8 Other cardiomyopathies; Z79.01 Long term (current) use of anticoagulants; I48.0 Paroxysmal atrial fibrillation; J44.9 Chronic obstructive pulmonary disease, unspecified; I70.201 Unspecified atherosclerosis of native arteries of extremities, right leg; Z20.822 Contact with and (suspected) exposure to COVID-19; E78.5 Hyperlipidemia, unspecified; D50.0 Iron deficiency anemia secondary to blood loss (chronic); I25.10 Atherosclerotic heart disease of native coronary artery without angina pectoris; F32.9 Major depressive disorder, single episode, unspecified; F41.9 Anxiety disorder, unspecified; M19.90 Unspecified osteoarthritis, unspecified site; K29.60 Other gastritis without bleeding; K57.30 Diverticulosis of large intestine without perforation or abscess without bleeding; R77.8 Other specified abnormalities of plasma proteins; I25.2 Old myocardial infarction; H54.7 Unspecified visual loss; H91.90 Unspecified hearing loss, unspecified ear; Z95.2 Presence of prosthetic heart valve; Z79.51 Long term (current) use of inhaled steroids; Z79.899 Other long term (current) drug therapy; Z95.810 Presence of automatic (implantable) cardiac defibrillator; Z87.440 Personal history of urinary (tract) infections; Z86.19 Personal history of other infectious and parasitic diseases; Z86.79 Personal history of other diseases of the circulatory system; Z95.5 Presence of coronary angioplasty implant and graft; Z90.710 Acquired absence of both cervix and uterus; Z90.49 Acquired absence of other specified parts of digestive tract; Z87.19 Personal history of other diseases of the digestive system; Z87.42 Personal history of other diseases of the female genital tract; Z98.42 Cataract extraction status, left eye; Z98.41 Cataract extraction status, right eye; Z95.828 Presence of other vascular implants and grafts; Z87.891 Personal history of nicotine dependence; Z87.2 Personal history of diseases of the skin and subcutaneous tissue; Z98.890 Other specified postprocedural states; Z83.6 Family history of other diseases of the respiratory system; Z82.49 Family history of ischemic heart disease and other diseases of the circulatory system
CPT/HCPCS: 36415; 71045; 71046; 80048; 80053; 81001; 83605; 83735; 83880; 84484; 85025; 85610; 85730; 87635; 93005; 99291

== ENCOUNTER 2021-04-22 11:18 | Emergency (ER) | payer MEDICARE, OTHER ==
[2021-04-22 11:33] VITALS: TEMP 97.7
[2021-04-22] MEDS ORDERED: IPRATROPIUM-ALBUTEROL 3 ML NEB INHALATION STA (11:48)
--- NOTE | 2021-04-22 11:55 | ED ---
General Adult HPI - General Chief complaint: Shortness of Breath Stated complaint: SOB, UTI Time Seen by Provider: 04/22/21 11:30 Source: patient, family, RN notes reviewed, old records reviewed Mode of arrival: wheelchair Limitations: no limitations - History of Present Illness Initial comments: This is an 80-year-old female who presents emergency Department complaining of shortness of breath over the last day or 2. Patient states she has a history of COPD as well as congestive heart. Patient states she has no chest pain or palpitations. Patient denies any fever chills or cough. Patient states she hasn't had any swelling to her legs. Patient states is not as bad as it was the last time she was in and she had to be admitted for congestive heart.. According to the daughter the patient has an ejection fraction in the 20s. Daughter states she's also had 2 valve replacements and a history of atrial fibrillation for which she is on Xarelto. - Related Data Home Medications Medication Instructions Recorded Confirmed Lisinopril [Prinivil] 10 mg PO DAILY 08/02/14 03/30/21 Metoprolol Tartrate [Lopressor] 50 mg PO BID 07/31/17 03/30/21 Sertraline [Zoloft] 75 mg PO HS 07/31/17 03/30/21 Simvastatin [Zocor] 40 mg PO HS 07/31/17 03/30/21 Spironolactone [Aldactone] 25 mg PO DAILY 08/13/17 03/30/21 Cyanocobalamin [Vitamin B-12] 500 mcg PO DAILY 03/03/20 03/30/21 Albuterol Sulfate [Ventolin HFA] 2 puff INHALATION RT-QID PRN 03/17/20 03/30/21 Gabapentin [Neurontin] 100 mg PO BID 03/17/20 03/30/21 ALPRAZolam [Xanax] 0.25 mg PO DAILY PRN 02/26/21 03/30/21 Albuterol Nebulized [Ventolin 2.5 mg INHALATION RT-Q6H PRN 02/26/21 03/30/21 Nebulized] Ascorbic Acid [Vitamin C] 1,000 mg PO DAILY 02/26/21 03/30/21 Cranberry Fruit Extract [Cranberry] 500 mg PO DAILY 02/26/21 03/30/21 Ezetimibe [Zetia] 10 mg PO HS 02/26/21 03/30/21 Fluticasone Propion/Salmeterol 1 puff INHALATION RT-BID 02/26/21 03/30/21 [Wixela 250-50 Inhub] Megared 500mg 500 mg PO DAILY 02/26/21 03/30/21 Methenamine Hippurate [Hiprex] 1 gm PO BID 02/26/21 03/30/21 Multivitamins, Thera [Multivitamin 1 tab PO DAILY 02/26/21 03/30/21 (formulary)] Prevagen 1 cap PO DAILY 02/26/21 03/30/21 Rivaroxaban [Xarelto] 20 mg PO HS 02/27/21 03/30/21 Ampicillin Trihydrate 500 mg PO QID 03/30/21 03/30/21 Fluconazole [Diflucan] 150 mg PO DAILY 03/30/21 03/30/21 Previous Rx's Medication Instructions Recorded Acetaminophen Tab [Tylenol] 650 mg PO Q6HR PRN tab 03/02/21 Pantoprazole [Protonix] 40 mg PO AC-BRKFST 30 Days #30 03/02/21 tablet. Furosemide [Lasix] 40 mg PO DAILY 30 Days #30 tab 03/31/21 Allergies Allergy/AdvReac Type Severity Reaction Status Date / Time No Known Allergies Allergy Verified 04/22/21 11:33 Review of Systems ROS Statement: Those systems with pertinent positive or pertinent negative responses have been documented in the HPI. ROS Other: All systems not noted in ROS Statement are negative. Past Medical History Past Medical History: Coronary Artery Disease (CAD), Heart Failure, COPD, Hyperlipidemia, Hypertension, Myocardial Infarction (SD), Osteoarthritis (OA), Skin Disorder, Vascular Disorder Additional Past Medical History / Comment(s): Rheumatic fever X3, heart murmur, AAA, PAD. Last Myocardial Infarction Date:: unknown History of Any Multi-Drug Resistant Organisms: None Reported Past Surgical History: AICD, Bladder Surgery, Cholecystectomy, Heart Catheterization, Heart Catheterization With Stent, Hysterectomy, Pacemaker Additional Past Surgical History / Comment(s): Mitral and Aortic valve replacement, PIG & COW VALVE, BILATERAL CATARACTS, Bi-Ventricular ICD (ST NEENA), bilateral leg femoral bypass. Past Anesthesia/Blood Transfusion Reactions: No Reported Reaction Additional Past Anesthesia/Blood Transfusion Reaction / Comment(s): NO PROBLEMS WITH PRIOR BLOOD TRANSFUSIONS. Date of Last Stent Placement:: 08-14-17 Type of Cardiac Device: AICD Device Placement Date:: 09/30/17 Past Psychological History: Anxiety, Depression Smoking Status: Former smoker Past Alcohol Use History: None Reported Past Drug Use History: None Reported - Past Family History Mother Family Medical History: No Reported History Father Family Medical History: No Reported History, Pneumonia Sister(s) Family Medical History: Congestive Heart Failure (CHF) Daughter(s) Family Medical History: No Reported History Son(s) Family Medical History: No Reported History General Exam - General Exam Comments Initial Comments: GENERAL: Patient is well-developed and well-nourished. Patient is nontoxic and well- hydrated and is in mild distress. ENT: Neck is soft and supple. No significant lymphadenopathy is noted. Oropharynx is clear. Moist mucous membranes. Neck has full range of motion without eliciting any pain. EYES: The sclera were anicteric and conjunctiva were pink and moist. Extraocular movements were intact and pupils were equal round and reactive to light. Eyelids were unremarkable. PULMONARY: Unlabored respirations. Good breath sounds bilaterally. Patient has a slight expiratory wheeze CARDIOVASCULAR: There is a regular rate and rhythm without any murmurs gallops or rubs. ABDOMEN: Soft and nontender with normal bowel sounds. SKIN: Skin is clear with no lesions or rashes and otherwise unremarkable. NEUROLOGIC: Patient is alert and oriented x3. Cranial nerves II through XII are grossly intact. Motor and sensory are also intact. Normal speech, volume and content. Symmetrical smile. MUSCULOSKELETAL: Normal extremities with adequate strength and full range of motion. No lower extremity swelling or edema. No calf tenderness. LYMPHATICS: No significant lymphadenopathy is noted PSYCHIATRIC: Normal psychiatric evaluation. Limitations: no limitations Course Vital Signs 04/22/21 04/22/21 04/22/21 11:28 12:07 12:22 Temperature 97.7 F Pulse Rate 63 67 Respiratory 20 20 Rate Blood Pressure 113/55 O2 Sat by Pulse 95 Oximetry 04/22/21 12:30 Temperature Pulse Rate 65 Respiratory Rate Blood Pressure O2 Sat by Pulse Oximetry Medical Decision Making - Medical Decision Making EKG shows sinus rhythm at 65 bpm MO interval is 248 QRSs 166 QT intervals 518 QTC is 538 patient has a patient has a left bundle branch block. Patient's chest x-ray shows mild CHF. I will begin to reevaluate the patient I did give her 40 of Lasix. Patient did not want to stay in the hospital she could go home and try to increase her Lasix at home and so we agreed to the head and the patient will follow-up the primary medical care doctor and come back to the hospital for difficulty breathing worsens - Lab Data Result diagrams: 04/22/21 12:14 04/22/21 12:14 Lab Results 04/22/21 04/22/21 04/22/21 Range/Units 12:14 12:14 12:14 WBC 12.1 H (3.8-10.6) k/uL RBC 4.51 (3.80-5.40) m/uL Hgb 12.7 (11.4-16.0) gm/dL Hct 38.6 (34.0-46.0) % MCV 85.6 (80.0-100.0) fL MCH 28.1 (25.0-35.0) pg MCHC 32.8 (31.0-37.0) g/dL RDW 21.9 H (11.5-15.5) % Plt Count 212 (150-450) k/uL MPV 7.4 Neutrophils % 80 % Lymphocytes % 7 % Monocytes % 6 % Eosinophils % 5 % Basophils % 0 % Neutrophils # 9.7 H (1.3-7.7) k/uL Lymphocytes # 0.9 L (1.0-4.8) k/uL Monocytes # 0.7 (0-1.0) k/uL Eosinophils # 0.6 (0-0.7) k/uL Basophils # 0.1 (0-0.2) k/uL Poikilocytosis Slight Anisocytosis Moderate Microcytosis Slight PT 12.4 H (9.0-12.0) sec INR 1.2 H (<1.2) APTT 31.0 H (22.0-30.0) sec Sodium 137 (137-145) mmol/L Potassium 4.0 (3.5-5.1) mmol/L Chloride 98 (98-107) mmol/L Carbon Dioxide 28 (22-30) mmol/L Anion Gap 11 mmol/L BUN 24 H (7-17) mg/dL Creatinine 0.65 (0.52-1.04) mg/dL Est GFR (CKD-EPI)AfAm >90 (>60 ml/min/1.73 sqM) Est GFR (CKD-EPI)NonAf 83 (>60 ml/min/1.73 sqM) Glucose 114 H (74-99) mg/dL Plasma Lactic Acid Jian (0.7-2.0) mmol/L Calcium 9.7 (8.4-10.2) mg/dL Magnesium 1.6 (1.6-2.3) mg/dL Total Bilirubin 0.7 (0.2-1.3) mg/dL AST 32 (14-36) U/L ALT 14 (4-34) U/L Alkaline Phosphatase 84 (38-126) U/L Troponin I (0.000-0.034) ng/mL NT-Pro-B Natriuret Pep pg/mL Total Protein 7.6 (6.3-8.2) g/dL Albumin 4.6 (3.5-5.0) g/dL Urine Color Urine Appearance (Clear) Urine pH (5.0-8.0) Ur Specific [place] (1.001-1.035) Urine Protein (Negative) Urine Glucose (UA) (Negative) Urine Ketones (Negative) Urine Blood (Negative) Urine Nitrite (Negative) Urine Bilirubin (Negative) Urine Urobilinogen (<2.0) mg/dL Ur Leukocyte Esterase (Negative) Urine RBC (0-5) /hpf Urine WBC (0-5) /hpf Ur Squamous Epith Cells (0-4) /hpf Hyaline Casts (0-2) /lpf Urine Mucus (None) /hpf 04/22/21 04/22/21 04/22/21 Range/Units 12:14 12:14 12:14 WBC (3.8-10.6) k/uL RBC (3.80-5.40) m/uL Hgb (11.4-16.0) gm/dL Hct (34.0-46.0) % MCV (80.0-100.0) fL MCH (25.0-35.0) pg MCHC (31.0-37.0) g/dL RDW (11.5-15.5) % Plt Count (150-450) k/uL MPV Neutrophils % % Lymphocytes % % Monocytes % % Eosinophils % % Basophils % % Neutrophils # (1.3-7.7) k/uL Lymphocytes # (1.0-4.8) k/uL Monocytes # (0-1.0) k/uL Eosinophils # (0-0.7) k/uL Basophils # (0-0.2) k/uL Poikilocytosis Anisocytosis Microcytosis PT (9.0-12.0) sec INR (<1.2) APTT (22.0-30.0) sec Sodium (137-145) mmol/L Potassium (3.5-5.1) mmol/L Chloride (98-107) mmol/L Carbon Dioxide (22-30) mmol/L Anion Gap mmol/L BUN (7-17) mg/dL Creatinine (0.52-1.04) mg/dL Est GFR (CKD-EPI)AfAm (>60 ml/min/1.73 sqM) Est GFR (CKD-EPI)NonAf (>60 ml/min/1.73 sqM) Glucose (74-99) mg/dL Plasma Lactic Acid Jian 1.2 (0.7-2.0) mmol/L Calcium (8.4-10.2) mg/dL Magnesium (1.6-2.3) mg/dL Total Bilirubin (0.2-1.3) mg/dL AST (14-36) U/L ALT (4-34) U/L Alkaline Phosphatase (38-126) U/L Troponin I 0.021 (0.000-0.034) ng/mL NT-Pro-B Natriuret Pep 2150 pg/mL Total Protein (6.3-8.2) g/dL Albumin (3.5-5.0) g/dL Urine Color Urine Appearance (Clear) Urine pH (5.0-8.0) Ur Specific [place] (1.001-1.035) Urine Protein (Negative) Urine Glucose (UA) (Negative) Urine Ketones (Negative) Urine Blood (Negative) Urine Nitrite (Negative) Urine Bilirubin (Negative) Urine Urobilinogen (<2.0) mg/dL Ur Leukocyte Esterase (Negative) Urine RBC (0-5) /hpf Urine WBC (0-5) /hpf Ur Squamous Epith Cells (0-4) /hpf Hyaline Casts (0-2) /lpf Urine Mucus (None) /hpf 04/22/21 Range/Units 13:00 WBC (3.8-10.6) k/uL RBC (3.80-5.40) m/uL Hgb (11.4-16.0) gm/dL Hct (34.0-46.0) % MCV (80.0-100.0) fL MCH (25.0-35.0) pg MCHC (31.0-37.0) g/dL RDW (11.5-15.5) % Plt Count (150-450) k/uL MPV Neutrophils % % Lymphocytes % % Monocytes % % Eosinophils % % Basophils % % Neutrophils # (1.3-7.7) k/uL Lymphocytes # (1.0-4.8) k/uL Monocytes # (0-1.0) k/uL Eosinophils # (0-0.7) k/uL Basophils # (0-0.2) k/uL Poikilocytosis Anisocytosis Microcytosis PT (9.0-12.0) sec INR (<1.2) APTT (22.0-30.0) sec Sodium (137-145) mmol/L Potassium (3.5-5.1) mmol/L Chloride (98-107) mmol/L Carbon Dioxide (22-30) mmol/L Anion Gap mmol/L BUN (7-17) mg/dL Creatinine (0.52-1.04) mg/dL Est GFR (CKD-EPI)AfAm (>60 ml/min/1.73 sqM) Est GFR (CKD-EPI)NonAf (>60 ml/min/1.73 sqM) Glucose (74-99) mg/dL Plasma Lactic Acid Jian (0.7-2.0) mmol/L Calcium (8.4-10.2) mg/dL Magnesium (1.6-2.3) mg/dL Total Bilirubin (0.2-1.3) mg/dL AST (14-36) U/L ALT (4-34) U/L Alkaline Phosphatase (38-126) U/L Troponin I (0.000-0.034) ng/mL NT-Pro-B Natriuret Pep pg/mL Total Protein (6.3-8.2) g/dL Albumin (3.5-5.0) g/dL Urine Color Light Yellow Urine Appearance Clear (Clear) Urine pH 6.0 (5.0-8.0) Ur Specific [place] 1.008 (1.001-1.035) Urine Protein Negative (Negative) Urine Glucose (UA) Negative (Negative) Urine Ketones Negative (Negative) Urine Blood Negative (Negative) Urine Nitrite Negative (Negative) Urine Bilirubin Negative (Negative) Urine Urobilinogen <2.0 (<2.0) mg/dL Ur Leukocyte Esterase Small H (Negative) Urine RBC 1 (0-5) /hpf Urine WBC 5 (0-5) /hpf Ur Squamous Epith Cells 2 (0-4) /hpf Hyaline Casts 7 H (0-2) /lpf Urine Mucus Rare H (None) /hpf Disposition Clinical Impression: Congestive heart failure Disposition: HOME SELF-CARE Instructions (If sedation given, give patient instructions): Heart Failure (ER) Additional Instructions: Patient should take another Lasix in the evening for the next 4 days. Patient should take breathing treatments 3 times a day. Patient needs to return for any difficulty breathing Patient is to follow up with a primary medical care doctor on Saturday. Is patient prescribed a controlled substance at d/c from ED?: No Referrals: Roxie Shaw MD [Primary Care Provider] - 1-2 days Time of Disposition: 13:39
--- NOTE | 2021-04-22 12:11 | XR ---
EXAMINATION TYPE: XR chest 2V DATE OF EXAM: 04/22/2021 COMPARISON: 03/31/2021 HISTORY: Shortness of breath TECHNIQUE: Frontal and lateral views of the chest are obtained. FINDINGS: There is mild interstitial prominence and probable small bilateral pleural effusions. Comb ination with a 2-lead cardiac pacemaker and mild to moderate cardiomegaly the findings are most consi stent with mild CHF. There is no pneumothorax. The osseous structures and soft tissues are unremarkable IMPRESSION: Findings most consistent with mild CHF as described above. Clinical correlation is recom mended.
[2021-04-22 12:32] LABS: Anisocytosis Moderate; Basophils # (A) 0.1 k/uL (0-0.2); Basophils % (A) 0 %; Eosinophils # (A) 0.6 k/uL (0-0.7); Eosinophils % (A) 5 %; HCT 38.6 % (34.0-46.0); HGB 12.7 gm/dL (11.4-16.0); Lymphocytes # (A) 0.9 k/uL (1.0-4.8); Lymphocytes % (A) 7 %; MCH 28.1 pg (25.0-35.0); MCHC 32.8 g/dL (31.0-37.0); MCV 85.6 fL (80.0-100.0); Mean Platelet Volume 7.4; Microcytosis Slight; Monocytes # (A) 0.7 k/uL (0-1.0); Monocytes % (A) 6 %; Neutrophils # (A) 9.7 k/uL (1.3-7.7); Neutrophils % (A) 80 %; Platelet Count 212 k/uL (150-450); Poikilocytosis Slight; RBC 4.51 m/uL (3.80-5.40); RDW 21.9 % (11.5-15.5); WBC 12.1 k/uL (3.8-10.6)
[2021-04-22 12:42] LABS: ALT 14 U/L (4-34); AST 32 U/L (14-36); African American GFR (CKD) >90 (>60 ml/min/1.73 sqM); Albumin 4.6 g/dL (3.5-5.0); Alkaline Phosphatase 84 U/L (38-126); Anion Gap 11 mmol/L; Blood Urea Nitrogen 24 mg/dL (7-17); Calcium 9.7 mg/dL (8.4-10.2); Carbon Dioxide 28 mmol/L (22-30); Chloride 98 mmol/L (98-107); Glucose 114 mg/dL (74-99); Magnesium 1.6 mg/dL (1.6-2.3); Non-African American GFR(CKD) 83 (>60 ml/min/1.73 sqM); Sodium 137 mmol/L (137-145); Total Bilirubin 0.7 mg/dL (0.2-1.3); Total Protein 7.6 g/dL (6.3-8.2)
[2021-04-22 12:52] LABS: INR 1.2 (<1.2); Prothrombin Time 12.4 sec (9.0-12.0)
[2021-04-22 13:28] LABS: Appearance,Urine Clear (Clear); Bilirubin,Urine Negative (Negative); Blood,Urine Negative (Negative); Color,Urine Light Yellow; Glucose,Urine (UA) Negative (Negative); Hyaline Casts,Urine 7 /lpf (0-2); Ketones,Urine Negative (Negative); Leukocyte Esterase,Urine Small (Negative); Mucus,Urine Rare /hpf; Nitrite,Urine Negative (Negative); Protein,Urine Negative (Negative); RBC,Urine 1 /hpf (0-5); Specific Gravity,Urine 1.008 (1.001-1.035); Squamous Epithelial Cell,Urine 2 /hpf (0-4); Urobilinogen,Urine <2.0 mg/dL (<2.0); WBC,Urine 5 /hpf (0-5)
[2021-04-22] MEDS ORDERED: FUROSEMIDE 10 MG/ML 4 ML VIAL IV STA (13:36)
[2021-04-22 13:58] VITALS: BP 118/45; PULSE 64; RESP 18
== END 2021-04-22 14:25 | disposition home or self-care (01) ==
LOC: EC 11:18
DX: I11.0 Hypertensive heart disease with heart failure (principal); I50.9 Heart failure, unspecified; J44.9 Chronic obstructive pulmonary disease, unspecified; E78.5 Hyperlipidemia, unspecified; Z79.899 Other long term (current) drug therapy; I25.2 Old myocardial infarction; Z87.891 Personal history of nicotine dependence; Z95.0 Presence of cardiac pacemaker; Z95.2 Presence of prosthetic heart valve; Z95.5 Presence of coronary angioplasty implant and graft; Z79.02 Long term (current) use of antithrombotics/antiplatelets; Z79.51 Long term (current) use of inhaled steroids; I25.10 Atherosclerotic heart disease of native coronary artery without angina pectoris
CPT/HCPCS: 99284; 96374; 36415; 94640; 93005; 83880; 80053; 83605; 83735; 84484; 85025; 85610; 85730; 81001; 71046; J1940

== ENCOUNTER → 2021-05-16 | Outpatient (CLI) | payer MEDICARE, OTHER ==
--- NOTE | 2021-05-17 14:41 | BD ---
EXAMINATION TYPE: Axial Bone Density DATE OF EXAM: 05/16/2021 COMPARISON: NONE CLINICAL HISTORY: Postmenopausal female Height: 5 FT 4 IN Weight: 137 FRAX RISK QUESTIONS: Alcohol (3 or more units per day): NO Family History (Parent hip fracture): NO Glucocorticoids (More than 3mos): NO (Ex: prednisone, prednisolone, methylprednisolone, dexamethasone, and hydrocortisone). History of Fracture in Adulthood: YES Secondary Osteoporosis: 1. Type 1 Diabetes: NO 2. Hyperthyroidism: NO 3. Menopause before 45: NO 4. Malnutrition: NO 5. Chronic liver disease: NO Rheumatoid Arthritis: YES Current Tobacco Use: NO RISK FACTORS HISTORY OF: Surgery to Spine/Hip(right/left)/Wrist (right/left): NO Family History of Osteoporosis: NO Active: YES Diet low in dairy products/other sources of calcium: NO Postmenopausal woman: AGE [age] Take estrogen and/or progesterone medications: NO Lost more than 2 inches in height since high school: YES Poor Health: COPD MEDICATIONS: Additional Medications: , VITAMINS, CHOLESTEROL MEDS, ZOLOFT, PRILOSEC, ZETIA,GABAPENTIN, LISINOPRIL, LOPRESSOR, ZOCOR, XERALTO, ALDACTONE,LASIX, METHENAMINE, Additional History: RIGHT CARPAL TUNNEL SURG EXAM MEASUREMENTS: Bone mineral densitometry was performed using the [employer] [facility]. Bone mineral density as measured about the Lumbar spine is: ----- L1-L4(G/cm2): 1.071 T Score Values are as follows: ----- L2: -1.2 ----- L3: -0.6 ----- L4: -0.4 ----- L1-L4: -0.9 Bone mineral density has: INCREASED 5.5 % since study of: 2014 Bone mineral density about the R hip (g/cm2): 0.873 Bone mineral density about the L hip (g/cm2): 0.804 T Score values are as follows: -----R Neck: -1.2 -----L Neck: -1.7 -----R Total: -2.1 -----L Total: -2.1 Bone mineral density has: DECREASED -7.8 % since study of: 2014 IMPRESSION: Osteopenia (T Score between -2.5 and -1). There is slightly increased risk of fracture and the patient may be considered for treatment. Re-Screen 2-5 years. NOTE: T-SCORE=SD OF THE YOUNG ADULT MEAN.
== END | disposition home or self-care (01) ==
LOC: RADBDWWP 14:35
PROVIDERS: ATTEND Family Medicine
DX: Z13.820 Encounter for screening for osteoporosis (principal); M85.80 Other specified disorders of bone density and structure, unspecified site; Z78.0 Asymptomatic menopausal state
CPT/HCPCS: 77080

== ENCOUNTER → 2021-08-18 | Outpatient (CLI) | payer MEDICARE, OTHER ==
[2021-08-18 16:33] LABS: African American GFR (CKD) >90 (>60 ml/min/1.73 sqM); Blood Urea Nitrogen 16 mg/dL (7-17); Non-African American GFR(CKD) 85 (>60 ml/min/1.73 sqM)
--- NOTE | 2021-08-19 07:37 | CT ---
EXAMINATION TYPE: CT brain w con DATE OF EXAM: 08/18/2021 COMPARISON: CT brain December 16, 2015 HISTORY: left sided head pain and dizziness following fall injury. CT DLP: 1098.8 mGycm Automated exposure control for dose reduction was used. CONTRAST: CT scan of the head is performed with IV Contrast, patient injected with 100 mL of Isovue 300. FINDINGS: There is no abnormal enhancing mass or midline shift identified. Mild ventricular and sulcal prominen ce is redemonstrated. More prominent low attenuation deep and periventricular white matter is seen. The calvarium is intact. The globes are intact and the visualized sinuses are clear. Vascular calcifi cations distal internal carotid arteries is present. IMPRESSION: Mild diffuse cerebral atrophy with fairly advanced chronic small vessel ischemic change. Some progression in the latter from 2016 study noted. No abnormal enhancing masses.
== END | disposition home or self-care (01) ==
LOC: RADCTMAIN 15:48
PROVIDERS: ATTEND Family Medicine
DX: G31.9 Degenerative disease of nervous system, unspecified (principal); I10 Essential (primary) hypertension
CPT/HCPCS: 82565; 84520; 70460; 36415; Q9967

== ENCOUNTER 2021-08-19 12:57 | Observation (INO) | payer MEDICARE, OTHER ==
[2021-08-19 14:33] LABS: Basophils % (A) 0 %; Eosinophils # (A) 0.2 k/uL (0-0.7); Eosinophils % (A) 1 %; HCT 34.6 % (34.0-46.0); HGB 11.9 gm/dL (11.4-16.0); Lymphocytes # (A) 0.8 k/uL (1.0-4.8); Lymphocytes % (A) 4 %; MCH 32.5 pg (25.0-35.0); MCHC 34.5 g/dL (31.0-37.0); MCV 94.2 fL (80.0-100.0); Mean Platelet Volume 7.8; Monocytes # (A) 0.6 k/uL (0-1.0); Monocytes % (A) 3 %; Neutrophils # (A) 18.3 k/uL (1.3-7.7); Neutrophils % (A) 91 %; Platelet Count 201 k/uL (150-450); RBC 3.67 m/uL (3.80-5.40); RDW 13.6 % (11.5-15.5); WBC 20.1 k/uL (3.8-10.6)
--- NOTE | 2021-08-19 14:36 | ED ---
General Adult HPI - General Chief complaint: Shortness of Breath Stated complaint: vomitting,UTI symptoms.SOB,Headache Time Seen by Provider: 08/19/21 13:58 Source: patient Mode of arrival: wheelchair Limitations: no limitations - History of Present Illness Initial comments: 80 year-old female patient presents to the emergency department for evaluation o f shortness of breath and headaches. Apparently patient had fall a couple of weeks ago and has been having increased frequency of headaches since then. She reports a throbbing sensation to the back of her head when the headache is present. Denies any blurred or double vision. She did have outpatient CT scan yesterday, does not yet have results. States she had two episodes of vomiting this morning. Has been feeling nauseated. States that she developed some shortness of breath. States she is unable to describe the sensation but feels like she can get enough air. Denies any chest pain or tightness. She is reporting generalized weakness. No focal weakness. Denies numbness or tingling to the extremities. Patient denies any recent rash, fever, chills, cough, abdominal pain, nausea, vomiting, diarrhea, constipation, back pain, hematuria, dysuria, urinary urgency, urinary frequency, or any other complaints. - Related Data Home Medications Medication Instructions Recorded Confirmed Lisinopril [Prinivil] 10 mg PO DAILY 08/02/14 08/19/21 Metoprolol Tartrate [Lopressor] 75 mg PO BID 07/31/17 08/19/21 Sertraline [Zoloft] 75 mg PO HS 07/31/17 08/19/21 Simvastatin [Zocor] 40 mg PO HS 07/31/17 08/19/21 Spironolactone [Aldactone] 25 mg PO DAILY 08/13/17 08/19/21 Cyanocobalamin [Vitamin B-12] 500 mcg PO DAILY 03/03/20 08/19/21 Albuterol Sulfate [Ventolin HFA] 2 puff INHALATION RT-QID PRN 03/17/20 08/19/21 Gabapentin [Neurontin] 100 mg PO BID 03/17/20 08/19/21 ALPRAZolam [Xanax] 0.25 mg PO DAILY PRN 02/26/21 08/19/21 Albuterol Nebulized [Ventolin 2.5 mg INHALATION RT-Q6H PRN 02/26/21 08/19/21 Nebulized] Ascorbic Acid [Vitamin C] 1,000 mg PO DAILY 02/26/21 08/19/21 Ezetimibe [Zetia] 10 mg PO HS 02/26/21 08/19/21 Fluticasone Propion/Salmeterol 1 puff INHALATION RT-BID 02/26/21 08/19/21 [Wixela 250-50 Inhub] Megared 500mg 500 mg PO DAILY 02/26/21 08/19/21 Methenamine Hippurate [Hiprex] 1 gm PO BID 02/26/21 08/19/21 Multivitamins, Thera [Multivitamin 1 tab PO DAILY 02/26/21 08/19/21 (formulary)] Rivaroxaban [Xarelto] 20 mg PO DIRECTED 02/27/21 08/19/21 Cholecalciferol [Vitamin D3 (25 25 mcg PO DAILY 08/19/21 08/19/21 Mcg = 1000 Iu)] Lactobacillus Acidophilus 1 cap PO DAILY 08/19/21 08/19/21 [Florajen Acidophilus] Nitrofurantoin Monohyd/M-Cryst 100 mg PO BID 08/19/21 08/19/21 [Macrobid] Omeprazole 20 mg PO DAILY 08/19/21 08/19/21 Previous Rx's Medication Instructions Recorded Acetaminophen Tab [Tylenol] 650 mg PO Q6HR PRN tab 03/02/21 Furosemide [Lasix] 40 mg PO DAILY 30 Days #30 tab 03/31/21 Allergies Allergy/AdvReac Type Severity Reaction Status Date / Time No Known Allergies Allergy Verified 08/19/21 13:24 Review of Systems ROS Statement: Those systems with pertinent positive or pertinent negative responses have been documented in the HPI. ROS Other: All systems not noted in ROS Statement are negative. Past Medical History Past Medical History: Coronary Artery Disease (CAD), Heart Failure, COPD, Hyperlipidemia, Hypertension, Myocardial Infarction (CT), Osteoarthritis (OA), Skin Disorder, Vascular Disorder Additional Past Medical History / Comment(s): Rheumatic fever X3, heart murmur, AAA, PAD. Last Myocardial Infarction Date:: unknown History of Any Multi-Drug Resistant Organisms: None Reported Past Surgical History: AICD, Bladder Surgery, Cholecystectomy, Heart Cath eterization, Heart Catheterization With Stent, Hysterectomy, Pacemaker Additional Past Surgical History / Comment(s): Mitral and Aortic valve replacement, PIG & COW VALVE, BILATERAL CATARACTS, Bi-Ventricular ICD (ST NEENA), bilateral leg femoral bypass. Past Anesthesia/Blood Transfusion Reactions: No Reported Reaction Additional Past Anesthesia/Blood Transfusion Reaction / Comment(s): NO PROBLEMS WITH PRIOR BLOOD TRANSFUSIONS. Date of Last Stent Placement:: 08-14-17 Type of Cardiac Device: AICD Device Placement Date:: 09/30/17 Past Psychological History: Anxiety, Depression Smoking Status: Former smoker Past Alcohol Use History: None Reported Past Drug Use History: None Reported - Past Family History Mother Family Medical History: No Reported History Father Family Medical History: No Reported History, Pneumonia Sister(s) Family Medical History: Congestive Heart Failure (CHF) Daughter(s) Family Medical History: No Reported History Son(s) Family Medical History: No Reported History General Exam Limitations: no limitations General appearance: alert, in no apparent distress, other (This is a well- developed, well-nourished elderly female patient in no acute distress. Vital signs upon presentation temperature 99.0F, pulse 78, respirations 16, blood pressure 116/46, pulse ox 94% on room air.) Eye exam: Present: normal appearance, PERRL, EOMI. Absent: scleral icterus, conjunctival injection, periorbital swelling ENT exam: Present: normal exam, normal oropharynx, mucous membranes moist Respiratory exam: Present: normal lung sounds bilaterally. Absent: respiratory distress, wheezes, rales, rhonchi, stridor Cardiovascular Exam: Present: regular rate, normal rhythm, normal heart sounds. Absent: systolic murmur, diastolic murmur, rubs, gallop, clicks GI/Abdominal exam: Present: soft, normal bowel sounds. Absent: distended, tenderness, guarding, rebound, rigid Neurological exam: Present: alert, oriented X3, CN II-XII intact Expanded Speech: Present: fluid speech Cranial nerves: EOM's Intact: Normal, Nystagmus: Normal Motor strength exam: RUE: 5, LUE: 5, RLE: 5, LLE: 5 Psychiatric exam: Present: normal affect, normal mood Skin exam: Present: warm, dry, intact, normal color. Absent: rash Course Vital Signs 08/19/21 08/19/21 08/19/21 13:21 14:24 14:27 Temperature 99 F Pulse Rate 78 Respiratory 16 20 20 Rate Blood Pressure 116/46 O2 Sat by Pulse 94 L Oximetry 08/19/21 08/19/21 08/19/21 15:00 16:00 17:00 Temperature Pulse Rate 67 81 72 Respiratory 18 18 18 Rate Blood Pressure 122/57 O2 Sat by Pulse 96 96 96 Oximetry 08/19/21 08/19/21 18:00 18:29 Temperature 99 F Pulse Rate 78 78 Respiratory 18 18 Rate Blood Pressure 139/58 139/58 O2 Sat by Pulse 96 96 Oximetry EKG Findings - EKG Comments: EKG Findings:: EKG obtained at 1401 shows atrioventricular paced rhythm with a ventricular rate of 78, MS interval 152, QRS duration 170, QTC 492, QTc 560. Medical Decision Making - Medical Decision Making 80-year-old female patient presented to the emergency department today for evaluation of shortness of breath. Had episode of vomiting this morning. Diagnosed with UTI couple days ago. Has been having headaches, negative outpatient CT of the brain. Labs reviewed and did reveal white blood cell count of 20.1, d-dimer was 1.34, potassium 3.4, urinalysis did show evidence for infection. Negative COVID-19 test. We did do CT chest angiography was negative for pulmonary embolism or any other abnormalities. Given patient's symptoms a nd presence of UTI elevated white blood cell count of May for IV antibiotics and further evaluation and monitoring. Patient is agreeable this plan. Case discussed in my attending Dr. Ashby. - Lab Data Result diagrams: 08/19/21 14:23 08/19/21 14:23 Lab Results 08/19/21 08/19/21 08/19/21 Range/Units 14:23 14:23 14:23 WBC 20.1 H (3.8-10.6) k/uL RBC 3.67 L (3.80-5.40) m/uL Hgb 11.9 (11.4-16.0) gm/dL Hct 34.6 (34.0-46.0) % MCV 94.2 (80.0-100.0) fL MCH 32.5 (25.0-35.0) pg MCHC 34.5 (31.0-37.0) g/dL RDW 13.6 (11.5-15.5) % Plt Count 201 (150-450) k/uL MPV 7.8 Neutrophils % 91 % Lymphocytes % 4 % Monocytes % 3 % Eosinophils % 1 % Basophils % 0 % Neutrophils # 18.3 H (1.3-7.7) k/uL Lymphocytes # 0.8 L (1.0-4.8) k/uL Monocytes # 0.6 (0-1.0) k/uL Eosinophils # 0.2 (0-0.7) k/uL Basophils # 0.0 (0-0.2) k/uL PT 12.2 H (9.0-12.0) sec INR 1.2 H (<1.2) APTT 29.6 (22.0-30.0) sec D-Dimer 1.34 H (<0.60) mg/L FEU Sodium 138 (137-145) mmol/L Potassium 3.4 L (3.5-5.1) mmol/L Chloride 99 (98-107) mmol/L Carbon Dioxide 29 (22-30) mmol/L Anion Gap 10 mmol/L BUN 17 (7-17) mg/dL Creatinine 0.56 (0.52-1.04) mg/dL Est GFR (CKD-EPI)AfAm >90 (>60 ml/min/1.73 sqM) Est GFR (CKD-EPI)NonAf 87 (>60 ml/min/1.73 sqM) Glucose 128 H (74-99) mg/dL Plasma Lactic Acid Jian (0.7-2.0) mmol/L Calcium 9.5 (8.4-10.2) mg/dL Magnesium 1.7 (1.6-2.3) mg/dL Total Bilirubin 1.0 (0.2-1.3) mg/dL AST 43 H (14-36) U/L ALT 20 (4-34) U/L Alkaline Phosphatase 77 (38-126) U/L Troponin I (0.000-0.034) ng/mL Total Protein 7.4 (6.3-8.2) g/dL Albumin 4.4 (3.5-5.0) g/dL Urine Color Urine Appearance (Clear) Urine pH (5.0-8.0) Ur Specific Josephine (1.001-1.035) Urine Protein (Negative) Urine Glucose (UA) (Negative) Urine Ketones (Negative) Urine Blood (Negative) Urine Nitrite (Negative) Urine Bilirubin (Negative) Urine Urobilinogen (<2.0) mg/dL Ur Leukocyte Esterase (Negative) Urine RBC (0-5) /hpf Urine WBC (0-5) /hpf Urine WBC Clumps (None) /hpf Ur Squamous Epith Cells (0-4) /hpf Hyaline Casts (0-2) /lpf Urine Mucus (None) /hpf Urine Yeast (Budding) (None) /hpf Coronavirus (PCR) (Not Detectd) 08/19/21 08/19/21 08/19/21 Range/Units 14:23 14:23 14:24 WBC (3.8-10.6) k/uL RBC (3.80-5.40) m/uL Hgb (11.4-16.0) gm/dL Hct (34.0-46.0) % MCV (80.0-100.0) fL MCH (25.0-35.0) pg MCHC (31.0-37.0) g/dL RDW (11.5-15.5) % Plt Count (150-450) k/uL MPV Neutrophils % % Lymphocytes % % Monocytes % % Eosinophils % % Basophils % % Neutrophils # (1.3-7.7) k/uL Lymphocytes # (1.0-4.8) k/uL Monocytes # (0-1.0) k/uL Eosinophils # (0-0.7) k/uL Basophils # (0-0.2) k/uL PT (9.0-12.0) sec INR (<1.2) APTT (22.0-30.0) sec D-Dimer (<0.60) mg/L FEU Sodium (137-145) mmol/L Potassium (3.5-5.1) mmol/L Chloride (98-107) mmol/L Carbon Dioxide (22-30) mmol/L Anion Gap mmol/L BUN (7-17) mg/dL Creatinine (0.52-1.04) mg/dL Est GFR (CKD-EPI)AfAm (>60 ml/min/1.73 sqM) Est GFR (CKD-EPI)NonAf (>60 ml/min/1.73 sqM) Glucose (74-99) mg/dL Plasma Lactic Acid Jian 1.3 (0.7-2.0) mmol/L Calcium (8.4-10.2) mg/dL Magnesium (1.6-2.3) mg/dL Total Bilirubin (0.2-1.3) mg/dL AST (14-36) U/L ALT (4-34) U/L Alkaline Phosphatase (38-126) U/L Troponin I <0.012 (0.000-0.034) ng/mL Total Protein (6.3-8.2) g/dL Albumin (3.5-5.0) g/dL Urine Color Urine Appearance (Clear) Urine pH (5.0-8.0) Ur Specific Josephine (1.001-1.035) Urine Protein (Negative) Urine Glucose (UA) (Negative) Urine Ketones (Negative) Urine Blood (Negative) Urine Nitrite (Negative) Urine Bilirubin (Negative) Urine Urobilinogen (<2.0) mg/dL Ur Leukocyte Esterase (Negative) Urine RBC (0-5) /hpf Urine WBC (0-5) /hpf Urine WBC Clumps (None) /hpf Ur Squamous Epith Cells (0-4) /hpf Hyaline Casts (0-2) /lpf Urine Mucus (None) /hpf Urine Yeast (Budding) (None) /hpf Coronavirus (PCR) Not Detected (Not Detectd) 08/19/21 Range/Units 15:05 WBC (3.8-10.6) k/uL RBC (3.80-5.40) m/uL Hgb (11.4-16.0) gm/dL Hct (34.0-46.0) % MCV (80.0-100.0) fL MCH (25.0-35.0) pg MCHC (31.0-37.0) g/dL RDW (11.5-15.5) % Plt Count (150-450) k/uL MPV Neutrophils % % Lymphocytes % % Monocytes % % Eosinophils % % Basophils % % Neutrophils # (1.3-7.7) k/uL Lymphocytes # (1.0-4.8) k/uL Monocytes # (0-1.0) k/uL Eosinophils # (0-0.7) k/uL Basophils # (0-0.2) k/uL PT (9.0-12.0) sec INR (<1.2) APTT (22.0-30.0) sec D-Dimer (<0.60) mg/L FEU Sodium (137-145) mmol/L Potassium (3.5-5.1) mmol/L Chloride (98-107) mmol/L Carbon Dioxide (22-30) mmol/L Anion Gap mmol/L BUN (7-17) mg/dL Creatinine (0.52-1.04) mg/dL Est GFR (CKD-EPI)AfAm (>60 ml/min/1.73 sqM) Est GFR (CKD-EPI)NonAf (>60 ml/min/1.73 sqM) Glucose (74-99) mg/dL Plasma Lactic Acid Jian (0.7-2.0) mmol/L Calcium (8.4-10.2) mg/dL Magnesium (1.6-2.3) mg/dL Total Bilirubin (0.2-1.3) mg/dL AST (14-36) U/L ALT (4-34) U/L Alkaline Phosphatase (38-126) U/L Troponin I (0.000-0.034) ng/mL Total Protein (6.3-8.2) g/dL Albumin (3.5-5.0) g/dL Urine Color Yellow Urine Appearance Cloudy H (Clear) Urine pH 6.0 (5.0-8.0) Ur Specific Josephine 1.023 (1.001-1.035) Urine Protein Trace H (Negative) Urine Glucose (UA) Negative (Negative) Urine Ketones Negative (Negative) Urine Blood Negative (Negative) Urine Nitrite Negative (Negative) Urine Bilirubin Negative (Negative) Urine Urobilinogen <2.0 (<2.0) mg/dL Ur Leukocyte Esterase Large H (Negative) Urine RBC 1 (0-5) /hpf Urine WBC 99 H (0-5) /hpf Urine WBC Clumps Few H (None) /hpf Ur Squamous Epith Cells 8 H (0-4) /hpf Hyaline Casts 1 (0-2) /lpf Urine Mucus Rare H (None) /hpf Urine Yeast (Budding) Rare H (None) /hpf Coronavirus (PCR) (Not Detectd) - Radiology Data Radiology results: report reviewed, image reviewed CT chest angiography for pulmonary embolus and was obtained. Report was reviewed in its entirety. Impression by Dr. Perez shows no evidence of pulmonary embolism. There is clearing of the pleural effusions compared to old exam. Pulmonary emphysema. Cardiomegaly unchanged. This is consistent with improvement and congestive heart failure. Chest x-ray is obtained. Report was reviewed in its entirety. Impression by Dr. Cobb shows cardiomegaly. No active cardiopulmonary disease. No change. Disposition Clinical Impression: Vomiting, UTI (urinary tract infection), Dehydration Disposition: ADMITTED IP TO THIS HOSP Condition: Serious Decision to Admit Reason: Admit from EC Decision Date: 08/19/21 Decision Time: 17:21
--- NOTE | 2021-08-19 14:46 | XR ---
EXAMINATION TYPE: XR chest 2V DATE OF EXAM: 08/19/2021 COMPARISON: 04/22/2021 HISTORY: Short of breath TECHNIQUE: 2 views FINDINGS: Heart is enlarged. There is no heart failure. There is left axillary pacemaker. There are c hest leads. There are sternal wires. Costophrenic angles are clear. IMPRESSION: Cardiomegaly. No active cardiopulmonary disease. No change.
[2021-08-19 14:48] LABS: ALT 20 U/L (4-34); AST 43 U/L (14-36); African American GFR (CKD) >90 (>60 ml/min/1.73 sqM); Albumin 4.4 g/dL (3.5-5.0); Alkaline Phosphatase 77 U/L (38-126); Anion Gap 10 mmol/L; Blood Urea Nitrogen 17 mg/dL (7-17); Calcium 9.5 mg/dL (8.4-10.2); Carbon Dioxide 29 mmol/L (22-30); Chloride 99 mmol/L (98-107); Glucose 128 mg/dL (74-99); Magnesium 1.7 mg/dL (1.6-2.3); Non-African American GFR(CKD) 87 (>60 ml/min/1.73 sqM); Potassium 3.4 mmol/L (3.5-5.1); Sodium 138 mmol/L (137-145); Total Protein 7.4 g/dL (6.3-8.2)
[2021-08-19 15:13] LABS: INR 1.2 (<1.2); Partial Thromboplastin Time 29.6 sec (22.0-30.0); Prothrombin Time 12.2 sec (9.0-12.0)
[2021-08-19 15:37] LABS: Appearance,Urine Cloudy (Clear); Bilirubin,Urine Negative (Negative); Blood,Urine Negative (Negative); Budding Yeast,Urine Rare /hpf; Color,Urine Yellow; Glucose,Urine (UA) Negative (Negative); Hyaline Casts,Urine 1 /lpf (0-2); Ketones,Urine Negative (Negative); Leukocyte Esterase,Urine Large (Negative); Mucus,Urine Rare /hpf; Nitrite,Urine Negative (Negative); Protein,Urine Trace (Negative); RBC,Urine 1 /hpf (0-5); Specific Gravity,Urine 1.023 (1.001-1.035); Squamous Epithelial Cell,Urine 8 /hpf (0-4); Urobilinogen,Urine <2.0 mg/dL (<2.0); WBC,Urine 99 /hpf (0-5)
[2021-08-19] MEDS ORDERED: SODIUM CHLORIDE 0.9% 500 ML 500 ML IV ONE (15:47)
--- NOTE | 2021-08-19 16:55 | CT ---
EXAMINATION TYPE: CT chest angio for PE DATE OF EXAM: 08/19/2021 COMPARISON: 02/26/2021 HISTORY: SOB. Hx heart disease, HTN, heart cath, pacemaker. CT DLP: 255.1 mGycm Automated exposure control for dose reduction was used. CONTRAST: Performed with IV Contrast, patient injected with 100 mL of Isovue 370. There are 3-D post processed images. There is pulmonary emphysema. There are sternal wires. There is left axillary pacemaker. There is aor tic valve surgery. Heart is enlarged. There is no pleural effusion. There is some coarsening of inter stitial pulmonary markings. Thoracic aorta is atheromatous. There is no aneurysm or dissection. There is normal contrast opacific ation of the pulmonary arteries. There are no filling defects. Thoracic spine is intact. There is no compression fracture. IMPRESSION: No evidence of pulmonary embolism. There is clearing of the pleural effusions compared to old exam. Pulmonary emphysema. Cardiomegaly unchanged. This is consistent with improvement in congestive heart failure.
[2021-08-19] MEDS ORDERED: ONDANSETRON 4 MG/2 ML VIAL IVP PRN (17:14)
[2021-08-19] MEDS ORDERED: NALOXONE 0.4 MG/ML 1 ML VIAL IV PRN (17:14)
[2021-08-19] MEDS ORDERED: cefTRIAXone IN SWFI 1,000 MG/10 ML SYRINGE IVP STA (17:17)
[2021-08-20 06:03] LABS: Basophils # (A) 0.1 k/uL (0-0.2); Basophils % (A) 1 %; Eosinophils # (A) 0.4 k/uL (0-0.7); Eosinophils % (A) 4 %; HCT 32.4 % (34.0-46.0); HGB 11.2 gm/dL (11.4-16.0); Lymphocytes # (A) 0.6 k/uL (1.0-4.8); Lymphocytes % (A) 5 %; MCH 33.1 pg (25.0-35.0); MCHC 34.6 g/dL (31.0-37.0); MCV 95.6 fL (80.0-100.0); Mean Platelet Volume 7.6; Monocytes # (A) 0.4 k/uL (0-1.0); Monocytes % (A) 4 %; Neutrophils # (A) 9.6 k/uL (1.3-7.7); Neutrophils % (A) 86 %; Platelet Count 178 k/uL (150-450); RBC 3.38 m/uL (3.80-5.40); RDW 13.6 % (11.5-15.5); WBC 11.2 k/uL (3.8-10.6)
[2021-08-20 11:43] VITALS: BP 94/56; PULSE 50; RESP 16; TEMP 98.2
[2021-08-20] MEDS ORDERED: POTASSIUM CHLORIDE ER 20 MEQ TAB.ER PO STA (13:22)
--- NOTE | 2021-08-20 15:23 | P.HPIM ---
History of Present Illness Patient is a pleasant 80-year-old female came in with complaints of nausea vomiting and some shortness of breath along with some headaches. Patient is also found to have fever and leukocytosis. Covid 19 was negative. Patient's urine was abnormal patient white blood cell count was 20,000 patient had history of frequent UTIs in the past recent one showing Klebsiella oxytoca which is sensitive to second and third generation cephalosporins. Patient received IV antibiotics at his [facility] with significant improvement in white blood cell count and fever. Patient is requesting to go home. Since a significant improvement with the Rocephin with all her symptoms patient will be discharged on Ceftin twice a day for 4 more days. Will follow-up on the urine cultures. Patient had a CT angios to rule out pulmonary embolism which did not show any PE or any pneumonia. REVIEW OF SYSTEMS: CONSTITUTIONAL: As mentioned in HPI HEENT: No recent visual problems or hearing problems. Denied any sore throat. CARDIOVASCULAR: No chest pain, orthopnea, PND, no palpitations, no syncope. PULMONARY: No shortness of breath, no cough, no hemoptysis. GASTROINTESTINAL: No diarrhea, no abdominal pain. NEUROLOGICAL: No headaches, no weakness, no numbness. HEMATOLOGICAL: Denies any bleeding or petechiae. GENITOURINARY: Denies any burning micturition, frequency, or urgency. MUSCULOSKELETAL/RHEUMATOLOGICAL: Denies any joint pain, swelling, or any muscle pain. ENDOCRINE: Denies any polyuria or polydipsia. The rest of the 14-point review of systems is negative. PHYSICAL EXAMINATION: GENERAL: The patient is alert and oriented x3, not in any acute distress. Well developed, well nourished. HEENT: Pupils are round and equally reacting to light. EOMI. No scleral icterus. No conjunctival pallor. Normocephalic, atraumatic. No pharyngeal erythema. No thyromegaly. CARDIOVASCULAR: S1 and S2 present. No murmurs, rubs, or gallops. PULMONARY: Chest is clear to auscultation, no wheezing or crackles. ABDOMEN: Soft, nontender, nondistended, normoactive bowel sounds. No palpable organomegaly. MUSCULOSKELETAL: No joint swelling or deformity. EXTREMITIES: No cyanosis, clubbing, or pedal edema. NEUROLOGICAL: Gross neurological examination did not reveal any focal deficits. SKIN: No rashes. Assessment and plan -Sepsis probably secondary to urinary tract infection patient has significant improvement with Rocephin patient will be discharged on Ceftin as requested by the patient will follow up on the urine cultures -Ruled out pulmonary embolism -Coronary disease -COPD without any acute exacerbation next and congestive heart failure chronic systolic dysfunction EF of around 20-25% patient the will be resumed on home medications patient is presently not in acute exacerbation patient blood pressure is bit slow which is unexpected from her low ejection fraction. Patient has an AICD -Hyperlipidemia -Hypertension -Coronary artery disease History of rheumatic fever with mitral valvular disease -Peripheral vascular disease -Mitral valvular as well as sciatic well her disease patient is status post replacement of those valves DVT prophylaxis: Past Medical History Past Medical History: Coronary Artery Disease (CAD), Heart Failure, COPD, Hyperlipidemia, Hypertension, Myocardial Infarction (MT), Osteoarthritis (OA), Skin Disorder, Vascular Disorder Additional Past Medical History / Comment(s): Rheumatic fever X3, heart murmur, AAA, PAD. Last Myocardial Infarction Date:: unknown History of Any Multi-Drug Resistant Organisms: None Reported Past Surgical History: AICD, Bladder Surgery, Cholecystectomy, Heart Catheterization, Heart Catheterization With Stent, Hysterectomy, Pacemaker Additional Past Surgical History / Comment(s): Mitral and Aortic valve replacement, PIG & COW VALVE, BILATERAL CATARACTS, Bi-Ventricular ICD (ST NEENA), bilateral leg femoral bypass. Past Anesthesia/Blood Transfusion Reactions: No Reported Reaction Additional Past Anesthesia/Blood Transfusion Reaction / Comment(s): NO PROBLEMS WITH PRIOR BLOOD TRANSFUSIONS. Date of Last Stent Placement:: 08-14-17 Type of Cardiac Device: AICD Device Placement Date:: 09/30/17 Past Psychological History: Anxiety, Depression Smoking Status: Former smoker Past Alcohol Use History: None Reported Past Drug Use History: None Reported - Past Family History Mother Family Medical History: No Reported History Father Family Medical History: No Reported History, Pneumonia Sister(s) Family Medical History: Congestive Heart Failure (CHF) Daughter(s) Family Medical History: No Reported History Son(s) Family Medical History: No Reported History Medications and Allergies Home Medications Medication Instructions Recorded Confirmed Type Metoprolol Tartrate [Lopressor] 75 mg PO BID 07/31/17 08/19/21 History Sertraline [Zoloft] 75 mg PO HS 07/31/17 08/19/21 History Simvastatin [Zocor] 40 mg PO HS 07/31/17 08/19/21 History Spironolactone [Aldactone] 25 mg PO DAILY 08/13/17 08/19/21 History Cyanocobalamin [Vitamin B-12] 500 mcg PO DAILY 03/03/20 08/19/21 History Albuterol Sulfate [Ventolin HFA] 2 puff INHALATION RT-QID PRN 03/17/20 08/19/21 History Gabapentin [Neurontin] 100 mg PO BID 03/17/20 08/19/21 History ALPRAZolam [Xanax] 0.25 mg PO DAILY PRN 02/26/21 08/19/21 History Albuterol Nebulized [Ventolin 2.5 mg INHALATION RT-Q6H PRN 02/26/21 08/19/21 History Nebulized] Ascorbic Acid [Vitamin C] 1,000 mg PO DAILY 02/26/21 08/19/21 History Ezetimibe [Zetia] 10 mg PO HS 02/26/21 08/19/21 History Fluticasone Propion/Salmeterol 1 puff INHALATION RT-BID 02/26/21 08/19/21 History [Wixela 250-50 Inhub] Megared 500mg 500 mg PO DAILY 02/26/21 08/19/21 History Methenamine Hippurate [Hiprex] 1 gm PO BID 02/26/21 08/19/21 History Multivitamins, Thera [Multivitamin 1 tab PO DAILY 02/26/21 08/19/21 History (formulary)] Rivaroxaban [Xarelto] 20 mg PO DIRECTED 02/27/21 08/19/21 History Acetaminophen Tab [Tylenol] 650 mg PO Q6HR PRN tab 03/02/21 08/19/21 Rx Furosemide [Lasix] 40 mg PO DAILY 30 Days #30 tab 03/31/21 08/19/21 Rx Cholecalciferol [Vitamin D3 (25 25 mcg PO DAILY 08/19/21 08/19/21 History Mcg = 1000 Iu)] Lactobacillus Acidophilus 1 cap PO DAILY 08/19/21 08/19/21 History [Florajen Acidophilus] Omeprazole 20 mg PO DAILY 08/19/21 08/19/21 History Cefuroxime Axetil [Ceftin] 500 mg PO BID 3 Days #2 tab 08/20/21 Rx Lisinopril [Prinivil] 5 mg PO DAILY #0 08/20/21 08/19/21 Rx Potassium Chloride ER [K-Dur 20] 20 meq PO DAILY #30 tab 08/20/21 Rx Allergies Allergy/AdvReac Type Severity Reaction Status Date / Time No Known Allergies Allergy Verified 08/19/21 13:24 Physical Exam Vitals: Vital Signs Temp Pulse Pulse Pulse Resp BP BP 08/20/21 11:21 98.2 F 50 L 16 08/20/21 04:28 98.3 F 73 18 129/56 08/19/21 20:25 98.5 F 82 18 122/54 08/19/21 18:29 99 F 78 18 139/58 08/19/21 18:00 78 18 139/58 08/19/21 17:00 72 18 08/19/21 16:00 81 18 BP Pulse Ox 08/20/21 11:21 94/56 93 L 08/20/21 04:28 94 L 08/19/21 20:25 92 L 08/19/21 18:29 96 08/19/21 18:00 96 08/19/21 17:00 96 08/19/21 16:00 96 Intake and Output 08/20/21 08/20/21 08/20/21 06:59 14:59 22:59 Intake Total 900 Balance 900 Intake: Intake, IV Titration 600 Amount Sodium Chloride 0.9% 500 500 ml 500 ml @ 999 mls/hr IV .Q31M ONE Rx#:[id number] cefTRIAXone 1 gm In 100 Sodium Chloride 0.9% 50 ml @ 100 mls/hr IVPB Q24HR ROBERT Rx#:[id number] Oral 300 Other: Voiding Method Toilet Results CBC & Chem 7: 08/20/21 05:15 08/19/21 14:23 Labs: Abnormal Lab Results - Last 24 Hours (Table) 08/19/21 08/19/21 08/20/21 Range/Units 14:23 15:05 05:15 WBC 11.2 H (3.8-10.6) k/uL RBC 3.38 L (3.80-5.40) m/uL Hgb 11.2 L (11.4-16.0) gm/dL Hct 32.4 L (34.0-46.0) % Neutrophils # 9.6 H (1.3-7.7) k/uL Lymphocytes # 0.6 L (1.0-4.8) k/uL PT 12.2 H (9.0-12.0) sec INR 1.2 H (<1.2) D-Dimer 1.34 H (<0.60) mg/L FEU Urine Appearance Cloudy H (Clear) Urine Protein Trace H (Negative) Ur Leukocyte Esterase Large H (Negative) Urine WBC 99 H (0-5) /hpf Urine WBC Clumps Few H (None) /hpf Ur Squamous Epith Cells 8 H (0-4) /hpf Urine Mucus Rare H (None) /hpf Urine Yeast (Budding) Rare H (None) /hpf Microbiology - Last 24 Hours (Table) 08/19/21 15:05 Urine Culture - Preliminary Urine,Voided
--- NOTE | 2021-08-20 15:24 | P.DS ---
Providers Date of admission: 08/19/21 17:14 Attending physician: Karyn Cuadra MD Primary care physician: [facility] Course: Please refer to [facility] for further details Patient Condition at Discharge: Serious Plan - Discharge Summary Discharge Rx Participant: Yes New Discharge Prescriptions: New Potassium Chloride ER [K-Dur 20] 20 meq PO DAILY #30 tab Cefuroxime Axetil [Ceftin] 500 mg PO BID 3 Days #2 tab Continue Simvastatin [Zocor] 40 mg PO HS Sertraline [Zoloft] 75 mg PO HS Metoprolol Tartrate [Lopressor] 75 mg PO BID Spironolactone [Aldactone] 25 mg PO DAILY Cyanocobalamin [Vitamin B-12] 500 mcg PO DAILY Albuterol Sulfate [Ventolin HFA] 2 puff INHALATION RT-QID PRN PRN Reason: Shortness Of Breath Gabapentin [Neurontin] 100 mg PO BID Fluticasone Propion/Salmeterol [Wixela 250-50 Inhub] 1 puff INHALATION RT-BID Ezetimibe [Zetia] 10 mg PO HS Multivitamins, Thera [Multivitamin (formulary)] 1 tab PO DAILY Ascorbic Acid [Vitamin C] 1,000 mg PO DAILY Furosemide [Lasix] 40 mg PO DAILY 30 Days #30 tab Lactobacillus Acidophilus [Florajen Acidophilus] 1 cap PO DAILY Methenamine Hippurate [Hiprex] 1 gm PO BID Albuterol Nebulized [Ventolin Nebulized] 2.5 mg INHALATION RT-Q6H PRN PRN Reason: Shortness Of Breath ALPRAZolam [Xanax] 0.25 mg PO DAILY PRN PRN Reason: Anxiety Megared 500mg 500 mg PO DAILY Rivaroxaban [Xarelto] 20 mg PO DIRECTED Acetaminophen Tab [Tylenol] 650 mg PO Q6HR PRN tab PRN Reason: Fever And/ Or Pain Omeprazole 20 mg PO DAILY Cholecalciferol [Vitamin D3 (25 Mcg = 1000 Iu)] 25 mcg PO DAILY Changed Lisinopril [Prinivil] 5 mg PO DAILY #0 Discontinued Nitrofurantoin Monohyd/M-Cryst [Macrobid] 100 mg PO BID Discharge Medication List Metoprolol Tartrate [Lopressor] 75 mg PO BID 07/31/17 [History] Sertraline [Zoloft] 75 mg PO HS 07/31/17 [History] Simvastatin [Zocor] 40 mg PO HS 07/31/17 [History] Spironolactone [Aldactone] 25 mg PO DAILY 08/13/17 [History] Cyanocobalamin [Vitamin B-12] 500 mcg PO DAILY 03/03/20 [History] Albuterol Sulfate [Ventolin HFA] 2 puff INHALATION RT-QID PRN 03/17/20 [History] Gabapentin [Neurontin] 100 mg PO BID 03/17/20 [History] ALPRAZolam [Xanax] 0.25 mg PO DAILY PRN 02/26/21 [History] Albuterol Nebulized [Ventolin Nebulized] 2.5 mg INHALATION RT-Q6H PRN 02/26/21 [History] Ascorbic Acid [Vitamin C] 1,000 mg PO DAILY 02/26/21 [History] Ezetimibe [Zetia] 10 mg PO HS 02/26/21 [History] Fluticasone Propion/Salmeterol [Wixela 250-50 Inhub] 1 puff INHALATION RT-BID 02/26/21 [History] Megared 500mg 500 mg PO DAILY 02/26/21 [History] Methenamine Hippurate [Hiprex] 1 gm PO BID 02/26/21 [History] Multivitamins, Thera [Multivitamin (formulary)] 1 tab PO DAILY 02/26/21 [History] Rivaroxaban [Xarelto] 20 mg PO DIRECTED 02/27/21 [History] Acetaminophen Tab [Tylenol] 650 mg PO Q6HR PRN tab 03/02/21 [Rx] Furosemide [Lasix] 40 mg PO DAILY 30 Days #30 tab 03/31/21 [Rx] Cholecalciferol [Vitamin D3 (25 Mcg = 1000 Iu)] 25 mcg PO DAILY 08/19/21 [History] Lactobacillus Acidophilus [Florajen Acidophilus] 1 cap PO DAILY 08/19/21 [History] Omeprazole 20 mg PO DAILY 08/19/21 [History] Cefuroxime Axetil [Ceftin] 500 mg PO BID 3 Days #2 tab 08/20/21 [Rx] Lisinopril [Prinivil] 5 mg PO DAILY #0 08/20/21 [Rx] Potassium Chloride ER [K-Dur 20] 20 meq PO DAILY #30 tab 08/20/21 [Rx] Follow up Appointment(s)/Referral(s): Roxie Shaw MD [Primary Care Provider] - 3 Days Patient Instructions/Handouts: Urinary Tract Infection in Women (DC) Discharge Disposition: HOME SELF-CARE
== END 2021-08-20 15:24 | disposition home or self-care (01) ==
LOC: EC 12:57 → 5NMEDONC 17:14
PROVIDERS: ADMIT Internal Medicine; ATTEND Internal Medicine
DX: A41.9 Sepsis, unspecified organism (principal); B37.49 Other urogenital candidiasis; I25.10 Atherosclerotic heart disease of native coronary artery without angina pectoris; J44.9 Chronic obstructive pulmonary disease, unspecified; E78.5 Hyperlipidemia, unspecified; I11.0 Hypertensive heart disease with heart failure; I50.22 Chronic systolic (congestive) heart failure; E86.0 Dehydration; R11.2 Nausea with vomiting, unspecified; R51.9 Headache, unspecified; D72.829 Elevated white blood cell count, unspecified; I73.9 Peripheral vascular disease, unspecified; I05.9 Rheumatic mitral valve disease, unspecified; M19.90 Unspecified osteoarthritis, unspecified site; R01.1 Cardiac murmur, unspecified; I71.4 Abdominal aortic aneurysm, without rupture; F41.9 Anxiety disorder, unspecified; F32.9 Major depressive disorder, single episode, unspecified; I25.2 Old myocardial infarction; Z20.822 Contact with and (suspected) exposure to COVID-19; Z87.891 Personal history of nicotine dependence; Z87.440 Personal history of urinary (tract) infections; Z79.899 Other long term (current) drug therapy; Z79.01 Long term (current) use of anticoagulants; Z91.81 History of falling; Z95.3 Presence of xenogenic heart valve; Z95.810 Presence of automatic (implantable) cardiac defibrillator; Z95.2 Presence of prosthetic heart valve; Z95.828 Presence of other vascular implants and grafts; Z95.5 Presence of coronary angioplasty implant and graft; Z90.49 Acquired absence of other specified parts of digestive tract; Z90.710 Acquired absence of both cervix and uterus; Z82.49 Family history of ischemic heart disease and other diseases of the circulatory system; Z83.6 Family history of other diseases of the respiratory system
CPT/HCPCS: 96361 ×3; 96365; 96366; 96376; 99285; 36415; 93005; 85379; 80053; 83605; 83735; 84484; 85025 ×2; 85610; 85730; 81001; 87086; 87635; 71046; 71275; G0378 ×2; J0696 ×2; Q9967

== ENCOUNTER 2021-09-01 06:29 | Inpatient (IN) | payer MEDICARE, OTHER ==
[2021-09-01] MEDS ORDERED: SODIUM CHLORIDE 0.9% 1,000 ML IV ONE (06:50)
[2021-09-01] MEDS ORDERED: ONDANSETRON 4 MG/2 ML VIAL IVP STA (06:51)
[2021-09-01] MEDS ORDERED: HYDROmorphone 0.5 MG/0.5 ML SYRINGE IVP STA ×2 (06:51→08:54)
--- NOTE | 2021-09-01 06:55 | ED ---
Fall HPI - General Chief Complaint: Fall Stated Complaint: Weakness, Covid+ Time Seen by Provider: 09/01/21 06:30 Source: patient, EMS, old records reviewed Mode of arrival: EMS Limitations: no limitations - History of Present Illness Initial Comments: This is an 80-year-old female presents emergency from via EMS chief 1 of fall. There is a mechanical fall no head injury no loss conscious. Patient states his symptoms from a standing position. Patient denies any neck pain chief complaint of right-sided rib pain. Patient states been having increasing weakness for several months but worse over the last week as she's been diagnosed with COVID- 19. She states she is starting to feel better. Patient denies any nausea vomiting no hip pain and low back pain. - Related Data Home Medications Medication Instructions Recorded Confirmed Metoprolol Tartrate [Lopressor] 75 mg PO BID 07/31/17 08/19/21 Sertraline [Zoloft] 75 mg PO HS 07/31/17 08/19/21 Simvastatin [Zocor] 40 mg PO HS 07/31/17 08/19/21 Spironolactone [Aldactone] 25 mg PO DAILY 08/13/17 08/19/21 Cyanocobalamin [Vitamin B-12] 500 mcg PO DAILY 03/03/20 08/19/21 Albuterol Sulfate [Ventolin HFA] 2 puff INHALATION RT-QID PRN 03/17/20 08/19/21 Gabapentin [Neurontin] 100 mg PO BID 03/17/20 08/19/21 ALPRAZolam [Xanax] 0.25 mg PO DAILY PRN 02/26/21 08/19/21 Albuterol Nebulized [Ventolin 2.5 mg INHALATION RT-Q6H PRN 02/26/21 08/19/21 Nebulized] Ascorbic Acid [Vitamin C] 1,000 mg PO DAILY 02/26/21 08/19/21 Ezetimibe [Zetia] 10 mg PO HS 02/26/21 08/19/21 Fluticasone Propion/Salmeterol 1 puff INHALATION RT-BID 02/26/21 08/19/21 [Wixela 250-50 Inhub] Megared 500mg 500 mg PO DAILY 02/26/21 08/19/21 Methenamine Hippurate [Hiprex] 1 gm PO BID 02/26/21 08/19/21 Multivitamins, Thera [Multivitamin 1 tab PO DAILY 02/26/21 08/19/21 (formulary)] Rivaroxaban [Xarelto] 20 mg PO DIRECTED 02/27/21 08/19/21 Cholecalciferol [Vitamin D3 (25 25 mcg PO DAILY 08/19/21 08/19/21 Mcg = 1000 Iu)] Lactobacillus Acidophilus 1 cap PO DAILY 08/19/21 08/19/21 [Florajen Acidophilus] Omeprazole 20 mg PO DAILY 08/19/21 08/19/21 Previous Rx's Medication Instructions Recorded Acetaminophen Tab [Tylenol] 650 mg PO Q6HR PRN tab 03/02/21 Furosemide [Lasix] 40 mg PO DAILY 30 Days #30 tab 03/31/21 Lisinopril [Prinivil] 5 mg PO DAILY #0 08/20/21 Potassium Chloride ER [K-Dur 20] 20 meq PO DAILY #30 tab 08/20/21 Cefuroxime Axetil [Ceftin] 500 mg PO BID 3 Days #6 tab 08/21/21 Allergies Allergy/AdvReac Type Severity Reaction Status Date / Time No Known Allergies Allergy Verified 08/19/21 13:24 Review of Systems ROS Statement: Those systems with pertinent positive or pertinent negative responses have been documented in the HPI. ROS Other: All systems not noted in ROS Statement are negative. Past Medical History Past Medical History: Coronary Artery Disease (CAD), Heart Failure, COPD, Hyperlipidemia, Hypertension, Myocardial Infarction ([place]), Osteoarthritis (OA), Skin Disorder, Vascular Disorder Additional Past Medical History / Comment(s): Rheumatic fever X3, heart murmur, AAA, PAD. Last Myocardial Infarction Date:: unknown History of Any Multi-Drug Resistant Organisms: None Reported Past Surgical History: AICD, Bladder Surgery, Cholecystectomy, Heart Catheterization, Heart Catheterization With Stent, Hysterectomy, Pacemaker Additional Past Surgical History / Comment(s): Mitral and Aortic valve replacement, PIG & COW VALVE, BILATERAL CATARACTS, Bi-Ventricular ICD (ST NEENA), bilateral leg femoral bypass. Past Anesthesia/Blood Transfusion Reactions: No Reported Reaction Additional Past Anesthesia/Blood Transfusion Reaction / Comment(s): NO PROBLEMS WITH PRIOR BLOOD TRANSFUSIONS. Date of Last Stent Placement:: 08-14-17 Type of Cardiac Device: AICD Device Placement Date:: 09/30/17 Past Psychological History: Anxiety, Depression Smoking Status: Former smoker Past Alcohol Use History: None Reported Past Drug Use History: None Reported - Past Family History Mother Family Medical History: No Reported History Father Family Medical History: No Reported History, Pneumonia Sister(s) Family Medical History: Congestive Heart Failure (CHF) Daughter(s) Family Medical History: No Reported History Son(s) Family Medical History: No Reported History General Exam General appearance: alert, in no apparent distress Head exam: Present: atraumatic, normocephalic, normal inspection Eye exam: Present: normal appearance, PERRL, EOMI. Absent: scleral icterus, conjunctival injection, periorbital swelling ENT exam: Present: normal exam, normal oropharynx, mucous membranes moist, TM's normal bilaterally Neck exam: Present: normal inspection, full ROM. Absent: tenderness, meningismus, lymphadenopathy Respiratory exam: Present: chest wall tenderness. Absent: normal lung sounds bilaterally, respiratory distress, wheezes, rales, rhonchi, stridor Cardiovascular Exam: Present: regular rate, normal rhythm, normal heart sounds. Absent: systolic murmur, diastolic murmur, rubs, gallop, clicks Back exam: Present: normal inspection, full ROM. Absent: tenderness, paraspinal tenderness, vertebral tenderness Neurological exam: Present: alert, oriented X3 Skin exam: Present: warm, dry, intact, normal color. Absent: rash Course Vital Signs 09/01/21 09/01/21 09/01/21 06:31 08:43 10:08 Temperature 98.4 F Pulse Rate 68 62 66 Respiratory 28 H 18 18 Rate Blood Pressure 124/55 130/49 155/63 O2 Sat by Pulse 91 L 93 L 94 L Oximetry Medical Decision Making - Medical Decision Making Patient is a 80-year-old presented for a fall. Patient had persistent uncontrolled pain after multiple doses of pain medication. She is unable to care for self at this time. Patient has multiple rib fractures including 7-10 on the right. Patient will be admitted to trauma services with consult pulmonary: Medicine. Patient is: Positive does not have severe hypoxia. Patient was given [place] bodies as patient has not been admitted for COVID-19 reasons. - Lab Data Result diagrams: 09/01/21 06:59 09/01/21 06:59 Lab Results 09/01/21 09/01/21 Range/Units 06:59 06:59 WBC 5.3 (3.8-10.6) k/uL RBC 3.55 L (3.80-5.40) m/uL Hgb 11.4 (11.4-16.0) gm/dL Hct 33.3 L (34.0-46.0) % MCV 93.7 (80.0-100.0) fL MCH 32.1 (25.0-35.0) pg MCHC 34.3 (31.0-37.0) g/dL RDW 13.4 (11.5-15.5) % Plt Count 195 (150-450) k/uL MPV 7.8 Neutrophils % 77 % Lymphocytes % 14 % Monocytes % 5 % Eosinophils % 1 % Basophils % 0 % Neutrophils # 4.1 (1.3-7.7) k/uL Lymphocytes # 0.8 L (1.0-4.8) k/uL Monocytes # 0.3 (0-1.0) k/uL Eosinophils # 0.1 (0-0.7) k/uL Basophils # 0.0 (0-0.2) k/uL Sodium 137 (137-145) mmol/L Potassium 3.8 (3.5-5.1) mmol/L Chloride 102 (98-107) mmol/L Carbon Dioxide 23 (22-30) mmol/L Anion Gap 12 mmol/L BUN 30 H (7-17) mg/dL Creatinine 0.86 (0.52-1.04) mg/dL Est GFR (CKD-EPI)AfAm 73 (>60 ml/min/1.73 sqM) Est GFR (CKD-EPI)NonAf 64 (>60 ml/min/1.73 sqM) Glucose 109 H (74-99) mg/dL Calcium 9.4 (8.4-10.2) mg/dL Magnesium 1.7 (1.6-2.3) mg/dL Total Bilirubin 0.6 (0.2-1.3) mg/dL AST 46 H (14-36) U/L ALT 21 (4-34) U/L Alkaline Phosphatase 65 (38-126) U/L Total Protein 7.1 (6.3-8.2) g/dL Albumin 4.2 (3.5-5.0) g/dL Disposition Clinical Impression: Fall, Multiple rib fractures, COVID-19, Weakness Disposition: ADMITTED IP TO THIS HOSP Condition: Fair Referrals: Roxie Shaw MD [Primary Care Provider] - 1-2 days
[2021-09-01 07:17] LABS: Basophils % (A) 0 %; Eosinophils # (A) 0.1 k/uL (0-0.7); Eosinophils % (A) 1 %; HCT 33.3 % (34.0-46.0); HGB 11.4 gm/dL (11.4-16.0); Lymphocytes # (A) 0.8 k/uL (1.0-4.8); Lymphocytes % (A) 14 %; MCH 32.1 pg (25.0-35.0); MCHC 34.3 g/dL (31.0-37.0); MCV 93.7 fL (80.0-100.0); Mean Platelet Volume 7.8; Monocytes # (A) 0.3 k/uL (0-1.0); Monocytes % (A) 5 %; Neutrophils # (A) 4.1 k/uL (1.3-7.7); Neutrophils % (A) 77 %; Platelet Count 195 k/uL (150-450); RBC 3.55 m/uL (3.80-5.40); RDW 13.4 % (11.5-15.5); WBC 5.3 k/uL (3.8-10.6)
[2021-09-01 07:37] LABS: Albumin 4.2 g/dL (3.5-5.0); Calcium 9.4 mg/dL (8.4-10.2); Magnesium 1.7 mg/dL (1.6-2.3); Potassium 3.8 mmol/L (3.5-5.1); Total Bilirubin 0.6 mg/dL (0.2-1.3); Total Protein 7.1 g/dL (6.3-8.2)
--- NOTE | 2021-09-01 07:51 | XR ---
EXAMINATION TYPE: XR ribs RT w pa chest xray DATE OF EXAM: 09/01/2021 CLINICAL HISTORY: Chest and right-sided rib pain. TECHNIQUE: Single frontal view of the chest is obtained. A frontal and oblique images right-sided rib s. COMPARISON: Chest x-ray August 19, 2021. Right-sided rib x-ray March 19, 2021 FINDINGS: There are chronic parenchymal changes bilaterally without suspicious new focal air space o pacity, pleural effusion, or pneumothorax seen. Persisting cardiomegaly with multi lead pacemaker/def ibrillator. Overlying sternal wires are redemonstrated. The osseous structures are demineralized. There are age indeterminate but suspected subacute or old anterolateral right mid to lower rib fractu res beginning involving the seventh rib through the 10th rib level. IMPRESSION: 1. Chronic changes and cardiomegaly without acute pulmonary process. 2. Age-indeterminate suspected subacute or chronic anterolateral right seventh through 10th rib fract ures.
[2021-09-01] MEDS ORDERED: ONDANSETRON 4 MG/2 ML VIAL IVP PRN (10:33)
[2021-09-01] MEDS ORDERED: NALOXONE 0.4 MG/ML 1 ML VIAL IV PRN (10:33)
[2021-09-01] MEDS ORDERED: SODIUM CHLORIDE 0.9% 50 ML IVPB ONE (10:45)
[2021-09-01 10:53] LABS: Appearance,Urine Cloudy (Clear); Bacteria,Urine Rare /hpf; Bilirubin,Urine 1+ (Negative); Blood,Urine Large (Negative); Color,Urine Dark Brown; Glucose,Urine (UA) Negative (Negative); Ketones,Urine Negative (Negative); Leukocyte Esterase,Urine Large (Negative); Nitrite,Urine Positive (Negative); Protein,Urine 1+ (Negative); RBC,Urine >182 /hpf (0-5); Specific Gravity,Urine 1.016 (1.001-1.035); Squamous Epithelial Cell,Urine 10 /hpf (0-4); WBC,Urine 167 /hpf (0-5)
[2021-09-01] MEDS ORDERED: CASIRIVIMAB (REGN10933) (EUA) 600 MG, IMDEVIMAB (REGN10987) (EUA) 600 MG in SODIUM CHLO... IVPB ONE (11:00)
[2021-09-01] MEDS: HYDROmorphone 0.5 MG/0.5 ML SYRINGE IVP PRN ×3 (11:34→20:13)
[2021-09-01] MEDS: SODIUM CHLORIDE 0.9% 1,000 ML IV SCH (11:35)
--- NOTE | 2021-09-01 15:00 | P.GSHP ---
History of Present Illness H&P Date: 09/01/21 Chief Complaint: Fall and rib pain Patient's 80-year-old female for historian. She is currently in distress complaining of pain. She evidently was brought in by EMS. She had a ground- level fall. The patient said yesterday. She has been having pain with movement or inspiration since that time. Patient denies any prior rib fractures. Looking through her old medical records she did have fractures which were diagnosed in March of this year. Same location. Denies nausea or vomiting. Admits to cough she doesn't know if she's been drinking anything up. She has been diagnosed with COVID-19 and has been feeling weak - Review of Systems All systems: negative Past Medical History Past Medical History: Coronary Artery Disease (CAD), Heart Failure, COPD, Hyperlipidemia, Hypertension, Myocardial Infarction ([place]), Osteoarthritis (OA), Skin Disorder, Vascular Disorder Additional Past Medical History / Comment(s): Rheumatic fever X3, heart murmur, AAA, PAD. Last Myocardial Infarction Date:: unknown History of Any Multi-Drug Resistant Organisms: None Reported Past Surgical History: AICD, Bladder Surgery, Cholecystectomy, Heart Catheterization, Heart Catheterization With Stent, Hysterectomy, Pacemaker Additional Past Surgical History / Comment(s): Mitral and Aortic valve replacement, PIG & COW VALVE, BILATERAL CATARACTS, Bi-Ventricular ICD (ST NEENA), bilateral leg femoral bypass. Past Anesthesia/Blood Transfusion Reactions: No Reported Reaction Additional Past Anesthesia/Blood Transfusion Reaction / Comment(s): NO PROBLEMS WITH PRIOR BLOOD TRANSFUSIONS. Date of Last Stent Placement:: 08-14-17 Type of Cardiac Device: AICD Device Placement Date:: 09/30/17 Past Psychological History: Anxiety, Depression Smoking Status: Former smoker Past Alcohol Use History: None Reported Past Drug Use History: None Reported - Past Family History Mother Family Medical History: No Reported History Father Family Medical History: No Reported History, Pneumonia Sister(s) Family Medical History: Congestive Heart Failure (CHF) Daughter(s) Family Medical History: No Reported History Son(s) Family Medical History: No Reported History Medications and Allergies Home Medications Medication Instructions Recorded Confirmed Type Metoprolol Tartrate [Lopressor] 75 mg PO BID 07/31/17 09/01/21 History Sertraline [Zoloft] 75 mg PO HS 07/31/17 09/01/21 History Simvastatin [Zocor] 40 mg PO HS 07/31/17 09/01/21 History Spironolactone [Aldactone] 25 mg PO DAILY 08/13/17 09/01/21 History Cyanocobalamin [Vitamin B-12] 500 mcg PO DAILY 03/03/20 09/01/21 History Albuterol Sulfate [Ventolin HFA] 2 puff INHALATION RT-QID PRN 03/17/20 09/01/21 History Gabapentin [Neurontin] 100 mg PO BID 03/17/20 09/01/21 History ALPRAZolam [Xanax] 0.25 mg PO DAILY PRN 02/26/21 09/01/21 History Albuterol Nebulized [Ventolin 2.5 mg INHALATION RT-Q6H PRN 02/26/21 09/01/21 History Nebulized] Ascorbic Acid [Vitamin C] 1,000 mg PO DAILY 02/26/21 09/01/21 History Ezetimibe [Zetia] 10 mg PO HS 02/26/21 09/01/21 History Fluticasone Propion/Salmeterol 1 puff INHALATION RT-BID 02/26/21 09/01/21 History [Wixela 250-50 Inhub] Megared 500mg 500 mg PO DAILY 02/26/21 09/01/21 History Methenamine Hippurate [Hiprex] 1 gm PO BID 02/26/21 09/01/21 History Multivitamins, Thera [Multivitamin 1 tab PO DAILY 02/26/21 09/01/21 History (formulary)] Acetaminophen Tab [Tylenol] 650 mg PO Q6HR PRN tab 03/02/21 09/01/21 Rx Furosemide [Lasix] 40 mg PO DAILY 30 Days #30 tab 03/31/21 09/01/21 Rx Cholecalciferol [Vitamin D3 (25 25 mcg PO DAILY 08/19/21 09/01/21 History Mcg = 1000 Iu)] Lactobacillus Acidophilus 1 cap PO DAILY 08/19/21 09/01/21 History [Florajen Acidophilus] Omeprazole 20 mg PO DAILY 08/19/21 09/01/21 History Lisinopril [Prinivil] 5 mg PO DAILY #0 08/20/21 09/01/21 Rx Potassium Chloride ER [K-Dur 20] 20 meq PO DAILY #30 tab 08/20/21 09/01/21 Rx Rivaroxaban [Xarelto] 15 mg PO DAILY 09/01/21 09/01/21 History Sulfamethox-Tmp 800-160Mg [Bactrim 1 tab PO Q12HR 09/01/21 09/01/21 History DS 800-160 mg] Allergies Allergy/AdvReac Type Severity Reaction Status Date / Time No Known Allergies Allergy Verified 09/01/21 11:24 Surgical - Exam Osteopathic Statement: *. No significant issues noted on an osteopathic structural exam other than those noted in the History and Physical/Consult. Vital Signs Temp Pulse Resp BP Pulse Ox 98.4 F 68 28 H 124/55 91 L 09/01/21 06:31 09/01/21 06:31 09/01/21 06:31 09/01/21 06:31 09/01/21 06:31 - General moderate distress - Eyes normal ocular movement - Neck trachea midline - Respiratory normal respiratory effort, clear to auscultation - Cardiovascular Rhythm: regular - Abdomen Abdomen: tender (Quite a bit of tenderness in the upper abdomen was voluntary guarding) Results - Labs 09/01/21 06:59 09/01/21 06:59 Abnormal Lab Results - Last 24 Hours (Table) 09/01/21 09/01/21 09/01/21 Range/Units 06:59 06:59 06:59 RBC 3.55 L (3.80-5.40) m/uL Hct 33.3 L (34.0-46.0) % Lymphocytes # 0.8 L (1.0-4.8) k/uL BUN 30 H (7-17) mg/dL Glucose 109 H (74-99) mg/dL AST 46 H (14-36) U/L Urine Appearance Cloudy H (Clear) Urine Protein 1+ H (Negative) Urine Blood Large H (Negative) Urine Nitrite Positive H (Negative) Urine Bilirubin 1+ H (Negative) Ur Leukocyte Esterase Large H (Negative) Urine RBC >182 H (0-5) /hpf Urine WBC 167 H (0-5) /hpf Ur Squamous Epith Cells 10 H (0-4) /hpf Urine Bacteria Rare H (None) /hpf Diabetes panel 09/01/21 Range/Units 06:59 Sodium 137 (137-145) mmol/L Potassium 3.8 (3.5-5.1) mmol/L Chloride 102 (98-107) mmol/L Carbon Dioxide 23 (22-30) mmol/L BUN 30 H (7-17) mg/dL Creatinine 0.86 (0.52-1.04) mg/dL Glucose 109 H (74-99) mg/dL Calcium 9.4 (8.4-10.2) mg/dL AST 46 H (14-36) U/L ALT 21 (4-34) U/L Alkaline Phosphatase 65 (38-126) U/L Total Protein 7.1 (6.3-8.2) g/dL Albumin 4.2 (3.5-5.0) g/dL Calcium panel 09/01/21 Range/Units 06:59 Calcium 9.4 (8.4-10.2) mg/dL Albumin 4.2 (3.5-5.0) g/dL Pituitary panel 09/01/21 Range/Units 06:59 Sodium 137 (137-145) mmol/L Potassium 3.8 (3.5-5.1) mmol/L Chloride 102 (98-107) mmol/L Carbon Dioxide 23 (22-30) mmol/L BUN 30 H (7-17) mg/dL Creatinine 0.86 (0.52-1.04) mg/dL Glucose 109 H (74-99) mg/dL Calcium 9.4 (8.4-10.2) mg/dL Adrenal panel 09/01/21 Range/Units 06:59 Sodium 137 (137-145) mmol/L Potassium 3.8 (3.5-5.1) mmol/L Chloride 102 (98-107) mmol/L Carbon Dioxide 23 (22-30) mmol/L BUN 30 H (7-17) mg/dL Creatinine 0.86 (0.52-1.04) mg/dL Glucose 109 H (74-99) mg/dL Calcium 9.4 (8.4-10.2) mg/dL Total Bilirubin 0.6 (0.2-1.3) mg/dL AST 46 H (14-36) U/L ALT 21 (4-34) U/L Alkaline Phosphatase 65 (38-126) U/L Total Protein 7.1 (6.3-8.2) g/dL Albumin 4.2 (3.5-5.0) g/dL - Imaging Chest x-ray: report reviewed, image reviewed Assessment and Plan (1) Chest pain Current Visit: Yes Status: Acute Code(s): R07.9 - CHEST PAIN, UNSPECIFIED SNOMED Code(s): 78482557 (2) COVID-19 Current Visit: Yes Status: Acute Code(s): U07.1 - COVID-19 SNOMED Code(s): 711676113 (3) Fall Current Visit: Yes Status: Acute Code(s): W19.XXXA - UNSPECIFIED FALL, INITIAL ENCOUNTER SNOMED Code(s): 6587527 (4) Multiple rib fractures Current Visit: Yes Status: Acute Code(s): S22.49XA - MULTIPLE FRACTURES OF RIBS, UNSP SIDE, INIT FOR CLOS FX SNOMED Code(s): 0703334 Plan: Patient has quite a bit of pain in the upper abdomen to palpation. A computed tomography scan of the abdomen will be ordered to rule out any other underlying pathology. Appropriate consults will be placed. DVT and ulcer prophylaxis. Pain control. Incentive spirometry. Condition guarded.
[2021-09-01] MEDS: PANTOPRAZOLE 40 MG TABLET PO SCH (15:48)
[2021-09-01] MEDS: KETOROLAC 15 MG/ML 1 ML VIAL IVP PRN ×2 (15:48→21:15)
--- NOTE | 2021-09-01 15:53 | CT ---
EXAMINATION TYPE: CT abdomen pelvis w con DATE OF EXAM: 09/01/2021 COMPARISON: 10/20/2020 INDICATION: pain, rib fractures, Covid DLP: 908.7 mGycm, Automated exposure control for dose reduction was used. CONTRAST: 100 mL of Isovue 300. Study performed without Oral Contrast TECHNIQUE: Axial images were obtained from above the diaphragm to the pubic rami in the axial plane a t 5 mm thick sections. Reconstructed images are reviewed on the computer in the coronal plane. FINDINGS: Limited CT sections are obtained the lung bases. Cardiomegaly is present. Minimal bilateral pleural effusions are present with some adjacent atelectasis, greater on the right.. Multiple posterior right rib fractures are evident including visualized 9 through 11 ribs on the righ t. CT ABDOMEN: Liver: Normal Spleen: Multiple calcified granulomata within the spleen. Calcified granulomas within the liver. Pancreas: Normal Adrenal glands: The adrenal glands are normal. Gallbladder: Surgically absent Kidneys: No masses are evident. No hydronephrosis is present. No cysts are present. Delayed images were obtained through the kidneys, which remain unremarkable. Aorta: Vascular calcification is within the aorta. Transverse dimension infrarenal abdominal aorta w hich terminates above the bifurcation is 3.8 cm. Inferior vena cava: Normal. CT PELVIS: Loops of bowel within the abdomen and pelvis are normal. Multiple scattered diverticuli within the s igmoid colon. Study is without oral contrast limiting evaluation. Appendix: Not identified. No dilated tubular structure or inflammatory changes evident. Urinary bladder: Normal. Genitourinary structures: Uterus and ovaries are not identified. Osseous structures: No suspicious lytic or sclerotic lesions. Degenerative disc changes and scoliosis are within the lumbar spine. IMPRESSIONS: 1. Diverticulosis without evidence of acute diverticulitis. 2. Fusiform prominence mid abdominal aorta with a maximum transverse dimension of 3.8 cm. 3. Posterior right rib fractures including 9 through 11 within the [id number].
[2021-09-01 16:13] LABS: INR 1.1 (<1.2); Partial Thromboplastin Time 29.3 sec (22.0-30.0); Prothrombin Time 11.6 sec (9.0-12.0)
[2021-09-02] MEDS: SODIUM CHLORIDE 0.9% 1,000 ML IV SCH ×2 (00:58→14:50)
[2021-09-02] MEDS: HYDROmorphone 0.5 MG/0.5 ML SYRINGE IVP PRN ×3 (00:59→23:58)
[2021-09-02] MEDS: KETOROLAC 15 MG/ML 1 ML VIAL IVP PRN ×4 (03:18→20:28)
--- NOTE | 2021-09-02 06:58 | XR ---
EXAMINATION TYPE: XR chest 1V portable DATE OF EXAM: 09/02/2021 COMPARISON: 08/19/2021 HISTORY: Chest pain TECHNIQUE: Single frontal view of the chest is obtained. FINDINGS: There is a 2-lead cardiac pacemaker and median sternotomy wires. Heart. There has been development the osseous structures are IMPRESSION: Interval development of small right pleural effusion the remainder of the chest is stabl e.
[2021-09-02] MEDS: PANTOPRAZOLE 40 MG TABLET PO SCH (07:30)
--- NOTE | 2021-09-02 08:16 | P.PN ---
Subjective Progress Note Date: 09/02/21 The patient is seen on rounds. She denies any chest pain. The patient was reevaluated ER her pain had resolved after receiving IV Toradol. Currently She is on oxygen. She's coughing. Since it's easier for her to breathe sitting up. Denies any abdominal pain, nausea or vomiting Objective - Vital Signs Vital signs: Vital Signs Temp 98.3 F 09/02/21 05:50 Pulse 81 09/02/21 05:50 Resp 17 09/02/21 05:50 BP 111/49 09/02/21 05:50 Pulse Ox 92 L 09/02/21 05:50 Intake & Output 09/01/21 09/02/21 09/02/21 18:59 06:59 18:59 Intake Total 610 Balance 610 Weight 60.328 kg Intake: Intake, IV Titration 610 Amount Sodium Chloride 0.9% 1, 560 000 ml @ 75 mls/hr IV . [id number] [facility] Rx#:[id number] ceFAZolin 1,000 mg In 50 Sodium Chloride 0.9% 50 ml @ 100 mls/hr IVPB Q8HR [facility] Rx#:[id number] Other: Voiding Method Bedpan Bedpan # Voids 3 - Constitutional General appearance: Present: cooperative, no acute distress - Respiratory Respiratory: bilateral: CTA - Gastrointestinal General gastrointestinal: Present: normal bowel sounds, soft. Absent: tenderness - Labs CBC & Chem 7: 09/01/21 06:59 09/01/21 06:59 Labs: Abnormal Lab Results - Last 24 Hours (Table) 09/01/21 Range/Units 06:59 Urine Appearance Cloudy H (Clear) Urine Protein 1+ H (Negative) Urine Blood Large H (Negative) Urine Nitrite Positive H (Negative) Urine Bilirubin 1+ H (Negative) Ur Leukocyte Esterase Large H (Negative) Urine RBC >182 H (0-5) /hpf Urine WBC 167 H (0-5) /hpf Ur Squamous Epith Cells 10 H (0-4) /hpf Urine Bacteria Rare H (None) /hpf Microbiology - Last 24 Hours (Table) 09/01/21 06:59 Urine Culture - Preliminary Urine,Voided Assessment and Plan (1) Chest pain Current Visit: Yes Status: Acute Code(s): R07.9 - CHEST PAIN, UNSPECIFIED SNOMED Code(s): 28010707 (2) COVID-19 Current Visit: Yes Status: Acute Code(s): U07.1 - COVID-19 SNOMED Code(s): 627931253 (3) Fall Current Visit: Yes Status: Acute Code(s): W19.XXXA - UNSPECIFIED FALL, INITIAL ENCOUNTER SNOMED Code(s): 9569026 (4) Multiple rib fractures Current Visit: Yes Status: Acute Code(s): S22.49XA - MULTIPLE FRACTURES OF RIBS, UNSP SIDE, INIT FOR CLOS FX SNOMED Code(s): 9622526 Plan: Clinically the patient is much improved. From a surgical standpoint the chest wall pain can be treated with nonsteroidal anti-inflammatories. Await eval uation by medicine. From a surgical standpoint she stable for discharge. If she needs to stay for a medical reason, we'll switch over the admission to medicine. Spoke with her nurse.
[2021-09-02] MEDS ORDERED: IPRATROPIUM-ALBUTEROL 3 ML NEB INHALATION PRN (13:53)
--- NOTE | 2021-09-02 13:53 | P.CNPUL ---
History of Present Illness Consult date: 09/02/21 Requesting physician: Roxie Amos Reason for consult: abnormal CXR/CT, other Chief complaint: Multiple right-sided rib fracture secondary to trauma. History of present illness: Pulmonary/critical care consult dated 09/02/2021. 80-year-old female, presents to the emergency department, brought in by EMS, secondary to a fall. There was no injury to the head or facial area, and no loss of consciousness. The patient injured her right chest area. She apparently was found to have multiple rib fractures on the right side. Also, because of weakness over the last month or so, she was tested and found positive for coronavirus. She denies any fever or chills. She is short of breath only because of the pain on taking a deep breath from the multiple right-sided rib fractures. She denies any left-sided chest pain. There is no nausea, vomiting, diarrhea, or abdominal pain. She denies coughing up any phlegm. She has a history of CAD, heart failure, hyperlipidemia, hypertension, myocardial infarction, rheumatic fever, abdominal aortic aneurysm, peripheral artery disease, and multiple surgeries, most notably heart catheterization, stent placement, and AICD placement. White count is 5.3, hemoglobin 11.4, hematocrit 33.3, and platelet count 195,000. Sodium, potassium, chloride, CO2, anion gap are all normal. BUN and creatinine were 30 and 0.86. Urine was cloudy, with 1+ protein, large amount of blood, positive for nitrite and leukocyte esterase, and with greater than 182 RBCs, 167 WBCs, and rare bacteria. X-rays of the chest show rib fractures on the right side, 7 through 10. Computed tomography scan of the abdomen shows diverticular disease, a mid abdominal aortic aneurysm, and posterior right rib fractures including 9, 10, and 11. A repeat chest x-ray today shows a small right-sided pleural effusion. Review of Systems REVIEW OF SYSTEMS: CONSTITUTIONAL: [Negative.] NEUROLOGIC: [ Negative.] HEENT: [ Negative.] CARDIAC: [Negative.] PULMONARY: Difficulty in taking a deep breath, and right-sided chest discomfort from fractured ribs. GI: [Negative.] : [Negative.] RHEUMATOLOGIC: [ Negative.] IMMUNOLOGIC: [ Negative.] ENDOCRINE: [Negative. ] DERMATOLOGIC: [Negative.] Past Medical History Past Medical History: Coronary Artery Disease (CAD), Heart Failure, COPD, Hyperlipidemia, Hypertension, Myocardial Infarction (ME), Osteoarthritis (OA), Skin Disorder, Vascular Disorder Additional Past Medical History / Comment(s): Rheumatic fever X3, heart murmur, AAA, PAD. Last Myocardial Infarction Date:: unknown History of Any Multi-Drug Resistant Organisms: None Reported Past Surgical History: AICD, Bladder Surgery, Cholecystectomy, Heart Catheterization, Heart Catheterization With Stent, Hysterectomy, Pacemaker Additional Past Surgical History / Comment(s): Mitral and Aortic valve replacement, PIG & COW VALVE, BILATERAL CATARACTS, Bi-Ventricular ICD ([facility] [place]), bilateral leg femoral bypass. Past Anesthesia/Blood Transfusion Reactions: No Reported Reaction Additional Past Anesthesia/Blood Transfusion Reaction / Comment(s): NO PROBLEMS WITH PRIOR BLOOD TRANSFUSIONS. Date of Last Stent Placement:: 08-14-17 Type of Cardiac Device: AICD Device Placement Date:: 09/30/17 Past Psychological History: Anxiety, Depression Smoking Status: Former smoker Past Alcohol Use History: None Reported Additional Past Alcohol Use History / Comment(s): Started smoking age 16, off/on, 1 pack/3 days until 2012. Past Drug Use History: None Reported - Past Family History Mother Family Medical History: No Reported History Father Family Medical History: No Reported History, Pneumonia Sister(s) Family Medical History: Congestive Heart Failure (CHF) Daughter(s) Family Medical History: No Reported History Son(s) Family Medical History: No Reported History Medications and Allergies Home Medications Medication Instructions Recorded Confirmed Type Metoprolol Tartrate [Lopressor] 75 mg PO BID 07/31/17 09/01/21 History Sertraline [Zoloft] 75 mg PO HS 07/31/17 09/01/21 History Simvastatin [Zocor] 40 mg PO HS 07/31/17 09/01/21 History Spironolactone [Aldactone] 25 mg PO DAILY 08/13/17 09/01/21 History Cyanocobalamin [Vitamin B-12] 500 mcg PO DAILY 03/03/20 09/01/21 History Albuterol Sulfate [Ventolin HFA] 2 puff INHALATION RT-QID PRN 03/17/20 09/01/21 History Gabapentin [Neurontin] 100 mg PO BID 03/17/20 09/01/21 History ALPRAZolam [Xanax] 0.25 mg PO DAILY PRN 02/26/21 09/01/21 History Albuterol Nebulized [Ventolin 2.5 mg INHALATION RT-Q6H PRN 02/26/21 09/01/21 History Nebulized] Ascorbic Acid [Vitamin C] 1,000 mg PO DAILY 02/26/21 09/01/21 History Ezetimibe [Zetia] 10 mg PO HS 02/26/21 09/01/21 History Fluticasone Propion/Salmeterol 1 puff INHALATION RT-BID 02/26/21 09/01/21 History [Wixela 250-50 Inhub] Megared 500mg 500 mg PO DAILY 02/26/21 09/01/21 History Methenamine Hippurate [Hiprex] 1 gm PO BID 02/26/21 09/01/21 History Multivitamins, Thera [Multivitamin 1 tab PO DAILY 02/26/21 09/01/21 History (formulary)] Acetaminophen Tab [Tylenol] 650 mg PO Q6HR PRN tab 03/02/21 09/01/21 Rx Furosemide [Lasix] 40 mg PO DAILY 30 Days #30 tab 03/31/21 09/01/21 Rx Cholecalciferol [Vitamin D3 (25 25 mcg PO DAILY 08/19/21 09/01/21 History Mcg = 1000 Iu)] Lactobacillus Acidophilus 1 cap PO DAILY 08/19/21 09/01/21 History [Florajen Acidophilus] Omeprazole 20 mg PO DAILY 08/19/21 09/01/21 History Lisinopril [Prinivil] 5 mg PO DAILY #0 08/20/21 09/01/21 Rx Potassium Chloride ER [K-Dur 20] 20 meq PO DAILY #30 tab 08/20/21 09/01/21 Rx Rivaroxaban [Xarelto] 15 mg PO DAILY 09/01/21 09/01/21 History Sulfamethox-Tmp 800-160Mg [Bactrim 1 tab PO Q12HR 09/01/21 09/01/21 History DS 800-160 mg] Allergies Allergy/AdvReac Type Severity Reaction Status Date / Time No Known Allergies Allergy Verified 09/01/21 11:24 Physical Exam Osteopathic Statement: *. No significant issues noted on an osteopathic structural exam other than those noted in the History and Physical/Consult. Vitals: Vital Signs Temp Pulse Pulse Resp BP BP Pulse Ox 09/02/21 09:22 99 F 79 18 126/49 90 L 09/02/21 05:50 98.3 F 81 17 111/49 92 L 09/02/21 02:11 98.2 F 92 17 154/59 94 L 09/01/21 23:11 16 09/01/21 22:47 98.9 F 16 129/60 95 09/01/21 21:55 99.9 F H 71 24 131/53 95 09/01/21 20:35 80 20 148/81 95 09/01/21 20:00 18 92 L 09/01/21 14:48 71 20 150/54 96 Intake and Output 09/01/21 09/02/21 09/02/21 22:59 06:59 14:59 Intake Total 610 Balance 610 Intake: Intake, IV Titration 610 Amount Sodium Chloride 0.9% 1, 560 000 ml @ 75 mls/hr IV . [id number] [facility] Rx#:[id number] ceFAZolin 1,000 mg In 50 Sodium Chloride 0.9% 50 ml @ 100 mls/hr IVPB Q8HR [facility] Rx#:[id number] Other: Voiding Method Bedpan Bedpan # Voids 3 1 Weight 60.328 kg No acute distress, oriented 3. Nasal O2 in place at 4-5 L. HEENT examination is grossly unremarkable. Neck supple. Full range of motion. No adenopathy thyromegaly or neck vein distention. Cardiovascular examination reveals regular rhythm rate. S1-S2 normal. No S3 or S4. No discernible murmur noted. Heart rate 79 bpm. Heart sounds are distant. Lungs reveal diminished breath sounds on the right side. Scattered rhonchi are noted. The patient's not taking deep breaths because of the pain. No crackles or wheezes. Tenderness on palpation to the right chest area. Abdomen soft bowel sounds are heard. No masses or tenderness. Extremities are intact. No cyanosis clubbing or edema. Skin is without rash or lesion. Neurologic examination is brief but nonfocal. Results - Laboratory Findings CBC and BMP: 09/01/21 06:59 09/01/21 06:59 PT/INR, D-dimer PT 11.6 sec (9.0-12.0) 09/01/21 15:41 INR 1.1 (<1.2) 09/01/21 15:41 Abnormal lab findings: Abnormal Labs 09/01/21 09/01/21 09/01/21 06:59 06:59 06:59 RBC 3.55 L Hct 33.3 L Lymphocytes # 0.8 L BUN 30 H Glucose 109 H AST 46 H Urine Appearance Cloudy H Urine Protein 1+ H Urine Blood Large H Urine Nitrite Positive H Urine Bilirubin 1+ H Ur Leukocyte Esterase Large H Urine RBC >182 H Urine WBC 167 H Ur Squamous Epith Cells 10 H Urine Bacteria Rare H - Diagnostic Findings Chest x-ray: image reviewed CT scan - chest: image reviewed Assessment and Plan Assessment: Status post fall, with multiple right-sided rib fractures. Positive testing for coronavirus, without significant coronavirus symptoms and/or pneumonia. Acute urinary tract infection. History of coronary artery disease/myocardial infarction. History of CHF. History of COPD, from previous heavy tobacco use. History of hyperlipidemia. History of hypertension. History of osteoarthritis. History of rheumatic fever. Status post AICD placement. Previous PCI with stent placement. Plan: Plan dated 09/02/2021. Currently, the patient's main issue is pain in the right chest on deep inspiration. We recommend deep breathing, coughing, and clearing of secretions. We also recommend the incentive spirometry to be used hourly. In addition, the patient will be seen by anesthesia, and some consideration should be given to placing an epidural catheter for pain control. The patient should receive antibiotic for a clear-cut urinary tract infection. A follow-up chest x-ray from today, showed a small right-sided pleural effusion. We will continue to follow and make recommendations where appropriate. Time with Patient: Greater than 30
[2021-09-02] MEDS: HYDROcodone/APAP 5-325MG 1 EACH TAB PO PRN ×2 (14:36→20:12)
[2021-09-02] MEDS ORDERED: IPRATROPIUM-ALBUTEROL 3 ML NEB INHALATION SCH (20:00)
[2021-09-02] MEDS ORDERED: ALBUTEROL NEBULIZED 2.5 MG/3 ML INHALATION PRN (20:28)
[2021-09-02] MEDS ORDERED: ACETAMINOPHEN TAB 325 MG TAB PO PRN (20:28)
[2021-09-02] MEDS ORDERED: ALPRAZolam 0.25 MG TAB PO PRN (20:28)
[2021-09-02] MEDS ORDERED: ALBUTEROL HFA INHALER INHALATION PRN (20:28)
[2021-09-02] MEDS ORDERED: ALBUTEROL HFA INHALER INHALATION SCH (21:00)
[2021-09-02] MEDS: SYMBICORT 160-4.5 MCG INHALER INHALATION SCH (21:06)
[2021-09-02] MEDS: TIOTROPIUM 2.5 MCG INHALER INHALATION SCH (21:26)
--- NOTE | 2021-09-02 22:59 | CONS ---
CONSULTATION DATE OF SERVICE: 09/02/2021. REASON FOR CONSULTATION: Advice regarding CAD, COPD, and multiple other medical issues, requested by Dr. Amos. HISTORY OF PRESENT ILLNESS: This 80-year-old woman with a past medical history of CAD, CHF, COPD, hypertension, hyperlipidemia, being followed by Dr. Shaw in the outpatient setting, was admitted after a ground level fall. The patient was having some cough and some respiratory difficulties. The patient was evaluated in the ER. The patient has been diagnosed with COVID-19 infection. The ER evaluation showed multiple rib fractures which involved 7 to 10 rib fractures on the right side. The patient also had a CT scan of the abdomen and pelvis which showed evidence of some lower lobe pneumonia. Otherwise, some diverticulosis was noted. abdominal aortic was noted at 3.8 cm. Rib fractures 9 to 11 were also noted. A chest x-ray was also done which I personally reviewed. It showed lower lobe changes. The patient is complaining of severe pain. The patient is mildly confused. There is no history of any fever, rigor or chills at this time. PAST MEDICAL HISTORY: History of CAD, COPD, hypertension, hyperlipidemia, history of AICD, bladder surgery. MEDICATIONS: Home medications are Bactrim DS, Aldactone, Zocor, K-Dur, multivitamins, lopressor, lactobacillus. Doses and other medications are reviewed. ALLERGIES: NONE. FAMILY HISTORY: No history of heart disease or strokes in the family. SOCIAL HISTORY: Previous history of smoking. No history of alcohol intake. REVIEW OF SYSTEMS: CARDIOVASCULAR SYSTEM: No angina, palpitations. RESPIRATORY SYSTEM: As mentioned earlier. GI: As mentioned earlier. : No dysuria. NERVOUS SYSTEM: No numbness, weakness. ALLERGY/IMMUNOLOGY: No asthma or hay fever. MUSCULOSKELETAL: As mentioned earlier. HEMATOLOGY/ONCOLOGY: No history of anemia. ENDOCRINE: As mentioned earlier. CONSTITUTIONAL: As mentioned earlier. DERMATOLOGY: Negative. RHEUMATOLOGY: Negative. PSYCHIATRY: As mentioned earlier. PHYSICAL EXAMINATION: Patient alert and oriented x3. Pulse 92, blood pressure 144/61, respiration 17, temperature 98.6, pulse ox 94% on 5 L. HEENT: Conjunctivae normal. NECK: No jugular venous distention. CARDIOVASCULAR: S1, S2 muffled. RESPIRATION: Breath sounds diminished at the bases. A few scattered rhonchi. ABDOMEN: Soft, nontender. LEGS: No edema. No swelling. NERVOUS SYSTEM: No focal deficit. LABS: WBC 5.3, hemoglobin 11.4. UA shows possible hematuria and possible UTI. ASSESSMENT: 1. Fall and right rib fractures, sixth to tenth ribs posteriorly on the right side with severe pain. 2. Change in mental status, acute metabolic encephalopathy. 3. Possible acute urinary tract infection with sepsis. 4. Acute COVID-19 infection with bilateral interstitial lower lobe pneumonia and acute hypoxic respiratory failure. 5. History of coronary artery disease. 6. History of congestive heart failure. 7. History of chronic obstructive pulmonary disease. 8. Hypertension. 9. Hyperlipidemia. 10.History of myocardial infarction. 11.History of degenerative joint disease. 12.History of rheumatic fever. 13.History of abdominal aortic aneurysm, 3.8 cm. 14.History of AICD. 15.History of bladder surgery. 16.History of cholecystectomy. 17.History of coronary artery disease, stent. 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 19.Anxiety, depression. 20.History of nicotine dependence. 21.Mild protein-calorie malnutrition with body mass index of 21.9. 22.FULL CODE. RECOMMENDATIONS AND DISCUSSION: In this 80-year-old woman who presented with multiple complex medical issues, we will monitor the patient closely, provide symptomatic treatment, pain management. The patient is on empiric antibiotics. I would recommend continuing the antibiotics and obtain cultures. Bronchodilators. Incentive spirometry. PT/OT evaluation. Resume the home medications. DVT prophylaxis. Prognosis guarded. Usual COVID-19 medications. Further recommendations to follow. Also recommend a D-dimer. MMODL / IJN: [id number] / ANITA
[2021-09-02] MEDS ORDERED: GABAPENTIN 100 MG CAP ONE (23:59)
[2021-09-02] MEDS ORDERED: SERTRALINE 25 MG TAB ONE (23:59)
[2021-09-02] MEDS ORDERED: EZETIMIBE 10 MG TAB ONE (23:59)
[2021-09-02] MEDS ORDERED: METOPROLOL TARTRATE 25 MG TAB ONE (23:59)
[2021-09-02] MEDS ORDERED: ATORVASTATIN 20 MG TAB ONE (23:59)
[2021-09-03] MEDS: KETOROLAC 15 MG/ML 1 ML VIAL IVP PRN ×2 (03:42→10:13)
[2021-09-03] MEDS ORDERED: BENZOCAINE/MENTHOL LOZENG 1 EACH LOZENGE MUCOUS MEM PRN (04:13)
[2021-09-03] MEDS: guaiFENesin SYRUP 100MG/5ML 200 MG/10 ML CUP PO PRN ×2 (05:03→22:17)
[2021-09-03] MEDS: SERTRALINE 25 MG TAB PO SCH ×2 (05:08→20:08)
[2021-09-03] MEDS: METOPROLOL TARTRATE 25 MG TAB PO SCH ×3 (05:08→20:08)
[2021-09-03] MEDS: EZETIMIBE 10 MG TAB PO SCH ×2 (05:08→20:08)
[2021-09-03] MEDS: GABAPENTIN 100 MG CAP PO SCH ×3 (05:08→20:09)
[2021-09-03] MEDS: ATORVASTATIN 20 MG TAB PO SCH ×2 (05:08→20:08)
[2021-09-03] MEDS: SODIUM CHLORIDE 0.9% 1,000 ML IV SCH ×2 (05:12→16:18)
[2021-09-03] MEDS ORDERED: NON FORMULARY DRUG (Fluticasone Propion/Salmeterol [Wixela 250-50 Inhub] 1 EACH Blst.W.Dev INHALATION SCH (08:00)
[2021-09-03] MEDS ORDERED: TIOTROPIUM 2.5 MCG INHALER INHALATION SCH (08:00)
[2021-09-03] MEDS: ALBUTEROL HFA INHALER INHALATION SCH ×4 (08:49→20:08)
[2021-09-03] MEDS: SYMBICORT 160-4.5 MCG INHALER INHALATION SCH ×2 (08:49→20:08)
[2021-09-03] MEDS: ENOXAPARIN 40 MG/0.4 ML SYRINGE SQ SCH (08:50)
[2021-09-03] MEDS: CYANOCOBALAMIN 500 MCG TAB PO SCH (08:51)
[2021-09-03] MEDS: POTASSIUM CHLORIDE ER 20 MEQ TAB.ER PO SCH (08:51)
[2021-09-03] MEDS: MULTIVITAMINS, THERA 1 EACH TAB PO SCH (08:51)
[2021-09-03] MEDS: PANTOPRAZOLE 40 MG TABLET PO SCH (08:51)
[2021-09-03] MEDS: LACTOBACILLUS ACIDOPH & BULGAR 1 EACH PACKET PO SCH (08:51)
[2021-09-03] MEDS: CHOLECALCIFEROL 25 MCG (1000 IU) TABLET PO SCH (08:51)
[2021-09-03] MEDS: lisinopriL 5 MG TAB PO SCH (08:52)
[2021-09-03] MEDS: ASCORBIC ACID 500 MG TAB PO SCH (08:52)
[2021-09-03] MEDS: FUROSEMIDE 40 MG TAB PO SCH (08:52)
[2021-09-03] MEDS: SPIRONOLACTONE 25 MG TAB PO SCH (08:52)
[2021-09-03] MEDS ORDERED: NON FORMULARY DRUG (Omeprazole [Omeprazole] 20 MG Capsule) PO SCH (09:00)
[2021-09-03] MEDS ORDERED: MEGARED PO SCH (09:00)
[2021-09-03 09:45] LABS: Basophils # (A) 0.02 X 10*3/uL (0.00-0.10); Basophils % (A) 0.2 %; Eosinophils % (A) 2.4 %; HCT 29.9 % (37.2-46.3); HGB 9.6 g/dL (12.0-15.0); Lymphocytes # (A) 0.83 X 10*3/uL (0.90-5.00); Lymphocytes % (A) 9.9 %; MCH 31.7 pg (27.0-32.0); MCHC 32.1 g/dL (32.0-37.0); MCV 98.7 fL (80.0-97.0); Mean Platelet Volume 10.3 fL (9.5-12.2); Monocytes # (A) 0.66 X 10*3/uL (0.20-1.00); Monocytes % (A) 7.9 %; Neutrophils # (A) 6.64 X 10*3/uL (1.80-7.70); Platelet Count 164 X 10*3/uL (140-440); RBC 3.03 X 10*6/uL (4.10-5.20); RDW 14.1 % (11.5-14.5)
[2021-09-03] MEDS: HYDROcodone/APAP 5-325MG 1 EACH TAB PO PRN ×2 (10:12→22:17)
[2021-09-03 10:40] LABS: African American GFR (CKD) 91.2 (60.0-200.0); Albumin 3.5 g/dL (3.8-4.9); Albumin/Globulin Ratio 1.59 (1.60-3.17); Anion Gap 10.9 mmol/L (4.00-12.00); BUN/Creat Ratio 21.26 Ratio (12.00-20.00); Blood Urea Nitrogen 15.2 mg/dL (9.0-27.0); Calcium 8.4 mg/dL (8.7-10.3); Carbon Dioxide 21.9 mmol/L (21.6-31.8); Globulin 2.2 g/dL (1.6-3.3); Non-African American GFR(CKD) 78.7 (60.0-200.0); Potassium 4.3 mmol/L (3.5-5.5); Total Bilirubin 0.3 mg/dL (0.30-1.20); Total Protein 5.7 g/dL (6.2-8.2)
--- NOTE | 2021-09-03 12:25 | P.PN ---
Subjective Progress Note Date: 09/03/21 The patient is seen on rounds, still has some pain With coughing and moving. Denies any abdominal pain Objective - Vital Signs Vital signs: Vital Signs Temp 98.6 F 09/03/21 09:32 Pulse 89 09/03/21 09:32 Resp 18 09/03/21 09:32 BP 150/49 09/03/21 09:32 Pulse Ox 90 L 09/03/21 09:32 Intake & Output 09/02/21 09/03/21 09/03/21 18:59 06:59 18:59 Other: Voiding Method Bedpan Diaper Diaper External Catheter External Catheter # Voids 1 3 - Constitutional General appearance: Present: cooperative, no acute distress - Respiratory Respiratory: bilateral: CTA, rhonchi - Labs CBC & Chem 7: 09/03/21 05:49 09/03/21 05:49 Labs: Abnormal Lab Results - Last 24 Hours (Table) 09/02/21 09/03/21 09/03/21 Range/Units 21:46 05:49 05:49 RBC 3.03 L (4.10-5.20) X 10*6/uL Hgb 9.6 L (12.0-15.0) g/dL Hct 29.9 L (37.2-46.3) % MCV 98.7 H (80.0-97.0) fL Immature Gran # 0.05 H (0.00-0.04) X 10*3/uL Lymphocytes # 0.83 L (0.90-5.00) X 10*3/uL D-Dimer 2.89 H (<0.60) mg/L FEU BUN/Creatinine Ratio 21.26 H (12.00-20.00) Ratio Calcium 8.4 L (8.7-10.3) mg/dL AST 43 H (13-35) U/L Total Protein 5.7 L (6.2-8.2) g/dL Albumin 3.5 L (3.8-4.9) g/dL Albumin/Globulin Ratio 1.59 L (1.60-3.17) g/dL Microbiology - Last 24 Hours (Table) 09/01/21 06:59 Urine Culture - Final Urine,Voided Assessment and Plan (1) Chest pain Current Visit: Yes Status: Acute Code(s): R07.9 - CHEST PAIN, UNSPECIFIED SNOMED Code(s): 77643102 (2) COVID-19 Current Visit: Yes Status: Acute Code(s): U07.1 - COVID-19 SNOMED Code(s): 053707844 (3) Fall Current Visit: Yes Status: Acute Code(s): W19.XXXA - UNSPECIFIED FALL, INITIAL ENCOUNTER SNOMED Code(s): 8891774 (4) Multiple rib fractures Current Visit: Yes Status: Acute Code(s): S22.49XA - MULTIPLE FRACTURES OF RIBS, UNSP SIDE, INIT FOR CLOS FX SNOMED Code(s): 4087300 Plan: Patient is currently nonsurgical. I discussed the case with Dr. Bhatia who will accept her for continued medical management. If anything changes with her condition would be happy to see her again
[2021-09-03] MEDS: TIOTROPIUM 2.5 MCG INHALER INHALATION SCH (12:34)
--- NOTE | 2021-09-03 15:11 | P.PN ---
Subjective Progress Note Date: 09/03/21 Principal diagnosis: Status post trauma with multiple right rib fractures. Pulmonary/critical care consult dated 09/02/2021. 80-year-old female, presents to the emergency department, brought in by EMS, secondary to a fall. There was no injury to the head or facial area, and no loss of consciousness. The patient injured her right chest area. She apparently was found to have multiple rib fractures on the right side. Also, because of weakness over the last month or so, she was tested and found positive for coronavirus. She denies any fever or chills. She is short of breath only because of the pain on taking a deep breath from the multiple right-sided rib fractures. She denies any left-sided chest pain. There is no nausea, vomiting, diarrhea, or abdominal pain. She denies coughing up any phlegm. She has a history of CAD, heart failure, hyperlipidemia, hypertension, myocardial infarction, rheumatic fever, abdominal aortic aneurysm, peripheral artery disease, and multiple surgeries, most notably heart catheterization, stent placement, and AICD placement. White count is 5.3, hemoglobin 11.4, hematocrit 33.3, and platelet count 195,000. Sodium, potassium, chloride, CO2, anion gap are all normal. BUN and creatinine were 30 and 0.86. Urine was cloudy, with 1+ protein, large amount of blood, positive for nitrite and leukocyte esterase, and with greater than 182 RBCs, 167 WBCs, and rare bacteria. X-rays of the chest show rib fractures on the right side, 7 through 10. Computed tomography scan of the abdomen shows diverticular disease, a mid abdominal aortic aneurysm, and posterior right rib fractures including 9, 10, and 11. A repeat chest x-ray today shows a small right-sided pleural effusion. Progress note dated 09/03/2021. 80-year-old female that we saw yesterday in consultation. He apparently fell at home, injuring her right chest. She had multiple right rib fractures. The patient also was found to be positive for coronavirus, but I believe that's an incidental finding and not the main reason why she's in the hospital. She mariah nues to complain of pain which he takes a deep breath. I told her that she needs to really focus on deep breathing, coughing, clearing of secretions, and using the incentive spirometer every hour. White count 8.4, hemoglobin 9.6, hematocrit 29.9, and platelet count 164,000. D-dimer was 2.89. Sodium, potassium, chloride, CO2, anion gap, BUN, and creatinine are all normal. The other lab values looked okay. Urine appears to show a urinary tract infection. X-rays, and prior scans were reviewed extensively yesterday. Objective - Vital Signs Vital signs: Vital Signs Temp 98.3 F 09/03/21 13:07 Pulse 72 09/03/21 13:07 Resp 17 09/03/21 13:07 BP 116/55 09/03/21 13:07 Pulse Ox 94 L 09/03/21 13:07 Intake & Output 09/02/21 09/03/21 09/03/21 18:59 06:59 18:59 Other: Voiding Method Bedpan Diaper Diaper External Catheter External Catheter # Voids 1 3 - Exam No acute distress, oriented 3. Saturations 94% on 10 L high flow nasal cannula. HEENT examination is grossly unremarkable. Neck supple. Full range of motion. No adenopathy thyromegaly or neck vein distention. Cardiovascular examination reveals regular rhythm rate. S1-S2 normal. No S3 or S4. No discernible murmur noted. Heart rate 72 bpm. Heart sounds are distant. Lungs reveal diminished breath sounds on the right side. Scattered rhonchi are noted. The patient's not taking deep breaths because of the pain. No crackles or wheezes. Tenderness on palpation to the right chest area. Abdomen soft bowel sounds are heard. No masses or tenderness. Extremities are intact. No cyanosis clubbing or edema. Skin is without rash or lesion. Neurologic examination is brief but nonfocal. - Labs CBC & Chem 7: 09/03/21 05:49 09/03/21 05:49 Labs: Abnormal Lab Results - Last 24 Hours (Table) 09/02/21 09/03/21 09/03/21 Range/Units 21:46 05:49 05:49 RBC 3.03 L (4.10-5.20) X 10*6/uL Hgb 9.6 L (12.0-15.0) g/dL Hct 29.9 L (37.2-46.3) % MCV 98.7 H (80.0-97.0) fL Immature Gran # 0.05 H (0.00-0.04) X 10*3/uL Lymphocytes # 0.83 L (0.90-5.00) X 10*3/uL D-Dimer 2.89 H (<0.60) mg/L FEU BUN/Creatinine Ratio 21.26 H (12.00-20.00) Ratio Calcium 8.4 L (8.7-10.3) mg/dL AST 43 H (13-35) U/L Total Protein 5.7 L (6.2-8.2) g/dL Albumin 3.5 L (3.8-4.9) g/dL Albumin/Globulin Ratio 1.59 L (1.60-3.17) g/dL Microbiology - Last 24 Hours (Table) 09/01/21 06:59 Urine Culture - Final Urine,Voided Assessment and Plan Assessment: Status post fall, with multiple right-sided rib fractures. Positive testing for coronavirus, without significant coronavirus symptoms and/or pneumonia. Acute urinary tract infection. History of coronary artery disease/myocardial infarction. History of CHF. History of COPD, from previous heavy tobacco use. History of hyperlipidemia. History of hypertension. History of osteoarthritis. History of rheumatic fever. Status post AICD placement. Previous PCI with stent placement. Plan: Plan dated 09/02/2021. Currently, the patient's main issue is pain in the right chest on deep inspiration. We recommend deep breathing, coughing, and clearing of secretions. We also recommend the incentive spirometry to be used hourly. In addition, the patient will be seen by anesthesia, and some consideration should be given to placing an epidural catheter for pain control. The patient should receive antibiotic for a clear-cut urinary tract infection. A follow-up chest x-ray from today, showed a small right-sided pleural effusion. We will continue to follow and make recommendations where appropriate. Plan dated 09/03/2021. The patient continues on appropriate medications. She is getting Ancef for her urinary tract infection. She's also getting both albuterol inhaler, and Symbicort inhaler. We will continue to follow make recommendations were appropriate. Overall prognosis remains guarded. Again, she has to really focus on deep breathing, coughing, clearing of secretions, elevated mature. Prognosis is guarded. Time with Patient: Less than 30
--- NOTE | 2021-09-03 17:41 | PN ---
PROGRESS NOTE DATE OF SERVICE: 09/03/2021 HISTORY OF PRESENT ILLNESS: This 80-year-old woman with a past medical history of multiple medical problems was admitted with a fall and rib pain. The D-dimer is elevated at 2.89. The patient also has a history of COVID, and the patient has some features of hypoxia, also. No chest pain. No palpitations. No fever. Past medical history reviewed. REVIEW OF SYSTEMS: CARDIOVASCULAR: No angina, palpitations. RESPIRATORY SYSTEM: As mentioned earlier. GI: As mentioned earlier. : No dysuria. NERVOUS SYSTEM: No numbness, weakness. CURRENT MEDICATIONS: Reviewed. They include Tylenol, [place], Ventolin, DuoNeb, Xanax, vitamin C, Lipitor. Doses and other medications are reviewed. PHYSICAL EXAMINATION: Patient is alert, oriented x2. Pulse 89, blood pressure 140/59, respiration 18, temperature 98.6, pulse ox 98% on high-flow oxygen. HEENT: Conjunctivae normal. NECK: No jugular venous distention. CARDIOVASCULAR: S1, S2 muffled. RESPIRATION: Breath sounds diminished at the bases. Scattered rhonchi. ABDOMEN: Soft, nontender. LEGS: No edema. No swelling. NERVOUS SYSTEM: No focal deficit. LABS: WBC 8.5, hemoglobin 9.6. Other labs are noted. ASSESSMENT: 1. Fall and multiple rib fractures, 6 to 9, posteriorly on the right side with severe pain. 2. Change in mental status, acute metabolic encephalopathy. 3. Possible acute COVID-19 infection with bilateral interstitial pneumonia with acute hypoxic respiratory failure. 4. Possible acute urinary tract infection with sepsis. 5. History of coronary artery disease. 6. History of congestive heart failure. 7. History of chronic obstructive pulmonary disease. 8. Hypertension. 9. Hyperlipidemia. 10.History of myocardial infarction. 11.History of degenerative joint disease. 12.History of rheumatic fever. 13.History of abdominal aortic aneurysm 3.8 cm. 14.History AICD. 15.History of bladder surgery. 16.History of cholecystectomy. 17.History of coronary artery disease, stent. 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 19.Anxiety, depression. 20.History of nicotine dependence. 21.Mild protein-calorie malnutrition with body mass index of 21.9. 22.FULL CODE. RECOMMENDATIONS AND DISCUSSION: I recommend to continue current medications, continue with symptomatic treatment. I would also recommend a portable chest x-ray. The most recent chest x-ray which was done yesterday was reviewed; it showed diffuse lesions. I would also recommend a CT angio of the chest to rule out the possibility of pulmonary embolism. Closely follow with Pulmonary and Surgery. Guarded prognosis. Further recommendations to follow. MMODL / IJN: [id number] /
[2021-09-03] MEDS: HYDROmorphone 0.5 MG/0.5 ML SYRINGE IVP PRN (19:20)
--- NOTE | 2021-09-03 22:11 | CT ---
EXAMINATION TYPE: CT angio chest DATE OF EXAM: 09/03/2021 COMPARISON: August 19, 2021 HISTORY: SOB, +covid, PE CT DLP: 255.5 mGycm Automated exposure control for dose reduction was used. CONTRAST: Performed with IV Contrast, patient injected with 70cc mL of Isovue 370. Images obtained from the thoracic inlet to the diaphragm with IV contrast. There are 3-D post process ed images. There is airspace consolidation and atelectasis right lower lobe. There is right pleural effusion. He art is moderately enlarged. There is no pericardial effusion. There is no evidence of filling defect in the pulmonary arteries. Thoracic aorta is atheromatous. There is no dissection. Ascending aorta me asures 3.8 cm. There is some mild airspace infiltrate posterior segment right upper lobe. There is some spurring in the thoracic spine. There is no compression fracture. There are sternal wir es. There are calcified splenic granulomata. IMPRESSION: No evidence of pulmonary embolism. Cardiomegaly with extensive right lower lobe consolidation and atelectasis. There is mild atelectasis also left lower lobe. Mild right upper lobe pneumonia. The extensive lung disease is essentially new compared to last exam.
--- NOTE | 2021-09-04 00:21 | US ---
EXAMINATION TYPE: US venous doppler duplex LE BI DATE OF EXAM: 09/03/2021 10:57 PM COMPARISON: NONE CLINICAL HISTORY: high ddimer. SIDE PERFORMED: TECHNIQUE: The lower extremity deep venous system is examined utilizing real time linear array sonog jazmine with graded compression, doppler sonography and color-flow sonography. VESSELS IMAGED: Common Femoral Vein Deep Femoral Vein Greater Saphenous Vein * Femoral Vein Popliteal Vein Small Saphenous Vein * Proximal Calf Veins (* superficial vessels) Right Leg: Negative for DVT Left Leg: Negative for DVT Technically difficult due to heavily calcified arteries. IMPRESSION: No sign of deep vein thrombosis in both legs.
[2021-09-04] MEDS: HYDROmorphone 0.5 MG/0.5 ML SYRINGE IVP PRN ×2 (05:22→22:04)
[2021-09-04] MEDS: guaiFENesin SYRUP 100MG/5ML 200 MG/10 ML CUP PO PRN ×2 (05:23→20:43)
[2021-09-04] MEDS: TIOTROPIUM 2.5 MCG INHALER INHALATION SCH (08:04)
[2021-09-04] MEDS: SYMBICORT 160-4.5 MCG INHALER INHALATION SCH ×2 (08:04→20:44)
[2021-09-04] MEDS: ALBUTEROL HFA INHALER INHALATION SCH ×4 (08:04→20:44)
[2021-09-04 09:09] LABS: Basophils # (A) 0.02 X 10*3/uL (0.00-0.10); Basophils % (A) 0.2 %; Eosinophils # (A) 0.12 X 10*3/uL (0.04-0.35); Eosinophils % (A) 1.5 %; HCT 29.3 % (37.2-46.3); HGB 9.5 g/dL (12.0-15.0); Lymphocytes # (A) 0.58 X 10*3/uL (0.90-5.00); Lymphocytes % (A) 7.2 %; MCH 31.4 pg (27.0-32.0); MCHC 32.4 g/dL (32.0-37.0); MCV 96.7 fL (80.0-97.0); Mean Platelet Volume 10.2 fL (9.5-12.2); Monocytes # (A) 0.67 X 10*3/uL (0.20-1.00); Monocytes % (A) 8.4 %; Neutrophils # (A) 6.59 X 10*3/uL (1.80-7.70); Neutrophils % (A) 82.3 %; Platelet Count 197 X 10*3/uL (140-440); RBC 3.03 X 10*6/uL (4.10-5.20); RDW 13.9 % (11.5-14.5); WBC 8.01 X 10*3/uL (4.50-10.00)
[2021-09-04] MEDS: HYDROcodone/APAP 5-325MG 1 EACH TAB PO PRN ×2 (09:17→20:44)
[2021-09-04] MEDS: LACTOBACILLUS ACIDOPH & BULGAR 1 EACH PACKET PO SCH (09:17)
[2021-09-04] MEDS: CYANOCOBALAMIN 500 MCG TAB PO SCH (09:18)
[2021-09-04] MEDS: GABAPENTIN 100 MG CAP PO SCH ×2 (09:18→20:45)
[2021-09-04] MEDS: ASCORBIC ACID 500 MG TAB PO SCH (09:18)
[2021-09-04] MEDS: SPIRONOLACTONE 25 MG TAB PO SCH (09:18)
[2021-09-04] MEDS: FUROSEMIDE 40 MG TAB PO SCH (09:18)
[2021-09-04] MEDS: ENOXAPARIN 40 MG/0.4 ML SYRINGE SQ SCH (09:18)
[2021-09-04] MEDS: CHOLECALCIFEROL 25 MCG (1000 IU) TABLET PO SCH (09:18)
[2021-09-04] MEDS: POTASSIUM CHLORIDE ER 20 MEQ TAB.ER PO SCH (09:18)
[2021-09-04] MEDS: MULTIVITAMINS, THERA 1 EACH TAB PO SCH (09:18)
[2021-09-04] MEDS: SODIUM CHLORIDE 0.9% 1,000 ML IV SCH ×2 (09:18→18:05)
[2021-09-04] MEDS: lisinopriL 5 MG TAB PO SCH (09:18)
[2021-09-04] MEDS: METOPROLOL TARTRATE 25 MG TAB PO SCH ×2 (09:18→20:43)
[2021-09-04] MEDS: PANTOPRAZOLE 40 MG TABLET PO SCH (09:18)
[2021-09-04 09:47] LABS: African American GFR (CKD) 98.4 (60.0-200.0); Albumin 3.4 g/dL (3.8-4.9); Albumin/Globulin Ratio 1.48 (1.60-3.17); Anion Gap 10.7 mmol/L (4.00-12.00); BUN/Creat Ratio 21.5 Ratio (12.00-20.00); Blood Urea Nitrogen 12.9 mg/dL (9.0-27.0); Calcium 8.2 mg/dL (8.7-10.3); Carbon Dioxide 22.3 mmol/L (21.6-31.8); Globulin 2.3 g/dL (1.6-3.3); Non-African American GFR(CKD) 84.9 (60.0-200.0); Potassium 4.2 mmol/L (3.5-5.5); Total Bilirubin 0.4 mg/dL (0.30-1.20); Total Protein 5.7 g/dL (6.2-8.2)
--- NOTE | 2021-09-04 12:53 | P.PN ---
Subjective Progress Note Date: 09/04/21 80-year-old female, presents to the emergency department, brought in by EMS, secondary to a fall. There was no injury to the head or facial area, and no loss of consciousness. The patient injured her right chest area. She apparently was found to have multiple rib fractures on the right side. Also, be cause of weakness over the last month or so, she was tested and found positive for coronavirus. on today's evaluation of 09/04/2021, the patient is sitting up on a chair on 15 L of oxygen by nasal cannula. The patient has no significant chest pain. The patient has adequate pain control with Dilaudid. Anesthesia was consulted and there was a consideration for insertion of a epidural catheter and this was not done ultimately. The patient needs to work on his incentive spirometer more aggressively. I reviewed the films. I reviewed the chest x-ray. I reviewed the CAT scan of the chest. The patient has rib fractures in addition to consolidation of the right lower lobe and a small right-sided pleural effusion. The patient has posterior right-sided rib fractures involving the ninth and the 10th and 11th rib. No altered mentation. She has other comorbidities including coronary artery disease, congestion heart failure, hyperlipidemia and hypertension and previous history of myocardial infarction. She also has an abdominal aortic aneurysm, and peripheral vascular disease. She has a coronary stent in place and she has an AICD in place. Note that the patient was also tested positive for COVID-19. No clear indication of an underlying COVID-19 related pneumonia. This was probably the culprit for increased weakness and fall. She is on no Decadron for now. Objective - Vital Signs Vital signs: Vital Signs Temp 98.3 F 09/04/21 06:01 Pulse 80 09/04/21 06:01 Resp 23 09/04/21 06:01 BP 119/65 09/04/21 06:01 Pulse Ox 93 L 09/04/21 06:01 Intake & Output 09/03/21 09/04/21 09/04/21 18:59 06:59 18:59 Intake Total 650 Output Total 500 850 Balance -500 -200 Intake: Intake, IV Titration 650 Amount Sodium Chloride 0.9% 1, 600 000 ml @ 75 mls/hr IV . [id number] [facility] Rx#:[id number] ceFAZolin 1,000 mg In 50 Sodium Chloride 0.9% 50 ml @ 100 mls/hr IVPB Q8HR [facility] Rx#:[id number] Output: Urine 500 850 Other: Voiding Method Diaper Diaper External Catheter External Catheter - Exam No acute distress, oriented 3. Saturations 94% on 15 L high flow nasal cannula. HEENT examination is grossly unremarkable. Neck supple. Full range of motion. No adenopathy thyromegaly or neck vein distention. Cardiac exam revealed the PMI to be normally situated and sized. The rhythm was regular and no extrasystoles were noted during several minutes of auscultation. The first and second heart sounds were normal and physiologic splitting of the second heart sound was noted. There were no murmurs, rubs, clicks, or gallops. Lungs reveal diminished breath sounds on the right side. Scattered rhonchi are noted. The patient's not taking deep breaths because of the pain. No crackles or wheezes. Tenderness on palpation to the right chest area. Abdomen soft bowel sounds are heard. No masses or tenderness. Extremities are intact. No cyanosis clubbing or edema. Skin is without rash or lesion. Neurologic examination is brief but nonfocal. - Labs CBC & Chem 7: 09/04/21 06:15 09/04/21 06:15 Labs: Abnormal Lab Results - Last 24 Hours (Table) 09/04/21 09/04/21 Range/Units 06:15 06:15 RBC 3.03 L (4.10-5.20) X 10*6/uL Hgb 9.5 L (12.0-15.0) g/dL Hct 29.3 L (37.2-46.3) % Lymphocytes # 0.58 L (0.90-5.00) X 10*3/uL BUN/Creatinine Ratio 21.50 H (12.00-20.00) Ratio Glucose 115 H (70-110) mg/dL Calcium 8.2 L (8.7-10.3) mg/dL AST 37 H (13-35) U/L Total Protein 5.7 L (6.2-8.2) g/dL Albumin 3.4 L (3.8-4.9) g/dL Albumin/Globulin Ratio 1.48 L (1.60-3.17) g/dL Microbiology - Last 24 Hours (Table) 09/02/21 19:46 Blood Culture - Preliminary Blood No Growth after 24 hours 09/02/21 13:10 Urine Culture - Preliminary Urine,Voided Assessment and Plan Plan: 1 Status post fall, with multiple right-sided rib fractures.the patient has fracture involving the ninth 10th and 11th rib on the right, posteriorly along with a right lower lobe consolidation, could be an area pulmonary contusion along with a small right-sided pleural effusion. Pain is under adequate control for now. 2 acute hypoxic respiratory failure secondary to above. COVID-19 is probably a minor contributing factor to this hypoxemia based on the CAT scan findings. 3 Positive testing for coronavirus, without significant coronavirus symptoms and/or pneumonia. 4 Acute urinary tract infection. 5 History of coronary artery disease/myocardial infarction. 6 History of CHF. 7History of COPD, from previous heavy tobacco use. 8 History of hyperlipidemia. 9hypertension. 10 osteoarthritis. 11 History of rheumatic fever. 12 Status post AICD placement. 13 coronary artery disease with Previous PCI with stent placement. Plan: keep the patient on 15 L and attempt to wean it down gradually to within a saturation above 90% Provide patient incentive spirometer Provide the patient adequate pain control with Dilaudid increase mobility resume all medications Repeat chest x-ray in the morning We'll continue to follow
[2021-09-04] MEDS: SERTRALINE 25 MG TAB PO SCH (20:44)
[2021-09-04] MEDS: EZETIMIBE 10 MG TAB PO SCH (20:45)
[2021-09-04] MEDS: ATORVASTATIN 20 MG TAB PO SCH (20:45)
--- NOTE | 2021-09-05 04:20 | P.PN ---
Subjective Progress Note Date: 09/04/21 This is a 80-year-old female who was recently admitted with falls and multiple rib fractures on the right and also history of covid. Patient has been vaccinated and did receive the antibodies. Patient with continued shortness of breath and maintained on 15L HF via NC with pulmonary and general surgery f ollowing. Patient is weak and will have PT evaluate the patient. Patient with continued right rib cage pain as well. CT angio was done and negative for PE and showing cardiomegaly with extensive right lower lobe consolidation and atelectasis as well as left lower lobe with mild right upper lobe pneumonia and extensive lung disease felt to be new compared to previous exam. Review of systems: Constitutional: reports of fatigue, no reports of fever, or chills Cardiovascular: No reports of chest pain or palpitations Respiratory: reports continued shortness of breath GI: reports of nausea, no reports of vomiting, or diarrhea : No reports of dysuria or retention Neurovascular: reports of weakness Labs: White blood count is 8.01, hemoglobin is 9.5, platelets are 197, sodium is 139 with a potassium of 4.2, BUN is 12.9, creatinine is 0.6 All medications have been reviewed Active Medications Acetaminophen (Acetaminophen Tab 325 Mg Tab) 650 mg PO Q6HR PRN PRN Reason: Fever and/ or Pain Hydrocodone Bitart/Acetaminophen (Hydrocodone/Apap 5-325mg 1 Each Tab) 1 each PO Q6HR PRN PRN Reason: Pain Last Admin: 09/04/21 20:44 Dose: 1 each Documented by: Albuterol Sulfate (Albuterol Hfa Inhaler) 2 puff INHALATION RT-QID PRN PRN Reason: Shortness Of Breath Albuterol Sulfate (Albuterol Hfa Inhaler) 2 puff INHALATION RT-QID [facility]ERT Last Admin: 09/04/21 20:44 Dose: 2 puff Documented by: Albuterol/Ipratropium (Ipratropium-Albuterol 3 Ml Neb) 3 ml INHALATION RT-Q2H PRN PRN Reason: Shortness Of Breath Or Wheezing Alprazolam (Alprazolam 0.25 Mg Tab) 0.25 mg PO DAILY PRN PRN Reason: Anxiety Last Admin: 09/04/21 09:17 Dose: 0.25 mg Documented by: Ascorbic Acid (Ascorbic Acid 500 Mg Tab) 1,000 mg PO DAILY ROBERT Last Admin: 09/04/21 09:18 Dose: 1,000 mg Documented by: Atorvastatin Calcium (Atorvastatin 20 Mg Tab) 20 mg PO HS [facility] Last Admin: 09/04/21 20:45 Dose: 20 mg Documented by: Benzocaine/Menthol (Benzocaine/Menthol Lozeng 1 Each Lozenge) 1 each MUCOUS MEM Q4HR PRN PRN Reason: Cough Last Admin: 09/04/21 05:22 Dose: 1 each Documented by: Budesonide/Formoterol Fumarate (Symbicort 160-4.5 Mcg Inhaler) 2 puff INHALATION RT-BID [facility] Last Admin: 09/04/21 20:44 Dose: 2 puff Documented by: Cholecalciferol (Cholecalciferol 25 Mcg (1000 Iu) Tablet) 25 mcg PO DAILY [facility] Last Admin: 09/04/21 09:18 Dose: 25 mcg Documented by: Cyanocobalamin (Cyanocobalamin 500 Mcg Tab) 500 mcg PO DAILY [facility] Last Admin: 09/04/21 09:18 Dose: 500 mcg Documented by: Ezetimibe (Ezetimibe 10 Mg Tab) 10 mg PO HS [facility] Last Admin: 09/04/21 20:45 Dose: 10 mg Documented by: Enoxaparin Sodium (Enoxaparin 40 Mg/0.4 Ml Syringe) 40 mg SQ DAILY [facility] Last Admin: 09/04/21 09:18 Dose: 40 mg Documented by: Furosemide (Furosemide 40 Mg Tab) 40 mg PO DAILY [facility] Last Admin: 09/04/21 09:18 Dose: 40 mg Documented by: Gabapentin (Gabapentin 100 Mg Cap) 100 mg PO BID [facility] Last Admin: 09/04/21 20:45 Dose: 100 mg Documented by: Guaifenesin (Guaifenesin Syrup 100mg/5ml 200 Mg/10 Ml Cup) 200 mg PO Q6HR PRN PRN Reason: Cough Last Admin: 09/04/21 20:43 Dose: 200 mg Documented by: Hydromorphone HCl (Hydromorphone 0.5 Mg/0.5 Ml Syringe) 0.5 mg IVP Q3HR PRN PRN Reason: Pain Last Admin: 09/04/21 22:04 Dose: 0.5 mg Documented by: Sodium Chloride (Saline 0.9%) 1,000 mls @ 75 mls/hr IV .[id number] [facility] Last Admin: 09/04/21 18:05 Dose: 75 mls/hr Documented by: Cefazolin Sodium 1,000 mg/ (Sodium Chloride) 50 mls @ 100 mls/hr IVPB Q8HR [facility] Last Admin: 09/05/21 01:00 Dose: 100 mls/hr Documented by: Lactobacillus Acidoph/Bulgaricus (Lactobacillus Acidoph & Bulgar 1 Each Packet) 1 each PO DAILY [facility] Last Admin: 09/04/21 09:17 Dose: 1 each Documented by: Lisinopril (Lisinopril 5 Mg Tab) 5 mg PO DAILY [facility] Last Admin: 09/04/21 09:18 Dose: 5 mg Documented by: Metoprolol Tartrate (Metoprolol Tartrate 25 Mg Tab) 75 mg PO BID [facility] Last Admin: 09/04/21 20:43 Dose: 75 mg Documented by: Multivitamins (Multivitamins, Thera 1 Each Tab) 1 each PO DAILY [facility] Last Admin: 09/04/21 09:18 Dose: 1 each Documented by: Naloxone HCl (Naloxone 0.4 Mg/Ml 1 Ml Vial) 0.2 mg IV Q2M PRN PRN Reason: Opioid Reversal Ondansetron HCl (Ondansetron 4 Mg/2 Ml Vial) 4 mg IVP Q8H PRN PRN Reason: Nausea Last Admin: 09/03/21 10:09 Dose: 4 mg Documented by: Pantoprazole Sodium (Pantoprazole 40 Mg Tablet) 40 mg PO AC-BRKFST [facility] Last Admin: 09/04/21 09:18 Dose: 40 mg Documented by: Potassium Chloride (Potassium Chloride Er 20 Meq Tab.Er) 20 meq PO DAILY [facility] Last Admin: 09/04/21 09:18 Dose: 20 meq Documented by: Sertraline HCl (Sertraline 25 Mg Tab) 75 mg PO HS [facility] Last Admin: 09/04/21 20:44 Dose: 75 mg Documented by: Spironolactone (Spironolactone 25 Mg Tab) 25 mg PO DAILY [facility] Last Admin: 09/04/21 09:18 Dose: 25 mg Documented by: Tiotropium [place] (Tiotropium 2.5 Mcg Inhaler) 2 puff INHALATION RT-DAILY [facility] Last Admin: 09/04/21 08:04 Dose: 2 puff Documented by: Physical exam: Gen: This is a 80-year-old female awake, alert and oriented 3, thin built, ill- appearing HEENT: Head is atraumatic, normocephalic. Pupils equal, round. Sclerae is anicteric. NECK: Supple. No JVD. No lymphadenopathy. No thyromegaly. LUNGS: Diminished breath sounds bilaterally with some scattered rhonchi and crackles noted. No intercostal retractions. HEART: S1, S2 are muffled ABDOMEN: Soft. Bowel sounds are present. No masses. No tenderness. EXTREMITIES: No pedal edema. No calf tenderness. NEUROLOGICAL: Patient is awake, alert and oriented x3. Diffusely weak. Assessment: Follow multiple rib fractures, 6-9, posteriorly on the right side with severe pain Change in mental status, acute metabolic encephalopathy Possible acute COVID-19 infection with bilateral interstitial pneumonia with acute hypoxic respiratory failure Possible acute urinary tract infection with sepsis History of coronary artery disease History of congestive heart failure History of chronic obstructive pulmonary disease Hypertension Hyperlipidemia History of myocardial infarction History of degenerative joint disease history of rheumatic fever history of abdominal aortic aneurysm 3.8 cm History of AICD History of bladder surgery History of cholecystectomy history of coronary artery disease, stent history of mitral and aortic valve replacement with pig and bovine valves anxiety, depression history of nicotine dependence mild protein calorie malnutrition with a body mass index of 21.9 GI prophylaxis DVT prophylaxis Full code Plan: Recommend to continue with current medications, management, and symptomatic tr eatment. Pulmonary and general surgery following as patient was a fall with multiple rib fractures noted on the right and admitted as a trauma. Patient continues with right rib pain and maintained on 15L HF and continues with shortness of breath. Encouraged incentive spirometer use at the bedside at least 10 times every hour while awake. Will repeat chest xray in the am. Urine showing yeast species and awaiting repeat culture to finalize. Patient is maintained on cefazolin and will continue. Due to the multiple complex medical issues, prognosis is guarded. Will repeat labs in continue to monitor closely. Objective - Vital Signs Vital signs: Vital Signs Temp 98.3 F 09/04/21 06:01 Pulse 80 09/04/21 06:01 Resp 23 09/04/21 06:01 BP 119/65 09/04/21 06:01 Pulse Ox 93 L 09/04/21 06:01 Intake & Output 09/03/21 09/04/21 09/04/21 18:59 06:59 18:59 Intake Total 650 Output Total 500 850 Balance -500 -200 Intake: Intake, IV Titration 650 Amount Sodium Chloride 0.9% 1, 600 000 ml @ 75 mls/hr IV . [id number] [facility] Rx#:[id number] ceFAZolin 1,000 mg In 50 Sodium Chloride 0.9% 50 ml @ 100 mls/hr IVPB Q8HR [facility] Rx#:[id number] Output: Urine 500 850 Other: Voiding Method Diaper Diaper External Catheter External Catheter - Labs CBC & Chem 7: 09/04/21 06:15 09/04/21 06:15 Labs: Abnormal Lab Results - Last 24 Hours (Table) 09/03/21 09/04/21 09/04/21 Range/Units 05:49 06:15 06:15 RBC 3.03 L (4.10-5.20) X 10*6/uL Hgb 9.5 L (12.0-15.0) g/dL Hct 29.3 L (37.2-46.3) % Lymphocytes # 0.58 L (0.90-5.00) X 10*3/uL BUN/Creatinine Ratio 21.26 H 21.50 H (12.00-20.00) Ratio Glucose 115 H (70-110) mg/dL Calcium 8.4 L 8.2 L (8.7-10.3) mg/dL AST 43 H 37 H (13-35) U/L Total Protein 5.7 L 5.7 L (6.2-8.2) g/dL Albumin 3.5 L 3.4 L (3.8-4.9) g/dL Albumin/Globulin Ratio 1.59 L 1.48 L (1.60-3.17) g/dL Microbiology - Last 24 Hours (Table) 09/02/21 19:46 Blood Culture - Preliminary Blood No Growth after 24 hours 09/02/21 13:10 Urine Culture - Preliminary Urine,Voided
[2021-09-05] MEDS: HYDROmorphone 0.5 MG/0.5 ML SYRINGE IVP PRN ×3 (06:33→13:57)
[2021-09-05 07:19] VITALS: BP 117/48; PULSE 61; RESP 18; TEMP 97.7
[2021-09-05] MEDS: SODIUM CHLORIDE 0.9% 1,000 ML IV SCH (07:39)
[2021-09-05] MEDS: SPIRONOLACTONE 25 MG TAB PO SCH (07:40)
[2021-09-05] MEDS: lisinopriL 5 MG TAB PO SCH (07:40)
[2021-09-05] MEDS: METOPROLOL TARTRATE 25 MG TAB PO SCH (07:41)
[2021-09-05] MEDS: CYANOCOBALAMIN 500 MCG TAB PO SCH (07:46)
[2021-09-05] MEDS: POTASSIUM CHLORIDE ER 20 MEQ TAB.ER PO SCH (07:46)
[2021-09-05] MEDS: ASCORBIC ACID 500 MG TAB PO SCH (07:46)
[2021-09-05] MEDS: LACTOBACILLUS ACIDOPH & BULGAR 1 EACH PACKET PO SCH (07:46)
[2021-09-05] MEDS: FUROSEMIDE 40 MG TAB PO SCH (07:46)
[2021-09-05] MEDS: CHOLECALCIFEROL 25 MCG (1000 IU) TABLET PO SCH (07:47)
[2021-09-05] MEDS: PANTOPRAZOLE 40 MG TABLET PO SCH (07:47)
[2021-09-05] MEDS: ENOXAPARIN 40 MG/0.4 ML SYRINGE SQ SCH (07:47)
[2021-09-05] MEDS: MULTIVITAMINS, THERA 1 EACH TAB PO SCH (07:47)
[2021-09-05] MEDS: GABAPENTIN 100 MG CAP PO SCH (07:47)
[2021-09-05] MEDS: ALBUTEROL HFA INHALER INHALATION SCH ×2 (07:57→11:21)
[2021-09-05] MEDS: SYMBICORT 160-4.5 MCG INHALER INHALATION SCH (07:57)
[2021-09-05] MEDS: TIOTROPIUM 2.5 MCG INHALER INHALATION SCH (07:57)
[2021-09-05 08:20] LABS: Basophils % (A) 0 %; Eosinophils # (A) 0.1 k/uL (0-0.7); Eosinophils % (A) 1 %; HGB 10.8 gm/dL (11.4-16.0); Lymphocytes # (A) 0.7 k/uL (1.0-4.8); Lymphocytes % (A) 9 %; MCH 32.3 pg (25.0-35.0); MCHC 33.6 g/dL (31.0-37.0); MCV 96.2 fL (80.0-100.0); Mean Platelet Volume 7.6; Monocytes # (A) 0.5 k/uL (0-1.0); Monocytes % (A) 6 %; Neutrophils # (A) 6.9 k/uL (1.3-7.7); Neutrophils % (A) 82 %; Platelet Count 279 k/uL (150-450); Poikilocytosis Slight; RBC 3.33 m/uL (3.80-5.40); RDW 13.7 % (11.5-15.5); WBC 8.4 k/uL (3.8-10.6)
[2021-09-05 08:34] LABS: Potassium 3.9 mmol/L (3.5-5.1)
[2021-09-05 08:35] LABS: ALT 12 U/L (4-34); AST 42 U/L (14-36); African American GFR (CKD) >90 (>60 ml/min/1.73 sqM); Albumin 3.2 g/dL (3.5-5.0); Albumin/Globulin Ratio 1.1; Alkaline Phosphatase 55 U/L (38-126); Anion Gap 8 mmol/L; Blood Urea Nitrogen 17 mg/dL (7-17); Calcium 8.7 mg/dL (8.4-10.2); Carbon Dioxide 26 mmol/L (22-30); Chloride 105 mmol/L (98-107); Glucose 107 mg/dL (74-99); Non-African American GFR(CKD) 86 (>60 ml/min/1.73 sqM); Sodium 139 mmol/L (137-145); Total Bilirubin 0.7 mg/dL (0.2-1.3); Total Protein 6.2 g/dL (6.3-8.2)
--- NOTE | 2021-09-05 10:01 | XR ---
EXAMINATION TYPE: XR chest 1V portable DATE OF EXAM: 09/05/2021 COMPARISON: 09/02/2021 HISTORY: Pain TECHNIQUE: Single frontal view of the chest is obtained. FINDINGS: A rib deformities are noted involving lateral margin of the rib cage. Bilateral infiltrate and small effusion. Interstitial pattern with cardiomegaly, postoperative change and cardiac device. Diffuse osteopenia. No pneumothorax. IMPRESSION: 1. Bilateral lower lobe infiltrate and small effusion with underlying COPD. Mild central venous conge stion not excluded. 2. Rib deformities are stable.
--- NOTE | 2021-09-05 11:26 | P.DS ---
<Torri Aparicio - Last Filed: 09/05/21 11:16> Providers Expected date of discharge: 09/05/21 Hospital Course: Final diagnosis Follow multiple rib fractures, 6-9, posteriorly on the right side with severe pain Change in mental status, acute metabolic encephalopathy Possible acute COVID-19 infection with bilateral interstitial pneumonia with acute hypoxic respiratory failure Possible acute urinary tract infection with sepsis History of coronary artery disease History of congestive heart failure History of chronic obstructive pulmonary disease Hypertension Hyperlipidemia History of myocardial infarction History of degenerative joint disease history of rheumatic fever history of abdominal aortic aneurysm 3.8 cm History of AICD History of bladder surgery History of cholecystectomy history of coronary artery disease, stent 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 Patient will continue with [facility] hospice per patient and family request. Patient will follow-up with Dr. Roxie Shaw in the outpatient setting upon discharge. Total time taken is greater than 35 minutes. Hospital course This is a 80-year-old female who was recently admitted with falls and multiple rib fractures on the right and also history of covid. Patient has been vaccinated and did receive the antibodies. Patient with continued shortness of breath and maintained on 15L HF via NC with pulmonary and general surgery following. Patient is weak and will have PT evaluate the patient. Patient with continued right rib cage pain as well. CT angio was done and negative for PE and showing cardiomegaly with extensive right lower lobe consolidation and atelectasis as well as left lower lobe with mild right upper lobe pneumonia and extensive lung disease felt to be new compared to previous exam. 09/05/2021 Patient is seen and evaluated this morning continues to be lethargic although much more alert with both daughters at the bedside. Family has called [facility] hospice and arranging for hospice in the home and is adamant about discontinuing any further treatment and would like to go home today and [facility] hospice is at the bedside and arranging for this. Discussed with the patient and family in detail and length at the bedside about overall prognosis and going home would ultimately lead to passing away and family verbalized understanding of this and would like to proceed with [facility] hospice and discharge today. [facility] aware of patient being on 15 L high flow and making arrangements for this in the home setting. Currently no reports of chest pain, worsening shortness of breath, or palpitations. Patient is afebrile. No reports of nausea or vomiting and patient is tolerating diet. Patient will be discharged home today. Overall prognosis is extremely poor and guarded. Gen: This is a 80-year-old female awake, alert and oriented 3, thin built, ill- appearing HEENT: Head is atraumatic, normocephalic. Pupils equal, round. Sclerae is anicteric. NECK: Supple. No JVD. No lymphadenopathy. No thyromegaly. LUNGS: Diminished breath sounds bilaterally with some scattered rhonchi and crackles noted. No intercostal retractions. HEART: S1, S2 are muffled ABDOMEN: Soft. Bowel sounds are present. No masses. No tenderness. EXTREMITIES: No pedal edema. No calf tenderness. NEUROLOGICAL: Patient is awake, alert and oriented x3. Diffusely weak. Please refer to medication reconciliation sheet for a list of medications. Patient Condition at Discharge: Fair Plan - Discharge Summary Discharge Rx Participant: Yes New Discharge Prescriptions: New Budesonide-Formot 160-4.5 Mcg [Symbicort 160-4.5 Mcg Inhaler] 2 puff INHALATION RT-BID 30 Days #1 gm Tiotropium 2.5 Mcg/Puff [Spiriva Respimat 2.5 Mcg] 2 puff INHALATION RT-DAILY 30 Days #1 each Continue Simvastatin [Zocor] 40 mg PO HS Sertraline [Zoloft] 75 mg PO HS Metoprolol Tartrate [Lopressor] 75 mg PO BID Spironolactone [Aldactone] 25 mg PO DAILY Cyanocobalamin [Vitamin B-12] 500 mcg PO DAILY Albuterol Sulfate [Ventolin HFA] 2 puff INHALATION RT-QID PRN PRN Reason: Shortness Of Breath Gabapentin [Neurontin] 100 mg PO BID Fluticasone Propion/Salmeterol [Wixela 250-50 Inhub] 1 puff INHALATION RT-BID Ezetimibe [Zetia] 10 mg PO HS Multivitamins, Thera [Multivitamin (formulary)] 1 tab PO DAILY Ascorbic Acid [Vitamin C] 1,000 mg PO DAILY Furosemide [Lasix] 40 mg PO DAILY 30 Days #30 tab Lactobacillus Acidophilus [Florajen Acidophilus] 1 cap PO DAILY Potassium Chloride ER [K-Dur 20] 20 meq PO DAILY #30 tab Lisinopril [Prinivil] 5 mg PO DAILY #0 Rivaroxaban [Xarelto] 15 mg PO DAILY Methenamine Hippurate [Hiprex] 1 gm PO BID Albuterol Nebulized [Ventolin Nebulized] 2.5 mg INHALATION RT-Q6H PRN PRN Reason: Shortness Of Breath ALPRAZolam [Xanax] 0.25 mg PO DAILY PRN PRN Reason: Anxiety Megared 500mg 500 mg PO DAILY Acetaminophen Tab [Tylenol] 650 mg PO Q6HR PRN tab PRN Reason: Fever And/ Or Pain Omeprazole 20 mg PO DAILY Cholecalciferol [Vitamin D3 (25 Mcg = 1000 Iu)] 25 mcg PO DAILY Discontinued Sulfamethox-Tmp 800-160Mg [Bactrim DS 800-160 mg] 1 tab PO Q12HR Discharge Medication List Metoprolol Tartrate [Lopressor] 75 mg PO BID 07/31/17 [History] Sertraline [Zoloft] 75 mg PO HS 07/31/17 [History] Simvastatin [Zocor] 40 mg PO HS 07/31/17 [History] Spironolactone [Aldactone] 25 mg PO DAILY 08/13/17 [History] Cyanocobalamin [Vitamin B-12] 500 mcg PO DAILY 03/03/20 [History] Albuterol Sulfate [Ventolin HFA] 2 puff INHALATION RT-QID PRN 03/17/20 [History] Gabapentin [Neurontin] 100 mg PO BID 03/17/20 [History] ALPRAZolam [Xanax] 0.25 mg PO DAILY PRN 02/26/21 [History] Albuterol Nebulized [Ventolin Nebulized] 2.5 mg INHALATION RT-Q6H PRN 02/26/21 [History] Ascorbic Acid [Vitamin C] 1,000 mg PO DAILY 02/26/21 [History] Ezetimibe [Zetia] 10 mg PO HS 02/26/21 [History] Fluticasone Propion/Salmeterol [Wixela 250-50 Inhub] 1 puff INHALATION RT-BID 02/26/21 [History] Megared 500mg 500 mg PO DAILY 02/26/21 [History] Methenamine Hippurate [Hiprex] 1 gm PO BID 02/26/21 [History] Multivitamins, Thera [Multivitamin (formulary)] 1 tab PO DAILY 02/26/21 [History] Acetaminophen Tab [Tylenol] 650 mg PO Q6HR PRN tab 03/02/21 [Rx] Furosemide [Lasix] 40 mg PO DAILY 30 Days #30 tab 03/31/21 [Rx] Cholecalciferol [Vitamin D3 (25 Mcg = 1000 Iu)] 25 mcg PO DAILY 08/19/21 [History] Lactobacillus Acidophilus [Florajen Acidophilus] 1 cap PO DAILY 08/19/21 [History] Omeprazole 20 mg PO DAILY 08/19/21 [History] Lisinopril [Prinivil] 5 mg PO DAILY #0 08/20/21 [Rx] Potassium Chloride ER [K-Dur 20] 20 meq PO DAILY #30 tab 08/20/21 [Rx] Rivaroxaban [Xarelto] 15 mg PO DAILY 09/01/21 [History] Budesonide-Formot 160-4.5 Mcg [Symbicort 160-4.5 Mcg Inhaler] 2 puff INHALATION RT-BID 30 Days #1 gm 09/05/21 [Rx] Tiotropium 2.5 Mcg/Puff [Spiriva Respimat 2.5 Mcg] 2 puff INHALATION RT-DAILY 30 Days #1 each 09/05/21 [Rx] Follow up Appointment(s)/Referral(s): Roxie Shaw MD [Primary Care Provider] - 1-2 days Hospice,[facility] [NON-STAFF] - As Needed Activity/Diet/Wound Care/Special Instructions: Activity as tolerated Patient is going home with [facility] hospice Continue supplemental oxygen support Pain management per [facility] Follow-up with primary care provider on discharge Discharge Disposition: HOME WITH HOSPICE <Maxime Miller E - Last Filed: 09/05/21 21:44> Providers Date of admission: 09/02/21 10:22 Attending physician: Karyn Cuadra MD Consults: 09/01/21 10:33 Consult Physician Routine Consulting Provider: Harrison Mcrae Consult Reason/Comments: Multiple rib fractures, COVID-19 Do you want consulting provider notified?: Yes Consult Physician Routine Consulting Provider: Roxie Amos Consult Reason/Comments: Weakness, COVID-19, falls Do you want consulting provider notified?: Yes Consult to Anesthesia Routine Consulting Provider: Anesthesia,Services Consult Reason/Comments: Rib fractures, pain management Primary care physician: Roxie French Hospital Course: Attestation: I have discussed the plan and I have reviewed the notes with VETERINARY RADIOLOGIST Torri and I agree with it except was mentioned below Patient is seen and examined by me at bedside Given her multiple medical problems and severe hypoxia been on 50 L oxygen I discussed the case with the patient, daughter at bedside and they have already decided about hospice and cold hospice nurse was at bedside. I discussed with the patient and and ID of hospice to treat symptoms of the disease, and possible while in hospice as patient will not be treated for her disease, both patient and daughter were adamant to continue with hospice as patient wants to go home. They stated they know what hospice is as her last year while in hospice, hospice nurse Mary was at bedside and encouraging for patient to go for hospice as well. Discussed with staff. As per case reviewer Tresa oxygen will be delivered at home Hospice consult was called. The patient and family request. Prognosis is very poor
--- NOTE | 2021-09-05 14:58 | P.PN ---
Subjective Progress Note Date: 09/05/21 Principal diagnosis: Dyspnea, falls, right chest wall pain 80-year-old female, presents to the emergency department, brought in by EMS, secondary to a fall. There was no injury to the head or facial area, and no loss of consciousness. The patient injured her right chest area. She apparently was found to have multiple rib fractures on the right side. Also, because of weakness over the last month or so, she was tested and found positive for coronavirus. on today's evaluation of 09/04/2021, the patient is sitting up on a chair on 15 L of oxygen by nasal cannula. The patient has no significant chest pain. The patient has adequate pain control with Dilaudid. Anesthesia was consulted and there was a consideration for insertion of a epidural catheter and this was not done ultimately. The patient needs to work on his incentive spirometer more aggressively. I reviewed the films. I reviewed the chest x-ray. I reviewed the CAT scan of the chest. The patient has rib fractures in addition to consolidation of the right lower lobe and a small right-sided pleural effusion. The patient has posterior right-sided rib fractures involving the ninth and the 10th and 11th rib. No altered mentation. She has other comorbidities including coronary artery disease, congestion heart failure, hyperlipidemia and hypertension and previous history of myocardial infarction. She also has an abdominal aortic aneurysm, and peripheral vascular disease. She has a coronary stent in place and she has an AICD in place. Note that the patient was also tested positive for COVID-19. No clear indication of an underlying COVID-19 related pneumonia. This was probably the culprit for increased weakness and fall. She is on no Decadron for now. On 09/05/2021 patient seen in follow-up on medical surgical floor. She is awake and alert, she is oriented 3, her FiO2 is currently up at 15 L. She still having significant right-sided chest discomfort with any deep breathing or coughing. Patient has multiple rib fractures on the right related to recent history of fall. CT angiogram was negative for pulmonary embolism, and showed cardiomegaly with extensive right lower lobe consolidation and atelectasis as well as left lower lobe with the mild right upper lobe pneumonia. Patient has been getting pain medications, her FiO2 requirements have been increasing. She is lethargic on today's evaluation. Her chest x-ray today shows bilateral lower lobe infiltrate and small effusion with underlying COPD, there is mild central venous congestion. Right rib deformities are stable. The patient and the family collectively decided on hospice, and the family wants to take the patient home to her residence under the hospice care. Currently,[facility] is making arrangements for the patient to return home Objective - Vital Signs Vital signs: Vital Signs Temp 97.7 F 09/05/21 06:34 Pulse 61 09/05/21 06:34 Resp 18 09/05/21 06:34 BP 117/48 09/05/21 06:34 Pulse Ox 94 L 09/05/21 07:58 Intake & Output 09/04/21 09/05/21 09/05/21 18:59 06:59 18:59 Output Total 1200 1000 Balance -1200 -1000 Output: Urine 1200 1000 Other: Voiding Method External Catheter External Catheter External Catheter - Exam GENERAL EXAM: Alert, 80-year-old white female, currently on 15 L of oxygen, oriented 3, appears fatigued, but does not appear to be in any respiratory distress, comfortable in no apparent distress. HEAD: Normocephalic/atraumatic. EYES: Normal reaction of pupils, equal size. Conjunctiva pink, sclera white. NOSE: Clear with pink turbinates. THROAT: No erythema or exudates. NECK: No masses, no JVD, no thyroid enlargement, no adenopathy. CHEST: No chest wall deformity. Symmetrical expansion. Right chest wall discomfort due to recent history of falls, and multiple rib fractures on the right side LUNGS: Equal air entry with no shortness sounds at the bases, with some mild crackles CVS: Regular rate and rhythm, normal S1 and S2, no gallops, no murmurs, no rubs ABDOMEN: Soft, nontender. No hepatosplenomegaly, normal bowel sounds, no guarding or rigidity. EXTREMITIES: No clubbing, no edema, no cyanosis, 2+ pulses and upper and lower extremities. MUSCULOSKELETAL: Muscle strength and tone normal. SPINE: No scoliosis or deformity SKIN: No rashes CENTRAL NERVOUS SYSTEM: Alert and oriented -3. No focal deficits, tone is normal in all 4 extremities. PSYCHIATRIC: Alert and oriented -3. Appropriate affect. Intact judgment and insight. - Labs CBC & Chem 7: 09/05/21 08:06 09/05/21 08:06 Labs: Abnormal Lab Results - Last 24 Hours (Table) 09/05/21 09/05/21 Range/Units 08:06 08:06 RBC 3.33 L (3.80-5.40) m/uL Hgb 10.8 L (11.4-16.0) gm/dL Hct 32.0 L (34.0-46.0) % Lymphocytes # 0.7 L (1.0-4.8) k/uL Glucose 107 H (74-99) mg/dL AST 42 H (14-36) U/L Total Protein 6.2 L (6.3-8.2) g/dL Albumin 3.2 L (3.5-5.0) g/dL Microbiology - Last 24 Hours (Table) 09/02/21 19:46 Blood Culture - Preliminary Blood No Growth after 48 hours 09/02/21 13:10 Urine Culture - Preliminary Urine,Voided Yeast species Assessment and Plan Plan: 1 Status post fall, with multiple right-sided rib fractures.the patient has fracture involving the ninth 10th and 11th rib on the right, posteriorly along with a right lower lobe consolidation, could be an area pulmonary contusion along with a small right-sided pleural effusion. Pain is under adequate control for now. 2 acute hypoxic respiratory failure secondary to above. COVID-19 is probably a minor contributing factor to this hypoxemia based on the CAT scan findings. 3 Positive testing for coronavirus, without significant coronavirus symptoms and/or pneumonia. 4 Acute urinary tract infection. 5 History of coronary artery disease/myocardial infarction. 6 History of CHF. 7History of COPD, from previous heavy tobacco use. 8 History of hyperlipidemia. 9hypertension. 10 osteoarthritis. 11 History of rheumatic fever. 12 Status post AICD placement. 13 coronary artery disease with Previous PCI with stent placement. Plan: Patient is still on high flow oxygen currently at 15 L Patient has decided to go home with hospice Currently arrangements are underway for the patient to return home under hospice care Prognosis is poor Pulmonary service will sign off and follow on as-needed basis I performed a history & physical examination of the patient and discussed their management with my nurse practitioner, Mary Joyce. I reviewed the nurse practitioner's note and agree with the documented findings and plan of care. Lung sounds are positive for diminished breath sounds at the bases. The findings and the impression was discussed with the patient. I attest to the documentation by the nurse practitioner. Time with Patient: Less than 30
--- NOTE | 2021-09-06 11:34 | CDI ---
Documentation Clarification Form Date: 09/06/21 From: Laureen Chapa Admit Date: 09/02/2021 10:22:00 AM Patient Name: Kelli Rangel Visit Number: [id number] Discharge Date: 09/05/2021 02:35:00 PM ATTENTION: The Clinical Documentation Specialists (CDI) and [facility] Coding Staff appreciate your assistance in clarifying documentation. Please respond to the clarification below the line at the bottom and electronically sign. The CDI & [facility] Coding staff will review the response and follow-up if needed. Please note: Queries are made part of the Legal Health Record. If you have any questions, please contact the author of this message via ITS. Dr. Swartz E Sheet, Your patient has the documented diagnosis of unspecified heart failure in the ED Note, H&P, consults, PNs & DS. Additional information regarding the [type, acuity] of heart failure is requested. History/Risk Factors: HTN, PVD, COPD, CAD s/p CABG, stent & heart valve replacement, HLD Clinical Indicators: Respiratory exam: Present: chest wall tenderness. Absent: normal lung sounds bilaterally, respiratory distress, wheezes, rales, rhonchi, stridor Cardiovascular Exam: Present: regular rate, normal rhythm, normal heart sounds. Absent: systolic murmur, diastolic murmur, rubs, gallop, clicks. VS/Pulse OX: T 98.4, P 68, R 28, BP 124/55, 02 Sat 91 BNP: Not available 02/27/21 Echocardiogram Results: Overall left ventricular systolic function is severely impaired with, an EF between 25-30%. 09/02/21 Chest X Ray: Interval development of small right pleural effusion the remainder of the chest is stable. Treatment: Lasix 40 mg PO daily In your professional opinion, can you please clarify the [acuity and type] of CHF if known? [ ] Chronic Systolic Heart Failure (reduced EF) [ ] Chronic Diastolic Heart Failure (preserved EF) [ ] Chronic Systolic & Diastolic Heart Failure [ ] Other, please specify [ ] Unable to determine Unable to determine MTDD
--- NOTE | 2021-09-06 11:48 | CDI ---
Documentation Clarification Form Date: 09/06/21 From: Laureen Chapa Admit Date: 09/02/2021 10:22:00 AM Patient Name: Kelli Rangel Visit Number: [id number] Discharge Date: 09/05/2021 02:35:00 PM ATTENTION: The Clinical Documentation Specialists (CDI) and [facility] Coding Staff appreciate your assistance in clarifying documentation. Please respond to the clarification below the line at the bottom and electronically sign. The CDI & [facility] Coding staff will review the response and follow-up if needed. Please note: Queries are made part of the Legal Health Record. If you have any questions, please contact the author of this message via ITS. Dr. Swartz E Sheet, Possible sepsis is documented is documented in Dr Bhatia's consult his PNs and your PNs, but is not noted in subsequent documentation. Clarification is requested. History/Risk Factors: Multiple rib fractures, acute metabolic encephalopathy, COVID w pneumonia and acute hypoxic respiratory failure, HTN, PVD, COPD, CAD s/p CABG, stent & heart valve replacement, HLD Clinical Indicators: Possible UTI with sepsis. Urine: cloudy, urine protein 1+, blood large, nitrite positive, leukocyte esterase large, RBC >182, WBC 167 H VS/Pulse OX: T 98.4, P 68, R 28, BP 124/55, 02 Sat 91 Treatment: IV Cefazolin Please clarify if the sepsis is: [ ] Sepsis confirmed, remains under treatment and POA [ ] Sepsis ruled out [ ] Other condition, please specify [ ] Unable to determine no sepsis MTDD
== END 2021-09-05 14:35 | disposition hospice, home (50) | DRG 183 ==
LOC: EC 06:29 → 4SSUR 10:51 → OBSVTOIN 09-02 10:22
PROVIDERS: ADMIT Internal Medicine; ATTEND Internal Medicine
PROC: 5A0945A Assistance with Respiratory Ventilation, 24-96 Consecutive Hours, High Flow/Velocity Cannula (ICD-10-PCS; principal; 2021-09-02)
DX: S22.41XA Multiple fractures of ribs, right side, initial encounter for closed fracture (principal); U07.1 COVID-19; J96.01 Acute respiratory failure with hypoxia; J12.82 Pneumonia due to coronavirus disease 2019; G93.41 Metabolic encephalopathy; E44.1 Mild protein-calorie malnutrition; S27.321A Contusion of lung, unilateral, initial encounter; J44.0 Chronic obstructive pulmonary disease with (acute) lower respiratory infection; N39.0 Urinary tract infection, site not specified; I11.0 Hypertensive heart disease with heart failure; I50.9 Heart failure, unspecified; I73.9 Peripheral vascular disease, unspecified; I71.4 Abdominal aortic aneurysm, without rupture; Z66 Do not resuscitate; Z51.5 Encounter for palliative care; I25.10 Atherosclerotic heart disease of native coronary artery without angina pectoris; E78.5 Hyperlipidemia, unspecified; F41.9 Anxiety disorder, unspecified; F32.9 Major depressive disorder, single episode, unspecified; K57.90 Diverticulosis of intestine, part unspecified, without perforation or abscess without bleeding; I25.2 Old myocardial infarction; M19.90 Unspecified osteoarthritis, unspecified site; Z79.01 Long term (current) use of anticoagulants; Z68.21 Body mass index [BMI] 21.0-21.9, adult; Z79.899 Other long term (current) drug therapy; Z87.891 Personal history of nicotine dependence; Z86.19 Personal history of other infectious and parasitic diseases; Z95.810 Presence of automatic (implantable) cardiac defibrillator; Z90.49 Acquired absence of other specified parts of digestive tract; Z95.5 Presence of coronary angioplasty implant and graft; Z87.42 Personal history of other diseases of the female genital tract; Z87.448 Personal history of other diseases of urinary system; Z87.19 Personal history of other diseases of the digestive system; Z95.3 Presence of xenogenic heart valve; Z98.42 Cataract extraction status, left eye; Z98.41 Cataract extraction status, right eye; Z95.828 Presence of other vascular implants and grafts; Z90.710 Acquired absence of both cervix and uterus; Z87.2 Personal history of diseases of the skin and subcutaneous tissue; Z98.890 Other specified postprocedural states; W18.30XA Fall on same level, unspecified, initial encounter; Y92.009 Unspecified place in unspecified non-institutional (private) residence as the place of occurrence of the external cause; Z82.49 Family history of ischemic heart disease and other diseases of the circulatory system; Z83.6 Family history of other diseases of the respiratory system
CPT/HCPCS: 36415; 71045; 71275; 74177; 80053; 81001; 83735; 85025; 85379; 85610; 85730; 87040; 87086; 93970; 94640; 94760; 96361; 96375; 96376; 99285